=== PATIENT | male | born 1950 | race Caucasian/White ===

== ENCOUNTER 2019-09-08 20:22 | Inpatient (IN) | payer OTHER, MEDICARE, SELFPAY ==
[2019-09-08] VITALS (24 sets, daily range): BP systolic 121–174; BP diastolic 77–92; PULSE 87–100; RESP 13–27; TEMP 36.6; O2SAT 73–97; BMI 29.5
--- NOTE | 2019-09-08 20:25 | ED_ITS ---
Entered by Elisha Kunz, acting as scribe for Renata Sy HPI - Altered Mental Status General: Chief Complaint: Altered Mental Status Stated Complaint: ALTERED MENTAL STATUS Time Seen by Provider: 09/08/19 20:24 Source: patient Mode of arrival: ambulatory Limitations: no limitations History of Present Illness: HPI narrative: 69 yo m came to the er for altered mental status. Onset was a week ago. Ems states that he has been altered mental status for about a week. Pt had eye surgery on his rt eye today. 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, insulin dependent Glaucoma Hyperlipidemia Hypertension TIA (transient ischemic attack) Surgical History (Updated 09/09/19 @ 02:58 by Krysten Lopez MD) History of circumcision History of eye surgery Bilateral due to glaucoma Family History (Updated 09/09/19 @ 03:10 by Krysten Lopez MD) Denies family history of CAD (coronary artery disease) Social History (Updated 09/09/19 @ 03:11 by Krysten Lopez MD) Smoking and tobacco status: former smoker Alcohol intake: never Substance/Drug Use: never Household members: spouse and family Marital status: Physical Exam Const: COMMON NORMALS: no apparent distress, healthy appearing and well nourished EXAM LIMITATIONS: altered mental status and behavioral limitations (Patient talking bizarrely and not cooperative at all times.) GENERAL APPEARANCE: well kempt and well developed ORIENTATION/CONSCIOUSNESS: Yes awake, Yes oriented to person and Yes confused; not oriented to place and not oriented to time HENMT: COMMON NORMALS: normocephalic, head/scalp atraumatic, hearing grossly normal bilaterally, external ears normal, EAC's normal, external nose normal and moist oral mucous membranes HEAD & SCALP: normal to inspection, normocephalic and atraumatic FACE & SINUS: normal facial exam and face symmetric NOSE: external nose normal and nares normal EXTERNAL EAR: Yes external ears normal EXTERNAL AUDITORY CANAL: EAC's normal MOUTH: oral and palatal mucosa normal and tongue normal Eye: COMMON NORMALS: EOMs intact bilaterally GENERAL EYE: other (Right eye with severe macular purulent discharge from the orbit.) Neck/C-Spine: COMMON NORMALS: full ROM, no lymphadenopathy, supple, no meningeal signs and no JVD GENERAL: Yes normal visual inspection and Yes trachea midline CERVICAL SPINE: Yes cervical ROM normal Chest: COMMONS NORMALS: inspection of chest normal and palpation of chest normal Resp: COMMON NORMALS: normal respiratory effort, no retractions, no use of accessory muscles and clear to auscultation bilaterally EFFORT & INSPECTION: Yes able to speak in complete sentences AUSCULTATION: clear to auscultation bilaterally Cardio: COMMON NORMALS: no JVD, regular rate, regular rhythm, S1 normal heart sound, S2 normal heart sound, no gallops, no clicks, no murmurs and no rub JUGULAR VENOUS DISTENTION: no JVD RATE: regular rate RHYTHM: regular rhythm HEART SOUNDS: S1 normal and S2 normal GI: COMMON NORMALS: soft to palpation, non-tender, no hepatosplenomegaly and no masses INSPECTION: Yes normal to inspection PALPATION: Yes soft and Yes no hepatosplenomegaly : COMMON NORMALS: Yes no CVA tenderness BLADDER/KIDNEY EXAM: Yes no CVA tenderness Back/Pelvis: COMMON NORMALS: no CVA tenderness, thoracic and lumbar spine normal to inspection, no thoracic nor lumbar tenderness and thoraco-lumbar ROM normal Extremity: COMMON NORMALS: normal to inspection, full ROM, normal capillary refill, no joint enlargement, no clubbing, cyanosis or edema and no calf tenderness Neuro: COMMON NORMALS: CN's II-XII intact bilaterally, moves all extremities, no focal motor deficits and no sensory deficits noted SENSORIUM/ORIENTATION: Yes oriented to person, No oriented to place and No oriented to time MENINGEAL SIGNS: Yes no meningeal signs Psych: COMMON NORMALS: mental status grossly normal, thought process normal, cooperative, affect normal, speech normal and activity/motor behavior normal APPEARANCE: Yes well kempt SPEECH: Yes normal speech THOUGHT PROCESS: normal thought process Skin: COMMON NORMALS: no rashes or lesions noted, skin turgor normal, no jaundice, no petechiae and no mottling GENERAL SKIN EXAM: no rashes or lesions noted and turgor normal Course Vital Signs: Vital signs: Vital Signs Temperature 97.8 F 09/08/19 20:26 Pulse Rate 107 H 09/09/19 04:36 Respiratory Rate 14 09/09/19 04:36 Blood Pressure 180/98 09/09/19 04:36 Pulse Oximetry 93 09/09/19 02:03 MDM - Altered Mental Status MDM Narrative: Medical decision making narrative: The patient's altered mental status is improving but he still remains somewhat confused. He has positive troponins but they are decreasing and his EKGs do not show any sign of acute infarct. His head CT is normal. I do not see any evidence of meningitis. The case was reviewed at length with Drs. Goodman and Baldo, they will admit and consult respectively. Further care will be dictated by them on inpatient basis. The case was also reviewed with Dr. Bronson and he will see the patient in the hospital. Lab Data: Attestation: I reviewed the patient's lab results. Labs: Lab Results 09/08/19 09/08/19 09/08/19 Range/Units 20:30 20:44 20:53 WBC 11.4 H (4.0-10.0) 10^3/ uL RBC 4.31 (4.1-5.3) 10^6/u L Hgb 13.9 (11.7-16.6) g/dL Hct 41.0 L (42.0-52.0) % MCV 95.1 H (80-94) fL MCH 32.3 (28.0-34.0) pg MCHC 33.9 (30.0-36.0) g/dL RDW 12.3 (12.1-15.1) % Plt Count 250 (130-400) 10^3/c mm MPV 10.0 (7.4-10.4) fL Neut % (Auto) 88.7 % Lymph % (Auto) 6.1 % [place] % (Auto) 4.1 % Eos % (Auto) 0.0 % Baso % (Auto) 0.3 % Neut # (Auto) 10.1 H (1.8-7.7) 10^3/u L Lymph # (Auto) 0.7 L (0.8-4.8) 10^3/u L [place] # (Auto) 0.5 (0.2-0.9) 10^3/u L Eos # (Auto) 0.0 (0.0-0.8) 10^3/u L Baso # (Auto) 0.0 (0.0-0.1) 10^3/u L Nucleated RBC % (a uto) 0 % Nucleated RBCs # 0.0 /100WBC PT (10.5-13.3) SECO NDS INR (0.8-1.2) Specimen Type Arterial Sample Site Radial, right ABG pH 7.41 (7.35-7.45) ABG pCO2 35.7 (35-45) mmHg ABG pO2 70.0 L (80.0-100.0) mmH g ABG HCO3 22.6 (22-26) mmol/L ABG Base Excess -1.6 (-2.0-2.0) mmol/ L Hakan Test Pos Hematocrit 45.4 (42-52) % Fourdrinier Tender ID ellpe Sodium (136-145) mmol/L Potassium (3.5-5.1) mmol/L Chloride (98-107) mmol/L Carbon Dioxide (22-29) mmol/L Anion Gap (5-19) BUN (8-23) mg/dL Creatinine (0.7-1.2) mg/dL Glucose (65-115) mg/dL POC Glucose 229 (70-110) mg/dL Estimat Average Gl ucose Hemoglobin A1c (4.0-6.0) % Lactic Acid (0.5-2.2) mmol/L Lactic Acid (Sepsi s) (0.5-2.2) mmol/L Calcium (8.5-10.5) mg/dL Magnesium (1.7-2.3) mg/dL Total Bilirubin (0.15-1.2) mg/dL AST (0-40) U/L ALT (0-41) U/L Alkaline Phosphata se (40-130) IU/L Ammonia (16-60) umol/L Troponin I 6 Hour (0-15) ng/mL Troponin I Hi Sens Del (0-12) ng/L Troponin T Baselin e (0-15) ng/mL Troponin T 120 Min huslia (0-15) ng/mL Delta Troponin T (0-10) ABS# NT-Pro-B Natriuret Pep (0-125) pg/mL Total Protein (6.6-8.7) g/dL Albumin (3.5-5.2) g/dL Globulin (1.3-4.6) g/dL Triglycerides (0-150) mg/dL Cholesterol (0-200) mg/dL LDL Cholesterol, C alc (50-129) mg/dL HDL Cholesterol (60-100) mg/dL LDL/HDL Ratio (0.00-3.22) RATI O Cholesterol/HDL Ra og (1.0-5.00) mg/dL Urine Color (Yellow) Urine Appearance (CLEAR) Urine pH (5-7) Ur Specific Gravit y (1.005-1.030) Urine Protein (Negative) Urine Glucose (UA) (Normal) Urine Ketones (Negative) Urine Blood (Negative) Urine Nitrate (Negative) Urine Bilirubin (NEGATIVE) Urine Urobilinogen (Negative) mg/dL Ur Leukocyte Lashae ase (Negative) Urine RBC (0-2) /hpf Urine WBC (0-5) /hpf Ur Squamous Epith Cells (0-5) Urine Bacteria (NONE) Hyaline Casts Urine Opiates Scre en (Negative) ng/mL Ur Barbiturates Sc reen (Negative) ng/mL Ur Phencyclidine S crn (Negative) ng/mL Ur Amphetamines Sc reen (Negative) ng/mL U Benzodiazepines Scrn (Negative) ng/mL Urine Cocaine Scre en (Negative) ng/mL U Marijuana (THC) Screen (Negative) ng/mL Ethyl Alcohol (0-10) mg/dL Influenza Type A A g (Negative) POC Influenza B Ag (Negative) 09/08/19 09/08/19 09/08/19 Range/Units 20:53 20:53 20:53 WBC (4.0-10.0) 10^3/ uL RBC (4.1-5.3) 10^6/u L Hgb (11.7-16.6) g/dL Hct (42.0-52.0) % MCV (80-94) fL MCH (28.0-34.0) pg MCHC (30.0-36.0) g/dL RDW (12.1-15.1) % Plt Count (130-400) 10^3/c mm MPV (7.4-10.4) fL Neut % (Auto) % Lymph % (Auto) % [place] % (Auto) % Eos % (Auto) % Baso % (Auto) % Neut # (Auto) (1.8-7.7) 10^3/u L Lymph # (Auto) (0.8-4.8) 10^3/u L [place] # (Auto) (0.2-0.9) 10^3/u L Eos # (Auto) (0.0-0.8) 10^3/u L Baso # (Auto) (0.0-0.1) 10^3/u L Nucleated RBC % (a uto) % Nucleated RBCs # /100WBC PT 14.10 H (10.5-13.3) SECO NDS INR 1.06 (0.8-1.2) Specimen Type Sample Site ABG pH (7.35-7.45) ABG pCO2 (35-45) mmHg ABG pO2 (80.0-100.0) mmH g ABG HCO3 (22-26) mmol/L ABG Base Excess (-2.0-2.0) mmol/ L Hakan Test Hematocrit (42-52) % Fourdrinier Tender ID Sodium 134 L (136-145) mmol/L Potassium 4.3 (3.5-5.1) mmol/L Chloride 95 L (98-107) mmol/L Carbon Dioxide 23 (22-29) mmol/L Anion Gap 20.3 H (5-19) BUN 28 H (8-23) mg/dL Creatinine 1.2 (0.7-1.2) mg/dL Glucose 260 H (65-115) mg/dL POC Glucose (70-110) mg/dL Estimat Average Gl ucose Hemoglobin A1c (4.0-6.0) % Lactic Acid 2.2 (0.5-2.2) mmol/L Lactic Acid (Sepsi s) (0.5-2.2) mmol/L Calcium 9.6 (8.5-10.5) mg/dL Magnesium 2.1 (1.7-2.3) mg/dL Total Bilirubin 0.4 (0.15-1.2) mg/dL AST 28 (0-40) U/L ALT 28 (0-41) U/L Alkaline Phosphata se 97 (40-130) IU/L Ammonia (16-60) umol/L Troponin I 6 Hour (0-15) ng/mL Troponin I Hi Sens Del (0-12) ng/L Troponin T Baselin e (0-15) ng/mL Troponin T 120 Min huslia (0-15) ng/mL Delta Troponin T (0-10) ABS# NT-Pro-B Natriuret Pep (0-125) pg/mL Total Protein 8.2 (6.6-8.7) g/dL Albumin 4.5 (3.5-5.2) g/dL Globulin 3.7 (1.3-4.6) g/dL Triglycerides (0-150) mg/dL Cholesterol (0-200) mg/dL LDL Cholesterol, C alc (50-129) mg/dL HDL Cholesterol (60-100) mg/dL LDL/HDL Ratio (0.00-3.22) RATI O Cholesterol/HDL Ra og (1.0-5.00) mg/dL Urine Color (Yellow) Urine Appearance (CLEAR) Urine pH (5-7) Ur Specific Gravit y (1.005-1.030) Urine Protein (Negative) Urine Glucose (UA) (Normal) Urine Ketones (Negative) Urine Blood (Negative) Urine Nitrate (Negative) Urine Bilirubin (NEGATIVE) Urine Urobilinogen (Negative) mg/dL Ur Leukocyte Lashae ase (Negative) Urine RBC (0-2) /hpf Urine WBC (0-5) /hpf Ur Squamous Epith Cells (0-5) Urine Bacteria (NONE) Hyaline Casts Urine Opiates Scre en (Negative) ng/mL Ur Barbiturates Sc reen (Negative) ng/mL Ur Phencyclidine S crn (Negative) ng/mL Ur Amphetamines Sc reen (Negative) ng/mL U Benzodiazepines Scrn (Negative) ng/mL Urine Cocaine Scre en (Negative) ng/mL U Marijuana (THC) Screen (Negative) ng/mL Ethyl Alcohol < 10 (0-10) mg/dL Influenza Type A A g (Negative) POC Influenza B Ag (Negative) 09/08/19 09/08/19 09/08/19 Range/Units 20:53 20:53 21:40 WBC (4.0-10.0) 10^3/ uL RBC (4.1-5.3) 10^6/u L Hgb (11.7-16.6) g/dL Hct (42.0-52.0) % MCV (80-94) fL MCH (28.0-34.0) pg MCHC (30.0-36.0) g/dL RDW (12.1-15.1) % Plt Count (130-400) 10^3/c mm MPV (7.4-10.4) fL Neut % (Auto) % Lymph % (Auto) % [place] % (Auto) % Eos % (Auto) % Baso % (Auto) % Neut # (Auto) (1.8-7.7) 10^3/u L Lymph # (Auto) (0.8-4.8) 10^3/u L [place] # (Auto) (0.2-0.9) 10^3/u L Eos # (Auto) (0.0-0.8) 10^3/u L Baso # (Auto) (0.0-0.1) 10^3/u L Nucleated RBC % (a uto) % Nucleated RBCs # /100WBC PT (10.5-13.3) SECO NDS INR (0.8-1.2) Specimen Type Sample Site ABG pH (7.35-7.45) ABG pCO2 (35-45) mmHg ABG pO2 (80.0-100.0) mmH g ABG HCO3 (22-26) mmol/L ABG Base Excess (-2.0-2.0) mmol/ L Hakan Test Hematocrit (42-52) % Fourdrinier Tender ID Sodium (136-145) mmol/L Potassium (3.5-5.1) mmol/L Chloride (98-107) mmol/L Carbon Dioxide (22-29) mmol/L Anion Gap (5-19) BUN (8-23) mg/dL Creatinine (0.7-1.2) mg/dL Glucose (65-115) mg/dL POC Glucose (70-110) mg/dL Estimat Average Gl ucose Hemoglobin A1c (4.0-6.0) % Lactic Acid (0.5-2.2) mmol/L Lactic Acid (Sepsi s) (0.5-2.2) mmol/L Calcium (8.5-10.5) mg/dL Magnesium (1.7-2.3) mg/dL Total Bilirubin (0.15-1.2) mg/dL AST (0-40) U/L ALT (0-41) U/L Alkaline Phosphata se (40-130) IU/L Ammonia 14 L (16-60) umol/L Troponin I 6 Hour (0-15) ng/mL Troponin I Hi Sens Del (0-12) ng/L Troponin T Baselin e 169 H* (0-15) ng/mL Troponin T 120 Min huslia (0-15) ng/mL Delta Troponin T (0-10) ABS# NT-Pro-B Natriuret Pep (0-125) pg/mL Total Protein (6.6-8.7) g/dL Albumin (3.5-5.2) g/dL Globulin (1.3-4.6) g/dL Triglycerides (0-150) mg/dL Cholesterol (0-200) mg/dL LDL Cholesterol, C alc (50-129) mg/dL HDL Cholesterol (60-100) mg/dL LDL/HDL Ratio (0.00-3.22) RATI O Cholesterol/HDL Ra og (1.0-5.00) mg/dL Urine Color (Yellow) Urine Appearance (CLEAR) Urine pH (5-7) Ur Specific Gravit y (1.005-1.030) Urine Protein (Negative) Urine Glucose (UA) (Normal) Urine Ketones (Negative) Urine Blood (Negative) Urine Nitrate (Negative) Urine Bilirubin (NEGATIVE) Urine Urobilinogen (Negative) mg/dL Ur Leukocyte Lashae ase (Negative) Urine RBC (0-2) /hpf Urine WBC (0-5) /hpf Ur Squamous Epith Cells (0-5) Urine Bacteria (NONE) Hyaline Casts Urine Opiates Scre en (Negative) ng/mL Ur Barbiturates Sc reen (Negative) ng/mL Ur Phencyclidine S crn (Negative) ng/mL Ur Amphetamines Sc reen (Negative) ng/mL U Benzodiazepines Scrn (Negative) ng/mL Urine Cocaine Scre en (Negative) ng/mL U Marijuana (THC) Screen (Negative) ng/mL Ethyl Alcohol (0-10) mg/dL Influenza Type A A g Negative (Negative) POC Influenza B Ag Negative (Negative) 09/08/19 09/08/19 09/08/19 Range/Units 22:10 22:10 23:06 WBC (4.0-10.0) 10^3/ uL RBC (4.1-5.3) 10^6/u L Hgb (11.7-16.6) g/dL Hct (42.0-52.0) % MCV (80-94) fL MCH (28.0-34.0) pg MCHC (30.0-36.0) g/dL RDW (12.1-15.1) % Plt Count (130-400) 10^3/c mm MPV (7.4-10.4) fL Neut % (Auto) % Lymph % (Auto) % [place] % (Auto) % Eos % (Auto) % Baso % (Auto) % Neut # (Auto) (1.8-7.7) 10^3/u L Lymph # (Auto) (0.8-4.8) 10^3/u L [place] # (Auto) (0.2-0.9) 10^3/u L Eos # (Auto) (0.0-0.8) 10^3/u L Baso # (Auto) (0.0-0.1) 10^3/u L Nucleated RBC % (a uto) % Nucleated RBCs # /100WBC PT (10.5-13.3) SECO NDS INR (0.8-1.2) Specimen Type Sample Site ABG pH (7.35-7.45) ABG pCO2 (35-45) mmHg ABG pO2 (80.0-100.0) mmH g ABG HCO3 (22-26) mmol/L ABG Base Excess (-2.0-2.0) mmol/ L Hakan Test Hematocrit (42-52) % Fourdrinier Tender ID Sodium (136-145) mmol/L Potassium (3.5-5.1) mmol/L Chloride (98-107) mmol/L Carbon Dioxide (22-29) mmol/L Anion Gap (5-19) BUN (8-23) mg/dL Creatinine (0.7-1.2) mg/dL Glucose (65-115) mg/dL POC Glucose (70-110) mg/dL Estimat Average Gl ucose Hemoglobin A1c (4.0-6.0) % Lactic Acid (0.5-2.2) mmol/L Lactic Acid (Sepsi s) (0.5-2.2) mmol/L Calcium (8.5-10.5) mg/dL Magnesium (1.7-2.3) mg/dL Total Bilirubin (0.15-1.2) mg/dL AST (0-40) U/L ALT (0-41) U/L Alkaline Phosphata se (40-130) IU/L Ammonia (16-60) umol/L Troponin I 6 Hour (0-15) ng/mL Troponin I Hi Sens Del (0-12) ng/L Troponin T Baselin e (0-15) ng/mL Troponin T 120 Min huslia 145.2 H (0-15) ng/mL Delta Troponin T -23.8 L (0-10) ABS# NT-Pro-B Natriuret Pep (0-125) pg/mL Total Protein (6.6-8.7) g/dL Albumin (3.5-5.2) g/dL Globulin (1.3-4.6) g/dL Triglycerides (0-150) mg/dL Cholesterol (0-200) mg/dL LDL Cholesterol, C alc (50-129) mg/dL HDL Cholesterol (60-100) mg/dL LDL/HDL Ratio (0.00-3.22) RATI O Cholesterol/HDL Ra og (1.0-5.00) mg/dL Urine Color Yellow (Yellow) Urine Appearance Sl hazy (CLEAR) Urine pH 5 (5-7) Ur Specific Gravit y 1.015 (1.005-1.030) Urine Protein Trace (Negative) Urine Glucose (UA) 4+ H (Normal) Urine Ketones 1+ H (Negative) Urine Blood Neg (Negative) Urine Nitrate Negative (Negative) Urine Bilirubin Neg (NEGATIVE) Urine Urobilinogen Norm (Negative) mg/dL Ur Leukocyte Lashae ase Negative (Negative) Urine RBC None (0-2) /hpf Urine WBC None (0-5) /hpf Ur Squamous Epith Cells None (0-5) Urine Bacteria 3+ H (NONE) Hyaline Casts 5-10 H Urine Opiates Scre en Negative (Negative) ng/mL Ur Barbiturates Sc reen Negative (Negative) ng/mL Ur Phencyclidine S crn Negative (Negative) ng/mL Ur Amphetamines Sc reen Negative (Negative) ng/mL U Benzodiazepines Scrn Negative (Negative) ng/mL Urine Cocaine Scre en Negative (Negative) ng/mL U Marijuana (THC) Screen Negative (Negative) ng/mL Ethyl Alcohol (0-10) mg/dL Influenza Type A A g (Negative) POC Influenza B Ag (Negative) 09/08/19 09/09/19 09/09/19 Range/Units 23:06 02:16 04:05 WBC (4.0-10.0) 10^3/ uL RBC (4.1-5.3) 10^6/u L Hgb (11.7-16.6) g/dL Hct (42.0-52.0) % MCV (80-94) fL MCH (28.0-34.0) pg MCHC (30.0-36.0) g/dL RDW (12.1-15.1) % Plt Count (130-400) 10^3/c mm MPV (7.4-10.4) fL Neut % (Auto) % Lymph % (Auto) % [place] % (Auto) % Eos % (Auto) % Baso % (Auto) % Neut # (Auto) (1.8-7.7) 10^3/u L Lymph # (Auto) (0.8-4.8) 10^3/u L [place] # (Auto) (0.2-0.9) 10^3/u L Eos # (Auto) (0.0-0.8) 10^3/u L Baso # (Auto) (0.0-0.1) 10^3/u L Nucleated RBC % (a uto) % Nucleated RBCs # /100WBC PT (10.5-13.3) SECO NDS INR (0.8-1.2) Specimen Type Sample Site ABG pH (7.35-7.45) ABG pCO2 (35-45) mmHg ABG pO2 (80.0-100.0) mmH g ABG HCO3 (22-26) mmol/L ABG Base Excess (-2.0-2.0) mmol/ L Hakan Test Hematocrit (42-52) % Fourdrinier Tender ID Sodium (136-145) mmol/L Potassium (3.5-5.1) mmol/L Chloride (98-107) mmol/L Carbon Dioxide (22-29) mmol/L Anion Gap (5-19) BUN (8-23) mg/dL Creatinine (0.7-1.2) mg/dL Glucose (65-115) mg/dL POC Glucose (70-110) mg/dL Estimat Average Gl ucose Hemoglobin A1c (4.0-6.0) % Lactic Acid (0.5-2.2) mmol/L Lactic Acid (Sepsi s) 1.8 (0.5-2.2) mmol/L Calcium (8.5-10.5) mg/dL Magnesium (1.7-2.3) mg/dL Total Bilirubin (0.15-1.2) mg/dL AST (0-40) U/L ALT (0-41) U/L Alkaline Phosphata se (40-130) IU/L Ammonia (16-60) umol/L Troponin I 6 Hour 107.5 H (0-15) ng/mL Troponin I Hi Sens Del -61.5 L (0-12) ng/L Troponin T Baselin e (0-15) ng/mL Troponin T 120 Min huslia (0-15) ng/mL Delta Troponin T (0-10) ABS# NT-Pro-B Natriuret Pep 2928 H (0-125) pg/mL Total Protein (6.6-8.7) g/dL Albumin (3.5-5.2) g/dL Globulin (1.3-4.6) g/dL Triglycerides 70 (0-150) mg/dL Cholesterol 148 (0-200) mg/dL LDL Cholesterol, C alc 92 (50-129) mg/dL HDL Cholesterol 42 L (60-100) mg/dL LDL/HDL Ratio 2.19 (0.00-3.22) RATI O Cholesterol/HDL Ra og 3.52 (1.0-5.00) mg/dL Urine Color (Yellow) Urine Appearance (CLEAR) Urine pH (5-7) Ur Specific Gravit y (1.005-1.030) Urine Protein (Negative) Urine Glucose (UA) (Normal) Urine Ketones (Negative) Urine Blood (Negative) Urine Nitrate (Negative) Urine Bilirubin (NEGATIVE) Urine Urobilinogen (Negative) mg/dL Ur Leukocyte Lashae ase (Negative) Urine RBC (0-2) /hpf Urine WBC (0-5) /hpf Ur Squamous Epith Cells (0-5) Urine Bacteria (NONE) Hyaline Casts Urine Opiates Scre en (Negative) ng/mL Ur Barbiturates Sc reen (Negative) ng/mL Ur Phencyclidine S crn (Negative) ng/mL Ur Amphetamines Sc reen (Negative) ng/mL U Benzodiazepines Scrn (Negative) ng/mL Urine Cocaine Scre en (Negative) ng/mL U Marijuana (THC) Screen (Negative) ng/mL Ethyl Alcohol (0-10) mg/dL Influenza Type A A g (Negative) POC Influenza B Ag (Negative) 09/09/19 Range/Units 04:05 WBC (4.0-10.0) 10^3/ uL RBC (4.1-5.3) 10^6/u L Hgb (11.7-16.6) g/dL Hct (42.0-52.0) % MCV (80-94) fL MCH (28.0-34.0) pg MCHC (30.0-36.0) g/dL RDW (12.1-15.1) % Plt Count (130-400) 10^3/c mm MPV (7.4-10.4) fL Neut % (Auto) % Lymph % (Auto) % [place] % (Auto) % Eos % (Auto) % Baso % (Auto) % Neut # (Auto) (1.8-7.7) 10^3/u L Lymph # (Auto) (0.8-4.8) 10^3/u L [place] # (Auto) (0.2-0.9) 10^3/u L Eos # (Auto) (0.0-0.8) 10^3/u L Baso # (Auto) (0.0-0.1) 10^3/u L Nucleated RBC % (a uto) % Nucleated RBCs # /100WBC PT (10.5-13.3) SECO NDS INR (0.8-1.2) Specimen Type Sample Site ABG pH (7.35-7.45) ABG pCO2 (35-45) mmHg ABG pO2 (80.0-100.0) mmH g ABG HCO3 (22-26) mmol/L ABG Base Excess (-2.0-2.0) mmol/ L Hakan Test Hematocrit (42-52) % Fourdrinier Tender ID Sodium (136-145) mmol/L Potassium (3.5-5.1) mmol/L Chloride (98-107) mmol/L Carbon Dioxide (22-29) mmol/L Anion Gap (5-19) BUN (8-23) mg/dL Creatinine (0.7-1.2) mg/dL Glucose (65-115) mg/dL POC Glucose (70-110) mg/dL Estimat Average Gl ucose 209 Hemoglobin A1c 8.9 H (4.0-6.0) % Lactic Acid (0.5-2.2) mmol/L Lactic Acid (Sepsi s) (0.5-2.2) mmol/L Calcium (8.5-10.5) mg/dL Magnesium (1.7-2.3) mg/dL Total Bilirubin (0.15-1.2) mg/dL AST (0-40) U/L ALT (0-41) U/L Alkaline Phosphata se (40-130) IU/L Ammonia (16-60) umol/L Troponin I 6 Hour (0-15) ng/mL Troponin I Hi Sens Del (0-12) ng/L Troponin T Baselin e (0-15) ng/mL Troponin T 120 Min huslia (0-15) ng/mL Delta Troponin T (0-10) ABS# NT-Pro-B Natriuret Pep (0-125) pg/mL Total Protein (6.6-8.7) g/dL Albumin (3.5-5.2) g/dL Globulin (1.3-4.6) g/dL Triglycerides (0-150) mg/dL Cholesterol (0-200) mg/dL LDL Cholesterol, C alc (50-129) mg/dL HDL Cholesterol (60-100) mg/dL LDL/HDL Ratio (0.00-3.22) RATI O Cholesterol/HDL Ra og (1.0-5.00) mg/dL Urine Color (Yellow) Urine Appearance (CLEAR) Urine pH (5-7) Ur Specific Gravit y (1.005-1.030) Urine Protein (Negative) Urine Glucose (UA) (Normal) Urine Ketones (Negative) Urine Blood (Negative) Urine Nitrate (Negative) Urine Bilirubin (NEGATIVE) Urine Urobilinogen (Negative) mg/dL Ur Leukocyte Lashae ase (Negative) Urine RBC (0-2) /hpf Urine WBC (0-5) /hpf Ur Squamous Epith Cells (0-5) Urine Bacteria (NONE) Hyaline Casts Urine Opiates Scre en (Negative) ng/mL Ur Barbiturates Sc reen (Negative) ng/mL Ur Phencyclidine S crn (Negative) ng/mL Ur Amphetamines Sc reen (Negative) ng/mL U Benzodiazepines Scrn (Negative) ng/mL Urine Cocaine Scre en (Negative) ng/mL U Marijuana (THC) Screen (Negative) ng/mL Ethyl Alcohol (0-10) mg/dL Influenza Type A A g (Negative) POC Influenza B Ag (Negative) Imaging Data^: CT Head: Radiologist's impression: [place] [address] CT Scan Report Signed Patient: Adan Zamudio #: [id number] : 9Acc#:[id number] Age/Sex: 69 / MADM Date: 09/08/19 Loc: ERRoom/Bed: Attending Dr: Ordering Provider/Ordering MD: Renata Sy DO Date of Service: 09/08/19 Procedure(s): CT head wo con* [id number] Accession Number(s): [id number] Report Number: [id number] PROCEDURE INFORMATION: Exam: CT Head Without Contrast Exam date and time: 09/08/2019 8:46 PM Age: 69 years old Clinical indication: Altered mental status/memory loss; Confusion or disorientation; Additional info: Alfaro/ams TECHNIQUE: Imaging protocol: Computed tomography of the head without contrast. Total DLP: 1368.29 mGy-cm Radiation optimization: All CT scans at this facility use at least one of these dose optimization techniques: automated exposure control; mA and/or kV adjustment per patient size (includes targeted exams where dose is matched to clinical indication); or iterative reconstruction. COMPARISON: No relevant prior studies available. FINDINGS: Brain: Diffuse moderate cerebral age related volume loss. Moderate patchy low attenuation in the white matter compatible with moderate chronic small vessel ischemic disease. No midline shift, mass, fluid collection, or evidence of hemorrhage. Ventricles: Ventricular enlargement proportional to volume loss. Bones/joints: Unremarkable. No acute fracture. Sinuses: Visualized sinuses are unremarkable. No fluid levels. Mastoid air cells: Visualized mastoid air cells are well aerated. Soft tissues: Unremarkable. CT/CT head wo con* [id number] IMPRESSION: Moderate involutional changes, no acute intracranial abnormality. Radiation Dose CTDIVOL = (mGy): DLP = 1368.29 (mGy-cm) Dictated By:Alexander Enriquez MD Signed By:Alexander Enriquez MDSigned Date/Time:09/08/192140 DD/ 39 CT Chest: Radiologist's impression: [place] [address] CT Scan Report Signed Patient: Adan Zamudio #: [id number] : 9Acct#:[id number] Age/Sex: 69 / MADM Date: 09/08/19 Loc: ERRoom/Bed: Attending Dr: Ordering Provider/Ordering MD: Krysten Lopez MD Date of Service: 09/09/19 Procedure(s): CT chest wo con [id number] Accession Number(s): [id number] Report Number: [id number] PROCEDURE INFORMATION: Exam: CT Chest Without Contrast Exam date and time: 09/09/2019 12:47 AM Age: 69 years old Clinical indication: Chest pain; On breathing; Additional info: Pain, cpr today, rib fractures TECHNIQUE: Imaging protocol: Computed tomography of the chest without contrast. Total DLP: 1042.24 mGy-cm Radiation optimization: All CT scans at this facility use at least one of these dose optimization techniques: automated exposure control; mA and/or kV adjustment per patient size (includes targeted exams where dose is matched to clinical indication); or iterative reconstruction. COMPARISON: CR XR chest 1V portable [id number] 09/09/2019 12:20 AM FINDINGS: Lungs: There is a benign calcified granuloma in the right upper lobe. There is no consolidation. Pleural space: There is no pleural effusion or pneumothorax. Heart: There is no pericardial effusion. There is moderate coronary artery calcification. Mediastinum: Trace edema in the lower anterior mediastinum. No significant hematoma. There is a small sliding-type hiatal hernia. Aorta: There is moderate aortic atherosclerotic disease. Lymph nodes: There is no mediastinal or hilar lymphadenopathy. Kidneys and ureters: There is a simple cyst in the right kidney. Bones/joints: There are subtle acute nondisplaced fractures of the anterolateral right 4th, 5th, 6th and 7th ribs. There are multiple chronic left posterior rib fractures. There are acute nondisplaced fractures of the anterolateral left 4th, 5th, 6th, and probably 7th ribs. Soft tissues: The extrathoracic soft tissues are unremarkable. CT/CT chest wo con [id number] IMPRESSION: 1. Bilateral nondisplaced acute 4th through 7th rib fractures. 2. No pneumothorax. No sign of significant pulmonary contusion. Radiation Dose CTDIVOL = (mGy): DLP = 1042.24 (mGy-cm) Dictated By:Lazaro Levine MD Signed By:Lazaro Levineigned Date/Time:09/09/19215 DD/ 4 EKG Data^: EKG 1: Attestation: I personally reviewed and interpreted this EKG as follows: EKG interpretation date: 09/09/19 EKG interpretation time: 20:42 Interpretation: Normal sinus rhythm at 92 beats a minute, nonspecific ST and T wave changes. EKG 2: Attestation: I personally reviewed and interpreted this EKG as follows: EKG interpretation date: 09/09/19 EKG interpretation time: 22:19 Interpretation: Normal sinus rhythm at 92 beats a minute, nonspecific ST and T wave changes. Discharge Plan Discharge Patient Disposition: Admitted As Inpatient Clinical Impression: Non-ST elevation (NSTEMI) myocardial infarction Altered mental status Qualifiers: Altered mental status type: disorientation Qualified Code(s): R41.0 - Disorientation, unspecified Condition: Stable Referrals: Tomasz Eduardo [Primary Care Provider] - Coding Level of Care Code ED Lime Slaker for Chg Fwd Exam Comprehensive The documentation recorded by the Ze bryant Stephanie Lyn, accurately reflects the service I personally performed and the decisions made by Yossi graff Eli N Sep 08, 2019 20:22
--- NOTE | 2019-09-08 20:28 | XR_ITS ---
WS: [id number] Portable AP upright chest, 09/08/2019 Clinical Data: cough Comparison: Portable chest, 06/26/2018. Findings: No nodules, masses or effusions are seen. The pulmonary vascularity is not increased. No p neumonia or pneumothorax is seen. The patient has a poor inspiratory effort which accentuates the hea rt size. There are old left second and third rib fractures. XR/XR chest 1V portable [id number] Impression: History for acute cardiopulmonary disease.
--- NOTE | 2019-09-08 20:29 | ECG_ITS ---
Measurements Intervals [place] Rate: 92 P: 39 KS: 185 QRS: 16 QRSD: 97 T: -6 QT: 344 QTc: 427 SINUS RHYTHM NONSPECIFIC T-WAVE ABNORMALITY Compared to ECG 06/26/2018 12:28:24 T-wave abnormality now present Sinus bradycardia no longer present Prolonged QT interval no longer present Electronically Signed On 09-09-2019 19:35:30 FINANCIAL SERVICE REPRESENTATIVE by Geraldine Bronson M.D. [id number]
--- NOTE | 2019-09-08 20:29 | CTR_ITS ---
PROCEDURE INFORMATION: Exam: CT Head Without Contrast Exam date and time: 09/08/2019 8:46 PM Age: 69 years old Clinical indication: Altered mental status/memory loss; Confusion or disorientation; Additional info: Alfaro/ams TECHNIQUE: Imaging protocol: Computed tomography of the head without contrast. Total DLP: 1368.29 mGy-cm Radiation optimization: All CT scans at this facility use at least one of these dose optimization techniques: automated exposure control; mA and/or kV adjustment per patient size (includes targeted exams where dose is matched to clinical indication); or iterative reconstruction. COMPARISON: No relevant prior studies available. FINDINGS: Brain: Diffuse moderate cerebral age related volume loss. Moderate patchy low attenuation in the white matter compatible with moderate chronic small vessel ischemic disease. No midline shift, mass, fluid collection, or evidence of hemorrhage. Ventricles: Ventricular enlargement proportional to volume loss. Bones/joints: Unremarkable. No acute fracture. Sinuses: Visualized sinuses are unremarkable. No fluid levels. Mastoid air cells: Visualized mastoid air cells are well aerated. Soft tissues: Unremarkable. CT/CT head wo con* [id number] IMPRESSION: Moderate involutional changes, no acute intracranial abnormality. Radiation Dose CTDIVOL = (mGy): DLP = 1368.29 (mGy-cm)
[2019-09-08 20:39] LABS: ABG PCO2 35.7 mmHg (35-45); ABG PH Result 7.41 (7.35-7.45); Arterial Blood Gas Hematocrit 45.4 % (42-52); Base Excess ABG -1.6 mmol/L (-2.0-2.0); Blood Gas Allen Test Pos; Blood Gas Sample Site Radial, right; Blood Gas Sample Type Arterial; HCO3 ABG 22.6 mmol/L (22-26)
[2019-09-08 20:50] LABS: Glucose Point of Care 229 mg/dL (70-110)
[2019-09-08] MEDS: sodium chloride 0.9% 1,000 ML 100 ML IV (20:51)
[2019-09-08] MEDS: ondansetron 2 mg/ML SDV 2 mL 4 MG IVP (20:51)
[2019-09-08] MEDS: levofloxacin-dextrose 5 % 750 MG/150 ML PREMIX 150 MG IV (20:52)
[2019-09-08 21:02] LABS: Basophils % 0.3 %; Hemoglobin 13.9 g/dL (11.7-16.6); Lymphocytes # 0.7 10^3/uL (0.8-4.8); Lymphocytes % 6.1 %; Mean Corpuscular HGB Conc 33.9 g/dL (30.0-36.0); Mean Corpuscular Hemoglobin 32.3 pg (28.0-34.0); Mean Corpuscular Volume 95.1 fL (80-94); Monocytes # 0.5 10^3/uL (0.2-0.9); Monocytes % 4.1 %; Neutrophils # 10.1 10^3/uL (1.8-7.7); Neutrophils % 88.7 %; Nucleated Red Blood Cells % 0 %; Platelet Count 250 10^3/cmm (130-400); Red Blood Count 4.31 10^6/uL (4.1-5.3); Red Cell Distribution Width 12.3 % (12.1-15.1); White Blood Count 11.4 10^3/uL (4.0-10.0)
[2019-09-08 21:13] LABS: INR 1.06 (0.8-1.2)
[2019-09-08 21:20] LABS: Alanine Aminotransferase 28 U/L (0-41); Albumin Level 4.5 g/dL (3.5-5.2); Alkaline Phosphatase 97 IU/L (40-130); Anion Gap 20.3 (5-19); Aspartate Amino Transferase 28 U/L (0-40); Blood Urea Nitrogen 28 mg/dL (8-23); Calcium 9.6 mg/dL (8.5-10.5); Carbon Dioxide 23 mmol/L (22-29); Chloride 95 mmol/L (98-107); Globulin 3.7 g/dL (1.3-4.6); Glucose 260 mg/dL (65-115); Magnesium 2.1 mg/dL (1.7-2.3); Potassium 4.3 mmol/L (3.5-5.1); Sodium 134 mmol/L (136-145); Total Bilirubin 0.4 mg/dL (0.15-1.2); Total Protein 8.2 g/dL (6.6-8.7)
[2019-09-08 21:22] LABS: Lactic Sepsis W/Reflex 2.2 mmol/L (0.5-2.2)
[2019-09-08 21:39] LABS: Alcohol Level < 10 mg/dL (0-10)
[2019-09-08 21:40] LABS: Troponin(5th) Baseline 169 ng/mL (0-15)
[2019-09-08 22:25] LABS: Bilirubin Urine Neg (NEGATIVE); Blood Urine Neg (Negative); Glucose Urine UA 4+ (Normal); Ketones Urine 1+ (Negative); Leukocyte Esterase Urine Negative (Negative); Nitrate Urine Negative (Negative); Protein Urine Trace (Negative); Specific Gravity, Urine 1.015 (1.005-1.030); Urine Appearance SL Hazy (CLEAR); Urine Color Yellow (Yellow); Urobilinogen Urine Norm (Negative); pH Urine 5 (5-7)
[2019-09-08 22:27] LABS: Influenza A by IFA Negative (Negative); Influenza B by IFA Negative (Negative)
--- NOTE | 2019-09-08 22:29 | ECG_ITS ---
Measurements Intervals [place] Rate: 92 P: 56 NJ: 200 QRS: 43 QRSD: 102 T: 31 QT: 355 QTc: [address] DEPRESSION [0.05+ mV ST DEPRESSION] Compared to ECG 06/26/2018 12:28:24 ST (T wave) deviation now present Sinus bradycardia no longer present Prolonged QT interval no longer present Electronically Signed On 09-09-2019 19:47:56 INTERIOR DESIGN PROFESSOR by Geraldine Bronson M.D. [id number]
[2019-09-08 22:30] LABS: Amphetamines Screen Urine Negative (Negative); Barbiturates Screen Urine Negative (Negative); Benzodiazepines Screen Urine Negative (Negative); Cocaine Screen Urine Negative (Negative); Opiate Screen Urine Negative (Negative); PCP Screen Urine Negative (Negative); THC Screen Urine Negative (Negative)
[2019-09-08 22:31] LABS: Bacteria Urine 3+
[2019-09-08 22:41] LABS: Ammonia 14 umol/L (16-60)
[2019-09-08 22:59] LABS: Reflex Lactate Order REFLEX LACTIC ORDERD
[2019-09-08 23:23] LABS: Lactic Acid level (Lactate) 1.8 mmol/L (0.5-2.2)
[2019-09-08 23:38] LABS: Troponin 5 2HR 145.2 ng/mL (0-15); Troponin 5 2HR Delta -23.8 ABS# (0-10)
[2019-09-08] MEDS: aspirin 325 mg Tablet PO (23:45)
[2019-09-08] MEDS: nitroglycerin 1 gm/inch oint Pkt 1 INCH TOPICAL (23:46)
[2019-09-09] VITALS (38 sets, daily range): BP systolic 89–194; BP diastolic 48–115; PULSE 69–129; RESP 14–38; TEMP 37.7; O2SAT 93–98
--- NOTE | 2019-09-09 00:18 | XR_ITS ---
WS: [id number] Portable AP upright chest, 09/09/2019 Clinical Data: cough Comparison: Portable chest, 09/08/2019 Findings: No nodules, masses or effusions are seen. The heart is normal. The pulmonary vascularity is not increased. No pneumonia or pneumothorax is seen. There is minimal patchy atelectasis at the left costophrenic angle. The aortic arch is minimally tortuous. XR/XR chest 1V portable [id number] Impression: Atherosclerosis and left basilar atelectasis.
--- NOTE | 2019-09-09 00:42 | CTR_ITS ---
PROCEDURE INFORMATION: Exam: CT Chest Without Contrast Exam date and time: 09/09/2019 12:47 AM Age: 69 years old Clinical indication: Chest pain; On breathing; Additional info: Pain, cpr today, rib fractures TECHNIQUE: Imaging protocol: Computed tomography of the chest without contrast. Total DLP: 1042.24 mGy-cm Radiation optimization: All CT scans at this facility use at least one of these dose optimization techniques: automated exposure control; mA and/or kV adjustment per patient size (includes targeted exams where dose is matched to clinical indication); or iterative reconstruction. COMPARISON: CR XR chest 1V portable [id number] 09/09/2019 12:20 AM FINDINGS: Lungs: There is a benign calcified granuloma in the right upper lobe. There is no consolidation. Pleural space: There is no pleural effusion or pneumothorax. Heart: There is no pericardial effusion. There is moderate coronary artery calcification. Mediastinum: Trace edema in the lower anterior mediastinum. No significant hematoma. There is a small sliding-type hiatal hernia. Aorta: There is moderate aortic atherosclerotic disease. Lymph nodes: There is no mediastinal or hilar lymphadenopathy. Kidneys and ureters: There is a simple cyst in the right kidney. Bones/joints: There are subtle acute nondisplaced fractures of the anterolateral right 4th, 5th, 6th and 7th ribs. There are multiple chronic left posterior rib fractures. There are acute nondisplaced fractures of the anterolateral left 4th, 5th, 6th, and probably 7th ribs. Soft tissues: The extrathoracic soft tissues are unremarkable. CT/CT chest [facility] [id number] IMPRESSION: 1. Bilateral nondisplaced acute 4th through 7th rib fractures. 2. No pneumothorax. No sign of significant pulmonary contusion. Radiation Dose CTDIVOL = (mGy): DLP = 1042.24 (mGy-cm)
[2019-09-09] MEDS: morphine 4 mg/mL SDV 1 mL IVP ×3 (00:51→17:05)
--- NOTE | 2019-09-09 02:05 | USCV_ITS ---
Adan Zamudio Age: 69 Gender: M : 1950 Exam Date: 09/09/2019 07:18 Ordering Phys: Krysten Lopez MD Technologist: Ruddy Smart [place]am Location[place] [facility] [place] [facility] [place]ication: NSTEMI BP: 150 / 86 HR: 103 Rhythm: Sinus Technical Quality: Technically difficult study MEASUREMENTS (Male / Female) Normal Values 2D ECHO LV Diastolic Diameter PLAX 3.9 cm 4.2 - 5.9 / 3.9 - 5.3 cm LV Systolic Diameter PLAX 2.3 cm IVS Diastolic Thickness 1.2 cm 0.6 - 1.0 / 0.6 - 0.9 cm IVS Systolic Thickness 1.1 cm LVPW Diastolic Thickness 1.1 cm 0.6 - 1.0 / 0.6 - 0.9 cm LVPW Systolic Thickness 1.3 cm LVOT Diameter 2.1 cm LV Ejection Fraction 2D Teich 71.0 % LV Ejection Fraction MOD 2C 57.8 % LV Ejection Fraction 2C AL 57.4 % LA Diameter 4.3 cm LA Width 3.9 cm LA Height 5.3 cm RA Width 4.0 cm RA Height 5.8 cm M-MODE LV Diastolic Diameter MM 4.6 cm 4.2 - 5.9 / 3.9 - 5.3 cm LV Systolic Diameter MM 3.0 cm LV Ejection Fraction MM Teich 64.5 % IVS Diastolic Thickness MM 0.9 cm 0.6 - 1.0 / 0.6 - 0.9 cm IVS Systolic Thickness MM 1.6 cm LVPW Diastolic Thickness MM 1.1 cm 0.6 - 1.0 / 0.6 - 0.9 cm LVPW Systolic Thickness MM 1.5 cm RV Diastolic Diameter MM 1.2 cm Aortic Annulus Diameter 3.8 cm LA Ao Ratio MM 1.1 MV E Point Septal Separation 1.6 cm DOPPLER AV Peak Velocity 136.0 cm/s LVOT Peak Velocity 90.0 cm/s AV Area Cont Eq vti 2.4 cm squared AV Area Cont Eq pk 2.2 cm squared MV Area PHT 5.0 cm squared Mitral E to A Ratio 0.5 MV E' Velocity 5.0 cm/s Mitral E to MV E' Ratio 11.1 Mitral E to LV E' Lateral Ratio 12.0 Mitral E to LV E' Septal Ratio 10.3 TR Peak Velocity 471.0 cm/s TR Peak Gradient 88.8 mmHg TV Peak E Velocity 91.0 cm/s Right Atrial Pressure 3.0 mmHg Pulmonary Artery Systolic Pressu 91.7 mmHg PV Peak Velocity 144.0 cm/s FINDINGS Left Ventricle Normal LV size ejection fraction of 55%. No gross wall motion normalities. Study still suboptimal quality because of the poor ultrasonic window. Right Ventricle Possibly of normal size ejection fraction. Right Atrium Possibly of normal size Left Atrium Possibly of normal size Mitral Valve Thickened mitral valve. Aortic Valve Thickened aortic valve. Tricuspid Valve Could not be visualized well Pulmonic Valve Pulmonic valve not well visualized. Pericardium No pericardial effusion. Aorta Normal aortic annulus size. CONCLUSIONS Normal LV size ejection fraction of 55%. No gross wall motion normalities. Study is of suboptimal quality because of the poor ultrasonic window. Thickened mitral valve. Thickened aortic valve. There is no pericardial effusion. There are no intracardiac masses. Technically difficult study. Dr Geraldine Bronson MD FACC (Electronically Signed) Final Date: 09 September 2019 12:12 S
--- NOTE | 2019-09-09 02:19 | PM.HP ---
Providers/Chief Complaint Admitting Physician: Krysten Lopez MD Primary Care Provider: Tomasz Eduardo Chief Complaint: ALTERED MENTAL STATUS History of Present Illness Adan Zamudio is a 69 year old male who was brought to the emergency room by his family because of alteration in mental status. This evidently started today after patient got home from having surgery on his eye. 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 He was being somewhat combative towards his with whom he lives. From the bits of information I was able to obtain from patient's family, from him as well as from ER physician, it sounds like patient has a history of glaucoma. A week or so ago he had surgery on his right eye for the glaucoma. He is not able to see anything out of his left eye. On September 08 he again had surgery due to what appeared to be a developing infection in his right eye. Dr. Bland, who did the surgery, reported that he suspects that the Pseudomonas infection. Patient is a known diabetic. Patient did require general anesthesia for the surgery. It has been reported that during surgery patient had an acute cardiac event necessitating CPR for approximately 2 minutes. Patient evidently recovered and was discharged home. In addition to being confused this afternoon he has been complaining of back pain which is a new complaint for him. He is also been stating that it is difficult to breath because of the pain. No known fevers although patient is not the best of historians. EKG in the emergency room showed nonspecific changes. He did have an elevated troponin. He is being admitted for further evaluation and treatment. Mental status does appear to have improved while he has been in the emergency room. Blood pressures have been running in the 170s over 90s. Heart rate has been in the 90s. Review of Systems Const: Denies: fever Eyes: Reports: change in vision ENMT: Reports: throat pain; Denies: nasal congestion Card: Reports: chest pain; Denies: palpitations or edema Resp: Reports: shortness of breath; Denies: productive cough GI: Denies: abdominal pain, nausea, vomiting, difficulty swallowing, diarrhea, constipation or blood in stool : Denies: urinary frequency Musc: Denies: joint pain or joint swelling Skin/Breast: Denies: rash or sores Neuro: Denies: headache, numbness in extremities or weakness in extremities Cecil/Lymph: Denies: easy bruising or easy bleeding Medications/Allergies Home Medications Medication Instructions Recorded Confirmed Last Taken Type Darzolamide TID 09/08/19 Unknown History Novolog Flexpen U-100 Insulin 09/08/19 Unknown History aspirin 81 mg PO DAILY 09/08/19 09/08/19 Unknown History brimonidine 1 drp OPHTHALMIC (EYE) BID 09/08/19 09/08/19 Unknown History cetirizine 10 mg PO DAILY 09/08/19 09/08/19 Unknown History doxazosin 4 mg PO DAILY 09/08/19 09/08/19 Unknown History insulin glargine [Lantus U-100 45 unit SUBCUT DAILY 09/08/19 09/08/19 Unknown History Insulin] isosorbide mononitrate mg PO BID 09/08/19 Unknown History latanoprost 1 drp OPHTHALMIC (EYE) DAILY 09/08/19 09/08/19 Unknown History losartan 100 mg PO DAILY 09/08/19 09/08/19 Unknown History loteprednol etabonate [Lotemax] 09/08/19 Unknown History metoprolol tartrate 100 mg PO BID 09/08/19 09/08/19 Unknown History simvastatin 40 mg PO DAILY 09/08/19 09/08/19 Unknown History timolol maleate 1 drp OPHTHALMIC (EYE) BID 09/08/19 09/08/19 Unknown History Allergies Allergy/AdvReac Type Severity Reaction Status Date / Time amlodipine Allergy Unknown Verified 09/08/19 20:37 codeine Allergy Unknown Verified 09/08/19 20:37 hydrochlorothiazide Allergy Unknown Verified 09/08/19 20:37 lisinopril Allergy Unknown Verified 09/08/19 20:37 loratadine [From Claritin] Allergy Unknown Verified 09/08/19 20:37 tramadol [From Ultram] Allergy Unknown Verified 09/08/19 20:37 BESYLATE Allergy Unknown Uncoded 09/08/19 20:37 HIGH FRUCTOSE SYRUP Allergy Unknown Uncoded 09/08/19 20:37 PFSH Acute PFSH: Medical History (Updated 09/09/19 @ 03:00 by Krysten Lopez MD) 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, insulin dependent Glaucoma Hyperlipidemia Hypertension TIA (transient ischemic attack) Surgical History (Updated 09/09/19 @ 02:58 by Krysten Lopez MD) History of circumcision History of eye surgery Bilateral due to glaucoma Family History (Updated 09/09/19 @ 03:10 by Krysten Lopez MD) Denies family history of CAD (coronary artery disease) Social History (Updated 09/09/19 @ 03:11 by Krysten Lopez MD) Smoking and tobacco status: former smoker Alcohol intake: never Substance/Drug Use: never Household members: spouse and family Marital status: Vitals/I&O/Wt Last Vital Signs Temp 97.8 F 09/08/19 20:26 Pulse 100 09/09/19 02:03 Resp 15 09/09/19 02:03 BP 165/94 09/09/19 02:03 Pulse Ox 93 09/09/19 02:03 09/08/19 09/08/19 09/09/19 14:59 22:59 06:59 Intake Total 150 / 150 Balance 150 / 150 Weight last 48 hrs Weight 90.718 kg Physical Exam Const: COMMON NORMALS: alert ORIENTATION/CONSCIOUSNESS: Yes oriented to person and Yes oriented to time; not oriented to place HENMT: HEAD & SCALP: normocephalic and atraumatic MOUTH: oral and palatal mucosa abnormal erythematous (with some minor ecchymosis noted in right velecula and post OP) Eye: OTHER: Right periorbital area edematous with an erythematous eyelid. There is purulent material coming from the eye. The eye is also crusted together a little bit. I have not evaluated underneath the eyelid at this time. Left pupil is fixed and small. No response to light. Conjunctive on the left is normal. Neck/C-Spine: COMMON NORMALS: supple Chest: CHEST: No crepitus, Yes localized rib tenderness with anteroposterior compression (Bilateral) Location: 4th rib, 5th rib, 6th rib and 7th rib and No sternal flail Resp: EFFORT & INSPECTION: Yes symmetric chest movement, Yes decreased respiratory effort, Yes actively coughing weak and other (Limited due to pain) and Yes uses accessory muscles AUSCULTATION: diminished lung sounds bilateral in the lower lung munoz Cardio: COMMON NORMALS: no gallops, no murmurs and no rub RATE: tachycardic GI: COMMON NORMALS: normal to inspection, nondistended, normoactive bowel sounds, soft to palpation, non-tender and no masses Extremity: COMMON NORMALS: normal capillary refill, no clubbing, cyanosis or edema and no calf tenderness Neuro: COMMON NORMALS: oriented x3, moves all extremities and no sensory deficits noted SENSORIUM/ORIENTATION: Yes alert Psych: COMMON NORMALS: thought process normal and cooperative THOUGHT PROCESS: normal thought process Skin: COMMON NORMALS: skin turgor normal and no mottling GENERAL SKIN EXAM: other (scaly elbows) NAILS: dystrophic Data : 09/08/19 20:53 09/08/19 20:53 Other Labs: Liver Function 09/08/19 Range/Units 20:53 Total Bilirubin 0.4 (0.15-1.2) mg/dL AST 28 (0-40) U/L ALT 28 (0-41) U/L Alkaline Phosphatase 97 (40-130) IU/L Albumin 4.5 (3.5-5.2) g/dL Urine 09/08/19 Range/Units 22:10 Urine Color Yellow (Yellow) Urine Appearance Sl hazy (CLEAR) Urine pH 5 (5-7) Ur Specific [place] 1.015 (1.005-1.030) Urine Protein Trace (Negative) Urine Glucose (UA) 4+ H (Normal) Laboratory Tests 09/08/19 09/08/19 09/08/19 20:30 20:53 20:53 ABG pH 7.41 ABG pCO2 35.7 ABG pO2 70.0 L Lactic Acid 2.2 Lactic Acid (Sepsis) Magnesium 2.1 Ammonia Troponin I 6 Hour Troponin I Hi Sens Del Troponin T Baseline Troponin T 120 Minute Delta Troponin T 09/08/19 09/08/19 09/08/19 20:53 20:53 23:06 ABG pH ABG pCO2 ABG pO2 Lactic Acid Lactic Acid (Sepsis) Magnesium Ammonia 14 L Troponin I 6 Hour Troponin I Hi Sens Del Troponin T Baseline 169 H* Troponin T 120 Minute 145.2 H Delta Troponin T -23.8 L 09/08/19 09/09/19 23:06 02:16 ABG pH ABG pCO2 ABG pO2 Lactic Acid Lactic Acid (Sepsis) 1.8 Magnesium Ammonia Troponin I 6 Hour 107.5 H Troponin I Hi Sens Del -61.5 L Troponin T Baseline Troponin T 120 Minute Delta Troponin T Micro: Microbiology 09/08/19 20:54 Blood Culture - Preliminary Blood SPECIMEN COLLECTED 09/08/19 20:53 Blood Culture - Preliminary Blood SPECIMEN COLLECTED A&P Assessment and plan (1) Non-ST elevation (NSTEMI) myocardial infarction: Suspect reason for acute cardiac event today at surgery, though could also be secondary to the acute event. No prior history of known CAD. Status: Acute Code(s): I21.4 - Non-ST elevation (NSTEMI) myocardial infarction (2) History of successful cardiopulmonary resuscitation: Reportedly performed on 09/08/2019 perioperatively. Status: Acute Code(s): Z92.89 - Personal history of other medical treatment (3) Multiple rib fractures: Bilateral acute fractures ribs 4-7 anteriorly Status: Acute Qualifiers: Encounter type: initial encounter Fracture type: closed Laterality: bilateral Qualified Code(s): S22.43XA - Multiple fractures of ribs, bilateral, initial encounter for closed fracture Code(s): S22.49XA - Multiple fractures of ribs, unspecified side, initial encounter for closed fracture (4) Altered mental status: Occurring today. Could be from anesthesia, anoxic injury, pain or acute cardiac event. Appears to be improving. No other focal changes noted. Status: Acute Qualifiers: Altered mental status type: disorientation Qualified Code(s): R41.0 - Disorientation, unspecified Code(s): R41.82 - Altered mental status, unspecified (5) Infection of right eye: Pseudomonas suspected per Dr Bland. Has something in the eye for infection. Was surgically drained/evaluated 09/08/2019. 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, right eye (6) Diabetes mellitus type 2, insulin dependent: Currently with hyperglycemia, unknown usual control. Status: Acute Code(s): E11.9 - Type 2 diabetes mellitus without complications; Z79.4 - keno terminal operator (current) use of insulin (7) Hypertension: Usually on ARB and beta blockade Status: Acute Qualifiers: Hypertension type: essential hypertension Qualified Code(s): I10 - Essential (primary) hypertension Code(s): I10 - Essential (primary) hypertension (8) Hyperlipidemia: Usually on statin Status: Acute Qualifiers: Hyperlipidemia type: unspecified Qualified Code(s): E78.5 - Hyperlipidemia, unspecified Code(s): E78.5 - Hyperlipidemia, unspecified (9) Glaucoma: Follows with Dr Bland, has several eye drops and had recent surgeryr Status: Acute Qualifiers: Glaucoma type: unspecified Laterality: bilateral Qualified Code(s): H40.9 - Unspecified glaucoma Code(s): H40.9 - Unspecified glaucoma Additional A&P Information Inpatient admission ICU bed due to acute cardiac event reported and multiple rib fractures Serial cardiac enzymes threat monitoring analyst at bedside Consult to Cardiology. ED discussed with Dr Bronson. Echo in am Aspirin, statin, beta nany and nitroglycerin Treatment dose lovenox Keep NPO in case needs other cardiac evaluation Check a1c and lipid panel Serial neuro exams Pain control Incentive spirometer Low threshhold to repeat CXR given bilateral rib fractures Oxygen as needed Long and short acting insulin Verify and order eye drops Zosyn presently for presumptive pseudomonas infection in right eye Get records from and consider at least consultation with Dr Bland in the morning DVT prophylaxis with IPCs, on treatment dose lovenox Supportive care otherwise Full code Plans were discussed with patient as well as briefly with his family before they left. Attestations Medical Necessity Statement*: Anticipated stay greater than 2 midnights in a patient with issues as noted above. He requires close monitoring in the intensive care unit at least initially to ensure no recurrent arrhythmias necessitating acute intervention. He is being treated for non-ST elevation SC. He also has multiple bilateral rib fractures and is at high risk of developing respiratory compromise secondary to this, as well as being at risk for general rapid clinical decline under the circumstances of the preceding days events. Coding Level of Care Code Acute Polysomnography Technician for [facility] Fwd Exam Comprehensive Diagnoses Non-ST elevation (NSTEMI) myocardial infarction I21.4 History of successful cardiopulmonary resuscitation Z92.89 Multiple rib fractures S22.43XA Encounter type: initial encounter Fracture type: closed Laterality: bilateral Altered mental status R41.0 Altered mental status type: disorientation Infection of right eye H44.001 Diabetes mellitus type 2, insulin dependent E11.9; Z79.4 Hypertension I10 Hypertension type: essential hypertension Hyperlipidemia E78.5 Hyperlipidemia type: unspecified Glaucoma H40.9 Glaucoma type: unspecified Laterality: bilateral
--- NOTE | 2019-09-09 02:29 | ECG_ITS ---
Measurements Intervals [place] Rate: 98 P: 62 AL: 202 QRS: 58 QRSD: 101 T: 12 QT: 346 QTc: [address] DEPRESSION [0.025+ mV ST DEPRESSION] Compared to ECG 06/26/2018 12:28:24 ST (T wave) deviation now present Sinus bradycardia no longer present Prolonged QT interval no longer present Electronically Signed On 09-09-2019 19:52:01 IRONER HAND by Geraldine Bronson M.D. [id number]
[2019-09-09] MEDS: metoprolol tartrate 25 mg Tablet PO ×2 (02:36→14:13)
[2019-09-09] MEDS: piperacillin-tazobactam 3.375 GM in sodium chloride 0.9% (plus) 50 ML IV ×2 (02:37→13:03)
[2019-09-09] MEDS: enoxaparin 100 mg/mL Syringe 90 MG SUBCUT ×2 (02:37→13:06)
[2019-09-09 02:54] LABS: Troponin 5 6HR 107.5 ng/mL (0-15)
[2019-09-09] MEDS: bisacodyl 5 mg Tablet 10 MG PO (02:58)
[2019-09-09] MEDS: atorvastatin 40 mg Tablet PO ×2 (02:59→21:57)
[2019-09-09] MEDS: sodium chloride 0.45% 1,000 ML 75 ML IV ×2 (03:04→17:32)
[2019-09-09 04:36] LABS: Estmated Average Glucose 209; Hemoglobin A1C 8.9 % (4.0-6.0)
[2019-09-09 04:43] LABS: Chol HDL Ratio 3.52 mg/dL (1.0-5.00); Cholesterol 148 mg/dL (0-200); HDL Cholesterol 42 mg/dL (60-100); LDL Cholesterol Calculated 92 mg/dL (50-129); LDL HDL Ratio 2.19 RATIO (0.00-3.22); NT Pro B Type Natriuretic Pept 2928 pg/mL (0-125); Triglycerides 70 mg/dL (0-150)
[2019-09-09] MEDS: ondansetron 2 mg/ML SDV 2 mL 4 MG IVP ×2 (05:19→08:38)
--- NOTE | 2019-09-09 05:42 | PC.NURSE ---
pt nauseous and vomiting, which continues after PRN zofran IV. Dr Lopez notified no new orders at this time
[2019-09-09 05:57] LABS: Glucose Point of Care 306 mg/dL (70-110)
[2019-09-09 08:20] LABS: Glucose Point of Care 376 mg/dL (70-110)
[2019-09-09] MEDS: cefepime 2,000 MG in sodium chloride 0.9% (plus) 50 ML 100 MG IV ×2 (08:48→21:58)
--- NOTE | 2019-09-09 08:49 | P.CONIM_ITS ---
Providers/Reason For Consult Consulting Physican/Specialty*: NADIA Bronson MD/cardiology Reason for Consult*: Patient with history of cardiac arrest/asystole Primary Care Provider: Tomasz Eduardo History of Present Illness History of Present Illness Adan Zamudio is a 69 year old male, was brought to the emergency room by the family with complaints of altered mental status. This patient had a right eye surgery at the ambulatory clinic yesterday. It was done under general anesthesia. Apparently during the procedure, according to Dr. Bland, patient started dropping the blood pressure and became hypoxic. He also had asystole for 2 minutes or so. The ET tube was repositioned. He had CPR and epinephrine. He regained sinus rhythm. He was successfully extubated. He was alert and oriented at the time of his discharge from the clinic. Except for the chest wall pain from the CPR, patient was not having any specific symptoms at that time. He was brought to the emergency room because of the altered mental status/confusion. This patient apparently has no previous history for any coronary artery disease, myocardial infarction or congestive heart failure. No previous history for CVA. Initial troponin T was 169 with a repeat of 145. The delta was 23.8. The BNP was 2928 . Initial hemoglobin was 8.9. Glucose was 260. Patient had a surgery to the right eye a week ago. He was found to have infection in the eye and for which he underwent repeat surgery by Dr. Bland. He had a lot of pus collection in the socket which was reactivated. He was given topical antibiotics. He had a CT scan of the head in the emergency room. No evidence of any acute CVA. His chest CT and x-ray were unremarkable except for some fracture of the ribs. The EKG showed some diffuse nonspecific ST-T changes. Review of Systems Narrative: CONSTITUTIONAL: No fever or chills. EYES: Patient is known to have blindness in the left eye. Had surgery to the right eye a week ago and was found to be infected. He had extraction of all the vitreous humor which was found to be infected, purulent possibly with the Pseudomonas. The eye socket was filled with a 3 different kinds of antibiotic ENT: No hoarseness of voice, auditory disturbances or sore throat. CARDIOVASCULAR: As mentioned above. RESPIRATORY: No significant cough. GASTROINTESTINAL: No hematemesis or melena. GENITOURINARY: No dysuria or hematuria. INTEGUMENTARY: No skin rashes or history of skin cancer. NEURO: History of dementia? PSYCHIATRIC: No history of psychosis or major depression. HEMATOLOGIC: N history of anemia ENDOCRINE: Type 2 diabetes MUSCULOSKELETAL: No recent joint pain or swelling. ALLERGY/IMMUNOLOGY: As mentioned above. Meds/Allergies Home Medications and Allergies Home Medications Medication Instructions Recorded Confirmed Type Novolog Flexpen U-100 Insulin See Rx Instructions .ROUTE .COMPLEX 09/08/19 09/09/19 History aspirin 81 mg PO DAILY 09/08/19 09/08/19 History brimonidine 1 drp OPHTHALMIC (EYE) BID 09/08/19 09/08/19 History cetirizine 10 mg PO DAILY 09/08/19 09/08/19 History dorzolamide 1 drp OPHTHALMIC (EYE) TID 09/08/19 09/09/19 History doxazosin 4 mg PO DAILY 09/08/19 09/08/19 History insulin glargine [Lantus U-100 45 unit SUBCUT DAILY 09/08/19 09/09/19 History Insulin] isosorbide mononitrate 90 mg PO BID 09/08/19 09/09/19 History latanoprost 1 drp OPHTHALMIC (EYE) DAILY 09/08/19 09/08/19 History losartan 100 mg PO DAILY 09/08/19 09/08/19 History loteprednol etabonate [Lotemax] 1 drp OPHTHALMIC (EYE) TID 09/08/19 09/09/19 History metoprolol tartrate 100 mg PO BID 09/08/19 09/08/19 History simvastatin 20 mg PO DAILY 09/08/19 09/09/19 History timolol maleate 1 drp OPHTHALMIC (EYE) BID 09/08/19 09/08/19 History albuterol sulfate 2.5 mg INHALATION Q4H PRN 09/09/19 09/09/19 History cyclobenzaprine 10 mg PO TID PRN 09/09/19 09/09/19 History prednisolone acetate 1 drp OPHTHALMIC (EYE) BID 09/09/19 09/09/19 History Allergies Allergy/AdvReac Type Severity Reaction Status Date / Time amlodipine Allergy Unknown Verified 09/08/19 20:37 codeine Allergy Unknown Verified 09/08/19 20:37 hydrochlorothiazide Allergy Unknown Verified 09/08/19 20:37 lisinopril Allergy Unknown Verified 09/08/19 20:37 loratadine [From Claritin] Allergy Unknown Verified 09/08/19 20:37 tramadol [From Ultram] Allergy Unknown Verified 09/08/19 20:37 BESYLATE Allergy Unknown Uncoded 09/08/19 20:37 HIGH FRUCTOSE SYRUP Allergy Unknown Uncoded 09/08/19 20:37 Current Medications Current Medications Generic Name Dose Route Start Last Admin Trade Name Freq PRN Reason Stop Dose Admin Atorvastatin Calcium 40 mg 09/09/19 02:05 09/09/19 02:59 Lipitor PO 40 mg BEDTIME ESSENCE Administration Bisacodyl 10 mg 09/09/19 02:00 09/09/19 02:58 Dulcolax PO 10 mg DAILY PRN Administration CONSTIPATION Enoxaparin Sodium 90 mg 09/09/19 02:15 09/09/19 02:37 Lovenox 1 mg/kg (90 mg) 90 mg SUBCUT Administration Q12H ESSENCE Sodium Chloride 1,000 mls @ 75 mls/hr 09/09/19 02:00 09/09/19 03:04 Sodium Chloride 0.45% IV 75 mls/hr .[id number] ESSENCE Administration Piperacillin Sod/Tazobactam 50 mls @ 12.5 mls/hr 09/09/19 02:00 09/09/19 02:37 Sod 3.375 gm/ Sodium Chloride IV 12.5 mls/hr Q8H ESSENCE Administration Protocol Cefepime HCl 2,000 mg/ Sodium 50 mls @ 100 mls/hr 09/09/19 09:00 09/09/19 08:48 Chloride IV 100 mls/hr Q8H ESSENCE Administration Protocol PFSH Acute PFSH: Medical History 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, insulin dependent Glaucoma Hyperlipidemia Hypertension TIA (transient ischemic attack) Surgical History History of circumcision History of eye surgery Bilateral due to glaucoma Family History Denies family history of CAD (coronary artery disease) Social History Smoking and tobacco status: former smoker Alcohol intake: never Substance/Drug Use: never Household members: spouse and family Marital status: Vitals/I&O/Wt Last Vital Signs Temp 97.8 F 09/08/19 20:26 Pulse 105 H 09/09/19 07:41 Resp 16 09/09/19 07:41 BP 180/81 09/09/19 07:41 Pulse Ox 93 09/09/19 07:41 09/08/19 09/09/19 09/09/19 22:59 06:59 14:59 Intake Total 150 / 150 1250 / 1400 Output Total 300 / 300 Balance 150 / 150 950 / 1100 Weight last 48 hrs Weight 200 lb Physical Exam Narrative: EXAM NARRATIVE: GENERAL: The patient is very confused within incoherent speech . Not in any acute distress. HEENT: The right eyelid is edematous and has some purulent discharge from the conjunctiva. NECK: Trachea appears to be central. No masses noted. No JVD or thyromegaly appreciated. No carotid bruit. RESPIRATORY: Chest is symmetrical. No intercostals muscle retraction or any accessory muscle activation. Significant chest wall tenderness bilaterally . Breath sounds are heard bilaterally. No rales or rhonchi heard. No evidence of any consolidation. BREASTS: Deferred. HEART: The PMI could not be palpated. No palpable precordial events. S1 and S2 are normal. No S3 or S4 heard. No pericardial rub or any click heard. ABDOMEN: No vessel pulsations . Minimal gaseous distention of the abdomen. No tenderness. No organomegaly appreciated. No abdominal bruit. Bowel sounds are normally heard. : Deferred. RECTAL: Deferred. LYMPHATIC: No lymphadenopathy noted in the neck or groin. EXTREMITIES: No edema or cyanosis. No clubbing. Peripheral pulses are palpable and fairly good volume and amplitude. MUSCULOSKELETAL: No acute joint deformities or swelling. SKIN: There are no significant scars or skin rash noted. NEUROPSYCHIATRIC: Patient has no focal motor deficit. Data Micro: Micro: Microbiology 09/08/19 20:54 Blood Culture - Pr eliminary Blood SPECIMEN [facility] 09/08/19 20:53 Blood Culture - Pr eliminary Blood SPECIMEN [facility] Other Data: Other data: CT scan of the chest 1. Bilateral nondisplaced acute 4th through 7th rib fractures. 2. No pneumothorax. No sign of significant pulmonary contusion. Chest x-ray revealed Borderline cardiac silhouette with no lung infiltrate. Features of atherosclerosis of the aorta. Left basilar atelectasis. CT of the head revealed Moderate involutional changes, no acute intracranial abnormality. EKG revealed Normal sinus rhythm with a diffuse nonspecific ST-T changes. A&P Assessment and plan (1) Intraoperative cardiorespiratory arrest: The exact reasons are not known. Currently his respiratory status as well as hemodynamic status are stable. An acute coronary event causing this cannot be excluded. This may need to be further evaluated. Status: Acute (2) Elevated troponin: The CPR might have caused these troponin T elevation. An acute coronary event causing this cannot be excluded. He has some nonspecific EKG changes. He also has multiple risk factors for coronary artery disease. Status: Acute Code(s): R79.89 - Other specified abnormal findings of blood chemistry (3) Altered mental status: Exact reasons are not known. There is no evidence of any acute CVA. No evidence of intracranial bleed. Management as per the primary. Status: Acute Qualifiers: Altered mental status type: disorientation Qualified Code(s): R41.0 - Disorientation, unspecified Code(s): R41.82 - Altered mental status, unspecified (4) Abnormal EKG: She has diffuse nonspecific ST-T changes. We do not have a previous EKG for comparison. In view of his multiple risk factors for coronary disease, possibility of underlying coronary ischemia causing this cannot be excluded. Status: Acute Code(s): R94.31 - Abnormal electrocardiogram [ECG] [EKG] (5) Benign essential hypertension with target blood pressure below 140/90: His blood pressure is currently of stage II. Need to optimize the antihypertensive medications. Status: Acute Code(s): I10 - Essential (primary) hypertension (6) Diabetes mellitus type 2, insulin dependent: May continue on the aggressive management of diabetes. Status: Acute Code(s): E11.9 - Type 2 diabetes mellitus without complications; Z79.4 - terminal system operator (current) use of insulin Additional A&P Information For further evaluation of his cardiac status, an echocardiogram would be helpful. If there is no significant wall motion normalities by echocardiogram, we may consider doing a myocardial perfusion imaging, to further evaluate his coronary status and decide on further management. It might be appropriate to continue on the Lovenox for the time being. I discussed with Dr. Bland about starting him on antiplatelets/IV anticoagulant. As per Dr. Bland, there is no contraindication at this point. Addendum Echocardiogram was reviewed. The LV size and ejection fraction were within normal limits. No significant wall motion normalities. So it was decided to go ahead with a myocardial perfusion imaging tomorrow, to further evaluate the coronary status-if the mental status is acceptable Consult Attestations Medical Necessity Statement: Patient may require at least 2 midnight stay, for further evaluation and management of his condition Coding Level of Care Code Acute Plastic Tubing Insulation Supervisor for [facility] Fwd Diagnoses Intraoperative cardiorespiratory arrest Elevated troponin R79.89 Altered mental status R41.0 Altered mental status type: disorientation Abnormal EKG R94.31 Benign essential hypertension with target blood pressure below 140/90 I10 Diabetes mellitus type 2, insulin dependent E11.9; Z79.4
[2019-09-09] MEDS: pantoprazole 40 MG in sodium chloride 0.9% (plus) 100 ML 20 MG IV (10:35)
--- NOTE | 2019-09-09 13:00 | PC.NURSE ---
RECEIVED FROM ER WITH SITTER AT BEDSIDE D/T AMS. PURULENT DRAINAGE FROM RIGHT EYE, CRUSTED SHUT, SWAB OBTAINED FROM RIGHT EYE. PLEASANTLY CONFUSED, STATES THAT DR AGUILA DONE SURGERY & CAUSED AN INFECTION & HAD MY HEART STOP, MY RIBS ARE BROKEN. /FAMILY AT BEDSIDE UPSET ABOUT CARE RECEIVED FROM SURGERY CENTER/ER 09/08/19.
[2019-09-09] MEDS: nitroglycerin 1 gm/inch oint Pkt 1 INCH TOPICAL ×2 (13:05→17:10)
--- NOTE | 2019-09-09 16:07 | P.PN_ITS ---
Subjective Subjective: Interval history: History and physical reviewed in detail. Briefly discussed with copy technician. Patient seen earlier today and throughout the day. Medications: Reviewed: Yes Vitals/I&O/Wt Last Vital Signs Temp 100 F H 09/09/19 12:30 Pulse 113 H 09/09/19 15:02 Resp 18 09/09/19 15:02 BP 157/97 09/09/19 15:02 Pulse Ox 96 09/09/19 15:02 09/09/19 09/09/19 09/09/19 06:59 14:59 22:59 Intake Total 1300 / 1450 Output Total 300 / 300 Balance 1000 / 1150 Weight last 48 hrs Weight 90.718 kg Physical Exam Narrative: EXAM NARRATIVE: General exam is a white male, with some confusion, with drainage from the right Cardiovascular tachycardic, no murmur Lungs clear Abdomen is soft, positive bowel sounds, obese Extremities no cyanosis clubbing or edema Data : 09/08/19 20:53 09/08/19 20:53 Micro: Microbiology 09/08/19 20:54 Blood Culture - Preliminary Blood SPECIMEN COLLECTED 09/08/19 20:53 Blood Culture - Preliminary Blood SPECIMEN COLLECTED A&P Assessment and plan (1) Non-ST elevation (NSTEMI) myocardial infarction: Cardiology consult Continue statin, aspirin, beta-nany, treatment dose Lovenox, nitrate Echocardiogram demonstrates preserved EF Suspect he will need angiogram Status: Acute Code(s): I21.4 - Non-ST elevation (NSTEMI) myocardial infarction (2) History of successful cardiopulmonary resuscitation: Reportedly performed on 09/08/2019 perioperatively. Status: Acute Code(s): Z92.89 - Personal history of other medical treatment (3) Multiple rib fractures: Bilateral acute fractures ribs 4-7 anteriorly, presumably secondary to resuscitation Pain control Incentive spirometry Status: Acute Qualifiers: Encounter type: initial encounter Fracture type: closed Laterality: bilateral Qualified Code(s): S22.43XA - Multiple fractures of ribs, bilateral, initial encounter for closed fracture Code(s): S22.49XA - Multiple fractures of ribs, unspecified side, initial encounter for closed fracture (4) Altered mental status: Unknown etiology. May be secondary to anoxic brain injury, prolonged anesthetic effect, other medication. Will need to follow closely. Initial CT head negative. No focal abnormality to suggest CVA Status: Acute Qualifiers: Altered mental status type: disorientation Qualified Code(s): R41.0 - Disorientation, unspecified Code(s): R41.82 - Altered mental status, unspecified (5) Infection of right eye: Pseudomonas suspected per Dr Bland. Surgically drained September 08. From my understanding antibiotics have been put into the orbit. Vancomycin, cefepime at this point Await culture obtained by Dr. Bland. Will get another culture here. 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, right eye (6) Diabetes mellitus type 2, insulin dependent: Sliding scale insulin Status: Acute Code(s): E11.9 - Type 2 diabetes mellitus without complications; Z79.4 - long term care phlebotomist ( current) use of insulin (7) Hypertension: Usually on ARB and beta blockade Status: Acute Qualifiers: Hypertension type: essential hypertension Qualified Code(s): I10 - Essential (primary) hypertension Code(s): I10 - Essential (primary) hypertension (8) Hyperlipidemia: Continue statin Status: Acute Qualifiers: Hyperlipidemia type: unspecified Qualified Code(s): E78.5 - Hyperlipidemia, unspecified Code(s): E78.5 - Hyperlipidemia, unspecified (9) Glaucoma: Followed by ophthalmology Status: Acute Qualifiers: Glaucoma type: unspecified Laterality: bilateral Qualified Code(s): H40.9 - Unspecified glaucoma Code(s): H40.9 - Unspecified glaucoma Additional A&P Information Ophthalmology consultation DVT prophylaxis Lovenox Full code Attestations Medical Necessity Statement*: Needs continued hospitalization for IV antibio tics secondary to infection, evaluation of confusion Coding Level of Care Code Acute Instrument Technician for [facility] Fwd Diagnoses Non-ST elevation (NSTEMI) myocardial infarction I21.4 History of successful cardiopulmonary resuscitation Z92.89 Multiple rib fractures S22.43XA Encounter type: initial encounter Fracture type: closed Laterality: bilateral Altered mental status R41.0 Altered mental status type: disorientation Infection of right eye H44.001 Diabetes mellitus type 2, insulin dependent E11.9; Z79.4 Hypertension I10 Hypertension type: essential hypertension Hyperlipidemia E78.5 Hyperlipidemia type: unspecified Glaucoma H40.9 Glaucoma type: unspecified Laterality: bilateral
[2019-09-09] MEDS: metoprolol tartrate 50 mg Tablet 100 MG PO (17:10)
[2019-09-09] MEDS: sennosides-docusate Tablet 1 TAB PO ×2 (17:10→19:29)
[2019-09-09] MEDS: aspirin 325 mg Tablet PO (17:11)
[2019-09-09 17:13] LABS: Glucose Point of Care 449 mg/dL (70-110)
[2019-09-09 17:13] LABS: Glucose Point of Care 441 mg/dL (70-110)
[2019-09-09] MEDS: pantoprazole 40 mg SDV IVP (17:30)
[2019-09-09 17:43] LABS: Hematocrit 42.6 % (42.0-52.0); Hemoglobin 13.6 g/dL (11.7-16.6)
--- NOTE | 2019-09-09 20:37 | PC.NURSE ---
1900 bedside report rcvd at this time. pt noted to be st on cm 120s. pt responding to voice at this time. auditory hallucinations noted. pt reports pain in ribs/back/and eye. pt right eye noted to be swollen, red, crusty c purulent drainage warm moist compress applied for comfort. assessment per flowsheet. call light within reach. 1:1 sitter at bedside. pt denies needs. lita hector.
[2019-09-09] MEDS: HYDROcodone-acetaminophen 5-325 mg Tablet 1 TAB PO (21:56)
[2019-09-09] MEDS: losartan 50 mg Tablet PO (21:56)
[2019-09-09] MEDS: insulin glargine 100 units/1 mL 20 UNIT SUBCUT (21:57)
[2019-09-10] VITALS (26 sets, daily range): BP systolic 117–164; BP diastolic 74–106; PULSE 92–127; RESP 13–23; TEMP 37.7; O2SAT 76–99; BMI 26.9
[2019-09-10] MEDS: nitroglycerin 1 gm/inch oint Pkt 1 INCH TOPICAL ×4 (00:24→17:47)
[2019-09-10] MEDS: morphine 4 mg/mL SDV 1 mL IVP ×2 (00:56→08:02)
[2019-09-10] MEDS: enoxaparin 100 mg/mL Syringe 90 MG SUBCUT ×2 (02:54→13:42)
--- NOTE | 2019-09-10 03:15 | PC.NURSE ---
vo to discontinue 1:1 sitter. lita hector.
[2019-09-10 04:34] LABS: Basophils % 0.2 %; Hematocrit 37.2 % (42.0-52.0); Hemoglobin 11.9 g/dL (11.7-16.6); Lymphocytes # 1.1 10^3/uL (0.8-4.8); Lymphocytes % 9.3 %; Mean Corpuscular Hemoglobin 33.9 pg (28.0-34.0); Mean Platelet Volume 10.8 fL (7.4-10.4); Monocytes # 1.7 10^3/uL (0.2-0.9); Monocytes % 14.4 %; Neutrophils # 9.1 10^3/uL (1.8-7.7); Neutrophils % 75.4 %; Nucleated Red Blood Cells % 0 %; Platelet Count 300 10^3/cmm (130-400); Red Blood Count 3.51 10^6/uL (4.1-5.3); Red Cell Distribution Width 12.8 % (12.1-15.1); White Blood Count 12.1 10^3/uL (4.0-10.0)
[2019-09-10 04:54] LABS: Anion Gap 18.4 (5-19); Blood Urea Nitrogen 67 mg/dL (8-23); Calcium 8.2 mg/dL (8.5-10.5); Carbon Dioxide 18 mmol/L (22-29); Chloride 99 mmol/L (98-107); Osmolality Calculated 294 mOsm/kg (285-295); Potassium 5.4 mmol/L (3.5-5.1); Sodium 130 mmol/L (136-145)
[2019-09-10 04:57] LABS: Glucose 546 mg/dL (65-115)
[2019-09-10] MEDS: pantoprazole 40 mg SDV IVP ×2 (05:12→17:47)
[2019-09-10] MEDS: cefepime 2,000 MG in sodium chloride 0.9% (plus) 50 ML 100 MG IV ×3 (05:12→22:33)
--- NOTE | 2019-09-10 05:38 | PC.NURSE ---
discussed am labs c dr. ceballos. order rcvd for 10 units lantus now and give am sliding scale insulin at this time. lita hector.
[2019-09-10] MEDS: HYDROcodone-acetaminophen 5-325 mg Tablet 1 TAB PO ×2 (05:46→11:35)
[2019-09-10] MEDS: insulin glargine 100 units/1 mL 10 UNIT SUBCUT (05:46)
--- NOTE | 2019-09-10 06:05 | PC.NURSE ---
pt co need to void but unable x multiple attempts bladder scan shows [address] ceballos order to straight cath. 1500 cc uop Lyndsey RN to discuss with dr ceballos ok to leave cath at this time. 20 ga piv started to left forearm x 1 attempt lita hector.
[2019-09-10 07:38] LABS: Glucose Point of Care 391 mg/dL (70-110)
[2019-09-10] MEDS: sodium chloride 0.45% 1,000 ML 125 ML IV ×2 (07:59→17:47)
[2019-09-10] MEDS: doxazosin 4 mg Tablet PO (08:00)
[2019-09-10] MEDS: sennosides-docusate Tablet 1 TAB PO ×2 (08:00→17:47)
[2019-09-10] MEDS: metoprolol tartrate 50 mg Tablet 100 MG PO ×2 (08:00→17:47)
[2019-09-10] MEDS: aspirin 325 mg Tablet PO (08:00)
--- NOTE | 2019-09-10 08:00 | PM.PN ---
Subjective Subjective: Interval history: Patient reports he is in some discomfort this morning. He reports it is all over. Nurse reports he still has some confusion. Events of last night noted with urinary retention, for which a Yap catheter was placed. Over 1 L was in bladder. Medications: Reviewed: Yes Vitals/I&O/Wt Last Vital Signs Temp 100 F H 09/10/19 05:00 Pulse 109 H 09/10/19 05:00 Resp 20 H 09/10/19 05:00 BP 129/90 09/10/19 05:00 Pulse Ox 96 09/10/19 05:00 09/09/19 09/10/19 09/10/19 22:59 06:59 14:59 Intake Total 2000 / 2150 160 / 2310 Output Total 950 / 950 2000 / 2950 Balance 1050 / 1200 -1840 / -640 Weight last 48 hrs Weight 82.917 kg Weight 90.718 kg Physical Exam Narrative: EXAM NARRATIVE: General exam is a white male, awakens, but somewhat confused. Complains of pain. Cardiovascular tachycardic, no murmur Lungs clear Abdomen is soft, positive bowel sounds, obese Extremities no cyanosis clubbing or edema Urinary Catheter Management^: Yap: Cath Placed During This Visit: yes Urethral Indwelling: Yes Reason for Continuing Indwelling Catheter: Acute Urinary Retention or Obstruction Urinary Catheter Date of Insertion: 09/10/19 Urinary Catheter Time of Insertion: 05:55 Data : 09/10/19 04:00 09/10/19 04:00 Micro: Microbiology 09/08/19 20:54 Blood Culture - Preliminary Blood NEGATIVE TO DATE 09/08/19 20:53 Blood Culture - Preliminary Blood NEGATIVE TO DATE 09/09/19 12:15 Gram Stain - Final Other Source A&P Assessment and plan (1) Non-ST elevation (NSTEMI) myocardial infarction: Cardiology consult Continue statin, aspirin, beta-nany, treatment dose Lovenox, nitrate Echocardiogram demonstrates preserved EF Cardiology considering nuclear stress test at some point Status: Acute Code(s): I21.4 - Non-ST elevation (NSTEMI) myocardial infarction (2) History of successful cardiopulmonary resuscitation: Reportedly performed on 09/08/2019 perioperatively. Status: Acute Code(s): Z92.89 - Personal history of other medical treatment (3) Multiple rib fractures: Bilateral acute fractures ribs 4-7 anteriorly, presumably secondary to resuscitation Pain control Incentive spirometry Status: Acute Qualifiers: Encounter type: initial encounter Fracture type: closed Laterality: bilateral Qualified Code(s): S22.43XA - Multiple fractures of ribs, bilateral, initial encounter for closed fracture Code(s): S22.49XA - Multiple fractures of ribs, unspecified side, initial encounter for closed fracture (4) Altered mental status: Unknown etiology. May be secondary to anoxic brain injury, prolonged anesthetic effect, other medication. As of yet he is still has some confusion. Initial CT head negative. No focal abnormality to suggest CVA Status: Acute Qualifiers: Altered mental status type: disorientation Qualified Code(s): R41.0 - Disorientation, unspecified Code(s): R41.82 - Altered mental status, unspecified (5) Infection of right eye: Pseudomonas suspected per Dr Bland. Surgically drained September 08. From my understanding antibiotics have been put into the orbit. Vancomycin, cefepime at this point awaiting cultures. Temperature elevation noted last night of 100.0 ?F Await culture obtained by Dr. Bland. Will get another culture here. 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, right eye (6) Diabetes mellitus type 2, insulin dependent: Blood sugars have increased significantly. Lantus dose given. Aggressive sliding scale. Lantus ordered for tonight. Status: Acute Code(s): E11.9 - Type 2 diabetes mellitus without complications; Z79.4 - salvage determiner (current) use of insulin (7) Hypertension: Usually on ARB and beta blockade Discontinue ARB secondary to hyperkalemia Continue metoprolol Status: Acute Qualifiers: Hypertension type: essential hypertension Qualified Code(s): I10 - Essential (primary) hypertension Code(s): I10 - Essential (primary) hypertension (8) Hyperlipidemia: Continue statin Status: Acute Qualifiers: Hyperlipidemia type: unspecified Qualified Code(s): E78.5 - Hyperlipidemia, unspecified Code(s): E78.5 - Hyperlipidemia, unspecified (9) Glaucoma: Followed by ophthalmology They have been consulted for opinion Status: Acute Qualifiers: Glaucoma type: unspecified Laterality: bilateral Qualified Code(s): H40.9 - Unspecified glaucoma Code(s): H40.9 - Unspecified glaucoma (10) Acute kidney injury: May be postobstructive. Yap has been placed. Increase fluids currently, recheck BMP at 1400 Status: Acute Code(s): N17.9 - Acute kidney failure, unspecified (11) Hyperkalemia: Hold ARB. Recheck BMP at 1400 Status: Acute Code(s): E87.5 - Hyperkalemia Additional A&P Information Await ophthalmology consultation DVT prophylaxis Lovenox Full code Attestations Medical Necessity Statement*: Needs continued hospitalization in the ICU secondary to significant elevation in troponin, consistent with non-ST elevation myocardial infarction as well as possible systemic infection requiring IV antibiotics in this patient with confusion. Critical Care Time: 35 minutes spent in critical care time in this confused patient requiring IV antibiotics, with non-ST elevation myocardial infarction and renal failure, reviewing multiple laboratory and adjusting of medication for his multiorgan dysfunction. Coding Level of Care Code Acute Driver/Refuse Collector for [facility] Diagnoses Non-ST elevation (NSTEMI) myocardial infarction I21.4 History of successful cardiopulmonary resuscitation Z92.89 Multiple rib fractures S22.43XA Encounter type: initial encounter Fracture type: closed Laterality: bilateral Altered mental status R41.0 Altered mental status type: disorientation Infection of right eye H44.001 Diabetes mellitus type 2, insulin dependent E11.9; Z79.4 Hypertension I10 Hypertension type: essential hypertension Hyperlipidemia E78.5 Hyperlipidemia type: unspecified Glaucoma H40.9 Glaucoma type: unspecified Laterality: bilateral Acute kidney injury N17.9 Hyperkalemia E87.5
[2019-09-10 09:44] LABS: Thyroid Stimulating Hormone 0.84 uIU/mL (0.27-4.20); Vitamin B12 630 pg/mL (232-1245)
--- NOTE | 2019-09-10 10:20 | PC.CHAP ---
Pastoral Care Encounter/Spiritual Assessment Type of Contact [] Declined licensed master social worker visit [] Patient/Family/Request visit [] Outpatient visit [] Follow-up visit [] Physician referral [] Code/Alert [x] Routine visit [] Staff referral [] Actively dying [x] Patient sleeping [] Family support [] [] Out of room [] Palliative care [] [] Receiving care in room [] Pre-surgical visit [] Trauma [] Long length of stay [x] ICU visit [] Other: Relational/Emotional Strength [] Patient feels connected with others/family/visitors/staff [] Distress [] Loneliness/isolation [] Abandonment Spirituality of Patient [] Person of Mignon [] Attends Adventism of their Mignon [] Believes in Prayer [] Reads Bible or Hindu materials [] There are Spiritual issues to be addressed Nurse Practitioner Physician Assistant Interventions [] Prayer [] Active listening [] Non-anxious presence [] Spiritual/emotional support [] Crisis/trauma care [] Spiritual counseling [] Bereavement support [] Provided bereavement packet [] Provided Bible/devotional materials [] Provided toy/stuffed animal, coloring book to patient or family member [] Provided Communion [] Anointing/[place] [] Salvation [x] Completed spiritual assessment [] Other: Impact on Illness or Injury [] Angry [] Fearful [] Anxious [] Often cries [] Exhaustion [] Unable to work [] Unable to attend druze [] Unable to walk/stand [] Unable to read [] Unable to drive [] Unable to eat/drink [] Unable to sleep [] Unable to be with family [] Patient intubated [] Other: Summary Time spent with patient
[2019-09-10 10:22] LABS: Folate Level 12.1 ng/mL (4.5-32.2)
[2019-09-10 10:48] LABS: Vancomycin Trough 14.9 ug/mL (10-15)
[2019-09-10 11:18] LABS: Glucose Point of Care 366 mg/dL (70-110)
[2019-09-10 15:00] LABS: Anion Gap 13.1 (5-19); Blood Urea Nitrogen 74 mg/dL (8-23); Calcium 8.4 mg/dL (8.5-10.5); Carbon Dioxide 23 mmol/L (22-29); Chloride 103 mmol/L (98-107); Glucose 304 mg/dL (65-115); Osmolality Calculated 291 mOsm/kg (285-295); Potassium 4.1 mmol/L (3.5-5.1); Sodium 135 mmol/L (136-145)
[2019-09-10 20:58] LABS: Glucose Point of Care 301 mg/dL (70-110)
[2019-09-10] MEDS: insulin glargine 100 units/1 mL 30 UNIT SUBCUT (21:01)
[2019-09-10] MEDS: atorvastatin 40 mg Tablet PO (21:02)
--- NOTE | 2019-09-10 21:23 | P.PN_ITS ---
Subjective Subjective: Interval history: The patient is feeling better today. He seems to be little more alert and oriented. No fever or chills. The vital signs remained stable. No significant arrhythmias on the monitor. Occasional PVCs were noted. Medications: Reviewed: Yes Medication Review Details: Current Medications Acetaminophen (Tylenol) 650 mg PO Q6H PRN PRN Reason: Mild/Mod Pain Or Temp >/= 101 Hydrocodone Bitart/Acetaminophen ([place] 5-325 Mg) 1 tab PO Q4H PRN PRN Reason: MODERATE PAIN Last Admin: 09/10/19 11:35 Dose: 1 tab Documented by: Albuterol Sulfate (Albuterol) 2.5 mg INHALATION Q4H PRN PRN Reason: Shortness Of Breath Aspirin (Aspirin) 325 mg PO DAILY [facility] Last Admin: 09/10/19 08:00 Dose: 325 mg Documented by: Atorvastatin Calcium (Lipitor) 40 mg PO BEDTIME [facility] Last Admin: 09/10/19 21:02 Dose: 40 mg Documented by: Bisacodyl (Dulcolax) 10 mg PO DAILY PRN PRN Reason: CONSTIPATION Last Admin: 09/09/19 02:58 Dose: 10 mg Documented by: Dextrose (D50w) 25 ml IVP ONCE PRN; Protocol PRN Reason: hypoglycemia protocol Dextrose (D50w) 50 ml IVP PRN PRN; Protocol PRN Reason: hypoglycemia protocol Doxazosin Mesylate (Cardura) 4 mg PO DAILY [facility] Last Admin: 09/10/19 08:00 Dose: 4 mg Documented by: Enoxaparin Sodium (Lovenox) 90 mg 1 mg/kg (90 mg) SUBCUT Q12H [facility] Last Admin: 09/10/19 13:42 Dose: 90 mg Documented by: Glucagon (Glucagen) 1 mg IM ONCE PRN; Protocol PRN Reason: Adult Acute Hypoglycemia Prot. Hydralazine HCl (Apresoline) 10 mg IVP Q4H PRN PRN Reason: HYPERTENSION Sodium Chloride (Sodium Chloride 0.45%) 1,000 mls @ 125 mls/hr IV .Q8H [facility] Last Admin: 09/10/19 17:47 Dose: 125 mls/hr Documented by: Dextrose (D5w) 500 mls @ 100 mls/hr IV ONCE PRN; Protocol PRN Reason: Adult Acute Hypoglycemia Prot Cefepime HCl 2,000 mg/ Sodium (Chloride) 50 mls @ 100 mls/hr IV Q8H [facility]; Protocol Last Infusion: 09/10/19 14:13 Dose: Infused Documented by: Vancomycin HCl 1,500 mg/ (Sodium Chloride) 250 mls @ 166.667 mls/hr IV Q18H [facility]; Protocol Last Infusion: 09/10/19 12:45 Dose: Infused Documented by: Insulin Aspart (Novolog) 0 unit SUBCUT TIDWM [facility]; Protocol Last Admin: 09/10/19 17:30 Dose: Not Given Documented by: Insulin Aspart (Novolog) 0 unit SUBCUT BEDTIME [facility]; Protocol Last Admin: 09/10/19 21:02 Dose: 7 unit Documented by: Insulin Glargine (Lantus) 30 unit SUBCUT BEDTIME [facility] Last Admin: 09/10/19 21:01 Dose: 30 unit Documented by: Metoprolol Tartrate (Lopressor) 100 mg PO BID [facility] Last Admin: 09/10/19 17:47 Dose: 100 mg Documented by: Morphine Sulfate (Morphine) 4 mg IVP Q4H PRN PRN Reason: SEVERE PAIN Last Admin: 09/10/19 08:02 Dose: 4 mg Documented by: Nitroglycerin (Nitro-Bid) 1 inch TOPICAL Q6H [facility] Last Admin: 09/10/19 17:47 Dose: 1 inch Documented by: Ondansetron HCl (Zofran) 4 mg IVP Q6H PRN PRN Reason: vomiting, or N/V if npo Pantoprazole Sodium (Protonix) 40 mg IVP Q12H [facility] Last Admin: 09/10/19 17:47 Dose: 40 mg Documented by: Senna/Docusate Sodium (Senna-S) 1 tab PO BID [facility] Last Admin: 09/10/19 17:47 Dose: 1 tab Documented by: Vitals/I&O/Wt Last Vital Signs Temp 100 F H 09/10/19 05:00 Pulse 96 09/10/19 20:00 Resp 13 09/10/19 20:00 BP 155/91 09/10/19 20:00 Pulse Ox 95 09/10/19 20:00 09/10/19 09/10/19 09/10/19 06:59 14:59 22:59 Intake Total 1210 / 3610 1140 / 1140 1100 / 2240 Output Total 1999 / 2950 1000 / 1000 Balance -790 / 660 1140 / 1140 100 / 1240 Weight last 48 hrs Weight 182 lb 12.8 oz Physical Exam Narrative: EXAM NARRATIVE: GENERAL: The patient is alert and oriented times two. Not in any acute distress. HEENT: No significant pallor, icterus or lymphadenopathy.Oral cavity: There are no mucous membrane lesions. NECK: Trachea appears to be central. No masses noted. No JVD or thyromegaly appreciated. RESPIRATORY: Chest is symmetrical. No intercostals muscle retraction or any accessory muscle activation. The chest wall tenderness persists. Breath sounds are heard bilaterally. No rales or rhonchi heard. No evidence of any consolidation. BREASTS: Deferred. HEART: The heart sounds are normal. No S3 or S4. No significant murmurs. No pericardial rub ABDOMEN: Slightly distended with gas. No vessel pulsations. No tenderness. No organomegaly appreciated. Bowel sounds are normally heard. : Deferred. RECTAL: Deferred. LYMPHATIC: No lymphadenopathy noted in the neck or groin. EXTREMITIES: No edema or cyanosis. No clubbing. Peripheral pulses are palpated in fairly good volume and amplitude MUSCULOSKELETAL: No acute joint deformities or swelling SKIN: There are no significant scars or skin rash noted. NEUROPSYCHIATRIC: The patient is alert and oriented x2. Appears to be in a good mood. No tremors or rigidity noted. Urinary Catheter Management^: Yap: Cath Placed During This Visit: yes Urethral Indwelling: Yes Reason for Continuing Indwelling Catheter: Acute Urinary Retention or Obstruction Urinary Catheter Date of Insertion: 09/10/19 Urinary Catheter Time of Insertion: 05:55 Data : 09/11/19 06:55 09/11/19 06:55 Micro: Microbiology 09/09/19 12:15 Gram Stain - Final Other Source Body Fluid Culture - Preliminary 09/08/19 20:54 Blood Culture - Preliminary Blood NEGATIVE TO DATE 09/08/19 20:53 Blood Culture - Preliminary Blood NEGATIVE TO DATE Echo: My impression: Echocardiogram done on 09/09/2019 normal LV size ejection fraction of 55%. No gross wall motion normalities. Study is of suboptimal quality because of the poor ultrasonic window. Thickened mitral valve. Thickened aortic valve. There is no pericardial effusion. There are no intracardiac masses. Technically difficult study. CT Chest: Radiologist's impression: Chest CT done on 09/09/2019 1. Bilateral nondisplaced acute 4th through 7th rib fractures. 2. No pneumothorax. No sign of significant pulmonary contusion. A&P Assessment and plan (1) Elevated troponin: This could be a type II IL. Possibility of coronary ischemia/non-ST elevation myocardial infarction causing this also is a consideration. For further evaluation of the coronary status, a myocardial perfusion imaging would be appropriate. We may coordinate scheduling for this test tomorrow. I also may repeat the troponin T to see the trend. Status: Acute Code(s): R79.89 - Other specified abnormal findings of blood chemistry (2) Benign essential hypertension with target blood pressure below 140/90: Since the blood pressures remain in the normal range, may continue on the current medications. Status: Acute Code(s): I10 - Essential (primary) hypertension (3) Abnormal EKG: As above. Based on the results, further recommendations will be made. Patient had echocardiogram and the results are as noted above. Status: Acute Code(s): R94.31 - Abnormal electrocardiogram [ECG] [EKG] (4) Intraoperative cardiorespiratory arrest: Patient has no significant arrhythmias on the monitor. The vital signs are remaining stable. No evidence of any aspiration pneumonia or any acute lung pathology. Status: Acute Additional A&P Information After reviewing the above and also based on the patient clinical progress, further recommendations will be made. Attestations Medical Necessity Statement*: Patient requires continued hospital stay for close monitoring and further management Coding Level of Care Code Acute Project Inspector for [facility] Fwd Diagnoses Elevated troponin R79.89 Benign essential hypertension with target blood pressure below 140/90 I10 Abnormal EKG R94.31 Intraoperative cardiorespiratory arrest
--- NOTE | 2019-09-10 22:09 | PC.NURSE ---
dr heath to see pt at this time. assisted c asessment. lita hector.
[2019-09-11] VITALS (23 sets, daily range): BP systolic 92–162; BP diastolic 53–91; PULSE 73–96; RESP 4–26; TEMP 36.3–37.2; O2SAT 94–99; BMI 27.1
[2019-09-11] MEDS: nitroglycerin 1 gm/inch oint Pkt 1 INCH TOPICAL ×2 (00:21→05:43)
[2019-09-11] MEDS: sodium chloride 0.45% 1,000 ML 125 ML IV (02:27)
[2019-09-11] MEDS: enoxaparin 100 mg/mL Syringe 90 MG SUBCUT ×2 (02:27→13:54)
[2019-09-11] MEDS: pantoprazole 40 mg SDV IVP (05:24)
--- NOTE | 2019-09-11 06:30 | NMCV_ITS ---
NM ruby perf SPECT r/s* [id number] Adan Zamudio Age: 69 Gender: M : 1950 Exam Date: 09/11/2019 06:30 Ordering Phys: Geraldine Bronson MD ([email or web address]) Technologist: MARYANA Brown Exam Location: [facility] Indications: ALTERED MENTAL STATUS STRESS TEST Please [facility] IMAGE PROTOCOL Rest/Stress 1 Lexiscan Day Radiopharmaceutical Dose (mCi) Administration Site Administered by Rest: Tc-99m 10.9 IV MARYANA Trent Sestamibi Stress:Tc-99m 32.5 IV MARYANA Trent Sestamibi Rest: 11-Sep-2019 60 Discovery 630 Stress: 11-Sep-2019 30 Discovery 630 0.4mg Lexiscan. Supine position only as patient was unable to lay prone. SPECT RESULTS Technical Quality: Excellent Raw Data Analysis: Normal Image Corrections: No attenuation or motion correction applied Summed Stress Score: 13 Summed Rest Score: 9 Summed Difference Score: 6 PERFUSION FINDINGS Moderate area of severely decreased tracer uptake in the basal and mid inferior, inferolateral, apical lateral, apical anterior, septal and LV apex. Some reversibility was noted in the basal inferior, basal inferolateral, LV apex and apical anterior segments FUNCTIONAL RESULTS (calculated via Gated SPECT) Stress Image LV EF (%): 60 Stress EDV (mL):52 TID: 1.03 Stress ESV (mL):21 FUNCTIONAL FINDINGS: Segmental wall motion analysis revealing mild hypokinesia of the LV apex IMPRESSIONS 1. Myocardial perfusion imaging revealing areas of persistent decreased uptake in the inferior, inferolateral and apical segments with some reversibility in the basal and apical segments, suggestive of myocardial scarring with ischemia in the distribution of all the 3 coronary arteries. 2. Normal LV ejection fraction 60% 3. LV wall motion analysis revealing hypokinesia of the LV apex as mentioned above. 4. Normal LV volume. No similar previous studies are available for comparison Dr Geraldine Bronson MD FACC (Electronically Signed) Final Date: 11 September 2019 13:19 S
--- NOTE | 2019-09-11 06:47 | ECG_ITS ---
NAME OF STUDY: LEXISCAN SESTAMIBI STRESS TEST INDICATION: Chest Pain, PROCEDURE: At the baseline, the EKG revealed normal sinus rhythm with diffuse nonspecific ST-T changes. Poor R wave progression. The baseline blood pressure was 131/57 mm Hg with a heart rate of 86 beats/min. Lexiscan was infused over a period of 20 seconds. A total of 0.4 milligrams of Lexiscan was infused. The stress phase was continued for a total of 5 minutes. Heart rate at the end of the stress phase was 94 with a blood pressure 119/58. The EKG at the peak infusion revealed no significant changes. Sestamibi was injected 20 seconds after the Lexiscan infusion. Blood pressure at the end of the recovery phase was 124/58 with a heart rate of 92 per minute. CONCLUSION: 1. No significant EKG changes with the LexiScan infusion 2. No LexiScan induced chest pain or cardiac arrhythmia 3. Normal blood pressure and heart rate response 4. Sestamibi/sestamibi perfusion scan pending; see separate report. Electronically Signed On 09-11-2019 13:22:44 RESPIRATORY SUPPORT TECHNICIAN by Geraldine Bronson M.D. [email or web address]
[2019-09-11 07:10] LABS: Basophils % 0.1 %; Eosinophils % 0.1 %; Hematocrit 28.1 % (42.0-52.0); Hemoglobin 9.3 g/dL (11.7-16.6); Lymphocytes # 1.4 10^3/uL (0.8-4.8); Lymphocytes % 15.8 %; Mean Corpuscular HGB Conc 33.1 g/dL (30.0-36.0); Mean Corpuscular Hemoglobin 32.7 pg (28.0-34.0); Mean Corpuscular Volume 98.9 fL (80-94); Mean Platelet Volume 9.9 fL (7.4-10.4); Monocytes # 1.2 10^3/uL (0.2-0.9); Monocytes % 14.2 %; Neutrophils % 69.3 %; Nucleated Red Blood Cells % 0 %; Platelet Count 233 10^3/cmm (130-400); Red Blood Count 2.84 10^6/uL (4.1-5.3); Red Cell Distribution Width 12.2 % (12.1-15.1); White Blood Count 8.6 10^3/uL (4.0-10.0)
[2019-09-11 07:11] LABS: Glucose Point of Care 469 mg/dL (70-110)
[2019-09-11 07:11] LABS: Glucose Point of Care 516 mg/dL (70-110)
[2019-09-11 07:11] LABS: Glucose Point of Care 323 mg/dL (70-110)
[2019-09-11 07:11] LABS: Glucose Point of Care 423 mg/dL (70-110)
[2019-09-11 07:26] LABS: Anion Gap 13.5 (5-19); Blood Urea Nitrogen 63 mg/dL (8-23); Calcium 8.1 mg/dL (8.5-10.5); Carbon Dioxide 23 mmol/L (22-29); Chloride 100 mmol/L (98-107); Glucose 427 mg/dL (65-115); Osmolality Calculated 291 mOsm/kg (285-295); Potassium 4.5 mmol/L (3.5-5.1); Sodium 132 mmol/L (136-145)
[2019-09-11 07:27] LABS: Troponin T (5th) Once 87 ng/mL (0-15)
[2019-09-11] MEDS: morphine 4 mg/mL SDV 1 mL IVP (07:31)
--- NOTE | 2019-09-11 07:40 | PC.NURSE ---
TRANSPORTED TO [facility] FOR LEXISCAN; MEDICATED WITH MORPHINE D/T RIB FX. NURSE AT PT BEDSIDE
--- NOTE | 2019-09-11 08:02 | PM.PN ---
Subjective Subjective: Interval history: The patient is remaining afebrile. Still has intermittent confusion. Vital signs remained stable. He underwent a myocardial perfusion imaging today. Results are as follows. Medications: Reviewed: Yes Medication Review Details: Current Medications Acetaminophen (Tylenol) 650 mg PO Q6H PRN PRN Reason: Mild/Mod Pain Or Temp >/= 101 Hydrocodone Bitart/Acetaminophen ([place] 5-325 Mg) 1 tab PO Q4H PRN PRN Reason: MODERATE PAIN Last Admin: 09/10/19 11:35 Dose: 1 tab Documented by: Albuterol Sulfate (Albuterol) 2.5 mg INHALATION Q4H PRN PRN Reason: Shortness Of Breath Aminophylline (Aminophylline) 25 mg IVP Q2M PRN PRN Reason: see dose instructions Stop: 09/12/19 06:45 Aspirin (Aspirin) 325 mg PO DAILY [facility] Last Admin: 09/10/19 08:00 Dose: 325 mg Documented by: Atorvastatin Calcium (Lipitor) 40 mg PO BEDTIME [facility] Last Admin: 09/10/19 21:02 Dose: 40 mg Documented by: Bisacodyl (Dulcolax) 10 mg PO DAILY PRN PRN Reason: CONSTIPATION Last Admin: 09/09/19 02:58 Dose: 10 mg Documented by: Dextrose (D50w) 25 ml IVP ONCE PRN; Protocol PRN Reason: hypoglycemia protocol Dextrose (D50w) 50 ml IVP PRN PRN; Protocol PRN Reason: hypoglycemia protocol Doxazosin Mesylate (Cardura) 4 mg PO DAILY [facility] Last Admin: 09/10/19 08:00 Dose: 4 mg Documented by: Enoxaparin Sodium (Lovenox) 90 mg 1 mg/kg (90 mg) SUBCUT Q12H [facility] Last Admin: 09/11/19 02:27 Dose: 90 mg Documented by: Glucagon (Glucagen) 1 mg IM ONCE PRN; Protocol PRN Reason: Adult Acute Hypoglycemia Prot. Hydralazine HCl (Apresoline) 10 mg IVP Q4H PRN PRN Reason: HYPERTENSION Sodium Chloride (Sodium Chloride 0.45%) 1,000 mls @ 30 mls/hr IV .Q24H [facility] Last Admin: 09/11/19 02:27 Dose: 125 mls/hr Documented by: Dextrose (D5w) 500 mls @ 100 mls/hr IV ONCE PRN; Protocol PRN Reason: Adult Acute Hypoglycemia Prot Cefepime HCl 2,000 mg/ Sodium (Chloride) 50 mls @ 100 mls/hr IV Q8H [facility]; Protocol Last Infusion: 09/10/19 23:05 Dose: Infused Documented by: Vancomycin HCl 1,500 mg/ (Sodium Chloride) 250 mls @ 166.667 mls/hr IV Q18H [facility]; Protocol Last Infusion: 09/11/19 07:27 Dose: Infused Documented by: Insulin Aspart (Novolog) 0 unit SUBCUT TIDWM [facility]; Protocol Last Admin: 09/10/19 17:30 Dose: Not Given Documented by: Insulin Aspart (Novolog) 0 unit SUBCUT BEDTIME [facility]; Protocol Last Admin: 09/10/19 21:02 Dose: 7 unit Documented by: Insulin Glargine (Lantus) 45 unit SUBCUT BEDTIME [facility] Metoprolol Tartrate (Lopressor) 100 mg PO BID [facility] Last Admin: 09/10/19 17:47 Dose: 100 mg Documented by: Morphine Sulfate (Morphine) 2 mg IVP Q4H PRN PRN Reason: SEVERE PAIN Nitroglycerin (Nitro-Bid) 1 inch TOPICAL Q6H [facility] Last Admin: 09/11/19 05:43 Dose: 1 inch Documented by: Nitroglycerin (Nitrostat) 0.4 mg SUBLINGUAL Q5M PRN PRN Reason: CHEST PAIN Stop: 09/12/19 06:45 Ondansetron HCl (Zofran) 4 mg IVP Q6H PRN PRN Reason: vomiting, or N/V if npo Ondansetron HCl (Zofran) 4 mg IVP Q2M PRN PRN Reason: NAUSEA Pantoprazole Sodium (Protonix) 40 mg PO BID [facility] Senna/Docusate Sodium (Senna-S) 1 tab PO BID [facility] Last Admin: 09/10/19 17:47 Dose: 1 tab Documented by: Vitals/I&O/Wt Last Vital Signs Temp 98.9 F 09/11/19 05:00 Pulse 76 09/11/19 05:00 Resp 13 09/11/19 07:31 BP 129/71 09/11/19 05:00 Pulse Ox 97 09/11/19 07:31 09/10/19 09/11/19 09/11/19 22:59 06:59 14:59 Intake Total 1220 / 2360 1050 / 3410 250 / 250 Output Total 1000 / 1000 1100 / 2100 Balance 220 / 1360 -50 / 1310 250 / 250 Weight last 48 hrs Weight 183 lb 6.4 oz Weight 182 lb 12.8 oz Physical Exam Narrative: EXAM NARRATIVE: GENERAL: The patient is very sleepy. Not in any acute distress. HEENT: Patient keep his both eyes closed. Minimal discharge from the right conjunctiva. NECK: Trachea appears to be central. No masses noted. No JVD or thyromegaly appreciated. RESPIRATORY: Chest is symmetrical. No intercostals muscle retraction or any accessory muscle activation. The chest wall tenderness persists. Breath sounds are heard bilaterally. No rales or rhonchi heard. No evidence of any consolidation. BREASTS: Deferred. HEART: The heart sounds are normal. No S3 or S4. No significant no significant murmurs no pericardial rub ABDOMEN: Slightly distended with gas. No vessel pulsations. No tenderness. No organomegaly appreciated. Bowel sounds are normally heard. : Deferred. RECTAL: Deferred. LYMPHATIC: No lymphadenopathy noted in the neck or groin. EXTREMITIES: No edema or cyanosis. No clubbing. Peripheral pulses are palpated in fairly good volume and amplitude MUSCULOSKELETAL: No acute joint deformities or swelling SKIN: There are no significant scars or skin rash noted. NEUROPSYCHIATRIC: The patient is alert and oriented x2. Appears to be drowsy Urinary Catheter Management^: Yap: Cath Placed During This Visit: yes Urethral Indwelling: Yes Reason for Continuing Indwelling Catheter: Acute Urinary Retention or Obstruction Urinary Catheter Date of Insertion: 09/10/19 Urinary Catheter Time of Insertion: 05:55 Data : 09/11/19 06:55 09/11/19 06:55 Other Labs: Abnormal lab results 09/10/19 09/11/19 09/11/19 Range/Units 14:20 06:55 06:55 RBC 2.84 L (4.1-5.3) 10^6/uL Hgb 9.3 L (11.7-16.6) g/dL Hct 28.1 L (42.0-52.0) % MCV 98.9 H (80-94) fL Rice # (Auto) 1.2 H (0.2-0.9) 10^3/uL Sodium 135 L 132 L (136-145) mmol/L BUN 74 H 63 H (8-23) mg/dL Creatinine 1.3 H (0.7-1.2) mg/dL Glucose 304 H 427 H (65-115) mg/dL Calcium 8.4 L 8.1 L (8.5-10.5) mg/dL Troponin T Gen 5 ng/L (0-15) ng/mL 09/11/19 Range/Units 06:55 RBC (4.1-5.3) 10^6/uL Hgb (11.7-16.6) g/dL Hct (42.0-52.0) % MCV (80-94) fL [place] # (Auto) (0.2-0.9) 10^3/uL Sodium (136-145) mmol/L BUN (8-23) mg/dL Creatinine (0.7-1.2) mg/dL Glucose (65-115) mg/dL Calcium (8.5-10.5) mg/dL Troponin T Gen 5 ng/L 87 H (0-15) ng/mL Micro: Microbiology 09/09/19 12:15 Gram Stain - Final Other Source Body Fluid Culture - Preliminary Myocardial perfusion imaging: My impression: IMPRESSIONS 1. Myocardial perfusion imaging revealing areas of persistent decreased uptake in the inferior, inferolateral and apical segments with some reversibility in the basal and apical segments, suggestive of myocardial scarring with ischemia in the distribution of all the 3 coronary arteries. 2. Normal LV ejection fraction 60% 3. LV wall motion analysis revealing hypokinesia of the LV apex as mentioned above. 4. Normal LV volume. No similar previous studies are available for comparison A&P Assessment and plan (1) Elevated troponin: In view of the abnormal myocardial perfusion imaging, possibility of him having underlying coronary artery disease is very high. This needs to be further evaluated. But we may hold off on this till the mental status gets better and inpatient is appropriately treated. I may discontinue the aspirin and start him on Plavix 300 mg p.o. today followed by 75 mg daily The repeat troponin T shows a downward trending Status: Acute Code(s): R79.89 - Other specified abnormal findings of blood chemistry (2) Benign essential hypertension with target blood pressure below 140/90: Since the blood pressures remain in the normal range, may continue on the current medications. Status: Acute Code(s): I10 - Essential (primary) hypertension (3) Abnormal EKG: There are diffuse nonspecific ST-T changes, could be related to underlying coronary ischemia. This needs to be further evaluated Status: Acute Code(s): R94.31 - Abnormal electrocardiogram [ECG] [EKG] (4) Intraoperative cardiorespiratory arrest: Patient has no significant arrhythmias on the monitor. The vital signs are remaining stable. No evidence of any aspiration pneumonia or any acute lung pathology. Status: Acute Additional A&P Information Based on the clinical progress, further management decisions will be made. Attestations Medical Necessity Statement*: Patient requires continued hospital stay for close monitoring and further management Coding Level of Care Code Acute Commercial Loan Closer for [facility] Fwd Diagnoses Elevated troponin R79.89 Benign essential hypertension with target blood pressure below 140/90 I10 Abnormal EKG R94.31 Intraoperative cardiorespiratory arrest
[2019-09-11] MEDS: ondansetron 2 mg/ML SDV 2 mL 4 MG IVP (08:27)
[2019-09-11] MEDS: regadenoson 0.4 Mg/5 ml Syringe IVP (08:27)
[2019-09-11] MEDS: cefepime 2,000 MG in sodium chloride 0.9% (plus) 50 ML 100 MG IV ×3 (09:01→21:35)
--- NOTE | 2019-09-11 10:14 | PM.PN ---
Subjective Subjective: Interval history: Adan is able to answer questions today. He is not oriented to place but otherwise seems less confused than yesterday. He reports pain with movement. Vitals/I&O/Wt Last Vital Signs Temp 98.9 F 09/11/19 05:00 Pulse 93 09/11/19 09:06 Resp 13 09/11/19 07:31 BP 113/59 09/11/19 08:34 Pulse Ox 94 09/11/19 09:06 09/10/19 09/11/19 09/11/19 22:59 06:59 14:59 Intake Total 1220 / 2360 1050 / 3410 250 / 250 Output Total 1000 / 1000 1100 / 2100 Balance 220 / 1360 -50 / 1310 250 / 250 Weight last 48 hrs Weight 83.189 kg Weight 82.917 kg Physical Exam Narrative: EXAM NARRATIVE: General exam no distress unless moved Cardiovascular regular rate and rhythm without murmur Lungs clear Abdomen is soft, positive bowel sounds, obese Extremities no cyanosis clubbing or edema Urinary Catheter Management^: Yap: Cath Placed During This Visit: yes Urethral Indwelling: Yes Reason for Continuing Indwelling Catheter: Acute Urinary Retention or Obstruction Urinary Catheter Date of Insertion: 09/10/19 Urinary Catheter Time of Insertion: 05:55 Data : 09/11/19 06:55 09/11/19 06:55 Micro: Microbiology 09/09/19 12:15 Gram Stain - Final Other Source Body Fluid Culture - Preliminary A&P Assessment and plan (1) Non-ST elevation (NSTEMI) myocardial infarction: Appreciate cardiology consultation Continue statin, aspirin, beta-nany, treatment dose Lovenox, nitrate Echocardiogram demonstrates preserved EF Nuclear stress test is being attempted today Change nitroglycerin ointment to Imdur Status: Acute Code(s): I21.4 - Non-ST elevation (NSTEMI) myocardial infarction (2) History of successful cardiopulmonary resuscitation: Reportedly performed on 09/08/2019 perioperatively. Status: Acute Code(s): Z92.89 - Personal history of other medical treatment (3) Multiple rib fractures: Bilateral acute fractures ribs 4-7 anteriorly, presumably secondary to resuscitation Medicine for pain control. Incentive spirometry Start to mobilize with physical therapy. This will be ordered Status: Acute Qualifiers: Encounter type: initial encounter Fracture type: closed Laterality: bilateral Qualified Code(s): S22.43XA - Multiple fractures of ribs, bilateral, initial encounter for closed fracture Code(s): S22.49XA - Multiple fractures of ribs, unspecified side, initial encounter for closed fracture (4) Altered mental status: Unknown etiology. May be secondary to anoxic brain injury, prolonged anesthetic effect, other medication. Still some confusion but improving. Family does relate he has had some confusion even prior to the surgery. Status: Acute Qualifiers: Altered mental status type: disorientation Qualified Code(s): R41.0 - Disorientation, unspecified Code(s): R41.82 - Altered mental status, unspecified (5) Infection of right eye: Pseudomonas suspected per Dr Bland. Surgically drained September 08. From my understanding antibiotics have been put into the orbit. Vancomycin, cefepime at this point awaiting cultures. Culture here negative to date. 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 (7) Hypertension: Usually on ARB and beta blockade Discontinue ARB secondary to hyperkalemia Continue metoprolol Status: Acute Qualifiers: Hypertension type: essential hypertension Qualified Code(s): I10 - Essential (primary) hypertension Code(s): I10 - Essential (primary) hypertension (8) Hyperlipidemia: Continue statin Status: Acute Qualifiers: Hyperlipidemia type: unspecified Qualified Code(s): E78.5 - Hyperlipidemia, unspecified Code(s): E78.5 - Hyperlipidemia, unspecified (9) Glaucoma: Followed by ophthalmology They have been consulted for opinion Status: Acute Qualifiers: Glaucoma type: unspecified Laterality: bilateral Qualified Code(s): H40.9 - Unspecified glaucoma Code(s): H40.9 - Unspecified glaucoma (10) Acute kidney injury: May be postobstructive. Yap has been placed. Renal function markedly improved Reduce fluids Status: Acute Code(s): N17.9 - Acute kidney failure, unspecified (11) Hyperkalemia: Continue to hold ARB Overall resolved Status: Acute Code(s): E87.5 - Hyperkalemia Additional A&P Information Await ophthalmology consultation DVT prophylaxis Lovenox Full code Potential transfer out of the ICU later today Attestations Medical Necessity Statement*: Needs continued hospitalization for IV antibiotics secondary to right eye infection, investigation of elevated troponin Coding Level of Care Code Acute Inside Trucker for g Fwd Diagnoses Non-ST elevation (NSTEMI) myocardial infarction I21.4 History of successful cardiopulmonary resuscitation Z92.89 Multiple rib fractures S22.43XA Encounter type: initial encounter Fracture type: closed Laterality: bilateral Altered mental status R41.0 Altered mental status type: disorientation Infection of right eye H44.001 Diabetes mellitus type 2, insulin dependent E11.9; Z79.4 Hypertension I10 Hypertension type: essential hypertension Hyperlipidemia E78.5 Hyperlipidemia type: unspecified Glaucoma H40.9 Glaucoma type: unspecified Laterality: bilateral Acute kidney injury N17.9 Hyperkalemia E87.5
[2019-09-11 11:22] LABS: Glucose Point of Care 393 mg/dL (70-110)
[2019-09-11] MEDS: doxazosin 4 mg Tablet PO (11:43)
[2019-09-11] MEDS: aspirin 325 mg Tablet PO (11:43)
[2019-09-11] MEDS: pantoprazole DR 40 mg Tablet PO ×2 (11:44→19:32)
[2019-09-11] MEDS: metoprolol tartrate 50 mg Tablet 100 MG PO ×2 (11:44→19:33)
[2019-09-11] MEDS: isosorbide mononitrate ER 30 mg Tablet PO (11:44)
[2019-09-11] MEDS: sennosides-docusate Tablet 1 TAB PO ×2 (11:45→19:32)
[2019-09-11] MEDS: HYDROcodone-acetaminophen 5-325 mg Tablet 1 TAB PO (13:56)
[2019-09-11 17:19] LABS: Glucose Point of Care 337 mg/dL (70-110)
[2019-09-11] MEDS: clopidogrel 300 mg Tablet PO (19:32)
[2019-09-11] MEDS: insulin glargine 100 units/1 mL 45 UNIT SUBCUT (20:58)
[2019-09-11] MEDS: atorvastatin 40 mg Tablet PO (20:59)
[2019-09-12] VITALS (11 sets, daily range): BP systolic 96–130; BP diastolic 48–64; PULSE 77–94; RESP 12–24; TEMP 36.5–36.8; O2SAT 94–96
[2019-09-12] MEDS: enoxaparin 100 mg/mL Syringe 90 MG SUBCUT (02:21)
[2019-09-12 05:13] LABS: Basophils % 0.3 %; Eosinophils # 0.3 10^3/uL (0.0-0.8); Eosinophils % 3.3 %; Hematocrit 25.2 % (42.0-52.0); Hemoglobin 8.5 g/dL (11.7-16.6); Lymphocytes # 1.3 10^3/uL (0.8-4.8); Lymphocytes % 17.2 %; Mean Corpuscular HGB Conc 33.7 g/dL (30.0-36.0); Mean Corpuscular Hemoglobin 33.1 pg (28.0-34.0); Mean Corpuscular Volume 98.1 fL (80-94); Mean Platelet Volume 10.7 fL (7.4-10.4); Monocytes # 1.1 10^3/uL (0.2-0.9); Monocytes % 14.2 %; Neutrophils # 4.9 10^3/uL (1.8-7.7); Neutrophils % 64.6 %; Nucleated Red Blood Cells % 0.5 %; Platelet Count 233 10^3/cmm (130-400); Red Blood Count 2.57 10^6/uL (4.1-5.3); Red Cell Distribution Width 11.9 % (12.1-15.1); White Blood Count 7.6 10^3/uL (4.0-10.0)
[2019-09-12 05:33] LABS: Anion Gap 12.7 (5-19); Blood Urea Nitrogen 62 mg/dL (8-23); Calcium 8.2 mg/dL (8.5-10.5); Carbon Dioxide 21 mmol/L (22-29); Chloride 100 mmol/L (98-107); Glucose 273 mg/dL (65-115); Osmolality Calculated 279 mOsm/kg (285-295); Potassium 3.7 mmol/L (3.5-5.1); Sodium 130 mmol/L (136-145)
[2019-09-12] MEDS: cefepime 2,000 MG in sodium chloride 0.9% (plus) 50 ML 100 MG IV ×3 (06:14→21:37)
[2019-09-12] MEDS: HYDROcodone-acetaminophen 5-325 mg Tablet 1 TAB PO (06:18)
--- NOTE | 2019-09-12 06:22 | PC.NURSE ---
SHIFT SUMMARY PT HAS REMAINED CONFUSED OFF AND ON. PT HAS HAD ADEQUATE URINE OUTPUT. PT HAS NOT COMPLAINED OF ANY PAIN REALLY UNTIL THIS MORNING, WAS GIVEN PAIN PILL. PT HAS BEEN TURNED A FEW TIMES, PT REFUSED OTHER TIMES. NO BM ON THIS SHIFT SO FAR. PT BLOOD PRESSURE HAS REMAINED AROUND 120-140S SYSTOLIC. PT PO INTAKE HAS BEEN FAIRLY GOOD THROUGHOUT THE SHIFT.
[2019-09-12] MEDS: morphine 4 mg/mL SDV 1 mL 2 MG IVP ×3 (07:18→20:22)
[2019-09-12] MEDS: ondansetron 2 mg/ML SDV 2 mL 4 MG IVP ×2 (07:22→18:09)
--- NOTE | 2019-09-12 07:22 | PC.NURSE ---
c/o pain. iv ms also c/o nausea prior to m.s.
--- NOTE | 2019-09-12 08:37 | PC.OT ---
OT EVALUATION ORDERS RECEIVED. UNABLE TO PERFORM EVAL TODAY DUE TO + STRESS TEST AND ANGIOGRAM WITH POSSIBLE STENT PLACEMENT. HOLD TODAY
--- NOTE | 2019-09-12 09:15 | PC.SOCIAL ---
IMM Page 2 of IMM explained to and signed by patient's spouse at bedside. They verbalize understanding. Initialed, dated, and timed and placed in chart. Copy provided to patient.
[2019-09-12] MEDS: metoprolol tartrate 50 mg Tablet 100 MG PO ×2 (09:24→19:35)
[2019-09-12] MEDS: losartan 50 mg Tablet 25 MG PO (09:24)
[2019-09-12] MEDS: isosorbide mononitrate ER 30 mg Tablet PO (09:25)
[2019-09-12] MEDS: pantoprazole DR 40 mg Tablet PO ×2 (09:25→17:09)
[2019-09-12] MEDS: FUROsemide 10 mg/mL SDV 4mL 40 MG IVP (09:25)
[2019-09-12] MEDS: doxazosin 4 mg Tablet PO (09:25)
[2019-09-12] MEDS: sennosides-docusate Tablet 1 TAB PO ×2 (09:25→17:09)
--- NOTE | 2019-09-12 11:02 | PC.CHAP ---
Pastoral Care Encounter/Spiritual Assessment Type of Contact [] Declined clinical exercise physiologist visit [] Patient/Family/Request visit [] Outpatient visit [] Follow-up visit [] Physician referral [] Code/Alert [x] Routine visit [] Staff referral [] Actively dying [] Patient sleeping [x] Family support [] [] Out of room [] Palliative care [] [] Receiving care in room [] Pre-surgical visit [] Trauma [] Long length of stay [x] ICU visit [] Other: Relational/Emotional Strength [] Patient feels connected with others/family/visitors/staff [] Distress [] Loneliness/isolation [] Abandonment Spirituality of Patient [] Person of Mignon [] Attends Zoroastrianism of their Mignon [x] Believes in Prayer [] Reads Bible or Jew materials [] There are Spiritual issues to be addressed [employer] Interventions [x] Prayer [] Active listening [] Non-anxious presence [] Spiritual/emotional support [] Crisis/trauma care [] Spiritual counseling [] Bereavement support [] Provided bereavement packet [] Provided Bible/devotional materials [] Provided toy/stuffed animal, coloring book to patient or family member [] Provided Communion [] Anointing/Ava [] Salvation [x] Completed spiritual assessment [] Other: Impact on Illness or Injury [] Angry [] Fearful [] Anxious [] Often cries [] Exhaustion [] Unable to work [] Unable to attend jewish [] Unable to walk/stand [] Unable to read [] Unable to drive [] Unable to eat/drink [] Unable to sleep [] Unable to be with family [] Patient intubated [] Other: Summary Patient undergoing tests. present with daughter in law. Patient's daughter passed Sunday or Sunday of this week. Family needs prayer Time spent with patient 20min
--- NOTE | 2019-09-12 12:50 | PM.PN ---
Subjective Subjective: Interval history: Adan reports he is doing okay. I have visited with his family as well. He denies any chest discomfort. Medications: Reviewed: Yes Vitals/I&O/Wt Last Vital Signs Temp 97.9 F 09/12/19 10:49 Pulse 94 09/12/19 10:49 Resp 16 09/12/19 10:49 BP 119/64 09/12/19 10:49 Pulse Ox 96 09/12/19 10:49 09/11/19 09/12/19 09/12/19 22:59 06:59 14:59 Intake Total 2050 / 3320 120 / 120 Output Total 1100 / 1100 500 / 1600 Balance 950 / 2220 -500 / 1720 120 / 120 Weight last 48 hrs Weight 85.774 kg Weight 83.189 kg Physical Exam Narrative: EXAM NARRATIVE: General exam no distress, does not appear to be confused Cardiovascular regular rate and rhythm without murmur Lungs clear Abdomen is soft, positive bowel sounds, obese Extremities no cyanosis clubbing or edema Urinary Catheter Management^: Yap: Cath Placed During This Visit: yes Urethral Indwelling: Yes Reason for Continuing Indwelling Catheter: Accurate Measurement of Urinary Output in Critically Ill Patients Urinary Catheter Date of Insertion: 09/10/19 Urinary Catheter Time of Insertion: 05:55 Data : 09/12/19 04:45 09/12/19 04:45 Micro: Microbiology 09/09/19 12:15 Gram Stain - Final Other Source Body Fluid Culture - Final Methicillin Resis Staph Aureus A&P Assessment and plan (1) Non-ST elevation (NSTEMI) myocardial infarction: Appreciate cardiology consultation Continue statin, aspirin, beta-nany, nitrate Secondary to worsening hemoglobin, elevated BUN discontinue full dose Lovenox Echocardiogram demonstrates preserved EF Nuclear stress test demonstrates reversible ischemia. Consider angiogram in the future Status: Acute Code(s): I21.4 - Non-ST elevation (NSTEMI) myocardial infarction (2) History of successful cardiopulmonary resuscitation: Reportedly performed on 09/08/2019 perioperatively. Status: Acute Code(s): Z92.89 - Personal history of other medical treatment (3) Multiple rib fractures: Bilateral acute fractures ribs 4-7 anteriorly, presumably secondary to resuscitation Continue to try to achieve pain control Incentive spirometry Start to mobilize with physical therapy. This will be ordered Status: Acute Qualifiers: Encounter type: initial encounter Fracture type: closed Laterality: bilateral Qualified Code(s): S22.43XA - Multiple fractures of ribs, bilateral, initial encounter for closed fracture Code(s): S22.49XA - Multiple fractures of ribs, unspecified side, initial encounter for closed fracture (4) Altered mental status: Unknown etiology. May be secondary to anoxic brain injury, prolonged anesthetic effect, other medication. This is markedly improved Status: Acute Qualifiers: Altered mental status type: disorientation Qualified Code(s): R41.0 - Disorientation, unspecified Code(s): R41.82 - Altered mental status, unspecified (5) Infection of right eye: Pseudomonas suspected per Dr Bland. Surgically drained September 08. From my understanding antibiotics have been put into the orbit. Vancomycin, cefepime at this point awaiting cultures. 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 (7) Hypertension: Usually on ARB and beta blockade ARB discontinued secondary to hyperkalemia Continue metoprolol Status: Acute Qualifiers: Hypertension type: essential hypertension Qualified Code(s): I10 - Essential (primary) hypertension Code(s): I10 - Essential (primary) hypertension (8) Hyperlipidemia: Continue statin Status: Acute Qualifiers: Hyperlipidemia type: unspecified Qualified Code(s): E78.5 - Hyperlipidemia, unspecified Code(s): E78.5 - Hyperlipidemia, unspecified (9) Glaucoma: Followed by ophthalmology They have been consulted for opinion Status: Acute Qualifiers: Glaucoma type: unspecified Laterality: bilateral Qualified Code(s): H40.9 - Unspecified glaucoma Code(s): H40.9 - Unspecified glaucoma (10) Acute kidney injury: May be postobstructive. Yap has been placed. Renal function markedly improved Discontinue fluids Status: Acute Code(s): N17.9 - Acute kidney failure, unspecified (11) Hyperkalemia: Continue to hold ARB Overall resolved Status: Acute Code(s): E87.5 - Hyperkalemia Additional A&P Information Anemia. Discontinue full dose Lovenox. Await stool Hemoccult Hyponatremia, continue to monitor closely DVT prophylaxis Lovenox Full code Likely will need skilled care Attestations Medical Necessity Statement*: Needs continued hospitalization for IV antibiotics related to eye infection, close follow-up of non-ST elevation myocardial infarction with history of CPR Coding Level of Care Code Acute Shift Stacker for [facility] F[facility] Diagnoses Non-ST elevation (NSTEMI) myocardial infarction I21.4 History of successful cardiopulmonary resuscitation Z92.89 Multiple rib fractures S22.43XA Encounter type: initial encounter Fracture type: closed Laterality: bilateral Altered mental status R41.0 Altered mental status type: disorientation Infection of right eye H44.001 Diabetes mellitus type 2, insulin dependent E11.9; Z79.4 Hypertension I10 Hypertension type: essential hypertension Hyperlipidemia E78.5 Hyperlipidemia type: unspecified Glaucoma H40.9 Glaucoma type: unspecified Laterality: bilateral Acute kidney injury N17.9 Hyperkalemia E87.5
--- NOTE | 2019-09-12 15:46 | PC.NURSE ---
up to chair. was trying to get out of bed.
--- NOTE | 2019-09-12 17:03 | PM.PN ---
Subjective Subjective: Interval history: Patient still has episodes of confusion and disorientation. His hemoglobin is dropping. Source of bleeding is not known. Medications: Reviewed: Yes Medication Review Details: Current Medications Acetaminophen (Tylenol) 650 mg PO Q6H PRN PRN Reason: Mild/Mod Pain Or Temp >/= 101 Hydrocodone Bitart/Acetaminophen ([place] 5-325 Mg) 1 tab PO Q4H PRN PRN Reason: MODERATE PAIN Last Admin: 09/10/19 11:35 Dose: 1 tab Documented by: Albuterol Sulfate (Albuterol) 2.5 mg INHALATION Q4H PRN PRN Reason: Shortness Of Breath Aminophylline (Aminophylline) 25 mg IVP Q2M PRN PRN Reason: see dose instructions Stop: 09/12/19 06:45 Aspirin (Aspirin) 325 mg PO DAILY [facility] Last Admin: 09/10/19 08:00 Dose: 325 mg Documented by: Atorvastatin Calcium (Lipitor) 40 mg PO BEDTIME [facility] Last Admin: 09/10/19 21:02 Dose: 40 mg Documented by: Bisacodyl (Dulcolax) 10 mg PO DAILY PRN PRN Reason: CONSTIPATION Last Admin: 09/09/19 02:58 Dose: 10 mg Documented by: Dextrose (D50w) 25 ml IVP ONCE PRN; Protocol PRN Reason: hypoglycemia protocol Dextrose (D50w) 50 ml IVP PRN PRN; Protocol PRN Reason: hypoglycemia protocol Doxazosin Mesylate (Cardura) 4 mg PO DAILY [facility] Last Admin: 09/10/19 08:00 Dose: 4 mg Documented by: Enoxaparin Sodium (Lovenox) 90 mg 1 mg/kg (90 mg) SUBCUT Q12H [facility] Last Admin: 09/11/19 02:27 Dose: 90 mg Documented by: Glucagon (Glucagen) 1 mg IM ONCE PRN; Protocol PRN Reason: Adult Acute Hypoglycemia Prot. Hydralazine HCl (Apresoline) 10 mg IVP Q4H PRN PRN Reason: HYPERTENSION Sodium Chloride (Sodium Chloride 0.45%) 1,000 mls @ 30 mls/hr IV .Q24H [facility] Last Admin: 09/11/19 02:27 Dose: 125 mls/hr Documented by: Dextrose (D5w) 500 mls @ 100 mls/hr IV ONCE PRN; Protocol PRN Reason: Adult Acute Hypoglycemia Prot Cefepime HCl 2,000 mg/ Sodium (Chloride) 50 mls @ 100 mls/hr IV Q8H [facility]; Protocol Last Infusion: 09/10/19 23:05 Dose: Infused Documented by: Vancomycin HCl 1,500 mg/ (Sodium Chloride) 250 mls @ 166.667 mls/hr IV Q18H [facility]; Protocol Last Infusion: 09/11/19 07:27 Dose: Infused Documented by: Insulin Aspart (Novolog) 0 unit SUBCUT TIDWM [facility]; Protocol Last Admin: 09/10/19 17:30 Dose: Not Given Documented by: Insulin Aspart (Novolog) 0 unit SUBCUT BEDTIME [facility]; Protocol Last Admin: 09/10/19 21:02 Dose: 7 unit Documented by: Insulin Glargine (Lantus) 45 unit SUBCUT BEDTIME [facility] Metoprolol Tartrate (Lopressor) 100 mg PO BID [facility] Last Admin: 09/10/19 17:47 Dose: 100 mg Documented by: Morphine Sulfate (Morphine) 2 mg IVP Q4H PRN PRN Reason: SEVERE PAIN Nitroglycerin (Nitro-Bid) 1 inch TOPICAL Q6H [facility] Last Admin: 09/11/19 05:43 Dose: 1 inch Documented by: Nitroglycerin (Nitrostat) 0.4 mg SUBLINGUAL Q5M PRN PRN Reason: CHEST PAIN Stop: 09/12/19 06:45 Ondansetron HCl (Zofran) 4 mg IVP Q6H PRN PRN Reason: vomiting, or N/V if npo Ondansetron HCl (Zofran) 4 mg IVP Q2M PRN PRN Reason: NAUSEA Pantoprazole Sodium (Protonix) 40 mg PO BID [facility] Senna/Docusate Sodium (Senna-S) 1 tab PO BID [facility] Last Admin: 09/10/19 17:47 Dose: 1 tab Documented by: Vitals/I&O/Wt Last Vital Signs Temp 97.9 F 09/12/19 10:49 Pulse 77 09/12/19 15:02 Resp 14 09/12/19 15:02 BP 97/48 09/12/19 15:02 Pulse Ox 96 09/12/19 15:02 09/12/19 09/12/19 09/12/19 06:59 14:59 22:59 Intake Total 300 / 3620 300 / 300 Output Total 500 / 1600 Balance -2019 300 / 300 Weight last 48 hrs Weight 189 lb 1.6 oz Weight 183 lb 6.4 oz Physical Exam Narrative: EXAM NARRATIVE: GENERAL: The patient is very sleepy. Not in any acute distress. HEENT: Patient keep his both eyes closed. Minimal discharge from the right conjunctiva. NECK: Trachea appears to be central. No masses noted. No JVD or thyromegaly appreciated. RESPIRATORY: Chest is symmetrical. No intercostals muscle retraction or any accessory muscle activation. The chest wall tenderness persists. Breath sounds are heard bilaterally. No rales or rhonchi heard. No evidence of any consolidation. BREASTS: Deferred. HEART: The heart sounds are normal. No S3 or S4. No significant no significant murmurs no pericardial rub ABDOMEN: Slightly distended with gas. No vessel pulsations. No tenderness. No organomegaly appreciated. Bowel sounds are normally heard. : Deferred. RECTAL: Deferred. LYMPHATIC: No lymphadenopathy noted in the neck or groin. EXTREMITIES: No edema or cyanosis. No clubbing. Peripheral pulses are palpated in fairly good volume and amplitude MUSCULOSKELETAL: No acute joint deformities or swelling SKIN: There are no significant scars or skin rash noted. NEUROPSYCHIATRIC: The patient is alert and oriented x2. Appears to be drowsy Urinary Catheter Management^: Yap: Cath Placed During This Visit: yes Urethral Indwelling: Yes Reason for Continuing Indwelling Catheter: Accurate Measurement of Urinary Output in Critically Ill Patients Urinary Catheter Date of Insertion: 09/10/19 Urinary Catheter Time of Insertion: 05:55 Data : 09/13/19 03:46 09/13/19 03:46 Other Labs: Abnormal lab results 09/12/19 09/12/19 Range/Units 04:45 04:45 RBC 2.57 L (4.1-5.3) 10^6/uL Hgb 8.5 L (11.7-16.6) g/dL Hct 25.2 L (42.0-52.0) % MCV 98.1 H (80-94) fL RDW 11.9 L (12.1-15.1) % MPV 10.7 H (7.4-10.4) fL [place] # (Auto) 1.1 H (0.2-0.9) 10^3/uL Sodium 130 L (136-145) mmol/L Carbon Dioxide 21 L (22-29) mmol/L BUN 62 H (8-23) mg/dL Glucose 273 H (65-115) mg/dL Calculated Osmolality 279 L (285-295) mOsm/kg Calcium 8.2 L (8.5-10.5) mg/dL Micro: Microbiology 09/09/19 12:15 Gram Stain - Final Other Source Body Fluid Culture - Final Methicillin Resis Staph Aureus A&P Assessment and plan (1) Elevated troponin: In view of the abnormal myocardial perfusion imaging, possibility of him having underlying coronary artery disease is very high. This needs to be further evaluated. But we may hold off on this till the mental status gets better and inpatient is appropriately treated. Because of the drop in the hemoglobin, we may hold off on any further Plavix. He is Lovenox also is on hold. Status: Acute Code(s): R79.89 - Other specified abnormal findings of blood chemistry (2) Benign essential hypertension with target blood pressure below 140/90: Since the blood pressures remain in the normal range, may continue on the current medications. Status: Acute Code(s): I10 - Essential (primary) hypertension (3) Abnormal EKG: There are diffuse nonspecific ST-T changes, could be related to underlying coronary ischemia. This needs to be further evaluated Status: Acute Code(s): R94.31 - Abnormal electrocardiogram [ECG] [EKG] (4) Intraoperative cardiorespiratory arrest: Patient has no significant arrhythmias on the monitor. The vital signs are remaining stable. No evidence of any aspiration pneumonia or any acute lung pathology. Status: Acute Additional A&P Information Based on the clinical progress, further management decisions will be made. Attestations Medical Necessity Statement*: Patient requires continued hospital stay for close monitoring and further management Coding Level of Care Code Acute Rehabilitation Therapy Aide for [facility] Fwd Diagnoses Elevated troponin R79.89 Benign essential hypertension with target blood pressure below 140/90 I10 Abnormal EKG R94.31 Intraoperative cardiorespiratory arrest
[2019-09-12] MEDS: enoxaparin 40 mg/0.4 mL Syringe SUBCUT (17:09)
[2019-09-12] MEDS: bisacodyl 5 mg Tablet 10 MG PO (17:14)
[2019-09-12] MEDS: oxyCODONE 5 mg IR Tab/Cap 10 MG PO (17:16)
[2019-09-12 17:49] LABS: Vancomycin Trough 23.7 ug/mL (10-15)
--- NOTE | 2019-09-12 19:59 | CTR_ITS ---
PROCEDURE INFORMATION: Exam: CT Abdomen And Pelvis With Contrast Exam date and time: 09/12/2019 8:05 PM Age: 69 years old Clinical indication: Abdominal pain; Patient HX: Left flank hematoma; Additional info: Abdominal pain, large left flank hematoma TECHNIQUE: Imaging protocol: Computed tomography of the abdomen and pelvis with intravenous contrast. Total DLP: 1307.3 mGy-cm Radiation optimization: All CT scans at this facility use at least one of these dose optimization techniques: automated exposure control; mA and/or kV adjustment per patient size (includes targeted exams where dose is matched to clinical indication); or iterative reconstruction. Contrast material: OMNI 300; Contrast volume: 95 ml; Contrast route: IV; COMPARISON: No relevant prior studies available. FINDINGS: Pleural space: Small left and trace right pleural effusions. Dependent atelectasis. Two adjacent 5 mm nodules in the right middle lobe. Liver: Normal. No mass. Gallbladder and bile ducts: Normal. No calcified stones. No ductal dilation. Pancreas: Normal. No ductal dilation. Spleen: Calcified granuloma in the spleen. Adrenals: Normal. No mass. Kidneys and ureters: 3.5 cm right renal cyst. 1.4 cm left renal cyst. No renal calculus or hydronephrosis. Stomach and bowel: Moderate stool in the rectum and colon. Mild diverticulosis of the distal colon. No diverticulitis. Stomach is normal. There is fluid and gas distention of the mid and distal small bowel which tapers to a possible stricture in the distal ileum. The terminal ileum is decompressed. Appendix: The appendix is normal. Intraperitoneal space: Unremarkable. No free air. No significant fluid collection. Vasculature: Diffuse arterial calcifications. Mild stenosis at the origin of the celiac artery. Lymph nodes: Calcified right hilar lymph nodes. Bladder: Yap catheter within a decompressed urinary bladder. Reproductive: Unremarkable as visualized. Bones/joints: Degenerative lumbar spine. No compression fracture. Soft tissues: Fat containing bilateral inguinal hernias. CT/CT abdomen pelvis w con* [id number] IMPRESSION: 1. Partial versus complete distal small bowel obstruction. Possible stricture or adhesion which narrows the distal ileum in the right lower quadrant. 2. Moderate stool burden in the colon and rectum likely indicates constipation. 3. Small left and trace right pleural effusions. 4. 5 mm pulmonary nodules. For patients at low risk (minimal or absent history of smoking and of other known risk factors), no routine follow-up is indicated. For patients at high risk (history of smoking or of other known risk factors), consider optional CT at 12 months. (Jermaine et al., Fleischner Society, 2017). Radiation Dose CTDIVOL = (mGy): DLP = 1307.3 (mGy-cm)
--- NOTE | 2019-09-12 19:59 | PM.EVENT ---
Event Note Event Note: Called with patient having abdominal pain and a mottled appearance to his abdomen. He was also found to have a large left flank hematoma. Nursing staff who have seen him in the last day or so do not recall seeing this including when he had a bath yesterday. His hemoglobin has been dropping and his blood pressure is a bit lower this evening. He could have a hematoma from Lovenox injections but also have to be worried about retroperitoneal bleed. Creatinine is currently 1.0. He does have azotemia and has had that to some degree since he came in. Initial creatinine or at least the peak creatinine was 1.6 a couple of days ago. We will go on and order a CT of the abdomen with contrast tonight. We will give him a 250 cc bolus of normal saline prior to this. Lovenox was stopped earlier today. Discussed with nursing staff. I have held transfer to the floor until we can evaluate what is going on a bit further.
[2019-09-12] MEDS: iohexol 300 mg/mL 100 mL Btl IV (20:41)
[2019-09-12] MEDS: sodium chloride 0.9% 250 ML IV (21:12)
--- NOTE | 2019-09-12 21:16 | PC.NURSE ---
Dr. Lopez notified of patients abdomen being mottled and bruising on his left flank area. CT of abdomen ordered. Will continue to monitor.
[2019-09-12] MEDS: atorvastatin 40 mg Tablet PO (21:37)
[2019-09-12] MEDS: insulin glargine 100 units/1 mL 45 UNIT SUBCUT (21:53)
[2019-09-13] VITALS (28 sets, daily range): BP systolic 100–155; BP diastolic 47–91; PULSE 23–94; RESP 10–23; TEMP 36.5–37.3; O2SAT 93–99
--- NOTE | 2019-09-13 02:02 | PC.PHAR ---
Pharmacokinetic dosing service Date: Time: Patient: Lizz Arellano Floor: ICU-7 Weight: 85.774 Kilograms Vancomycin single level analysis: Current dose being given: 1500 mg Current dosing interval: 18 hrs Current infusion time (hrs): 1 Single level Trough Data: Trough level obtained: 23.7 mcg/ml Timing of trough - # of hrs before next dose: 1 Hrs Desired peak: 40 mcg/ml Desired trough: 15 mcg/ml Diagnosis: Relevant medical/social history: Cultures and sensitivities: Other labs: Estimated PK Parameters: New rate constant (matthew): 0.042 hr-1 Half-life: 16.50 Hours Vd from levels: 60.04 Liters (0.7 L/kg) CLvanco= 2.522 L/hr Estimated New Dose and Interval Recommended dose: 1572.3 mg Recommended interval: 24.4 Hrs Patient response: Patient is responding to treatment [yes/no] wbc decreasing, S/SX reduced [yes/no] Renal function is stable/unstable Recommendations: Give Vancomycin 1500 mg q 24 hrs. Infuse over 1.5 hrs Expected Cpeak: 38.1 mcg/mL Expected Ctrough: 14.8 mcg/mL AUC 0-24 /JANELLE Data: JANELLE 0.5 mcg/mL: AUC/JANELLE: 1189.5 JANELLE 1.0 mcg/mL: AUC/JANELLE: 594.8 Recommended labs and intervals: Measure Bun and Scr 3 times/week. Renal dosing of other antibiotics (review renal dosing of other medications and list guidelines here): Thank you for the consult, will continue to follow. Signature: Devika Gardiner [facility]
[2019-09-13 04:18] LABS: Basophils % 0.1 %; Eosinophils # 0.2 10^3/uL (0.0-0.8); Eosinophils % 2.2 %; Lymphocytes % 12.8 %; Mean Corpuscular HGB Conc 34.6 g/dL (30.0-36.0); Mean Corpuscular Hemoglobin 33.3 pg (28.0-34.0); Mean Corpuscular Volume 96.4 fL (80-94); Mean Platelet Volume 11.1 fL (7.4-10.4); Monocytes % 12.5 %; Neutrophils # 5.5 10^3/uL (1.8-7.7); Neutrophils % 70.5 %; Nucleated Red Blood Cells # 0.2 /100WBC; Nucleated Red Blood Cells % 2.2 %; Platelet Count 217 10^3/cmm (130-400); Red Blood Count 1.95 10^6/uL (4.1-5.3); Red Cell Distribution Width 12.1 % (12.1-15.1); White Blood Count 7.8 10^3/uL (4.0-10.0)
[2019-09-13 04:28] LABS: Hematocrit 18.8 % (42.0-52.0); Hemoglobin 6.5 g/dL (11.7-16.6)
--- NOTE | 2019-09-13 04:35 | PC.NURSE ---
Dr Lopez notified of patients hemoglobin of 6.5 and hematocrit of 18.8. 2 units of PRBC's ordered. Lab notified of type and screen needed.
[2019-09-13 04:38] LABS: Anion Gap 12.4 (5-19); Blood Urea Nitrogen 66 mg/dL (8-23); Calcium 8.1 mg/dL (8.5-10.5); Carbon Dioxide 21 mmol/L (22-29); Chloride 99 mmol/L (98-107); Glucose 214 mg/dL (65-115); Osmolality Calculated 274 mOsm/kg (285-295); Potassium 3.4 mmol/L (3.5-5.1); Sodium 129 mmol/L (136-145)
[2019-09-13] MEDS: cefepime 2,000 MG in sodium chloride 0.9% (plus) 50 ML 100 MG IV ×3 (05:53→22:26)
--- NOTE | 2019-09-13 08:30 | P.PN_ITS ---
Subjective Subjective: Interval history: Patient denies complaints but he had some acute fusion again this morning. Last night his hemoglobin decreased, left abdominal hematoma was noted, anticoagulants discontinued. Medications: Reviewed: Yes Vitals/I&O/Wt Last Vital Signs Temp 97.7 F 09/12/19 22:06 Pulse 87 09/13/19 06:02 Resp 17 09/13/19 06:02 BP 134/60 09/13/19 06:02 Pulse Ox 96 09/13/19 06:02 09/12/19 09/13/19 09/13/19 22:59 06:59 14:59 Intake Total 340 / 640 300 / 940 Output Total 1450 / 1450 500 / 1950 Balance -1110 / -810 -200 / -1010 Weight last 48 hrs Weight 84.822 kg Weight 85.774 kg Physical Exam Narrative: EXAM NARRATIVE: He has not had a bowel movement. General exam no distress, does not appear to be confused Cardiovascular regular rate and rhythm without murmur Lungs clear Abdomen is soft, a few bowel sounds are heard. He is somewhat distended. Left flank hematoma noted Extremities no cyanosis clubbing or edema Urinary Catheter Management^: Yap: Cath Placed During This Visit: yes Urethral Indwelling: Yes Reason for Continuing Indwelling Catheter: Accurate Measurement of Urinary Output in Critically Ill Patients Urinary Catheter Date of Insertion: 09/10/19 Urinary Catheter Time of Insertion: 05:55 Data : 09/13/19 03:46 09/13/19 03:46 Micro: Microbiology 09/09/19 12:15 Gram Stain - Final Other Source Body Fluid Culture - Final Methicillin Resis Staph Aureus A&P Assessment and plan (1) Non-ST elevation (NSTEMI) myocardial infarction: Appreciate cardiology consultation Continue statin, aspirin, beta-nany, nitrate With worsening anemia all anticoagulation discontinued. Aspirin discontinued. He is not a candidate for Plavix currently. Echocardiogram demonstrates preserved EF Nuclear stress test demonstrates reversible ischemia. Consider angiogram in the future Status: Acute Code(s): I21.4 - Non-ST elevation (NSTEMI) myocardial infarction (2) History of successful cardiopulmonary resuscitation: Reportedly performed on 09/08/2019 perioperatively. Status: Acute Code(s): Z92.89 - Personal history of other medical treatment (3) Multiple rib fractures: Bilateral acute fractures ribs 4-7 anteriorly, presumably secondary to resuscitation Continue to try to achieve pain control Incentive spirometry Start to mobilize with physical therapy. This will be ordered Status: Acute Qualifiers: Encounter type: initial encounter Fracture type: closed Laterality: bilateral Qualified Code(s): S22.43XA - Multiple fractures of ribs, bilateral, initial encounter for closed fracture Code(s): S22.49XA - Multiple fractures of ribs, unspecified side, initial encounter for closed fracture (4) Altered mental status: Unknown etiology. May be secondary to anoxic brain injury, prolonged anesthetic effect, other medication. This now seems to wax and wane. 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 (7) Hypertension: Continue metoprolol Can discontinue ARB as it appears he has return of some acute kidney injury with his anemia Status: Acute Qualifiers: Hypertension type: essential hypertension Qualified Code(s): I10 - Essential (primary) hypertension Code(s): I10 - Essential (primary) hypertension (8) Hyperlipidemia: Continue statin Status: Acute Qualifiers: Hyperlipidemia type: unspecified Qualified Code(s): E78.5 - Hyperlip idemia, unspecified Code(s): E78.5 - Hyperlipidemia, unspecified (9) Glaucoma: Followed by ophthalmology They have been consulted for opinion Status: Acute Qualifiers: Glaucoma type: unspecified Laterality: bilateral Qualified Code(s): H40.9 - Unspecified glaucoma Code(s): H40.9 - Unspecified glaucoma (10) Acute kidney injury: May be postobstructive. Yap has been placed. Renal function markedly improved Status: Acute Code(s): N17.9 - Acute kidney failure, unspecified (11) Hyperkalemia: Continue to hold ARB Overall resolved Status: Acute Code(s): E87.5 - Hyperkalemia Additional A&P Information Anemia. Associated with left flank hematoma. Transfusing 2 units of packed red blood cells. Holding all anticoagulants and antiplatelets. Evidence of partial small bowel obstruction on CT. Surgical consultation. N.p.o. Hyponatremia, slightly worse DVT prophylaxis SCDs Full code Likely will need skilled care Attestations Medical Necessity Statement*: Needs continued hospitalization secondary to severe anemia left flank hematoma partial small bowel obstruction non-ST elevation myocardial infarction status post code. Needs continued ICU care currently. Critical Care Time: 34 units spent in ICU care dealing with multiple organ systems, transfusion of blood, adjustment of medications and fluids. 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 [facility] Diagnoses Non-ST elevation (NSTEMI) myocardial infarction I21.4 History of successful cardiopulmonary resuscitation Z92.89 Multiple rib fractures S22.43XA Encounter type: initial encounter Fracture type: closed Laterality: bilateral Altered mental status R41.0 Altered mental status type: disorientation Infection of right eye H44.001 Diabetes mellitus type 2, insulin dependent E11.9; Z79.4 Hypertension I10 Hypertension type: essential hypertension Hyperlipidemia E78.5 Hyperlipidemia type: unspecified Glaucoma H40.9 Glaucoma type: unspecified Laterality: bilateral Acute kidney injury N17.9 Hyperkalemia E87.5
[2019-09-13] MEDS: sodium chloride 0.9% 1,000 ML 50 ML IV (08:50)
[2019-09-13] MEDS: isosorbide mononitrate ER 30 mg Tablet PO (08:51)
[2019-09-13] MEDS: pantoprazole DR 40 mg Tablet PO ×2 (08:51→17:07)
[2019-09-13] MEDS: doxazosin 4 mg Tablet PO (08:51)
[2019-09-13] MEDS: sennosides-docusate Tablet 1 TAB PO ×2 (08:51→17:08)
[2019-09-13] MEDS: metoprolol tartrate 50 mg Tablet 100 MG PO ×2 (08:51→17:08)
--- NOTE | 2019-09-13 09:20 | P.CONIM_ITS ---
Providers/Reason For Consult Consulting Physican/Specialty*: General Surgery Maxim Wong MD Reason for Consult*: Possible bowel obstruction by CT. Attending Physician: Shaquille Hansen MD Primary Care Provider: Tomasz Eduardo History of Present Illness History of Present Illness Adan Zamudio is a 69 year old male who was recently admitted after being brought to the emergency room by his family because of an alteration in mental status. He apparently had surgery on his right eye earlier this week and it sounds like there was some type of a cardiac event necessitating even compressions for short period of time. The patient stabilized and apparently insisted on going home afterwards. He was being somewhat combative towards his at home. This has happened in the past when his blood sugar would get too low. Upon evaluation in the emergency room he was found to have nonspecific EKG changes and old as well as new rib fractures. The patient was admitted to the ICU and was placed on DVT prophylaxis as well as Plavix. His hemoglobin has now dropped somewhat and so the DVT prophylaxis and Plavix have been discontinued. His abdomen has become more distended and a CAT scan done yesterday was read as suggestive of a distal small bowel obstruction. The patient has not had any vomiting, but remains n.p.o. Review of Systems Narrative: Unable to obtain with any accuracy due to the patient's decreased mental status. Meds/Allergies Home Medications and Allergies Home Medications Medication Instructions Recorded Confirmed Type Novolog Flexpen U-100 Insulin See Rx Instructions .ROUTE .COMPLEX 09/08/19 09/09/19 History aspirin 81 mg PO DAILY 09/08/19 09/08/19 History brimonidine 1 drp OPHTHALMIC (EYE) BID 09/08/19 09/08/19 History cetirizine 10 mg PO DAILY 09/08/19 09/08/19 History dorzolamide 1 drp OPHTHALMIC (EYE) TID 09/08/19 09/09/19 History doxazosin 4 mg PO DAILY 09/08/19 09/08/19 History insulin glargine [Lantus U-100 45 unit SUBCUT DAILY 09/08/19 09/09/19 History Insulin] isosorbide mononitrate 90 mg PO BID 09/08/19 09/09/19 History latanoprost 1 drp OPHTHALMIC (EYE) DAILY 09/08/19 09/08/19 History losartan 100 mg PO DAILY 09/08/19 09/08/19 History loteprednol etabonate [Lotemax] 1 drp OPHTHALMIC (EYE) TID 09/08/19 09/09/19 H istory metoprolol tartrate 100 mg PO BID 09/08/19 09/08/19 History simvastatin 20 mg PO DAILY 09/08/19 09/09/19 History timolol maleate 1 drp OPHTHALMIC (EYE) BID 09/08/19 09/08/19 History albuterol sulfate 2.5 mg INHALATION Q4H PRN 09/09/19 09/09/19 History cyclobenzaprine 10 mg PO TID PRN 09/09/19 09/09/19 History prednisolone acetate 1 drp OPHTHALMIC (EYE) BID 09/09/19 09/09/19 History Allergies Allergy/AdvReac Type Severity Reaction Status Date / Time amlodipine Allergy Unknown Verified 09/08/19 20:37 codeine Allergy Unknown Verified 09/08/19 20:37 hydrochlorothiazide Allergy Unknown Verified 09/08/19 20:37 lisinopril Allergy Unknown Verified 09/08/19 20:37 loratadine [From Claritin] Allergy Unknown Verified 09/08/19 20:37 tramadol [From Ultram] Allergy Unknown Verified 09/08/19 20:37 BESYLATE Allergy Unknown Uncoded 09/08/19 20:37 HIGH FRUCTOSE SYRUP Allergy Unknown Uncoded 09/08/19 20:37 Current Medications Current Medications Generic Name Dose Route Start Last Admin Trade Name Freq PRN Reason Stop Dose Admin Atorvastatin Calcium 40 mg 09/09/19 02:05 09/12/19 21:37 Lipitor PO 40 mg BEDTIME ESSENCE Administration Bisacodyl 10 mg 09/09/19 02:00 09/12/19 17:14 Dulcolax PO 10 mg DAILY PRN Administration CONSTIPATION Doxazosin Mesylate 4 mg 09/10/19 09:00 09/13/19 08:51 Cardura PO 4 mg DAILY ESSENCE Administration Cefepime HCl 2,000 mg/ Sodium 50 mls @ 100 mls/hr 09/09/19 09:00 09/13/19 06:23 Chloride IV Infused Q8H ESSENCE Infusion Protocol Vancomycin HCl 1,500 mg/ 250 mls @ 166.667 mls/hr 09/13/19 03:00 09/13/19 05:07 Sodium Chloride IV Infused Q24H ESSENCE Infusion Protocol Sodium Chloride 1,000 mls @ 50 mls/hr 09/13/19 08:30 09/13/19 08:50 Sodium Chloride 0.9% IV 50 mls/hr .Q20H ESSENCE Administration Insulin Aspart 0 unit 09/10/19 08:00 09/13/19 07:43 Novolog SUBCUT 10 unit TIDWM ESSENCE Administration Protocol Insulin Aspart 0 unit 09/09/19 21:00 09/12/19 21:53 Novolog SUBCUT 6 unit BEDTIME ESSENCE Administration Protocol Insulin Glargine 45 unit 09/11/19 21:00 09/12/19 21:53 Lantus SUBCUT 45 unit BEDTIME ESSENCE Administration Isosorbide Mononitrate 30 mg 09/11/19 10:20 09/13/19 08:51 Imdur PO 30 mg DAILY ESSENCE Administration Metoprolol Tartrate 100 mg 09/09/19 18:00 09/13/19 08:51 Lopressor PO 100 mg BID ESSENCE Administration Morphine Sulfate 2 mg 09/11/19 07:39 09/12/19 20:22 Morphine IVP 2 mg Q4H PRN Administration SEVERE PAIN Ondansetron HCl 4 mg 09/09/19 08:36 09/12/19 18:09 Zofran IVP 4 mg Q6H PRN Administration vomiting, or N/V if npo Oxycodone HCl 10 mg 09/12/19 12:52 09/12/19 17:16 Oxycodone Ir PO 10 mg Q4H PRN Administration SEVERE PAIN Pantoprazole Sodium 40 mg 09/11/19 09:00 09/13/19 08:51 Protonix PO 40 mg BID ESSENCE Administration Senna/Docusate Sodium 1 tab 09/09/19 09:00 09/13/19 08:51 Senna-S PO 1 tab BID ESSENCE Administration PFSH Acute PFSH: Medical History (Updated 09/13/19 @ 09:31 by Maxim Wong MD) 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, insulin dependent Glaucoma Hyperlipidemia Hypertension Lumbar disc disease TIA (transient ischemic attack) Surgical History History of circumcision History of eye surgery Bilateral due to glaucoma Family History Denies family history of CAD (coronary artery disease) Social History Smoking and tobacco status: former smoker Alcohol intake: never Substance/Drug Use: never Household members: spouse and family Marital status: Vitals/I&O/Wt Last Vital Signs Temp 97.7 F 09/12/19 22:06 Pulse 89 09/13/19 08:53 Resp 10 L 09/13/19 08:39 BP 125/58 09/13/19 08:39 Pulse Ox 94 09/13/19 08:53 09/12/19 09/13/19 09/13/19 22:59 06:59 14:59 Intake Total 340 / 640 300 / 940 Output Total 1450 / 1450 500 / 1950 Balance -1110 / -810 -200 / -1010 Weight last 48 hrs Weight 187 lb Weight 189 lb 1.6 oz Physical Exam Narrative: EXAM NARRATIVE: The patient was encountered in his ICU room. He keeps his eyes shut during the interview but will attempt to answer questions. His answers do not always seem quite appropriate, however. The pupils seem equal but there is some mild opacity to the right eye. Lungs are clear anteriorly. Heart seems regular. The abdomen is distended and has a mildly mottled appearance. He does have a developing area of ecchymosis along the left side of the abdomen. I cannot identify any obvious surgical scars. Bowel sounds are present but clearly hypoactive. The extremities reveal no edema. Urinary Catheter Management^: Yap: Cath Placed During This Visit: yes Urethral Indwelling: Yes Reason for Continuing Indwelling Catheter: Accurate Measurement of Urinary Output in Critically Ill Patients Urinary Catheter Date of Insertion: 09/10/19 Urinary Catheter Time of Insertion: 05:55 Data Micro: Micro: Microbiology 09/09/19 12:15 Gram Stain - Final Other Source Body Fluid Culture - Final Methicillin Res is Staph Aureus Imaging^: CT Abd/Pel: My impression: The patient clearly has dilated loops of small bowel all the way to the distal ileum. He has stool throughout his colon as well as some air. I suspect that this is probably more consistent with an ileus as opposed to a true obstructive process. Radiologist's impression: CT abdomen/pelvis 09/12/2019 iMPRESSION: 1. Partial versus complete distal small bowel obstruction. Possible stricture or adhesion which narrows the distal ileum in the right lower quadrant. 2. Moderate stool burden in the colon and rectum likely indicates constipation. A&P Assessment and plan (1) Ileus: I suspect this is more of an ileus as opposed to a true obstruction. The patient's constipation is certainly not helping, however. He does have some fluid filled loops of small bowel as well as some fluid building up in his gastric lumen. I do think he would benefit from an NG tube as well as an enema. Plan: NG tube to low intermittent suction. Milk and molasses enema. I will be happy to continue following the patient while he is hospitalized. Status: Acute Code(s): K56.7 - Ileus, unspecified (2) Anemia: Some of this could be explained by the ecchymosis developing the in the patient's abdominal wall, but the CAT scan yesterday does not reveal a significant amount of collected blood here. A transfusion has been ordered. Status: Acute Code(s): D64.9 - Anemia, unspecified Consult Attestations Medical Necessity Statement: See admitting service's notation. 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
--- NOTE | 2019-09-13 10:08 | PC.NURSE ---
NG placement unable to place NG, patient does not follow commands to tuck chin to chest, and swallow, continues to gag very hard making NG unable to pass down. Notified Dr. Wong, he states to wait for placement to see the results of the enema.
--- NOTE | 2019-09-13 11:10 | PC.NURSE ---
blood administration multiple attempts made to obtain consent to administer blood products to patient. unable to leave a message for and no return call. Patient unable to verbalize consent d/t confusion. Blood administered d/t medical necessity.
[2019-09-13] MEDS: sodium chloride 0.9% 100 ML ×2 (11:21→15:12)
--- NOTE | 2019-09-13 12:26 | PC.OT ---
Per nursing request, hold OT eval until AM as patient is very confused and is unable to follow directions at this time.
--- NOTE | 2019-09-13 14:53 | PM.PN ---
Subjective Subjective: Interval history: Patient denies any specific symptoms. He still seems to be confused and somewhat disoriented. The hemoglobin dropped to 6.5. Source of bleeding is not known. He has some ecchymosis and hematoma in the abdominal wall. No GI bleeding documented yet. He also may have some small bowel ileus. He is being evaluated by general surgery. No chest pain or any significant cardiac arrhythmias. Medications: Reviewed: Yes Medication Review Details: Current Medications Acetaminophen (Tylenol) 650 mg PO Q6H PRN PRN Reason: Mild/Mod Pain Or Temp >/= 101 Hydrocodone Bitart/Acetaminophen ([place] 5-325 Mg) 1 tab PO Q4H PRN PRN Reason: MODERATE PAIN Last Admin: 09/10/19 11:35 Dose: 1 tab Documented by: Albuterol Sulfate (Albuterol) 2.5 mg INHALATION Q4H PRN PRN Reason: Shortness Of Breath Aminophylline (Aminophylline) 25 mg IVP Q2M PRN PRN Reason: see dose instructions Stop: 09/12/19 06:45 Aspirin (Aspirin) 325 mg PO DAILY [facility] Last Admin: 09/10/19 08:00 Dose: 325 mg Documented by: Atorvastatin Calcium (Lipitor) 40 mg PO BEDTIME [facility] Last Admin: 09/10/19 21:02 Dose: 40 mg Documented by: Bisacodyl (Dulcolax) 10 mg PO DAILY PRN PRN Reason: CONSTIPATION Last Admin: 09/09/19 02:58 Dose: 10 mg Documented by: Dextrose (D50w) 25 ml IVP ONCE PRN; Protocol PRN Reason: hypoglycemia protocol Dextrose (D50w) 50 ml IVP PRN PRN; Protocol PRN Reason: hypoglycemia protocol Doxazosin Mesylate (Cardura) 4 mg PO DAILY [facility] Last Admin: 09/10/19 08:00 Dose: 4 mg Documented by: Enoxaparin Sodium (Lovenox) 90 mg 1 mg/kg (90 mg) SUBCUT Q12H [facility] Last Admin: 09/11/19 02:27 Dose: 90 mg Documented by: Glucagon (Glucagen) 1 mg IM ONCE PRN; Protocol PRN Reason: Adult Acute Hypoglycemia Prot. Hydralazine HCl (Apresoline) 10 mg IVP Q4H PRN PRN Reason: HYPERTENSION Sodium Chloride (Sodium Chloride 0.45%) 1,000 mls @ 30 mls/hr IV .Q24H [facility] Last Admin: 09/11/19 02:27 Dose: 125 mls/hr Documented by: Dextrose (D5w) 500 mls @ 100 mls/hr IV ONCE PRN; Protocol PRN Reason: Adult Acute Hypoglycemia Prot Cefepime HCl 2,000 mg/ Sodium (Chloride) 50 mls @ 100 mls/hr IV Q8H [facility]; Protocol Last Infusion: 09/10/19 23:05 Dose: Infused Documented by: Vancomycin HCl 1,500 mg/ (Sodium Chloride) 250 mls @ 166.667 mls/hr IV Q18H [facility]; Protocol Last Infusion: 09/11/19 07:27 Dose: Infused Documented by: Insulin Aspart (Novolog) 0 unit SUBCUT TIDWM [facility]; Protocol Last Admin: 09/10/19 17:30 Dose: Not Given Documented by: Insulin Aspart (Novolog) 0 unit SUBCUT BEDTIME [facility]; Protocol Last Admin: 09/10/19 21:02 Dose: 7 unit Documented by: Insulin Glargine (Lantus) 45 unit SUBCUT BEDTIME [facility] Metoprolol Tartrate (Lopressor) 100 mg PO BID [facility] Last Admin: 09/10/19 17:47 Dose: 100 mg Documented by: Morphine Sulfate (Morphine) 2 mg IVP Q4H PRN PRN Reason: SEVERE PAIN Nitroglycerin (Nitro-Bid) 1 inch TOPICAL Q6H [facility] Last Admin: 09/11/19 05:43 Dose: 1 inch Documented by: Nitroglycerin (Nitrostat) 0.4 mg SUBLINGUAL Q5M PRN PRN Reason: CHEST PAIN Stop: 09/12/19 06:45 Ondansetron HCl (Zofran) 4 mg IVP Q6H PRN PRN Reason: vomiting, or N/V if npo Ondansetron HCl (Zofran) 4 mg IVP Q2M PRN PRN Reason: NAUSEA Pantoprazole Sodium (Protonix) 40 mg PO BID [facility] Senna/Docusate Sodium (Senna-S) 1 tab PO BID [facility] Last Admin: 09/10/19 17:47 Dose: 1 tab Documented by: Vitals/I&O/Wt Last Vital Signs Temp 98.1 F 09/13/19 14:15 Pulse 83 09/13/19 14:15 Resp 18 09/13/19 14:15 BP 141/68 09/13/19 14:15 Pulse Ox 97 09/13/19 14:15 09/12/19 09/13/19 09/13/19 22:59 06:59 14:59 Intake Total 340 / 640 300 / 940 350 / 350 Output Total 1450 / 1450 500 / 1950 Balance -1110 / -810 -200 / -1010 350 / 350 Weight last 48 hrs Weight 187 lb Weight 189 lb 1.6 oz Physical Exam Narrative: EXAM NARRATIVE: GENERAL: The patient is very sleepy. Not in any acute distress. HEENT: Patient keep his both eyes closed. Moderate pallor. Minimal discharge from the right conjunctiva. NECK: Trachea appears to be central. No masses noted. No JVD or thyromegaly appreciated. RESPIRATORY: Chest is symmetrical. No intercostals muscle retraction or any accessory muscle activation. The chest wall tenderness persists. Breath sounds are heard bilaterally. No rales or rhonchi heard. No evidence of any consolidation. BREASTS: Deferred. HEART: The heart sounds are normal. No S3 or S4. No significant murmurs no pericardial rub ABDOMEN: Slightly distended with gas. No vessel pulsations. No tenderness. No organomegaly appreciated. Bowel sounds are normally heard. : Deferred. RECTAL: Deferred. LYMPHATIC: No lymphadenopathy noted in the neck or groin. EXTREMITIES: No edema or cyanosis. No clubbing. Peripheral pulses are palpated in fairly good volume and amplitude MUSCULOSKELETAL: No acute joint deformities or swelling SKIN: There are no significant scars or skin rash noted. NEUROPSYCHIATRIC: The patient is alert and oriented x2. Appears to be drowsy Urinary Catheter Management^: Yap: Cath Placed During This Visit: yes Urethral Indwelling: Yes Reason for Continuing Indwelling Catheter: Accurate Measurement of Urinary Output in Critically Ill Patients Urinary Catheter Date of Insertion: 09/10/19 Urinary Catheter Time of Insertion: 05:55 Data : 09/13/19 03:46 09/13/19 03:46 Other Labs: Abnormal lab results 09/12/19 09/13/19 09/13/19 Range/Units 15:59 03:46 03:46 RBC 1.95 L (4.1-5.3) 10^6/uL Hgb 6.5 L* (11.7-16.6) g/dL Hct 18.8 L* (42.0-52.0) % MCV 96.4 H (80-94) fL MPV 11.1 H (7.4-10.4) fL [place] # (Auto) 1.0 H (0.2-0.9) 10^3/uL Sodium 129 L (136-145) mmol/L Potassium 3.4 L (3.5-5.1) mmol/L Carbon Dioxide 21 L (22-29) mmol/L BUN 66 H (8-23) mg/dL Creatinine 1.3 H (0.7-1.2) mg/dL Glucose 214 H (65-115) mg/dL Calculated Osmolality 274 L (285-295) mOsm/kg Calcium 8.1 L (8.5-10.5) mg/dL Vancomycin Trough 23.7 H (10-15) ug/mL Crossmatch 09/13/19 Range/Units 08:48 RBC (4.1-5.3) 10^6/uL Hgb (11.7-16.6) g/dL Hct (42.0-52.0) % MCV (80-94) fL MPV (7.4-10.4) fL [place] # (Auto) (0.2-0.9) 10^3/uL Sodium (136-145) mmol/L Potassium (3.5-5.1) mmol/L Carbon Dioxide (22-29) mmol/L BUN (8-23) mg/dL Creatinine (0.7-1.2) mg/dL Glucose (65-115) mg/dL Calculated Osmolality (285-295) mOsm/kg Calcium (8.5-10.5) mg/dL Vancomycin Trough (10-15) ug/mL Crossmatch See Detail Micro: Microbiology 09/09/19 12:15 Gram Stain - Final Other Source Body Fluid Culture - Final Methicillin Resis Staph Aureus A&P Assessment and plan (1) Intraoperative cardiorespiratory arrest: Patient has no significant arrhythmias on the monitor. The vital signs are remaining stable. No evidence of any aspiration pneumonia or any acute lung pathology. Status: Acute (2) Abnormal myocardial perfusion study: Patient is clinically stable. He has no specific cardiac symptoms at this time. No arrhythmias on the monitor. May continue on the current medications. Consider cardiac authorization, once the clinical status is stable. Status: Acute Code(s): R94.39 - Abnormal result of other cardiovascular function study (3) Elevated troponin: In view of the abnormal myocardial perfusion imaging, possibility of him having underlying coronary artery disease is very high. This needs to be further evaluated. But we may hold off on this till the mental status gets better and the anemia and infection appropriately managed Because of the drop in the hemoglobin, we may hold off the Plavix. Status: Acute Code(s): R79.89 - Other specified abnormal findings of blood chemistry (4) Acute blood loss anemia: The source of bleeding is not clear at this time. Patient has some ecchymosis and hematoma in the abdominal wall. No documented GI bleeding so far. This is being investigated. Status: Acute Code(s): D62 - Acute posthemorrhagic anemia (5) Benign essential hypertension with target blood pressure below 140/90: Since the blood pressures remain in the normal range, may continue on the current medications. Status: Acute Code(s): I10 - Essential (primary) hypertension Additional A&P Information Based on the clinical progress, further management decisions will be made. Anemia/blood loss work-up as per the primary. 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
[2019-09-13] MEDS: acetaminophen 325 mg Tablet 650 MG PO (17:07)
[2019-09-13 19:18] LABS: Hematocrit 28.2 % (42.0-52.0); Hemoglobin 9.9 g/dL (11.7-16.6)
[2019-09-13 19:27] LABS: Alanine Aminotransferase 15 U/L (0-41); Alkaline Phosphatase 59 IU/L (40-130); Aspartate Amino Transferase 21 U/L (0-40); Globulin 2.3 g/dL (1.3-4.6); Total Bilirubin 0.4 mg/dL (0.15-1.2); Total Protein 5.3 g/dL (6.6-8.7)
--- NOTE | 2019-09-13 19:50 | PC.NURSE ---
1900 report rcvd at this time. pt resting eyes closed. no s/s of distress noted. vss per cm. ns infusing at50 cc/hr. pt alert to self only . 1:1 sitter at bedside. bed alarm in use. scds i place. iyer to csd with cloudy grupo urine. assessment per flowsheet. lita hector.
[2019-09-13 19:58] LABS: Lactate Dehydrogenase 289 U/L (135-225)
--- NOTE | 2019-09-13 20:38 | PC.NURSE ---
abd distended, large purple/black bruise noted to left flank area. lita hector.
--- NOTE | 2019-09-13 22:21 | PC.NURSE ---
pt turned and positioned to left side vss per cm. no change in abd distension or flank bruising noted. lita hector.
[2019-09-13] MEDS: insulin glargine 100 units/1 mL 45 UNIT SUBCUT (22:26)
[2019-09-14] VITALS (53 sets, daily range): BP systolic 97–166; BP diastolic 40–117; PULSE 70–112; RESP 7–36; TEMP 36.3–37.4; O2SAT 91–99; BMI 29.2
[2019-09-14] MEDS: sodium chloride 0.9% 1,000 ML 50 ML IV (03:11)
[2019-09-14 04:54] LABS: Basophils % 0.3 %; Eosinophils # 0.2 10^3/uL (0.0-0.8); Eosinophils % 2.3 %; Hemoglobin 9.4 g/dL (11.7-16.6); Lymphocytes # 1.3 10^3/uL (0.8-4.8); Lymphocytes % 14.6 %; Mean Corpuscular HGB Conc 33.6 g/dL (30.0-36.0); Mean Corpuscular Hemoglobin 32.8 pg (28.0-34.0); Mean Corpuscular Volume 97.6 fL (80-94); Monocytes # 1.2 10^3/uL (0.2-0.9); Monocytes % 13.8 %; Neutrophils # 5.3 10^3/uL (1.8-7.7); Neutrophils % 62.2 %; Nucleated Red Blood Cells # 0.4 /100WBC; Nucleated Red Blood Cells % 5.1 %; Platelet Count 197 10^3/cmm (130-400); Red Blood Count 2.87 10^6/uL (4.1-5.3); Red Cell Distribution Width 15.1 % (12.1-15.1); White Blood Count 8.6 10^3/uL (4.0-10.0)
[2019-09-14 05:11] LABS: Alanine Aminotransferase 17 U/L (0-41); Albumin Level 2.7 g/dL (3.5-5.2); Alkaline Phosphatase 65 IU/L (40-130); Anion Gap 12.2 (5-19); Aspartate Amino Transferase 22 U/L (0-40); Blood Urea Nitrogen 50 mg/dL (8-23); Calcium 8.1 mg/dL (8.5-10.5); Carbon Dioxide 19 mmol/L (22-29); Chloride 105 mmol/L (98-107); Globulin 2.8 g/dL (1.3-4.6); Glucose 291 mg/dL (65-115); Potassium 4.2 mmol/L (3.5-5.1); Sodium 132 mmol/L (136-145); Total Bilirubin 0.9 mg/dL (0.15-1.2); Total Protein 5.5 g/dL (6.6-8.7)
--- NOTE | 2019-09-14 05:32 | PC.NURSE ---
small solid flaky bm noted . bath care provided c linen change. lita hector.
[2019-09-14 05:33] LABS: Slide Review Slide Review Perform
[2019-09-14] MEDS: cefepime 2,000 MG in sodium chloride 0.9% (plus) 50 ML 100 MG IV ×3 (06:39→20:29)
[2019-09-14 07:31] LABS: Glucose Point of Care 341 mg/dL (70-110)
[2019-09-14 07:31] LABS: Glucose Point of Care 298 mg/dL (70-110)
[2019-09-14 07:31] LABS: Glucose Point of Care 407 mg/dL (70-110)
[2019-09-14] MEDS: metoprolol tartrate 50 mg Tablet 100 MG PO ×2 (08:14→17:02)
[2019-09-14] MEDS: doxazosin 4 mg Tablet PO (08:14)
[2019-09-14] MEDS: isosorbide mononitrate ER 30 mg Tablet PO (08:14)
[2019-09-14] MEDS: pantoprazole DR 40 mg Tablet PO ×2 (08:15→17:02)
[2019-09-14] MEDS: sennosides-docusate Tablet 1 TAB PO ×2 (08:15→17:02)
--- NOTE | 2019-09-14 08:37 | PM.PN ---
Subjective Subjective: Interval history: A nasogastric tube and enemas were ordered yesterday. The patient did not tolerate his attempted nasogastric tube placement so nursing hold off on any further attempts. They said he had small results as result of his enemas. The patient denies any pain this morning. He says he is terribly happy because I am going to have a poop. Vitals/I&O/Wt Last Vital Signs Temp 97.3 F L 09/14/19 06:01 Pulse 100 09/14/19 07:52 Resp 7 L 09/14/19 06:01 BP 145/59 09/14/19 06:01 Pulse Ox 98 09/14/19 07:52 09/13/19 09/14/19 09/14/19 22:59 06:59 14:59 Intake Total 500 / 1000 917.5 / 1917.5 Output Total 750 / 750 Balance -250 / 250 917.5 / 1167.5 Weight last 48 hrs Weight 197 lb 9.6 oz Weight 187 lb Physical Exam Narrative: EXAM NARRATIVE: The abdomen remains moderately distended but he does not appear to have any tenderness on exam. Urinary Catheter Management^: Yap: Cath Placed During This Visit: yes Urethral Indwelling: Yes Reason for Continuing Indwelling Catheter: Accurate Measurement of Urinary Output in Critically Ill Patients Urinary Catheter Date of Insertion: 09/10/19 Urinary Catheter Time of Insertion: 05:55 Data : 09/14/19 03:36 09/14/19 03:36 Micro: Microbiology 09/08/19 20:54 Blood Culture - Final Blood NO GROWTH AFTER 5 DAYS 09/08/19 20:53 Blood Culture - Final Blood NO GROWTH AFTER 5 DAYS A&P Assessment and plan (1) Ileus: The patient did not tolerate a nasogastric tube placement. While I think this would probably benefit him, he continues to not have any evidence of nausea or vomiting. I suppose we can continue to watch him for now without it. Status: Acute Code(s): K56.7 - Ileus, unspecified (2) Anemia: Hemoglobin improved following transfusion. 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
--- NOTE | 2019-09-14 10:12 | DCPLANNER ---
Pg 2 updated and attempted review with pt. It is questionable as to whether he understands. Will attempt to talk to him later or will talk to family. Copy provided.
[2019-09-14 11:19] LABS: Glucose Point of Care 266 mg/dL (70-110)
[2019-09-14 11:19] LABS: Glucose Point of Care 319 mg/dL (70-110)
[2019-09-14 11:19] LABS: Glucose Point of Care 396 mg/dL (70-110)
[2019-09-14 11:19] LABS: Glucose Point of Care 257 mg/dL (70-110)
[2019-09-14 11:19] LABS: Glucose Point of Care 317 mg/dL (70-110)
[2019-09-14 11:19] LABS: Glucose Point of Care 270 mg/dL (70-110)
[2019-09-14 11:19] LABS: Glucose Point of Care 364 mg/dL (70-110)
[2019-09-14] MEDS: oxyCODONE 5 mg IR Tab/Cap 10 MG PO ×2 (12:57→19:06)
--- NOTE | 2019-09-14 15:21 | PC.NURSE ---
transfer patient transferred to [facility] room 111-1 via wheelchair. Patient tolerated well. Report was called to OVIDIO Butt
[2019-09-14 16:06] LABS: Glucose Point of Care 242 mg/dL (70-110)
--- NOTE | 2019-09-14 16:30 | PM.PN ---
Subjective Subjective: Interval history: Adan reports he is feeling okay today. He was up ambulating. He reports he had a bowel movement. Medications: Reviewed: Yes Vitals/I&O/Wt Last Vital Signs Temp 99.0 F 09/14/19 15:44 Pulse 89 09/14/19 15:44 Resp 19 H 09/14/19 15:44 BP 152/75 09/14/19 15:44 Pulse Ox 97 09/14/19 15:44 09/14/19 09/14/19 09/14/19 06:59 14:59 22:59 Intake Total 1167.5 / 2167.5 334.167 / 334.167 Output Total 1300 / 1300 Balance 1167.5 / 1417.5 334.167 / 334.167 -1300 / -965.833 Weight last 48 hrs Weight 89.63 kg Weight 84.822 kg Physical Exam Narrative: EXAM NARRATIVE: General exam no distress, certainly more alert Cardiovascular regular rate and rhythm without murmur Lungs clear Abdomen is soft, a few bowel sounds are heard. He is somewhat distended. Left flank hematoma noted Extremities no cyanosis clubbing or edema Left flank hematoma unchanged Urinary Catheter Management^: Yap: Cath Placed During This Visit: yes Urethral Indwelling: Yes Reason for Continuing Indwelling Catheter: Accurate Measurement of Urinary Output in Critically Ill Patients Urinary Catheter Date of Insertion: 09/10/19 Urinary Catheter Time of Insertion: 05:55 Data : 09/14/19 03:36 09/14/19 03:36 Micro: Microbiology 09/08/19 20:54 Blood Culture - Final Blood NO GROWTH AFTER 5 DAYS 09/08/19 20:53 Blood Culture - Final Blood NO GROWTH AFTER 5 DAYS A&P Assessment and plan (1) Non-ST elevation (NSTEMI) myocardial infarction: Appreciate cardiology consultation Continue statin, aspirin, beta-nany, nitrate With worsening anemia all anticoagulation discontinued. Aspirin discontinued. He is not a candidate for Plavix currently. Echocardiogram demonstrates preserved EF Nuclear stress test demonstrates reversible ischemia. Consider angiogram in the future He denies any chest discomfort. Status: Acute Code(s): I21.4 - Non-ST elevation (NSTEMI) myocardial infarction (2) History of successful cardiopulmonary resuscitation: Reportedly performed on 09/08/2019 perioperatively. Status: Acute Code(s): Z92.89 - Personal history of other medical treatment (3) Multiple rib fractures: Bilateral acute fractures ribs 4-7 anteriorly, presumably secondary to resuscitation Pain is coming under control Incentive spirometry Start to mobilize with physical therapy. This will be ordered Status: Acute Qualifiers: Encounter type: initial encounter Fracture type: closed Laterality: bilateral Qualified Code(s): S22.43XA - Multiple fractures of ribs, bilateral, initial encounter for closed fracture Code(s): S22.49XA - Multiple fractures of ribs, unspecified side, initial encounter for closed fracture (4) Altered mental status: Unknown etiology. May be secondary to anoxic brain injury, prolonged anesthetic effect, other medication. This now seems to wax and wane. He will likely need care home facility placement. 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 Currently on cefepime and vancomycin Could consider discontinuation of cefepime. However, I was worried early on in his course regarding aspiration and now there was concern for small bowel obstruction. As these resolve, cefepime could be discontinued. 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 (7) Hypertension: Continue metoprolol Status: Acute Qualifiers: Hypertension type: essential hypertension Qualified Code(s): I10 - Essential (primary) hypertension Code(s): I10 - Essential (primary) hypertension (8) Hyperlipidemia: Continue statin Status: Acute Qualifiers: Hyperlipidemia type: unspecified Qualified Code(s): E78.5 - Hyperlipidemia, unspecified Code(s): E78.5 - Hyperlipidemia, unspecified (9) Glaucoma: Followed by ophthalmology Status: Acute Qualifiers: Glaucoma type: unspecified Laterality: bilateral Qualified Code(s): H40.9 - Unspecified glaucoma Code(s): H40.9 - Unspecified glaucoma (10) Acute kidney injury: May be postobstructive. Yap has been placed. Renal function markedly improved Status: Acute Code(s): N17.9 - Acute kidney failure, unspecified (11) Hyperkalemia: Continue to hold ARB Overall resolved Status: Acute Code(s): E87.5 - Hyperkalemia Additional A&P Information Anemia. Associated with left flank hematoma. Transfused 2 units of packed red blood cells August. Hemoglobin much improved. Holding all anticoagulants and antiplatelets. No evidence of hemolysis. Evidence of partial small bowel obstruction on CT. Surgical consultation appreciated. Start ice chips today. 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 [employer] Diagnoses Non-ST elevation (NSTEMI) myocardial infarction I21.4 History of successful cardiopulmonary resuscitation Z92.89 Multiple rib fractures S22.43XA Encounter type: initial encounter Fracture type: closed Laterality: bilateral Altered mental status R41.0 Altered mental status type: disorientation Infection of right eye H44.001 Diabetes mellitus type 2, insulin dependent E11.9; Z79.4 Hypertension I10 Hypertension type: essential hypertension Hyperlipidemia E78.5 Hyperlipidemia type: unspecified Glaucoma H40.9 Glaucoma type: unspecified Laterality: bilateral Acute kidney injury N17.9 Hyperkalemia E87.5
--- NOTE | 2019-09-14 17:47 | P.PN_ITS ---
Subjective Subjective: Interval history: Patient's hemoglobin has improved. Complaining of diffuse abdominal wall pain. No new symptoms. No shortness of breath. Medications: Reviewed: Yes Medication Review Details: Current Medications Acetaminophen (Tylenol) 650 mg PO Q6H PRN PRN Reason: Mild/Mod Pain Or Temp >/= 101 Last Admin: 09/13/19 17:07 Dose: 650 mg Documented by: Albuterol Sulfate (Albuterol) 2.5 mg INHALATION Q4H PRN PRN Reason: Shortness Of Breath Atorvastatin Calcium (Lipitor) 40 mg PO BEDTIME [facility] Last Admin: 09/13/19 20:42 Dose: Not Given Documented by: Bisacodyl (Dulcolax) 10 mg PO DAILY PRN PRN Reason: CONSTIPATION Last Admin: 09/12/19 17:14 Dose: 10 mg Documented by: Dextrose (D50w) 25 ml IVP ONCE PRN; Protocol PRN Reason: hypoglycemia protocol Dextrose (D50w) 50 ml IVP PRN PRN; Protocol PRN Reason: hypoglycemia protocol Doxazosin Mesylate (Cardura) 4 mg PO DAILY [facility] Last Admin: 09/14/19 08:14 Dose: 4 mg Documented by: Glucagon (Glucagen) 1 mg IM ONCE PRN; Protocol PRN Reason: Adult Acute Hypoglycemia Prot. Hydralazine HCl (Apresoline) 10 mg IVP Q4H PRN PRN Reason: HYPERTENSION Cefepime HCl 2,000 mg/ Sodium (Chloride) 50 mls @ 100 mls/hr IV Q8H [facility]; Protocol Last Admin: 09/14/19 13:00 Dose: 100 mls/hr Documented by: Vancomycin HCl 1,500 mg/ (Sodium Chloride) 250 mls @ 166.667 mls/hr IV Q24H [facility]; Protocol Last Infusion: 09/14/19 04:43 Dose: Infused Documented by: Dextrose (D5w) 500 mls @ 100 mls/hr IV ONCE PRN; Protocol PRN Reason: Adult Acute Hypoglycemia Prot Insulin Aspart (Novolog) 0 unit SUBCUT WM&BEDTIME [facility]; Protocol Last Admin: 09/14/19 17:03 Dose: 6 unit Documented by: Insulin Glargine (Lantus) 45 unit SUBCUT BEDTIME [facility] Last Admin: 09/13/19 22:26 Dose: 45 unit Documented by: Isosorbide Mononitrate (Imdur) 30 mg PO DAILY [facility] Last Admin: 09/14/19 08:14 Dose: 30 mg Documented by: Metoprolol Tartrate (Lopressor) 100 mg PO BID [facility] Last Admin: 09/14/19 17:02 Dose: 100 mg Documented by: Ondansetron HCl (Zofran) 4 mg IVP Q6H PRN PRN Reason: vomiting, or N/V if npo Last Admin: 09/12/19 18:09 Dose: 4 mg Documented by: Oxycodone HCl (Oxycodone Ir) 10 mg PO Q4H PRN PRN Reason: SEVERE PAIN Last Admin: 09/14/19 12:57 Dose: 10 mg Documented by: Pantoprazole Sodium (Protonix) 40 mg PO BID [facility] Last Admin: 09/14/19 17:02 Dose: 40 mg Documented by: Senna/Docusate Sodium (Senna-S) 1 tab PO BID [facility] Last Admin: 09/14/19 17:02 Dose: 1 tab Documented by: Vitals/I&O/Wt Last Vital Signs Temp 99.0 F 09/14/19 15:44 Pulse 89 09/14/19 15:44 Resp 19 H 09/14/19 15:44 BP 152/75 09/14/19 15:44 Pulse Ox 97 09/14/19 15:44 09/14/19 09/14/19 09/14/19 06:59 14:59 22:59 Intake Total 1167.5 / 2167.5 334.167 / 334.167 Output Total 1300 / 1300 Balance 1167.5 / 1417.5 334.167 / 334.167 -1300 / -965.833 Weight last 48 hrs Weight 197 lb 9.6 oz Weight 187 lb Physical Exam Narrative: EXAM NARRATIVE: GENERAL: The patient is very sleepy. Not in any acute distress. HEENT: Patient keep his both eyes closed. NECK: Trachea appears to be central. No masses noted. No JVD or thyromegaly appreciated. RESPIRATORY: Chest is symmetrical. No intercostals muscle retraction or any acc essory muscle activation. The chest wall tenderness persists. Breath sounds are heard bilaterally. No rales or rhonchi heard. No evidence of any consolidation. BREASTS: Deferred. HEART: The heart sounds are normal. No S3 or S4. No significant murmurs no pericardial rub ABDOMEN: Diffuse tenderness. Slightly distended .diffuse ecchymosis on the left side . : Deferred. RECTAL: Deferred. LYMPHATIC: No lymphadenopathy noted in the neck . EXTREMITIES: No edema or cyanosis. No clubbing. Peripheral pulses are palpated in fairly good volume and amplitude MUSCULOSKELETAL: No acute joint deformities or swelling SKIN: There are no significant scars or skin rash noted. NEUROPSYCHIATRIC: The patient is alert and oriented x2. Appears to be drowsy Urinary Catheter Management^: Yap: Cath Placed During This Visit: yes Urethral Indwelling: Yes Reason for Continuing Indwelling Catheter: Accurate Measurement of Urinary Output in Critically Ill Patients Urinary Catheter Date of Insertion: 09/10/19 Urinary Catheter Time of Insertion: 05:55 Data : 09/14/19 03:36 09/14/19 03:36 Micro: Microbiology 09/08/19 20:54 Blood Culture - Final Blood NO GROWTH AFTER 5 DAYS 09/08/19 20:53 Blood Culture - Final Blood NO GROWTH AFTER 5 DAYS A&P Assessment and plan (1) Intraoperative cardiorespiratory arrest: Patient has no significant arrhythmias on the monitor. The vital signs are remaining stable. No evidence of any aspiration pneumonia or any acute lung pathology. Status: Acute (2) Abnormal myocardial perfusion study: Patient is clinically stable. He has no specific cardiac symptoms at this time. No arrhythmias on the monitor. May continue on the current medications. Consider cardiac authorization, once the clinical status is stable. Status: Acute Code(s): R94.39 - Abnormal result of other cardiovascular function study (3) Elevated troponin: In view of the abnormal myocardial perfusion imaging, possibility of him having underlying coronary artery disease is very high. This needs to be further evaluated. Because of the significant drop in the hemoglobin, we may hold off on the oral anticoagulant Status: Acute Code(s): R79.89 - Other specified abnormal findings of blood chemistry (4) Acute blood loss anemia: The source of bleeding is not clear at this time. Patient has some ecchymosis and hematoma in the abdominal wall. No documented GI bleeding so far. Status: Acute Code(s): D62 - Acute posthemorrhagic anemia (5) Benign essential hypertension with target blood pressure below 140/90: Blood pressure is a stage II. For better control of the blood pressure, I may start him on hydralazine 25 mg p.o. 3 times daily. Other medications may be continued as it is Status: Acute Code(s): I10 - Essential (primary) hypertension Additional A&P Information Based on the clinical progress, further management decisions will be made. An emia/blood loss work-up as per the primary. 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
[2019-09-14 17:57] LABS: Glucose Point of Care 158 mg/dL (70-110)
[2019-09-14 17:57] LABS: Glucose Point of Care 226 mg/dL (70-110)
[2019-09-14 17:57] LABS: Glucose Point of Care 268 mg/dL (70-110)
[2019-09-14 17:57] LABS: Glucose Point of Care 258 mg/dL (70-110)
[2019-09-14 20:28] LABS: Glucose Point of Care 199 mg/dL (70-110)
[2019-09-14] MEDS: atorvastatin 40 mg Tablet PO (20:29)
[2019-09-14] MEDS: hyDRALAzine 25 mg Tablet PO (20:30)
[2019-09-14] MEDS: insulin glargine 100 units/1 mL 45 UNIT SUBCUT (20:36)
[2019-09-15] VITALS (7 sets, daily range): BP systolic 116–148; BP diastolic 57–76; PULSE 75–103; RESP 16–21; TEMP 36.4–36.7; O2SAT 95–99
[2019-09-15 02:30] LABS: Basophils % 0.4 %; Eosinophils # 0.2 10^3/uL (0.0-0.8); Eosinophils % 3.2 %; Hematocrit 27.7 % (42.0-52.0); Hemoglobin 9.2 g/dL (11.7-16.6); Lymphocytes # 1.2 10^3/uL (0.8-4.8); Lymphocytes % 15.8 %; Mean Corpuscular HGB Conc 33.2 g/dL (30.0-36.0); Mean Corpuscular Hemoglobin 31.5 pg (28.0-34.0); Mean Corpuscular Volume 94.9 fL (80-94); Mean Platelet Volume 10.8 fL (7.4-10.4); Monocytes % 13.3 %; Neutrophils # 4.4 10^3/uL (1.8-7.7); Neutrophils % 58.5 %; Nucleated Red Blood Cells # 0.4 /100WBC; Nucleated Red Blood Cells % 4.8 %; Platelet Count 238 10^3/cmm (130-400); Red Blood Count 2.92 10^6/uL (4.1-5.3); Red Cell Distribution Width 15.4 % (12.1-15.1); White Blood Count 7.5 10^3/uL (4.0-10.0)
[2019-09-15 02:57] LABS: Anion Gap 11.7 (5-19); Blood Urea Nitrogen 32 mg/dL (8-23); Calcium 8.3 mg/dL (8.5-10.5); Carbon Dioxide 20 mmol/L (22-29); Chloride 105 mmol/L (98-107); Glucose 160 mg/dL (65-115); Osmolality Calculated 277 mOsm/kg (285-295); Potassium 3.7 mmol/L (3.5-5.1); Sodium 133 mmol/L (136-145)
[2019-09-15 02:58] LABS: Vancomycin Trough 16.6 ug/mL (10-15)
[2019-09-15 03:11] LABS: Slide Review Slide Review Perform
[2019-09-15] MEDS: cefepime 2,000 MG in sodium chloride 0.9% (plus) 50 ML 100 MG IV ×3 (04:19→22:46)
[2019-09-15 06:18] LABS: Glucose Point of Care 145 mg/dL (70-110)
--- NOTE | 2019-09-15 07:15 | PM.PN ---
Subjective Subjective: Interval history: The patient is now out of the ICU and on first floor. He had a bowel movement yesterday. He still feels like he is a little bit more distended than usual. He is starting to get an appetite back. He continues to pass flatus. Vitals/I&O/Wt Last Vital Signs Temp 97.5 F L 09/15/19 03:00 Pulse 75 09/15/19 03:00 Resp 16 09/15/19 03:00 BP 126/57 09/15/19 03:00 Pulse Ox 99 09/15/19 03:00 09/14/19 09/15/19 09/15/19 22:59 06:59 14:59 Intake Total 50 / 434.167 Output Total 1300 / 1300 650 / 1950 Balance -1250 / -865.833 -650 / -1515.833 Weight last 48 hrs Weight 194 lb 3.2 oz Weight 197 lb 9.6 oz Physical Exam Narrative: EXAM NARRATIVE: The abdomen appears softly distended. He is nontender. Bowel sounds are present. Urinary Catheter Management^: Yap: Cath Placed During This Visit: yes Urethral Indwelling: Yes Reason for Continuing Indwelling Catheter: Acute Urinary Retention or Obstruction Urinary Catheter Date of Insertion: 09/10/19 Urinary Catheter Time of Insertion: 05:55 Data : 09/15/19 02:11 09/15/19 02:11 A&P Assessment and plan (1) Ileus: The patient's bowel function appears to have returned. Status: Acute Code(s): K56.7 - Ileus, unspecified (2) Anemia: Hemoglobin improved following transfusion. Status: Acute Code(s): D64.9 - Anemia, unspecified Attestations Medical Necessity Statement*: Per admitting service. Coding Level of Care Code Acute High Value Associate for [facility] Diagnoses Ileus K56.7 Anemia D64.9
--- NOTE | 2019-09-15 08:12 | PC.NURSE ---
DR. LAURENT ORDERED TO HOLD AM INSULIN FOR BLOOD SUGAR OF 145 SINCE HE QUALIFIES FOR 2 UNITS. PATIENT IS NPO WITH ICE CHIPS ONLY.
[2019-09-15] MEDS: hyDRALAzine 25 mg Tablet PO ×3 (08:14→17:16)
[2019-09-15] MEDS: pantoprazole DR 40 mg Tablet PO ×2 (08:14→17:16)
[2019-09-15] MEDS: metoprolol tartrate 50 mg Tablet 100 MG PO (08:14)
[2019-09-15] MEDS: isosorbide mononitrate ER 30 mg Tablet PO (08:15)
[2019-09-15] MEDS: doxazosin 4 mg Tablet PO (08:15)
[2019-09-15] MEDS: sennosides-docusate Tablet 1 TAB PO ×2 (08:15→17:16)
--- NOTE | 2019-09-15 09:55 | P.PN_ITS ---
Subjective Subjective: Interval history: no new complaints today. Continues to have abdominal distension, passing some flatus. Medications: Reviewed: Yes Medication Review Details: Current Medications Acetaminophen (Tylenol) 650 mg PO Q6H PRN PRN Reason: Mild/Mod Pain Or Temp >/= 101 Last Admin: 09/13/19 17:07 Dose: 650 mg Documented by: Albuterol Sulfate (Albuterol) 2.5 mg INHALATION Q4H PRN PRN Reason: Shortness Of Breath Atorvastatin Calcium (Lipitor) 40 mg PO BEDTIME [facility] Last Admin: 09/14/19 20:29 Dose: 40 mg Documented by: Bisacodyl (Dulcolax) 10 mg PO DAILY PRN PRN Reason: CONSTIPATION Last Admin: 09/12/19 17:14 Dose: 10 mg Documented by: Dextrose (D50w) 25 ml IVP ONCE PRN; Protocol PRN Reason: hypoglycemia protocol Dextrose (D50w) 50 ml IVP PRN PRN; Protocol PRN Reason: hypoglycemia protocol Doxazosin Mesylate (Cardura) 4 mg PO DAILY [facility] Last Admin: 09/15/19 08:15 Dose: 4 mg Documented by: Glucagon (Glucagen) 1 mg IM ONCE PRN; Protocol PRN Reason: Adult Acute Hypoglycemia Prot. Hydralazine HCl (Apresoline) 10 mg IVP Q4H PRN PRN Reason: HYPERTENSION Hydralazine HCl (Apresoline) 25 mg PO QID [facility] Last Admin: 09/15/19 17:16 Dose: 25 mg Documented by: Cefepime HCl 2,000 mg/ Sodium (Chloride) 50 mls @ 100 mls/hr IV Q8H [facility]; Protocol Last Admin: 09/15/19 13:03 Dose: 100 mls/hr Documented by: Vancomycin HCl 1,500 mg/ (Sodium Chloride) 250 mls @ 166.667 mls/hr IV Q24H [facility]; Protocol Last Admin: 09/15/19 02:38 Dose: 167 mls/hr Documented by: Dextrose (D5w) 500 mls @ 100 mls/hr IV ONCE PRN; Protocol PRN Reason: Adult Acute Hypoglycemia Prot Insulin Aspart (Novolog) 0 unit SUBCUT WM&BEDTIME [facility]; Protocol Last Admin: 09/15/19 17:15 Dose: Not Given Documented by: Insulin Glargine (Lantus) 45 unit SUBCUT BEDTIME [facility] Last Admin: 09/14/19 20:36 Dose: 45 unit Documented by: Isosorbide Mononitrate (Imdur) 30 mg PO DAILY [facility] Last Admin: 09/15/19 08:15 Dose: 30 mg Documented by: Metoprolol Tartrate (Lopressor) 100 mg PO Q12H [facility] Ondansetron HCl (Zofran) 4 mg IVP Q6H PRN PRN Reason: vomiting, or N/V if npo Last Admin: 09/12/19 18:09 Dose: 4 mg Documented by: Oxycodone HCl (Oxycodone Ir) 10 mg PO Q4H PRN PRN Reason: SEVERE PAIN Last Admin: 09/14/19 19:06 Dose: 10 mg Documented by: Pantoprazole Sodium (Protonix) 40 mg PO BID [facility] Last Admin: 09/15/19 17:16 Dose: 40 mg Documented by: Senna/Docusate Sodium (Senna-S) 1 tab PO BID [facility] Last Admin: 09/15/19 17:16 Dose: 1 tab Documented by: Vitals/I&O/Wt Last Vital Signs Temp 97.5 F L 09/15/19 03:00 Pulse 85 09/15/19 09:24 Resp 18 09/15/19 09:24 BP 134/64 09/15/19 07:00 Pulse Ox 96 09/15/19 09:24 09/14/19 09/15/19 09/15/19 22:59 06:59 14:59 Intake Total 50 / 434.167 Output Total 1300 / 1300 650 / 1950 Balance -1250 / -865.833 -650 / -1515.833 Weight last 48 hrs Weight 88.088 kg Weight 89.63 kg Physical Exam Narrative: EXAM NARRATIVE: GEN: Awake, alert and oriented, no acute distress CVS: S1S2 N RS: CTA B/L Abd: Soft, distended, bs+ Urinary Catheter Management^: Yap: Cath Placed During This Visit: yes Urethral Indwelling: Yes Reason for Continuing Indwelling Catheter: Acute Urinary Retention or Obs truction Urinary Catheter Date of Insertion: 09/10/19 Urinary Catheter Time of Insertion: 05:55 Data : 09/15/19 02:11 09/15/19 02:11 A&P Assessment and plan (1) Non-ST elevation (NSTEMI) myocardial infarction: Continue statin, beta-nany, nitrate With worsening anemia all anticoagulation discontinued. Aspirin discontinued. He is not a candidate for Plavix currently. Echocardiogram demonstrates preserved EF Nuclear stress test demonstrates reversible ischemia. Consider angiogram in the future He denies any chest discomfort. Status: Acute Code(s): I21.4 - Non-ST elevation (NSTEMI) myocardial infarction (2) History of successful cardiopulmonary resuscitation: Reportedly performed on 09/08/2019 perioperatively. Status: Acute Code(s): Z92.89 - Personal history of other medical treatment (3) Multiple rib fractures: Bilateral acute fractures ribs 4-7 anteriorly, presumably secondary to resuscitation Pain is coming under control Incentive spirometry Start to mobilize with physical therapy. This will be ordered Status: Acute Qualifiers: Encounter type: initial encounter Fracture type: closed Laterality: bilateral Qualified Code(s): S22.43XA - Multiple fractures of ribs, bilateral, initial encounter for closed fracture Code(s): S22.49XA - Multiple fractures of ribs, unspecified side, initial encounter for closed fracture (4) Altered mental status: Unknown etiology. May be secondary to anoxic brain injury, prolonged anesthetic effect, other medication. This now seems to wax and wane. He will likely need intermediate facility placement. 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, right eye (6) Diabetes mellitus type 2, insulin dependent: Glucose improved Continue sliding scale, Lantus Status: Acute Code(s): E11.9 - Type 2 diabetes mellitus without complications; Z79.4 - chemist intern (current) use of insulin (7) Hypertension: Continue metoprolol Status: Acute Qualifiers: Hypertension type: essential hypertension Qualified Code(s): I10 - Essential (primary) hypertension Code(s): I10 - Essential (primary) hypertension (8) Hyperlipidemia: Continue statin Status: Acute Qualifiers: Hyperlipidemia type: unspecified Qualified Code(s): E78.5 - Hyperlipidemia, unspecified Code(s): E78.5 - Hyperlipidemia, unspecified (9) Glaucoma: Followed by ophthalmology Status: Acute Qualifiers: Glaucoma type: unspecified Laterality: bilateral Qualified Code(s): H40.9 - Unspecified glaucoma Code(s): H40.9 - Unspecified glaucoma (10) Acute kidney injury: May be postobstructive. Yap has been placed. Renal function markedly improved Status: Acute Code(s): N17.9 - Acute kidney failure, unspecified (11) Hyperkalemia: Continue to hold ARB Overall resolved Status: Acute Code(s): E87.5 - Hyperkalemia Additional A&P Information Anemia. Associated with left flank hematoma. Transfused 2 units of packed red blood cells August. Hemoglobin much improved. Holding all anticoagulants and antiplatelets. No evidence of hemolysis. Evidence of partial small bowel obstruction on CT. Surgical consultation appreciated. currently tolerating ice chips. Abdomen continues to look distended, however denies any abdominal pain today Hyponatremia, improved DVT prophylaxis SCDs Full code Likely will need skilled care Attestations Medical Necessity Statement*: monitoring anemia, will need to slowly resume antiplatelet therapy, awaiting return of bowel function Coding Level of Care Code Acute Supervisor Frame Sample And Pattern for g Fwd Diagnoses Non-ST elevation (NSTEMI) myocardial infarction I21.4 History of successful cardiopulmonary resuscitation Z92.89 Multiple rib fractures S22.43XA Encounter type: initial encounter Fracture type: closed Laterality: bilateral Altered mental status R41.0 Altered mental status type: disorientation Infection of right eye H44.001 Diabetes mellitus type 2, insulin dependent E11.9; Z79.4 Hypertension I10 Hypertension type: essential hypertension Hyperlipidemia E78.5 Hyperlipidemia type: unspecified Glaucoma H40.9 Glaucoma type: unspecified Laterality: bilateral Acute kidney injury N17.9 Hyperkalemia E87.5
[2019-09-15 11:17] LABS: Glucose Point of Care 142 mg/dL (70-110)
[2019-09-15 17:03] LABS: Glucose Point of Care 163 mg/dL (70-110)
--- NOTE | 2019-09-15 18:00 | P.PN_ITS ---
Subjective Subjective: Interval history: Patient's hemoglobin has improved. Complaining of diffuse abdominal wall pain. No new symptoms. No shortness of breath. Medications: Reviewed: Yes Medication Review Details: Current Medications Acetaminophen (Tylenol) 650 mg PO Q6H PRN PRN Reason: Mild/Mod Pain Or Temp >/= 101 Last Admin: 09/13/19 17:07 Dose: 650 mg Documented by: Albuterol Sulfate (Albuterol) 2.5 mg INHALATION Q4H PRN PRN Reason: Shortness Of Breath Atorvastatin Calcium (Lipitor) 40 mg PO BEDTIME [facility] Last Admin: 09/14/19 20:29 Dose: 40 mg Documented by: Bisacodyl (Dulcolax) 10 mg PO DAILY PRN PRN Reason: CONSTIPATION Last Admin: 09/12/19 17:14 Dose: 10 mg Documented by: Dextrose (D50w) 25 ml IVP ONCE PRN; Protocol PRN Reason: hypoglycemia protocol Dextrose (D50w) 50 ml IVP PRN PRN; Protocol PRN Reason: hypoglycemia protocol Doxazosin Mesylate (Cardura) 4 mg PO DAILY [facility] Last Admin: 09/15/19 08:15 Dose: 4 mg Documented by: Glucagon (Glucagen) 1 mg IM ONCE PRN; Protocol PRN Reason: Adult Acute Hypoglycemia Prot. Hydralazine HCl (Apresoline) 10 mg IVP Q4H PRN PRN Reason: HYPERTENSION Hydralazine HCl (Apresoline) 25 mg PO QID [facility] Last Admin: 09/15/19 17:16 Dose: 25 mg Documented by: Cefepime HCl 2,000 mg/ Sodium (Chloride) 50 mls @ 100 mls/hr IV Q8H [facility]; Protocol Last Admin: 09/15/19 13:03 Dose: 100 mls/hr Documented by: Vancomycin HCl 1,500 mg/ (Sodium Chloride) 250 mls @ 166.667 mls/hr IV Q24H [facility]; Protocol Last Admin: 09/15/19 02:38 Dose: 167 mls/hr Documented by: Dextrose (D5w) 500 mls @ 100 mls/hr IV ONCE PRN; Protocol PRN Reason: Adult Acute Hypoglycemia Prot Insulin Aspart (Novolog) 0 unit SUBCUT WM&BEDTIME [facility]; Protocol Last Admin: 09/15/19 17:15 Dose: Not Given Documented by: Insulin Glargine (Lantus) 45 unit SUBCUT BEDTIME [facility] Last Admin: 09/14/19 20:36 Dose: 45 unit Documented by: Isosorbide Mononitrate (Imdur) 30 mg PO DAILY [facility] Last Admin: 09/15/19 08:15 Dose: 30 mg Documented by: Metoprolol Tartrate (Lopressor) 100 mg PO Q12H [facility] Ondansetron HCl (Zofran) 4 mg IVP Q6H PRN PRN Reason: vomiting, or N/V if npo Last Admin: 09/12/19 18:09 Dose: 4 mg Documented by: Oxycodone HCl (Oxycodone Ir) 10 mg PO Q4H PRN PRN Reason: SEVERE PAIN Last Admin: 09/14/19 19:06 Dose: 10 mg Documented by: Pantoprazole Sodium (Protonix) 40 mg PO BID [facility] Last Admin: 09/15/19 17:16 Dose: 40 mg Documented by: Senna/Docusate Sodium (Senna-S) 1 tab PO BID [facility] Last Admin: 09/15/19 17:16 Dose: 1 tab Documented by: Vitals/I&O/Wt Last Vital Signs Temp 97.6 F 09/15/19 15:00 Pulse 100 09/15/19 15:00 Resp 17 09/15/19 15:00 BP 129/68 09/15/19 15:00 Pulse Ox 95 09/15/19 15:00 09/15/19 09/15/19 09/15/19 06:59 14:59 22:59 Intake Total 50 / 484.167 100 / 100 Output Total 650 / 1950 Balance -600 / -1465.833 100 / 100 Weight last 48 hrs Weight 194 lb 3.2 oz Weight 197 lb 9.6 oz Physical Exam Narrative: EXAM NARRATIVE: GENERAL: The patient is very sleepy. Not in any acute distress. HEENT: Patient keep his both eyes closed. NECK: Trachea appears to be central. No masses noted. No JVD or thyromegaly appreciated. RESPIRATORY: Chest is symmetrical. No intercostals muscle retraction or any accessory muscle activation. The chest wall tenderness persists. Breath sounds are heard bilaterally. No rales or rhonchi heard. No evidence of any consolidation. BREASTS: Deferred. HEART: The heart sounds are normal. No S3 or S4. No significant murmurs no pericardial rub ABDOMEN: Diffuse tenderness. Slightly distended .diffuse ecchymosis on the left side . : Deferred. RECTAL: Deferred. LYMPHATIC: No lymphadenopathy noted in the neck . EXTREMITIES: No edema or cyanosis. No clubbing. Peripheral pulses are palpated in fairly good volume and amplitude MUSCULOSKELETAL: No acute joint deformities or swelling SKIN: There are no significant scars or skin rash noted. NEUROPSYCHIATRIC: The patient is drowsy but responds to questions appropriately. Urinary Catheter Management^: Yap: Cath Placed During This Visit: yes Urethral Indwelling: Yes Reason for Continuing Indwelling Catheter: Acute Urinary Retention or Obstruction Urinary Catheter Date of Insertion: 09/10/19 Urinary Catheter Time of Insertion: 05:55 Data : 09/15/19 02:11 09/15/19 02:11 A&P Assessment and plan (1) Intraoperative cardiorespiratory arrest: Patient has no significant arrhythmias on the monitor. No specific cardiac symptoms. He has the chest wall pain from the rib fracture. Status: Acute (2) Abnormal myocardial perfusion study: Patient is clinically stable. He has no specific cardiac symptoms at this time. No arrhythmias on the monitor. May continue on the current medications. Consider cardiac authorization, once the clinical status is stable. Status: Acute Code(s): R94.39 - Abnormal result of other cardiovascular function study (3) Elevated troponin: This could be partly related to the CPR .in view of the abnormal myocardial perfusion imaging, possibility of him having underlying coronary artery disease is very high. This needs to be further evaluated. Because of the significant drop in the hemoglobin, we may hold off on the oral anticoagulant Status: Acute Code(s): R79.89 - Other specified abnormal findings of blood chemistry (4) Acute blood loss anemia: Patient had 2 units of blood transfusion. The hemoglobin currently seems to be stable. Does not appear to have any active bleeding. Status: Acute Code(s): D62 - Acute posthemorrhagic anemia (5) Benign essential hypertension with target blood pressure below 140/90: The blood pressure seems to be getting under control. May continue on the current medications. Status: Acute Code(s): I10 - Essential (primary) hypertension (6) Infection of right eye: Seems to be responding to antibiotic. Management as per the primary 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, right eye Additional A&P Information Consider restarting the patient on aspirin. Will discuss with the family once again about further cardiac work-up. Attestations Medical Necessity Statement*: Disposition as per the primary Coding Level of Care Code Acute Power Transformer Repair Supervisor for [facility] Diagnoses Intraoperative cardiorespiratory arrest Abnormal myocardial perfusion study R94.39 Elevated troponin R79.89 Acute blood loss anemia D62 Benign essential hypertension with target blood pressure below 140/90 I10 Infection of right eye H44.001
[2019-09-15 20:18] LABS: Glucose Point of Care 149 mg/dL (70-110)
[2019-09-15 20:41] LABS: Glucose Point of Care 141 mg/dL (70-110)
--- NOTE | 2019-09-15 21:13 | PC.NURSE ---
SOME RIGHT FACIAL DROPPING NOTICED. PT HAD DELAYED SLURRED SPEECH. LEFT [employer]ER WERE STRONGER THAN THE RIGHT. WEAKNESS IN THE BLE WAS NOTICED. DR. WATERMAN REASSESSED THE PT AND WANTED TONIGHTS ORAL MEDS AND INSULIN HELD D/T NPO STATUS. ALSO WANTED AN ABG ORDERED. WILL CONTINUE TO MONITOR.
[2019-09-15 21:25] LABS: ABG PH Result 7.48 (7.35-7.45); Alveolar-Arterial Oxygen Gradi 37.1 mmHg (5-10); Arterial Blood Gas Hematocrit 30.2 % (42-52); Base Excess ABG -0.3 mmol/L (-2.0-2.0); Blood Gas Allen Test Pos; Blood Gas Sample Site Radial, right; Blood Gas Sample Type Arterial; Carboxyhemoglobin 1.2 %THgb (0.4-20.1); HCO3 ABG 22.8 mmol/L (22-26); HGB O2 Sat 94.8 % (95-100); Ionized Calcium Level - ABG 1.1 mmol/L (1.1-1.4); Methemoglobin 0.3 % (0.4-1.5); Oxygen Saturation ABG 96.2; PO2 ABG 70.3 mmHg (80.0-100.0); Potassium Level - ABG 3.5 mmol/L (3.5-5.0); Total Hemoglobin 9.9 g/dL (14-18)
--- NOTE | 2019-09-15 23:08 | PC.NURSE ---
PT PULLED OUT IV TO LEFT AC. CATHETER TIP WAS STILL INTACT. NEW IV TO RIGHT AC 20G X1 STICK. IV FLUSHED AND KATHRINE WELL. PT TOLERATED WELL.
[2019-09-16] VITALS (7 sets, daily range): BP systolic 121–145; BP diastolic 62–82; PULSE 88–117; RESP 14–21; TEMP 36.4–36.7; O2SAT 94–97; BMI 28.6
[2019-09-16 04:25] LABS: Basophils % 0.4 %; Eosinophils # 0.1 10^3/uL (0.0-0.8); Eosinophils % 1.9 %; Hematocrit 27.4 % (42.0-52.0); Hemoglobin 9.2 g/dL (11.7-16.6); Lymphocytes # 1.2 10^3/uL (0.8-4.8); Lymphocytes % 17.2 %; Mean Corpuscular HGB Conc 33.6 g/dL (30.0-36.0); Mean Corpuscular Hemoglobin 31.5 pg (28.0-34.0); Mean Corpuscular Volume 93.8 fL (80-94); Mean Platelet Volume 10.8 fL (7.4-10.4); Monocytes # 0.9 10^3/uL (0.2-0.9); Monocytes % 13.4 %; Neutrophils % 58.5 %; Nucleated Red Blood Cells # 0.2 /100WBC; Nucleated Red Blood Cells % 2.5 %; Platelet Count 271 10^3/cmm (130-400); Red Blood Count 2.92 10^6/uL (4.1-5.3); Red Cell Distribution Width 14.7 % (12.1-15.1); White Blood Count 6.9 10^3/uL (4.0-10.0)
[2019-09-16 04:37] LABS: Alanine Aminotransferase 18 U/L (0-41); Alkaline Phosphatase 75 IU/L (40-130); Anion Gap 16.6 (5-19); Aspartate Amino Transferase 21 U/L (0-40); Blood Urea Nitrogen 26 mg/dL (8-23); Calcium 8.3 mg/dL (8.5-10.5); Carbon Dioxide 21 mmol/L (22-29); Chloride 104 mmol/L (98-107); Globulin 2.6 g/dL (1.3-4.6); Glucose 153 mg/dL (65-115); Potassium 3.6 mmol/L (3.5-5.1); Sodium 138 mmol/L (136-145); Total Bilirubin 0.6 mg/dL (0.15-1.2); Total Protein 5.6 g/dL (6.6-8.7)
[2019-09-16 05:05] LABS: Slide Review Slide Review Perform
[2019-09-16] MEDS: cefepime 2,000 MG in sodium chloride 0.9% (plus) 50 ML 100 MG IV ×3 (06:03→21:37)
[2019-09-16 06:28] LABS: Glucose Point of Care 174 mg/dL (70-110)
--- NOTE | 2019-09-16 06:41 | PM.PN ---
Subjective Subjective: Interval history: The patient denies any abdominal pain today. He says he continues to pass flatus. He would like to try to drink some clear liquids. Vitals/I&O/Wt Last Vital Signs Temp 97.5 F L 09/16/19 03:00 Pulse 108 H 09/16/19 03:00 Resp 18 09/16/19 03:00 BP 139/69 09/16/19 03:00 Pulse Ox 94 09/16/19 03:00 09/15/19 09/15/19 09/16/19 14:59 22:59 06:59 Intake Total 150 / 150 240 / 390 340 / 730 Output Total 800 / 800 600 / 1400 Balance 150 / 150 -560 / -410 -260 / -670 Weight last 48 hrs Weight 192 lb 14.4 oz Weight 194 lb 3.2 oz Weight 194 lb 3.2 oz Physical Exam Narrative: EXAM NARRATIVE: The abdomen remains softly distended. Bowel sounds are present. He does not appear to have much in the way of tenderness. Urinary Catheter Management^: Yap: Cath Placed During This Visit: yes Urethral Indwelling: Yes Reason for Continuing Indwelling Catheter: Acute Urinary Retention or Obstruction Urinary Catheter Date of Insertion: 09/10/19 Urinary Catheter Time of Insertion: 05:55 Data : 09/16/19 03:10 09/16/19 03:10 A&P Assessment and plan (1) Ileus: Will start some clear liquids and see other patient does. Status: Acute Code(s): K56.7 - Ileus, unspecified (2) Anemia: Hemoglobin improved following transfusion. Status: Acute Code(s): D64.9 - Anemia, unspecified Attestations Medical Necessity Statement*: See admitting service's notation. Coding Level of Care Code Acute Network Control Operator for [facility] Diagnoses Ileus K56.7 Anemia D64.9
[2019-09-16] MEDS: pantoprazole DR 40 mg Tablet PO ×2 (08:09→17:28)
[2019-09-16] MEDS: doxazosin 4 mg Tablet PO (08:09)
[2019-09-16] MEDS: metoprolol tartrate 50 mg Tablet 100 MG PO ×2 (08:10→21:12)
[2019-09-16] MEDS: hyDRALAzine 25 mg Tablet PO ×4 (08:10→21:12)
[2019-09-16] MEDS: sennosides-docusate Tablet 1 TAB PO ×2 (08:10→17:28)
[2019-09-16] MEDS: isosorbide mononitrate ER 30 mg Tablet PO (08:10)
--- NOTE | 2019-09-16 09:29 | PC.SOCIAL ---
IMM Update Pg 2 of IMM given and explained to patient. Verbalized understanding.
--- NOTE | 2019-09-16 10:08 | PM.PN ---
Subjective Subjective: Interval history: Patient's hemoglobin is remaining stable. The abdominal wall pain is improving. The white cell count is within normal limits. Patient is remaining afebrile. Medications: Reviewed: Yes Medication Review Details: Current Medications Acetaminophen (Tylenol) 650 mg PO Q6H PRN PRN Reason: Mild/Mod Pain Or Temp >/= 101 Last Admin: 09/13/19 17:07 Dose: 650 mg Documented by: Albuterol Sulfate (Albuterol) 2.5 mg INHALATION Q4H PRN PRN Reason: Shortness Of Breath Atorvastatin Calcium (Lipitor) 40 mg PO BEDTIME [facility] Last Admin: 09/14/19 20:29 Dose: 40 mg Documented by: Bisacodyl (Dulcolax) 10 mg PO DAILY PRN PRN Reason: CONSTIPATION Last Admin: 09/12/19 17:14 Dose: 10 mg Documented by: Dextrose (D50w) 25 ml IVP ONCE PRN; Protocol PRN Reason: hypoglycemia protocol Dextrose (D50w) 50 ml IVP PRN PRN; Protocol PRN Reason: hypoglycemia protocol Doxazosin Mesylate (Cardura) 4 mg PO DAILY [facility] Last Admin: 09/15/19 08:15 Dose: 4 mg Documented by: Glucagon (Glucagen) 1 mg IM ONCE PRN; Protocol PRN Reason: Adult Acute Hypoglycemia Prot. Hydralazine HCl (Apresoline) 10 mg IVP Q4H PRN PRN Reason: HYPERTENSION Hydralazine HCl (Apresoline) 25 mg PO QID [facility] Last Admin: 09/15/19 17:16 Dose: 25 mg Documented by: Cefepime HCl 2,000 mg/ Sodium (Chloride) 50 mls @ 100 mls/hr IV Q8H [facility]; Protocol Last Admin: 09/15/19 13:03 Dose: 100 mls/hr Documented by: Vancomycin HCl 1,500 mg/ (Sodium Chloride) 250 mls @ 166.667 mls/hr IV Q24H [facility]; Protocol Last Admin: 09/15/19 02:38 Dose: 167 mls/hr Documented by: Dextrose (D5w) 500 mls @ 100 mls/hr IV ONCE PRN; Protocol PRN Reason: Adult Acute Hypoglycemia Prot Insulin Aspart (Novolog) 0 unit SUBCUT WM&BEDTIME [facility]; Protocol Last Admin: 09/15/19 17:15 Dose: Not Given Documented by: Insulin Glargine (Lantus) 45 unit SUBCUT BEDTIME [facility] Last Admin: 09/14/19 20:36 Dose: 45 unit Documented by: Isosorbide Mononitrate (Imdur) 30 mg PO DAILY [facility] Last Admin: 09/15/19 08:15 Dose: 30 mg Documented by: Metoprolol Tartrate (Lopressor) 100 mg PO Q12H [facility] Ondansetron HCl (Zofran) 4 mg IVP Q6H PRN PRN Reason: vomiting, or N/V if npo Last Admin: 09/12/19 18:09 Dose: 4 mg Documented by: Oxycodone HCl (Oxycodone Ir) 10 mg PO Q4H PRN PRN Reason: SEVERE PAIN Last Admin: 09/14/19 19:06 Dose: 10 mg Documented by: Pantoprazole Sodium (Protonix) 40 mg PO BID [facility] Last Admin: 09/15/19 17:16 Dose: 40 mg Documented by: Senna/Docusate Sodium (Senna-S) 1 tab PO BID [facility] Last Admin: 09/15/19 17:16 Dose: 1 tab Documented by: Vitals/I&O/Wt Last Vital Signs Temp 97.5 F L 09/16/19 03:00 Pulse 117 H 09/16/19 08:55 Resp 18 09/16/19 08:55 BP 145/82 09/16/19 07:00 Pulse Ox 94 09/16/19 08:55 09/15/19 09/16/19 09/16/19 22:59 06:59 14:59 Intake Total 240 / 390 340 / 730 Output Total 800 / 800 600 / 1400 Balance -560 / -410 -260 / -670 Weight last 48 hrs Weight 192 lb 14.4 oz Weight 194 lb 3.2 oz Weight 194 lb 3.2 oz Physical Exam Narrative: EXAM NARRATIVE: GENERAL: The patient is alert today. Not in any acute distress. HEENT: Patient keep his both eyes closed. NECK: Trachea appears to be central. No masses noted. No JVD or thyromegaly appreciated. RESPIRATORY: Chest is symmetrical. No intercostals muscle retraction or any accessory muscle activation. The chest wall tenderness persists. Breath sounds are heard bilaterally. No rales or rhonchi heard. No evidence of any consolidation. BREASTS: Deferred. HEART: The heart sounds are normal. No S3 or S4. No significant murmurs no pericardial rub ABDOMEN: Diffuse tenderness. Slightly distended .diffuse ecchymosis on the left side . : Deferred. RECTAL: Deferred. LYMPHATIC: No lymphadenopathy noted in the neck . EXTREMITIES: No edema or cyanosis. No clubbing. Peripheral pulses are palpated in fairly good volume and amplitude MUSCULOSKELETAL: No acute joint deformities or swelling SKIN: There are no significant scars or skin rash noted. NEUROPSYCHIATRIC: The patient is drowsy but responds to questions appropriately. Urinary Catheter Management^: Yap: Cath Placed During This Visit: yes Urethral Indwelling: Yes Reason for Continuing Indwelling Catheter: Acute Urinary Retention or Obstruction Urinary Catheter Date of Insertion: 09/10/19 Urinary Catheter Time of Insertion: 05:55 Data : 09/16/19 03:10 09/16/19 03:10 A&P Assessment and plan (1) Intraoperative cardiorespiratory arrest: Patient has no significant arrhythmias on the monitor. No specific cardiac symptoms. He has the chest wall pain from the rib fracture. Status: Acute (2) Abnormal myocardial perfusion study: Patient is clinically stable. He has no specific cardiac symptoms at this time. No arrhythmias on the monitor. May continue on the current medications. May start on Plavix tomorrow. If the hemoglobin remains stable after the Plavix, may consider cardiac catheterization after 2-3 weeks, provided there is no recurrence of chest pain prior to this Status: Acute Code(s): R94.39 - Abnormal result of other cardiovascular function study (3) Elevated troponin: This could be partly related to the CPR .in view of the abnormal myocardial perfusion imaging, possibility of him having underlying coronary artery disease is very high. Cardiac catheterization as an outpatient Status: Acute Code(s): R79.89 - Other specified abnormal findings of blood chemistry (4) Acute blood loss anemia: Patient had 2 units of blood transfusion. The hemoglobin currently seems to be stable. Does not appear to have any active bleeding. Status: Acute Code(s): D62 - Acute posthemorrhagic anemia (5) Benign essential hypertension with target blood pressure below 140/90: The blood pressure seems to be getting under control. May continue on the current medications. Status: Acute Code(s): I10 - Essential (primary) hypertension (6) Infection of right eye: Seems to be responding to antibiotic. 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
[2019-09-16] MEDS: acetaminophen 325 mg Tablet 650 MG PO (10:39)
[2019-09-16 11:27] LABS: Glucose Point of Care 178 mg/dL (70-110)
--- NOTE | 2019-09-16 13:20 | PM.EVENT ---
Event Note Event Note: Testing 123 for Mr. Davis pocket still in the hospital for reasons that I do not understand so I would walk out of the patient's room and stay here and dictate into it like this He saw TJ is not in the office of his been a show him his case because he got tired of carrying it around None
--- NOTE | 2019-09-16 14:06 | P.PN_ITS ---
Subjective Subjective: Interval history: Hb remains stable at 9.2. Denies any abdominal pain. Passing flatus and has small BM. Diet advanced to clear liquid. Patient had episode of confusion this morning per RN report which was transient. Medications: Reviewed: Yes Medication Review Details: Current Medications Acetaminophen (Tylenol) 650 mg PO Q6H PRN PRN Reason: Mild/Mod Pain Or Temp >/= 101 Last Admin: 09/13/19 17:07 Dose: 650 mg Documented by: Albuterol Sulfate (Albuterol) 2.5 mg INHALATION Q4H PRN PRN Reason: Shortness Of Breath Atorvastatin Calcium (Lipitor) 40 mg PO BEDTIME [facility] Last Admin: 09/14/19 20:29 Dose: 40 mg Documented by: Bisacodyl (Dulcolax) 10 mg PO DAILY PRN PRN Reason: CONSTIPATION Last Admin: 09/12/19 17:14 Dose: 10 mg Documented by: Dextrose (D50w) 25 ml IVP ONCE PRN; Protocol PRN Reason: hypoglycemia protocol Dextrose (D50w) 50 ml IVP PRN PRN; Protocol PRN Reason: hypoglycemia protocol Doxazosin Mesylate (Cardura) 4 mg PO DAILY [facility] Last Admin: 09/15/19 08:15 Dose: 4 mg Documented by: Glucagon (Glucagen) 1 mg IM ONCE PRN; Protocol PRN Reason: Adult Acute Hypoglycemia Prot. Hydralazine HCl (Apresoline) 10 mg IVP Q4H PRN PRN Reason: HYPERTENSION Hydralazine HCl (Apresoline) 25 mg PO QID [facility] Last Admin: 09/15/19 17:16 Dose: 25 mg Documented by: Cefepime HCl 2,000 mg/ Sodium (Chloride) 50 mls @ 100 mls/hr IV Q8H [facility]; Protocol Last Admin: 09/15/19 13:03 Dose: 100 mls/hr Documented by: Vancomycin HCl 1,500 mg/ (Sodium Chloride) 250 mls @ 166.667 mls/hr IV Q24H [facility]; Protocol Last Admin: 09/15/19 02:38 Dose: 167 mls/hr Documented by: Dextrose (D5w) 500 mls @ 100 mls/hr IV ONCE PRN; Protocol PRN Reason: Adult Acute Hypoglycemia Prot Insulin Aspart (Novolog) 0 unit SUBCUT WM&BEDTIME [facility]; Protocol Last Admin: 09/15/19 17:15 Dose: Not Given Documented by: Insulin Glargine (Lantus) 45 unit SUBCUT BEDTIME [facility] Last Admin: 09/14/19 20:36 Dose: 45 unit Documented by: Isosorbide Mononitrate (Imdur) 30 mg PO DAILY [facility] Last Admin: 09/15/19 08:15 Dose: 30 mg Documented by: Metoprolol Tartrate (Lopressor) 100 mg PO Q12H [facility] Ondansetron HCl (Zofran) 4 mg IVP Q6H PRN PRN Reason: vomiting, or N/V if npo Last Admin: 09/12/19 18:09 Dose: 4 mg Documented by: Oxycodone HCl (Oxycodone Ir) 10 mg PO Q4H PRN PRN Reason: SEVERE PAIN Last Admin: 09/14/19 19:06 Dose: 10 mg Documented by: Pantoprazole Sodium (Protonix) 40 mg PO BID [facility] Last Admin: 09/15/19 17:16 Dose: 40 mg Documented by: Senna/Docusate Sodium (Senna-S) 1 tab PO BID [facility] Last Admin: 09/15/19 17:16 Dose: 1 tab Documented by: Vitals/I&O/Wt Last Vital Signs Temp 97.5 F L 09/16/19 03:00 Pulse 88 09/16/19 11:00 Resp 15 09/16/19 11:00 BP 137/68 09/16/19 11:00 Pulse Ox 97 09/16/19 11:00 09/15/19 09/16/19 09/16/19 22:59 06:59 14:59 Intake Total 240 / 390 340 / 730 360 / 360 Output Total 800 / 800 600 / 1400 Balance -560 / -410 -260 / -670 360 / 360 Weight last 48 hrs Weight 87.498 kg Weight 88.088 kg Weight 88.088 kg Physical Exam Narrative: EXAM NARRATIVE: GEN: Awake, alert and oriented, no acute distress CVS: S1S2 N RS: CTA B/L Abd: Soft, nt/nd , bs+ PODIATRIST: no focal neuro deficits Urinary Catheter Management^: Yap: Cath Placed During This Visit: yes Urethral Indwelling: Yes Reason for Continuing Indwelling Catheter: Acute Urinary Retention or Obstruction Urinary Catheter Date of Insertion: 09/10/19 Urinary Catheter Time of Insertion: 05:55 Data : 09/16/19 03:10 09/16/19 03:10 A&P Assessment and plan (1) Non-ST elevation (NSTEMI) myocardial infarction: Continue statin, beta-nany, nitrate ASA was discontinued upon admission in view of anemia and hematoma,however being resumed today. With initiation of ASA, will monitor HB closely over the next 48 hrs and then decide regarding further steps Echocardiogram demonstrates preserved EF Nuclear stress test demonstrates reversible ischemia. Consider angiogram in the future dependent on how patient does with the ASA. He denies any chest discomfort at this present time. Status: Acute Code(s): I21.4 - Non-ST elevation (NSTEMI) myocardial infarction (2) History of successful cardiopulmonary resuscitation: Reportedly performed on 09/08/2019 perioperatively. Status: Acute Code(s): Z92.89 - Personal history of other medical treatment (3) Multiple rib fractures: Bilateral acute fractures ribs 4-7 anteriorly, presumably secondary to resuscitation Pain is coming under control Incentive spirometry Start to mobilize with physical therapy. Working with PT Status: Acute Qualifiers: Encounter type: initial encounter Fracture type: closed Laterality: bilateral Qualified Code(s): S22.43XA - Multiple fractures of ribs, bilateral, initial encounter for closed fracture Code(s): S22.49XA - Multiple fractures of ribs, unspecified side, initial encounter for closed fracture (4) Altered mental status: Unknown etiology. May be secondary to anoxic brain injury, prolonged anesthetic effect, other medication. This now seems to wax and wane. will repeat CT head today as noted to be more confused this morning per RN report He will likely need usp facility placement. 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, right eye (6) Diabetes mellitus type 2, insulin dependent: Glucose improved Continue sliding scale, Lantus Status: Acute Code(s): E11.9 - Type 2 diabetes mellitus without complications; Z79.4 - roasterman (current) use of insulin (7) Hypertension: Continue metoprolol Status: Acute Qualifiers: Hypertension type: essential hypertension Qualified Code(s): I10 - Ess ential (primary) hypertension Code(s): I10 - Essential (primary) hypertension (8) Hyperlipidemia: Continue statin Status: Acute Qualifiers: Hyperlipidemia type: unspecified Qualified Code(s): E78.5 - Hyperlipidemia, unspecified Code(s): E78.5 - Hyperlipidemia, unspecified (9) Glaucoma: Followed by ophthalmology Status: Acute Qualifiers: Glaucoma type: unspecified Laterality: bilateral Qualified Code(s): H40.9 - Unspecified glaucoma Code(s): H40.9 - Unspecified glaucoma (10) Acute kidney injury: May be postobstructive. Yap has been placed. Renal function markedly improved Status: Acute Code(s): N17.9 - Acute kidney failure, unspecified (11) Hyperkalemia: Continue to hold ARB Overall resolved Status: Acute Code(s): E87.5 - Hyperkalemia Additional A&P Information 69M admtted since 09/08 after presenteing to ER with new onset confusion, with h/o having undergone eye surgery for endophthalmitis c/b intraoperative cardiac arrest requiring CPR. Hospital course c/b elevated troponins, abnormal stress test, left flank hematoma, anemia secondary to blood loss leading to stopping a/c and antiplatelets, required blood transfusion, partial distal SBO vs ileus. Restart aspirin today and monitor Hb closely Anemia. Associated with left flank hematoma. Transfused 2 units of packed red blood cells August. Hemoglobin much improved. Holding all anticoagulants and antiplatelets. No evidence of hemolysis. Evidence of partial small bowel obstruction on CT. Surgical consultation appreciated. Diet advanced to clears. Abdomen continues to look distended, however denies any abdominal pain today mental status continues to wax and wane. Per Rn report, appears more confused compared to yesterday, will rpt CT head Hyponatremia, improved DVT prophylaxis SCDs Full code Dispo: Discharge to SNF Attestations Medical Necessity Statement*: restarting antiplatelets, needs close monitoring oh HB given recent events, may need angiogram given abnormal stress test Coding Level of Care Code Acute Digital Media Strategist for [facility] Diagnoses Non-ST elevation (NSTEMI) myocardial infarction I21.4 History of successful cardiopulmonary resuscitation Z92.89 Multiple rib fractures S22.43XA Encounter type: initial encounter Fracture type: closed Laterality: bilateral Altered mental status R41.0 Altered mental status type: disorientation Infection of right eye H44.001 Diabetes mellitus type 2, insulin dependent E11.9; Z79.4 Hypertension I10 Hypertension type: essential hypertension Hyperlipidemia E78.5 Hyperlipidemia type: unspecified Glaucoma H40.9 Glaucoma type: unspecified Laterality: bilateral Acute kidney injury N17.9 Hyperkalemia E87.5
[2019-09-16 16:15] LABS: Glucose Point of Care 190 mg/dL (70-110)
--- NOTE | 2019-09-16 16:54 | CTR_ITS ---
PROCEDURE INFORMATION: Exam: CT Head Without Contrast Exam date and time: 09/16/2019 5:38 PM Age: 69 years old Clinical indication: Altered mental status/memory loss; Confusion or disorientation; Additional info: New confusion TECHNIQUE: Imaging protocol: Computed tomography of the head without contrast. Total DLP: 935.31 mGy-cm Radiation optimization: All CT scans at this facility use at least one of these dose optimization techniques: automated exposure control; mA and/or kV adjustment per patient size (includes targeted exams where dose is matched to clinical indication); or iterative reconstruction. COMPARISON: CT head wo con* [id number] 09/08/2019 9:30 PM FINDINGS: Brain: There is cortical atrophy not significantly changed compared with 09/08/2019. Low-density changes in the white matter regions are compatible with nonspecific chronic ischemic change. There is no intracranial mass, hemorrhage, or edema. Midline shift: There is no shift of midline structures. Ventricles: Normal. No ventriculomegaly. Bones/joints: Unremarkable. No acute fracture. Sinuses: Visualized sinuses are unremarkable. No fluid levels. Mastoid air cells: Visualized mastoid air cells are well aerated. Soft tissues: Unremarkable. Other findings: Findings are not changed from 09/08/2019. CT/CT head wo con* [id number] IMPRESSION: Atrophy and chronic ischemic changes. No acute intracranial finding. Radiation Dose CTDIVOL = (mGy): DLP = 935.31 (mGy-cm)
--- NOTE | 2019-09-16 16:57 | PC.NURSE ---
PATIENT NOTED TO HAVE EPISODE OF CONFUSION. NURSE ENTERED ROOM AND PATIENT WAS UP OUT OF BED, HE HAD RIPPED HIS IV OUT, HE HAD TAKEN ALL OF HIS WRISTBANDS OFF AND HE WAS STARTING TO TAKE OFF HIS TELEMETRY LEADS. PATIENT STATED THAT HE WAS TAKING ALL OF THE WIRES OFF TO GO HOME. PATIENT ALSO STATED HE WAS GOING TO TAKE OFF HIS WIRES SO HE COULD GO TO BED. NURSE REORIENTED PATIENT TO PLACE. A NEURO CHECK WAS PERFORMED AND PATIENT KNEW WHO HE WAS, [place]Y HE [place] [facility] [place] PATIENT REDIRECTED EASILY AND FOLLOWED ALL COMMANDS. VITAL SIGNS NOTED TO BE STABLE. AFTER PATIENT WAS REORIENTED AND SETTLED BACK INTO BED, THE PATIENT STATED HE HAD THE URGE TO HAVE A BOWEL MOVEMENT. PATIENT WAS ASSISTED TO [facility] [place] WHERE HE HAD A MEDIUM FORMED BM. PATIENT ASSISTED BACK TO BED AND BED ALARM SET. DR. LAURENT NOTIFIED OF THIS INCIDENCE.
[2019-09-16] MEDS: aspirin 81 mg EC Tablet PO (17:28)
--- NOTE | 2019-09-16 20:11 | PC.NURSE ---
Patient has pulled IV out with catheter intact. All leads have been pulled off. Patient has also pulled off stat lock from iyer catheter. Dr. Newberry notified. Awaiting answer. Will monitor.
--- NOTE | 2019-09-16 20:30 | PC.NURSE ---
Order received for sitter from Dr. Newberry. vacuum metalizing supervisor notified. Will monitor.
[2019-09-16] MEDS: atorvastatin 40 mg Tablet PO (21:12)
[2019-09-16 21:13] LABS: Glucose Point of Care 158 mg/dL (70-110)
[2019-09-16] MEDS: insulin glargine 100 units/1 mL 45 UNIT SUBCUT (21:13)
--- NOTE | 2019-09-16 22:00 | PC.NURSE ---
PIID restarted with 22 gauge angio cath in left hand after 3 attempts. Explained to patient to please attempt to keep IV in. Patient confused. States, I need to give this naila that's behind me his stuff back.... This nurse explained to patient that the gentleman he's referring to was discharged home and that he had all of his stuff. Yeah I know he went home but I have all this stuff attached to me for him. Took medications without difficulty. Sitter at bedside. Will monitor.
--- NOTE | 2019-09-16 23:49 | PC.NURSE ---
See paper documentation. Sitter at bedside.
[2019-09-17] VITALS (22 sets, daily range): BP systolic 119–153; BP diastolic 56–84; PULSE 9–114; RESP 13–24; TEMP 36.4–36.8; O2SAT 90–98
--- NOTE | 2019-09-17 00:59 | PC.NURSE ---
Sitter at bedside. Please see paper documentation.
--- NOTE | 2019-09-17 01:20 | PC.NURSE ---
Sitter at bedside. Please see paper note
--- NOTE | 2019-09-17 02:57 | PC.NURSE ---
Sitter at bedside. See documentation.
--- NOTE | 2019-09-17 03:31 | PC.NURSE ---
See paper chart. Sitter continues to be at bedside.
--- NOTE | 2019-09-17 04:04 | PC.NURSE ---
Sitter continues at bedside. Please see paper chart.
[2019-09-17] MEDS: cefepime 2,000 MG in sodium chloride 0.9% (plus) 50 ML 100 MG IV ×2 (05:26→13:24)
--- NOTE | 2019-09-17 05:50 | PC.NURSE ---
Sitter at bedside. Please see paper chart.
[2019-09-17 06:21] LABS: Glucose Point of Care 86 mg/dL (70-110)
--- NOTE | 2019-09-17 06:29 | PC.NURSE ---
Sitter at bedside visiting with patient. See paper chart
--- NOTE | 2019-09-17 07:41 | ECG_ITS ---
Measurements Intervals [place] Rate: 83 P: 46 WA: 158 QRS: 26 QRSD: 110 T: 120 QT: 394 QTc: [address] DEVIATION AND MODERATE T-WAVE ABNORMALITY, CONSIDER ANTERIOR ISCHEMIA [-0.1+ mV T WAVE IN V3/V4] INTERPRETATION BASED ON A DEFAULT AGE OF 40 YEARS Compared to ECG 09/09/2019 02:23:02 T-wave abnormality now present Possible ischemia now present ST (T wave) deviation no longer present Electronically Signed On 09-17-2019 11:37:18 PHOTOGRAPHY PROFESSOR by Tomas Lemons M.D. [email or web address]
--- NOTE | 2019-09-17 07:48 | PM.PN ---
Subjective Subjective: Interval history: The patient seems more alert to me this morning, although nursing reports that he got quite confused last night. He talks to me with his eyes open this morning for the first time (he usually keeps his eyes shut when we are talking in the mornings). He denies any abdominal pain. He had a very large bowel movement. He says he still would like to stick with a liquid diet for now because it is easier for me to get down. Vitals/I&O/Wt Last Vital Signs Temp 98.0 F 09/17/19 07:37 Pulse 80 09/17/19 07:37 Resp 21 H 09/17/19 07:37 BP 153/70 09/17/19 07:37 Pulse Ox 90 09/17/19 07:37 09/16/19 09/17/19 09/17/19 22:59 06:59 14:59 Intake Total 220 / 580 250 / 830 Output Total 900 / 900 Balance 220 / 580 -650 / -70 Weight last 48 hrs Weight 195 lb 3.2 oz Weight 192 lb 14.4 oz Weight 194 lb 3.2 oz Physical Exam Narrative: EXAM NARRATIVE: The abdomen remained softly distended and nontender. Urinary Catheter Management^: Yap: Cath Placed During This Visit: yes Urethral Indwelling: Yes Reason for Continuing Indwelling Catheter: Acute Urinary Retention or Obstruction Urinary Catheter Date of Insertion: 09/10/19 Urinary Catheter Time of Insertion: 05:55 Data : 09/16/19 03:10 09/16/19 03:10 A&P Assessment and plan (1) Ileus: The patient's bowel function appears to have returned. He still would like to stick with a liquid diet for now. Status: Acute Code(s): K56.7 - Ileus, unspecified (2) Anemia: Hemoglobin improved following transfusion. Status: Acute Code(s): D64.9 - Anemia, unspecified Attestations Medical Necessity Statement*: See admitting service's notation. Coding Level of Care Code Acute Vascular Surgery Physician for [facility] Diagnoses Ileus K56.7 Anemia D64.9
[2019-09-17 08:35] LABS: Basophils % 0.3 %; Eosinophils # 0.1 10^3/uL (0.0-0.8); Eosinophils % 1.6 %; Hematocrit 28.1 % (42.0-52.0); Hemoglobin 9.3 g/dL (11.7-16.6); Lymphocytes # 0.8 10^3/uL (0.8-4.8); Lymphocytes % 12.8 %; Mean Corpuscular HGB Conc 33.1 g/dL (30.0-36.0); Mean Corpuscular Hemoglobin 31.3 pg (28.0-34.0); Mean Corpuscular Volume 94.6 fL (80-94); Mean Platelet Volume 10.2 fL (7.4-10.4); Monocytes # 0.8 10^3/uL (0.2-0.9); Monocytes % 11.9 %; Neutrophils # 4.4 10^3/uL (1.8-7.7); Neutrophils % 69.6 %; Nucleated Red Blood Cells # 0.1 /100WBC; Nucleated Red Blood Cells % 0.9 %; Platelet Count 293 10^3/cmm (130-400); Red Blood Count 2.97 10^6/uL (4.1-5.3); Red Cell Distribution Width 14.6 % (12.1-15.1); White Blood Count 6.3 10^3/uL (4.0-10.0)
[2019-09-17 08:54] LABS: Alanine Aminotransferase 17 U/L (0-41); Albumin Level 2.9 g/dL (3.5-5.2); Alkaline Phosphatase 74 IU/L (40-130); Anion Gap 13.9 (5-19); Aspartate Amino Transferase 22 U/L (0-40); Blood Urea Nitrogen 13 mg/dL (8-23); Calcium 8.2 mg/dL (8.5-10.5); Carbon Dioxide 24 mmol/L (22-29); Chloride 102 mmol/L (98-107); Globulin 2.8 g/dL (1.3-4.6); Glucose 106 mg/dL (65-115); Potassium 3.9 mmol/L (3.5-5.1); Sodium 136 mmol/L (136-145); Total Bilirubin 0.7 mg/dL (0.15-1.2); Total Protein 5.7 g/dL (6.6-8.7)
[2019-09-17 08:56] LABS: Troponin T (5th) Once 70 ng/mL (0-15)
[2019-09-17] MEDS: metoprolol tartrate 50 mg Tablet 100 MG PO ×2 (09:32→21:25)
[2019-09-17] MEDS: hyDRALAzine 25 mg Tablet PO ×3 (09:32→21:25)
[2019-09-17] MEDS: pantoprazole DR 40 mg Tablet PO (09:32)
[2019-09-17] MEDS: sennosides-docusate Tablet 1 TAB PO (09:32)
[2019-09-17] MEDS: isosorbide mononitrate ER 30 mg Tablet PO (09:32)
[2019-09-17] MEDS: aspirin 81 mg EC Tablet PO (09:32)
[2019-09-17] MEDS: doxazosin 4 mg Tablet PO (09:32)
[2019-09-17 11:41] LABS: Glucose Point of Care 96 mg/dL (70-110)
--- NOTE | 2019-09-17 13:12 | PC.NURSE ---
Patient continues to have one on one sitter with q 15 min documentation see paper chart for details.
--- NOTE | 2019-09-17 13:22 | PM.PN ---
Subjective Subjective: Interval history: Patient's hemoglobin is remaining stable. The abdominal wall pain is improving. The white cell count is within normal limits. Patient is remaining afebrile. He was found to have some new EKG changes on monitor. A 12-lead EKG was done which revealed a some ST depression and T inversions in the anterolateral leads. Patient is still having some chest wall pain but is not able to give me much details. He was found to be very confused this morning. He had a CT of the head yesterday and it was found to be unremarkable. Medications: Reviewed: Yes Medication Review Details: Current Medications Acetaminophen (Tylenol) 650 mg PO Q6H PRN PRN Reason: Mild/Mod Pain Or Temp >/= 101 Last Admin: 09/16/19 10:39 Dose: 650 mg Documented by: Albuterol Sulfate (Albuterol) 2.5 mg INHALATION Q4H PRN PRN Reason: Shortness Of Breath Aspirin (Aspirin Ec) 81 mg PO DAILY [facility] Last Admin: 09/17/19 09:32 Dose: 81 mg Documented by: Atorvastatin Calcium (Lipitor) 40 mg PO BEDTIME [facility] Last Admin: 09/16/19 21:12 Dose: 40 mg Documented by: Bisacodyl (Dulcolax) 10 mg PO DAILY PRN PRN Reason: CONSTIPATION Last Admin: 09/12/19 17:14 Dose: 10 mg Documented by: Dextrose (D50w) 25 ml IVP ONCE PRN; Protocol PRN Reason: hypoglycemia protocol Dextrose (D50w) 50 ml IVP PRN PRN; Protocol PRN Reason: hypoglycemia protocol Diphenhydramine HCl (Benadryl) 50 mg PO ONCE ONE Stop: 09/17/19 15:31 Doxazosin Mesylate (Cardura) 4 mg PO DAILY [facility] Last Admin: 09/17/19 09:32 Dose: 4 mg Documented by: Glucagon (Glucagen) 1 mg IM ONCE PRN; Protocol PRN Reason: Adult Acute Hypoglycemia Prot. Hydralazine HCl (Apresoline) 10 mg IVP Q4H PRN PRN Reason: HYPERTENSION Hydralazine HCl (Apresoline) 25 mg PO QID [facility] Last Admin: 09/17/19 09:32 Dose: 25 mg Documented by: Cefepime HCl 2,000 mg/ Sodium (Chloride) 50 mls @ 100 mls/hr IV Q8H [facility]; Protocol Last Admin: 09/17/19 05:26 Dose: 100 mls/hr Documented by: Vancomycin HCl 1,500 mg/ (Sodium Chloride) 250 mls @ 166.667 mls/hr IV Q24H [facility]; Protocol Last Infusion: 09/17/19 04:15 Dose: Infused Documented by: Dextrose (D5w) 500 mls @ 100 mls/hr IV ONCE PRN; Protocol PRN Reason: Adult Acute Hypoglycemia Prot Sodium Chloride (Sodium Chloride 0.9%) 1,000 mls @ 50 mls/hr IV .Q20H ONE Stop: 09/18/19 11:29 Insulin Aspart (Novolog) 0 unit SUBCUT WM&BEDTIME [facility]; Protocol Last Admin: 09/17/19 11:35 Dose: Not Given Documented by: Insulin Glargine (Lantus) 45 unit SUBCUT BEDTIME [facility] Last Admin: 09/16/19 21:13 Dose: 45 unit Documented by: Isosorbide Mononitrate (Imdur) 30 mg PO DAILY [facility] Last Admin: 09/17/19 09:32 Dose: 30 mg Documented by: Metoprolol Tartrate (Lopressor) 100 mg PO Q12H [facility] Last Admin: 09/17/19 09:32 Dose: 100 mg Documented by: Ondansetron HCl (Zofran) 4 mg IVP Q6H PRN PRN Reason: vomiting, or N/V if npo Last Admin: 09/12/19 18:09 Dose: 4 mg Documented by: Oxycodone HCl (Oxycodone Ir) 10 mg PO Q4H PRN PRN Reason: SEVERE PAIN Last Admin: 09/14/19 19:06 Dose: 10 mg Documented by: Pantoprazole Sodium (Protonix) 40 mg PO BID [facility] Last Admin: 09/17/19 09:32 Dose: 40 mg Documented by: Senna/Docusate Sodium (Senna-S) 1 tab PO BID [facility] Last Admin: 09/17/19 09:32 Dose: 1 tab Documented by: Vitals/I&O/Wt Last Vital Signs Temp 97.6 F 09/17/19 12:25 Pulse 87 09/17/19 12:25 Resp 15 09/17/19 12:25 BP 135/70 09/17/19 12:25 Pulse Ox 95 09/17/19 12:25 09/16/19 09/17/19 09/17/19 22:59 06:59 14:59 Intake Total 220 / 580 250 / 830 120 / 120 Output Total 900 / 900 Balance 220 / 580 -650 / -70 120 / 120 Weight last 48 hrs Weight 195 lb 3.2 oz Weight 192 lb 14.4 oz Weight 194 lb 3.2 oz Physical Exam Narrative: EXAM NARRATIVE: GENERAL: The patient is alert today. Not in any acute distress. Confused HEENT: Patient keep his both eyes closed. NECK: Trachea appears to be central. No masses noted. No JVD or thyromegaly appreciated. RESPIRATORY: Chest is symmetrical. No intercostals muscle retraction or any accessory muscle activation. The chest wall tenderness persists. Breath sounds are heard bilaterally. No rales or rhonchi heard. No evidence of any consolidation. BREASTS: Deferred. HEART: The heart sounds are normal. No S3 or S4. No significant murmurs no pericardial rub ABDOMEN: Diffuse tenderness. Slightly distended .diffuse ecchymosis on the left side . : Deferred. RECTAL: Deferred. LYMPHATIC: No lymphadenopathy noted in the neck . EXTREMITIES: No edema or cyanosis. No clubbing. Peripheral pulses are palpated in fairly good volume and amplitude MUSCULOSKELETAL: No acute joint deformities or swelling SKIN: There are no significant scars or skin rash noted. NEUROPSYCHIATRIC: The patient is drowsy but responds to questions appropriately. Urinary Catheter Management^: Yap: Cath Placed During This Visit: yes Urethral Indwelling: Yes Reason for Continuing Indwelling Catheter: Acute Urinary Retention or Obstruction Urinary Catheter Date of Insertion: 09/10/19 Urinary Catheter Time of Insertion: 05:55 Data : 09/17/19 08:27 09/17/19 08:27 EKG 2: My Interpretation: Sinus rhythm with a poor R wave progression. ST depression and T depressions in the anterolateral leads. Some nonspecific ST-T changes in the other leads. A&P Assessment and plan (1) Elevated troponin: This could be partly related to the CPR .in view of the abnormal myocardial perfusion imaging, possibility of him having underlying coronary artery disease is very high. Patient continues to have persistent elevation of the troponin T. Even though the trend is coming down, in view of the abnormal EKG and the myocardial perfusion imaging, in order to further evaluate his coronary status, he may require an early cardiac catheterization. Because of his episodes of confusion, he may not be able to give any detailed history. I discussed this with the patient's the . She understood this and is wanting to go ahead with a cardiac cauterization. I also discussed with his sister, who also makes decisions for him. Status: Acute Code(s): R79.89 - Other specified abnormal findings of blood chemistry (2) Intraoperative cardiorespiratory arrest: Patient has no significant arrhythmias on the monitor. No specific cardiac symptoms. He has the chest wall pain from the rib fracture. Continue on the current measures. Status: Acute (3) Abnormal myocardial perfusion study: Patient is clinically stable. He has no specific cardiac symptoms at this time. No arrhythmias on the monitor. May continue on the current medications. May start on Plavix tomorrow. The CBC was repeated. He was hemoglobin is stable. In view of the new EKGs, we may go ahead and do the angiogram as early as possible. Status: Acute Code(s): R94.39 - Abnormal result of other cardiovascular function study (4) Acute blood loss anemia: Patient had 2 units of blood transfusion. The hemoglobin currently seems to be stable. Does not appear to have any active bleeding. Hemoglobin is stable and seems slowly trending up Status: Acute Code(s): D62 - Acute posthemorrhagic anemia (5) Benign essential hypertension with target blood pressure below 140/90: The blood pressure seems to be getting under control. May continue on the current medications. Status: Acute Code(s): I10 - Essential (primary) hypertension (6) Infection of right eye: Seems to be responding to antibiotic. Management as per the primary. 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 Based on the results of the cardiac authorization, further recommendations will be made. The risk of bleeding, hematoma, vascular injury, myocardial infarction, CVA, renal failure and other concomitant complications were explained in detail. The increased risk of bleeding was specifically discussed. The family understood this well and consented to proceed. Attestations Medical Necessity Statement*: Patient requires continued hospital stay for close monitoring and further management Coding Level of Care Code Acute Employment Case Manager for g Fwd Diagnoses Elevated troponin R79.89 Intraoperative cardiorespiratory arrest Abnormal myocardial perfusion study R94.39 Acute blood loss anemia D62 Benign essential hypertension with target blood pressure below 140/90 I10 Infection of right eye H44.001 Time Spent (min) 45
--- NOTE | 2019-09-17 14:47 | P.PN_ITS ---
Subjective Subjective: Interval history: Hemoglobin remained stable at 9.3. No complaints of chest pain. Overnight was noted to be more confused and pulling out his IV lines. Was placed on one-to-one 1 sitter because of the confusion. CT head repeated yesterday without any acute intracranial abnormalities. This morning noted to have some acute ST-T changes on his EKG because of patient decision was made to proceed with cardiac cath this afternoon at 4:30 PM. Medications: Reviewed: Yes Medication Review Details: Current Medications Acetaminophen (Tylenol) 650 mg PO Q6H PRN PRN Reason: Mild/Mod Pain Or Temp >/= 101 Last Admin: 09/16/19 10:39 Dose: 650 mg Documented by: Albuterol Sulfate (Albuterol) 2.5 mg INHALATION Q4H PRN PRN Reason: Shortness Of Breath Aspirin (Aspirin Ec) 81 mg PO DAILY [facility] Last Admin: 09/17/19 09:32 Dose: 81 mg Documented by: Atorvastatin Calcium (Lipitor) 40 mg PO BEDTIME [facility] Last Admin: 09/16/19 21:12 Dose: 40 mg Documented by: Bisacodyl (Dulcolax) 10 mg PO DAILY PRN PRN Reason: CONSTIPATION Last Admin: 09/12/19 17:14 Dose: 10 mg Documented by: Dextrose (D50w) 25 ml IVP ONCE PRN; Protocol PRN Reason: hypoglycemia protocol Dextrose (D50w) 50 ml IVP PRN PRN; Protocol PRN Reason: hypoglycemia protocol Diphenhydramine HCl (Benadryl) 50 mg PO ONCE ONE Stop: 09/17/19 15:31 Doxazosin Mesylate (Cardura) 4 mg PO DAILY [facility] Last Admin: 09/17/19 09:32 Dose: 4 mg Documented by: Glucagon (Glucagen) 1 mg IM ONCE PRN; Protocol PRN Reason: Adult Acute Hypoglycemia Prot. Hydralazine HCl (Apresoline) 10 mg IVP Q4H PRN PRN Reason: HYPERTENSION Hydralazine HCl (Apresoline) 25 mg PO QID [facility] Last Admin: 09/17/19 09:32 Dose: 25 mg Documented by: Cefepime HCl 2,000 mg/ Sodium (Chloride) 50 mls @ 100 mls/hr IV Q8H [facility]; Protocol Last Admin: 09/17/19 05:26 Dose: 100 mls/hr Documented by: Vancomycin HCl 1,500 mg/ (Sodium Chloride) 250 mls @ 166.667 mls/hr IV Q24H [facility]; Protocol Last Infusion: 09/17/19 04:15 Dose: Infused Documented by: Dextrose (D5w) 500 mls @ 100 mls/hr IV ONCE PRN; Protocol PRN Reason: Adult Acute Hypoglycemia Prot Sodium Chloride (Sodium Chloride 0.9%) 1,000 mls @ 50 mls/hr IV .Q20H ONE Stop: 09/18/19 11:29 Insulin Aspart (Novolog) 0 unit SUBCUT WM&BEDTIME [facility]; Protocol Last Admin: 09/17/19 11:35 Dose: Not Given Documented by: Insulin Glargine (Lantus) 45 unit SUBCUT BEDTIME [facility] Last Admin: 09/16/19 21:13 Dose: 45 unit Documented by: Isosorbide Mononitrate (Imdur) 30 mg PO DAILY [facility] Last Admin: 09/17/19 09:32 Dose: 30 mg Documented by: Metoprolol Tartrate (Lopressor) 100 mg PO Q12H [facility] Last Admin: 09/17/19 09:32 Dose: 100 mg Documented by: Ondansetron HCl (Zofran) 4 mg IVP Q6H PRN PRN Reason: vomiting, or N/V if npo Last Admin: 09/12/19 18:09 Dose: 4 mg Documented by: Oxycodone HCl (Oxycodone Ir) 10 mg PO Q4H PRN PRN Reason: SEVERE PAIN Last Admin: 09/14/19 19:06 Dose: 10 mg Documented by: Pantoprazole Sodium (Protonix) 40 mg PO BID [facility] Last Admin: 09/17/19 09:32 Dose: 40 mg Documented by: Senna/Docusate Sodium (Senna-S) 1 tab PO BID [facility] Last Admin: 09/17/19 09:32 Dose: 1 tab Documented by: Vitals/I&O/Wt Last Vital Signs Temp 97.6 F 09/17/19 12:25 Pulse 87 09/17/19 12:25 Resp 15 09/17/19 12:25 BP 135/70 09/17/19 12:25 Pulse Ox 95 09/17/19 12:25 09/16/19 09/17/19 09/17/19 22:59 06:59 14:59 Intake Total 220 / 580 300 / 880 120 / 120 Output Total 900 / 900 550 / 550 Balance 220 / 580 -600 / -20 -430 / -430 Weight last 48 hrs Weight 88.541 kg Weight 87.498 kg Weight 88.088 kg Physical Exam Narrative: EXAM NARRATIVE: GEN: Awake, alert and oriented, no acute distress, admitted confusion noted to be ongoing since admission. CVS: S1S2 N RS: CTA B/L Abd: Soft, nt/nd , bs+ COMPREHENSIVE ADVISOR: No focal motor or motor deficits however does have intermittent confusion Urinary Catheter Management^: Yap: Cath Placed During This Visit: yes Urethral Indwelling: Yes Reason for Continuing Indwelling Catheter: Chronic Indwelling Urinary Catheter on Admission Urinary Catheter Date of Insertion: 09/10/19 Urinary Catheter Time of Insertion: 05:55 Data : 09/17/19 08:27 09/17/19 08:27 A&P Assessment and plan (1) Non-ST elevation (NSTEMI) myocardial infarction: Continue statin, beta-nany, nitrate ASA resumed yesterday. Echocardiogram demonstrates preserved EF Nuclear stress test demonstrates reversible ischemia. He denies any chest discomfort at this present time. This morning noted to have new ST-T changes on a telemetry, because of which decision was made after talking to the family to proceed with a coronary angiogram this afternoon. Status: Acute Code(s): I21.4 - Non-ST elevation (NSTEMI) myocardial infarction (2) History of successful cardiopulmonary resuscitation: Reportedly performed on 09/08/2019 perioperatively. Status: Acute Code(s): Z92.89 - Personal history of other medical treatment (3) Multiple rib fractures: Bilateral acute fractures ribs 4-7 anteriorly, presumably secondary to resuscitation Pain is coming under control Incentive spirometry Working with PT Status: Acute Qualifiers: Encounter type: initial encounter Fracture type: closed Laterality: bilateral Qualified Code(s): S22.43XA - Multiple fractures of ribs, bilateral, initial encounter for closed fracture Code(s): S22.49XA - Multiple fractures of ribs, unspecified side, initial encounter for closed fracture (4) Altered mental status: Unknown etiology. May be secondary to anoxic brain injury, prolonged anesthetic effect, other medication. This now seems to wax and wane. Repeat CT head is negative. Placed on 1 is to 1 sitter which will be continued after the angiogram to prevent patient from pulling at his iv lines and sheath. He will likely need long-term facility placement. 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, right eye (6) Diabetes mellitus type 2, insulin dependent: Glucose improved Continue sliding scale, Lantus Status: Acute Code(s): E11.9 - Type 2 diabetes mellitus without complications; Z79.4 - tank terminal gauger (current) use of insulin (7) Hypertension: Continue metoprolol Status: Acute Qualifiers: Hypertension type: essential hypertension Qualified Code(s): I10 - Essential (primary) hypertension Code(s): I10 - Essential (primary) hypertension (8) Hyperlipidemia: Continue statin Status: Acute Qualifiers: Hyperlipidemia type: unspecified Qualified Code(s): E78.5 - Hyperlipidemia, unspecified Code(s): E78.5 - Hyperlipidemia, unspecified (9) Glaucoma: Followed by ophthalmology Status: Acute Qualifiers: Glaucoma type: unspecified Laterality: bilateral Qualified Code(s): H40.9 - Unspecified glaucoma Code(s): H40.9 - Unspecified glaucoma (10) Acute kidney injury: May be postobstructive. Yap has been placed. Renal function markedly improved Status: Acute Code(s): N17.9 - Acute kidney failure, unspecified (11) Hyperkalemia: Continue to hold ARB Overall resolved Status: Acute Code(s): E87.5 - Hyperkalemia (12) Acute blood loss anemia: Status: Acute Code(s): D62 - Acute posthemorrhagic anemia (13) Ileus: Status: Acute Code(s): K56.7 - Ileus, unspecified (14) Hematoma of left flank: Status: Acute Code(s): S30.1XXA - Contusion of abdominal wall, initial encounter Additional A&P Information 69M admtted since 09/08 after presenteing to ER with new onset confusion, with h/o having undergone eye surgery for endophthalmitis c/b intraoperative cardiac arrest requiring CPR. Hospital course c/b elevated troponins, abnormal stress test, left flank hematoma, anemia secondary to blood loss leading to stopping a/c and antiplatelets, required blood transfusion, partial distal SBO vs ileus. Now with new ST-T changes on telemetry, for angiogram this afternoon Restarted aspirin, hb currently stable Anemia. Associated with left flank hematoma. Transfused 2 units of packed red blood cells August. Hemoglobin much improved. Hematoma stable, evolving overlying color changes in skin. Evidence of partial small bowel obstruction on CT. Surgical consultation appreciated. Diet advanced to clears. Abdomen continues to look distended, however denies any abdominal pain today mental status continues to wax and wane. Per Rn report, appears more confused compared to yesterday, will rpt CT head Hyponatremia, improved DVT prophylaxis SCDs Full code Dispo: Discharge to SNF when ready Attestations Medical Necessity Statement*: for angiogram today given new EKG changes Coding Level of Care Code Acute Subassembly Supervisor for g Fwd Diagnoses Non-ST elevation (NSTEMI) myocardial infarction I21.4 History of successful cardiopulmonary resuscitation Z92.89 Multiple rib fractures S22.43XA Encounter type: initial encounter Fracture type: closed Laterality: bilateral Altered mental status R41.0 Altered mental status type: disorientation Infection of right eye H44.001 Diabetes mellitus type 2, insulin dependent E11.9; Z79.4 Hypertension I10 Hypertension type: essential hypertension Hyperlipidemia E78.5 Hyperlipidemia type: unspecified Glaucoma H40.9 Glaucoma type: unspecified Laterality: bilateral Acute kidney injury N17.9 Hyperkalemia E87.5 Acute blood loss anemia D62 Ileus K56.7 Hematoma of left flank S30.1XXA
[2019-09-17] MEDS: sodium chloride 0.9% 1,000 ML 50 ML IV (16:17)
[2019-09-17] MEDS: diphenhydrAMINE 50 mg Capsule PO (16:17)
--- NOTE | 2019-09-17 16:30 | XACV_ITS ---
Exam Room: [facility] Ht: 175 cm Wt: 88 kg BSA: 2.10 m2 Gender: Male : 1950 Any Known Allergies: Other Exam Priority: Routine Procedure(s): Procedure Description: Diagnostic procedure Procedure Description: Left ventriculography Procedure Description: Coronary Angiography Diagnostic Cath Status: Elective Diagnostic Findings Coronary angiography shows right dominance. The left main is a medium caliber vessel which appears to have minimal ostial narrowing of around 20%. No significant stenotic lesions were noted. Minimal intimal irregularities are noted in the distal artery as well. The left hand descending artery is a medium caliber vessel which appears to taper off to his LV apex. The proximal and the mid LAD was found to have mild to moderate diffuse disease. No significant stenotic lesions were seen. The ostium of the relatively small caliber second, third and fourth septal field identification specialist were found to have high-grade stenosis. The first diagonal artery also was found to have around 80% lesion at the proximal bifurcation, involving the ostia of the bifurcation branches. No other significant stenotic lesions were noted. The is left circumflex artery was found to have moderate, 50 to 60% diffuse narrowing in the proximal segment. The first obtuse marginal artery also was found to have around 40 to 50% diffuse narrowing proximally. No other significant stenotic lesions were noted. The AV groove branch was found to be a small caliber vessel with mild diffuse disease. The right coronary artery is a medium caliber dominant vessel which was found to be totally occluded after the sinus sarah branch. Bridging collaterals are noted to the mid RCA . The PDA and the PLV branches are found to have collateral circulation from the left coronary system. The PDA and the PLV branches were found to have mild diffuse disease. No significant stenotic lesions were noted. PCI Status: Elective Conclusions LV gram was performed the GARCIA projection. There was mild hypokinesia of the basal inferior wall segment. No significant mitral valve prolapse or mitral regurgitation. He has a diffuse chest wall pain from the rib fracture. Today he was found to have new EKG changes in the anterolateral leads. In view of his abnormal myocardial perfusion imaging, recent cardiac arrest, new EKG changes, in order to further evaluate his coronary status, a cardiac catheterization was recommended. Patient underwent left heart catheterization with left and right coronary angiogram and LV angiogram. The findings are as follows. 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 Mild to moderate diffuse disease in the other vessels. Some high-grade lesions in the small vessels of the diagonals and septal perforators. Normal LV ejection fraction 55%. Mild hypokinesia of the basal inferior wall segment. LVEDP of 24 mmHg. Recommendations Continue current medical management and risk factor modification. Diagnostic RX Recommendation: medical therapy and/or counseling LV EDP: 24 mmHg Ejection Fraction: 55.0 % Left Ventriculography Findings: LV gram was performed the GARCIA projection. There was mild hypokinesia of the basal inferior wall segment. No significant mitral valve prolapse or mitral regurgitation. Pressures Phase:Rest AO : 151 mmHg / 66 mmHg ( 96 mmHg ) @ 11:27:00 AM 147 mmHg / 66 mmHg ( 101 mmHg ) @ 11:27:00 AM LV : 133 mmHg / -14 mmHg / @ 11:26:00 AM 146 mmHg / 0 mmHg / @ 11:26:00 AM 148 mmHg / 0 mmHg / @ 11:27:00 AM 148 mmHg / 0 mmHg / @ 11:27:00 AM Valves Phase:DefaultPhase AV : 6.0 mmHg @ 5:33:08 PM AV Mean Gradient: 16.0 mmHg @ 5:33:08 PM Clinical Evaluation EBL: 5mL-10mL Procedural Details Procedure Consent Obtained. Pre-Procedure Time Out. Identified patient by full name and date of as verbalized by the patient/guarantor. Does the consent match the physician's order: Yes. Accurate & Complete Informed Consent: Yes. Inpatient/Outpatient History & Physical on Chart: Yes. If H&P is completed, is and addenduem needed: No; If yes, is the addendum complete: N/A. Visualize and Verify Site with Patient/Guarantor: N/A. Relevant Radiology Images available: Yes. Pre-op teaching completed and patient verbalized understanding. The risks, benefits, and alternatives of sedation and/or procedure were discussed by physician. The patient agrees to continue. Procedure started. Correct patient, site and procedure confirmed by cath team. Current diagnosis: Chest Pain. PERRLA. Strong, equal hand information systems security developer bilaterally. Lungs clear x 5 lobes. IV Site on Arrival: 20 gauge in the left hand. IV Fluids: 0.9% NaCl at KVO. 0 mL infused prior to optical laboratory mechanic. Pre Procedural Pulses: bilateral dorsalis pedis was 2+. Pre Procedural Pulses: bilateral posterior tibial was 2+. Pre Procedural Pulses: bilateral radial was 2+. Oxygen started at 2liters/min via nasal canula. bilateral groins was prepped with chloroprep then draped in the usual sterile fashion. right radial was prepped with chloroprep then draped in the usual sterile fashion. Physician notified. Baseline sample Acquired. HR: 79 BPM. Equipment: 6F - Radial. Cardiac Cath Pack. ACIST Manifold Kit Model BT 2000. Heparinized Saline (2 units/mL), 1000 mL bag. Physician arrived. [facility] Clinical Fraility Score: 4: Vulnerable. Heel Lift Gouger Indications: Resuscitated Cardaic Arrest. Chest Pain Symptom Assessment: Atypical Angina. Cardiovascular Instability: No. Physician scrubbed in. Immediate Pre-Procedure Time Out. Correct Patient: Yes; Correct Procedure: Yes; Correct Site: Yes; Correct Patient Position: Yes; Correct Supplies: Yes; Dried Flammable Prep: Yes; Blood Products Available: No;. Lidocaine 1% infiltrated to the right radial. Arterial access obtained. A 5 lithuanian Wu catheter in over wire. Catheter out. A 5 lithuanian TIG catheter in over wire. Multiple views taken of left coronary artery. Catheter out. A 5 lithuanian JR4 catheter in over wire. Multiple views taken of right coronary artery. Catheter out. A 5 lithuanian Angled Pig catheter in over wire. LV gram performed in GARCIA @ 10 mL/second for a total of 30 mL. EDP Sample taken: LV 133/-15,10; HR: 85 BPM; SpO2: 99%. EDP Sample taken: LV 146/-1,24; HR: 85 BPM; SpO2: 99%. EDP Sample taken: LV 148/-1,23; HR: 86 BPM; SpO2: 99%. Pullback taken: LV 148/0,24; AO 151/66(96); Mean: 16mmHg, Peak to Peak: 6mmHg, SEP: 8sec/min; HR: 86 BPM; SpO2: 98%. Catheter out. TR band placed. Hemostasis obtained. A TR Band was successful obtaining hemostatsis at the Right Radial artery insertion site. Medication's Wasted: Lidocaine 1% = 18 mL. Medication's Wasted: Nitro = 49.8 mg. Medication's Wasted: Heparin = 1000 units. Total IV fluids: 75 mL. Contrast type used: Omnipaque 300 mgI/mL, 500 mL bottle. Post-op diagnosis: CAD. Complications: None. Estimated blood loss: 5mL-10mL. Procedure completed. Vital chart was stopped. Patient transferred by bed to 1st floor. Site: Right Radial artery Sheath Size: 6 Fr Hemostasis Method: TR Band Hemostasis Success: Successful Procedure Medications Start: 4:57 PM Stop: 4:57 PM Medication: Versed Amount: 1 mg Route: I.V. Start: 4:57 PM Stop: 4:57 PM Medication: Fentanyl Amount: 25 mcg Route: I.V. Start: 5:03 PM Stop: 5:03 PM Medication: Verapamil Amount: 5 mg Route: I.A. Start: 5:08 PM Stop: 5:08 PM Medication: Heparin Amount: 5000 units Route: I.V. Start: 5:18 PM Stop: 5:18 PM Medication: Versed Amount: 1 mg Route: I.V. Start: 5:27 PM Stop: 5:27 PM Medication: Fentanyl Amount: 50 mcg Route: I.V. I, the attending physician, have reviewed and verified all procedure medications. Yes, all medications given per verbal order History/Risk Factors Hypertension: Yes Dyslipidemia: Yes Diabetic Therapy: Oral Peripheral Arterial Disease (PAD): No Myocardial Infarction (NE): No Obesity: No Renal Disease: No Tobacco Use: Former Prior Interventions PCI: No CABG: No Valve Surgery: No Report Signatures Finalized by:Dr Geraldine Bronson MD [facility] on 09/17/2019 6:05:57 PM
--- NOTE | 2019-09-17 19:59 | PC.NURSE ---
Lying supine in bed with sitter at bedside. Denies complaints at this time. TR band in place to right wrist. Pulse intact with no hematoma or bleeding noted at present. Will monitor.
--- NOTE | 2019-09-17 20:09 | PC.NURSE ---
Sitter at bedside. Patient unable to follow commands to do heel-lucero and finger to nose. Denies complaints at this time. Will monitor.
--- NOTE | 2019-09-17 20:45 | PC.NURSE ---
Dr. Bland here to see patient. Patient oriented to name and place only at this time. Denies pain. Talking about WWI and WWII. Conversation jumping back and forth. Will monitor.
[2019-09-17 21:08] LABS: Glucose Point of Care 93 mg/dL (70-110)
[2019-09-17] MEDS: temazepam 15 mg Capsule PO (21:25)
[2019-09-17] MEDS: atorvastatin 40 mg Tablet PO (21:25)
[2019-09-17] MEDS: insulin glargine 100 units/1 mL 45 UNIT SUBCUT (21:29)
--- NOTE | 2019-09-17 22:40 | PC.NURSE ---
TR band removed without difficulty. No hematoma or bleeding noted. Pressure bandage applied. Tolerated well. Will monitor. Sitter at bedside.
[2019-09-18] VITALS (14 sets, daily range): BP systolic 110–149; BP diastolic 57–75; PULSE 70–95; RESP 12–18; TEMP 36.5–36.6; O2SAT 93–100
[2019-09-18] MEDS: cefepime 2,000 MG in sodium chloride 0.9% (plus) 50 ML 100 MG IV ×4 (01:10→21:53)
[2019-09-18 06:24] LABS: Glucose Point of Care 70 mg/dL (70-110)
--- NOTE | 2019-09-18 06:27 | PC.NURSE ---
Accu check 70mg/dl. [place] juice given. Patient awake and talking. Will monitor.
--- NOTE | 2019-09-18 08:43 | PM.PN ---
Subjective Subjective: Interval history: Patient is status post cardiac catheterization today where he was found to have total occlusion of the right coronary artery and a high-grade lesion in the first diagonal branch. There was mild to moderate diffuse disease in other vessels. It was decided to treat him medically. Aspirin has been switched to Plavix. Will monitor hemoglobin closely with this change. He has had bowel movements and is able to move to the bedside commode. He does not have any abdominal pain at this time. Appetite is improving. Diet advanced to soft today. Hemoglobin is stable Medications: Reviewed: Yes Medication Review Details: Current Medications Acetaminophen (Tylenol) 650 mg PO Q6H PRN PRN Reason: Mild/Mod Pain Or Temp >/= 101 Last Admin: 09/16/19 10:39 Dose: 650 mg Documented by: Albuterol Sulfate (Albuterol) 2.5 mg INHALATION Q4H PRN PRN Reason: Shortness Of Breath Aspirin (Aspirin Ec) 81 mg PO DAILY [facility] Last Admin: 09/17/19 09:32 Dose: 81 mg Documented by: Atorvastatin Calcium (Lipitor) 40 mg PO BEDTIME [facility] Last Admin: 09/16/19 21:12 Dose: 40 mg Documented by: Bisacodyl (Dulcolax) 10 mg PO DAILY PRN PRN Reason: CONSTIPATION Last Admin: 09/12/19 17:14 Dose: 10 mg Documented by: Dextrose (D50w) 25 ml IVP ONCE PRN; Protocol PRN Reason: hypoglycemia protocol Dextrose (D50w) 50 ml IVP PRN PRN; Protocol PRN Reason: hypoglycemia protocol Diphenhydramine HCl (Benadryl) 50 mg PO ONCE ONE Stop: 09/17/19 15:31 Doxazosin Mesylate (Cardura) 4 mg PO DAILY [facility] Last Admin: 09/17/19 09:32 Dose: 4 mg Documented by: Glucagon (Glucagen) 1 mg IM ONCE PRN; Protocol PRN Reason: Adult Acute Hypoglycemia Prot. Hydralazine HCl (Apresoline) 10 mg IVP Q4H PRN PRN Reason: HYPERTENSION Hydralazine HCl (Apresoline) 25 mg PO QID [facility] Last Admin: 09/17/19 09:32 Dose: 25 mg Documented by: Cefepime HCl 2,000 mg/ Sodium (Chloride) 50 mls @ 100 mls/hr IV Q8H [facility]; Protocol Last Admin: 09/17/19 05:26 Dose: 100 mls/hr Documented by: Vancomycin HCl 1,500 mg/ (Sodium Chloride) 250 mls @ 166.667 mls/hr IV Q24H [facility]; Protocol Last Infusion: 09/17/19 04:15 Dose: Infused Documented by: Dextrose (D5w) 500 mls @ 100 mls/hr IV ONCE PRN; Protocol PRN Reason: Adult Acute Hypoglycemia Prot Sodium Chloride (Sodium Chloride 0.9%) 1,000 mls @ 50 mls/hr IV .Q20H ONE Stop: 09/18/19 11:29 Insulin Aspart (Novolog) 0 unit SUBCUT WM&BEDTIME [facility]; Protocol Last Admin: 09/17/19 11:35 Dose: Not Given Documented by: Insulin Glargine (Lantus) 45 unit SUBCUT BEDTIME [facility] Last Admin: 09/16/19 21:13 Dose: 45 unit Documented by: Isosorbide Mononitrate (Imdur) 30 mg PO DAILY [facility] Last Admin: 09/17/19 09:32 Dose: 30 mg Documented by: Metoprolol Tartrate (Lopressor) 100 mg PO Q12H [facility] Last Admin: 09/17/19 09:32 Dose: 100 mg Documented by: Ondansetron HCl (Zofran) 4 mg IVP Q6H PRN PRN Reason: vomiting, or N/V if npo Last Admin: 09/12/19 18:09 Dose: 4 mg Documented by: Oxycodone HCl (Oxycodone Ir) 10 mg PO Q4H PRN PRN Reason: SEVERE PAIN Last Admin: 09/14/19 19:06 Dose: 10 mg Documented by: Pantoprazole Sodium (Protonix) 40 mg PO BID [facility] Last Admin: 09/17/19 09:32 Dose: 40 mg Documented by: Senna/Docusate Sodium (Senna-S) 1 tab PO BID [facility] Last Admin: 09/17/19 09:32 Dose: 1 tab Documented by: Vitals/I&O/Wt Last Vital Signs Temp 97.7 F 09/18/19 07:41 Pulse 70 09/18/19 07:41 Resp 17 09/18/19 07:41 BP 125/71 09/18/19 07:41 Pulse Ox 99 09/18/19 07:41 09/17/19 09/18/19 09/18/19 22:59 06:59 14:59 Intake Total 120 / 290 300 / 590 Output Total 1000 / 1550 Balance 120 / -260 -700 / -960 Weight last 48 hrs Weight 85.094 kg Weight 88.541 kg Physical Exam Narrative: EXAM NARRATIVE: GEN: Awake, alert and oriented, no acute distress, admitted confusion noted to be ongoing since admission. CVS: S1S2 N RS: CTA B/L Abd: Soft, nt/nd , bs+ GARNISHER: No focal motor or motor deficits however does have intermittent confusion Urinary Catheter Management^: Yap: Cath Placed During This Visit: yes Urethral Indwelling: Yes Reason for Continuing Indwelling Catheter: Other Urinary Catheter Date of Insertion: 09/10/19 Urinary Catheter Time of Insertion: 05:55 Data : 09/18/19 10:50 09/18/19 10:50 A&P Assessment and plan (1) Non-ST elevation (NSTEMI) myocardial infarction: Continue statin, beta-nany, nitrate started on plavix 75mg today Echocardiogram demonstrates preserved EF Nuclear stress test demonstrates reversible ischemia. s/p coronary angiogram with findings as noted above in subjective yesetrday, on medical management. Status: Acute Code(s): I21.4 - Non-ST elevation (NSTEMI) myocardial infarction (2) History of successful cardiopulmonary resuscitation: Reportedly performed on 09/08/2019 perioperatively. Status: Acute Code(s): Z92.89 - Personal history of other medical treatment (3) Multiple rib fractures: Bilateral acute fractures ribs 4-7 anteriorly, presumably secondary to resuscitation Pain is coming under control Incentive spirometry Working with PT Status: Acute Qualifiers: Encounter type: initial encounter Fracture type: closed Laterality: bilateral Qualified Code(s): S22.43XA - Multiple fractures of ribs, bilateral, initial encounter for closed fracture Code(s): S22.49XA - Multiple fractures of ribs, unspecified side, initial encounter for closed fracture (4) Altered mental status: Unknown etiology. May be secondary to anoxic brain injury, prolonged anesthetic effect, other medication. This now seems to wax and wane. Repeat CT head is negative. 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 Currently on cefepime and vancomycin, will discuss with Dr. 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5 - Hyperlipidemia, unspecified (9) Glaucoma: Followed by ophthalmology Status: Acute Qualifiers: Glaucoma type: unspecified Laterality: bilateral Qualified Code(s): H40.9 - Unspecified glaucoma Code(s): H40.9 - Unspecified glaucoma (10) Acute kidney injury: May be postobstructive. Yap has been placed. Renal function markedly improved Status: Acute Code(s): N17.9 - Acute kidney failure, unspecified (11) Hyperkalemia: Continue to hold ARB Overall resolved Status: Acute Code(s): E87.5 - Hyperkalemia (12) Acute blood loss anemia: Status: Acute Code(s): D62 - Acute posthemorrhagic anemia (13) Ileus: Status: Resolved Code(s): K56.7 - Ileus, unspecified (14) Hematoma of left flank: Status: Acute Code(s): S30.1XXA - Contusion of abdominal wall, initial encounter Additional A&P Information 69M admtted since 09/08 after presenteing to ER with new onset confusion, with h/o having undergone eye surgery for endophthalmitis c/b intraoperative cardiac arrest requiring CPR. Hospital course c/b elevated troponins, abnormal stress test, left flank hematoma, anemia secondary to blood loss leading to stopping a/c and antiplatelets, required blood transfusion, partial distal SBO vs ileus. Now with new ST-T changes on telemetry, for angiogram this afternoon Restarted plavix, hb currently stable Anemia. Associated with left flank hematoma. Transfused 2 units of packed red blood cells August. Hemoglobin much improved. Hematoma stable, evolving overlying color changes in skin. Evidence of partial small bowel obstruction on CT. Surgical consultation appreciated. Diet advanced to clears. Abdomen continues to look distended, however denies any abdominal pain today mental status continues to wax and wane. Per Rn report, appears more confused compared to yesterday, will rpt CT head Hyponatremia, improved Ileus, resolving, diet advanced to GI soft today DVT prophylaxis SCDs Full code Dispo: Discharge to SNF when ready, awaiting prior auth Attestations Medical Necessity Statement*: complicated hospital course as above, most recently s/p angiogram, on medical management, close Hb monitoring after starting antiplatelets Coding Level of Care Code Acute Client Renewal Specialist for [facility] Diagnoses Non-ST elevation (NSTEMI) myocardial infarction I21.4 History of successful cardiopulmonary resuscitation Z92.89 Multiple rib fractures S22.43XA Encounter type: initial encounter Fracture type: closed Laterality: bilateral Altered mental status R41.0 Altered mental status type: disorientation Infection of right eye H44.001 Diabetes mellitus type 2, insulin dependent E11.9; Z79.4 Hypertension I10 Hypertension type: essential hypertension Hyperlipidemia E78.5 Hyperlipidemia type: unspecified Glaucoma H40.9 Glaucoma type: unspecified Laterality: bilateral Acute kidney injury N17.9 Hyperkalemia E87.5 Acute blood loss anemia D62 Ileus K56.7 Hematoma of left flank S30.1XXA
--- NOTE | 2019-09-18 10:08 | PC.SOCIAL ---
IMM Updated Updated pt on Pg 2 IMM & provided pt a copy. No questions voiced. Signed, dated, & timed original in chart.
[2019-09-18] MEDS: hyDRALAzine 25 mg Tablet PO ×4 (10:39→21:52)
[2019-09-18] MEDS: sennosides-docusate Tablet 1 TAB PO ×2 (10:40→18:42)
[2019-09-18] MEDS: clopidogrel 75 mg Tablet PO (10:40)
[2019-09-18] MEDS: doxazosin 4 mg Tablet PO (10:40)
[2019-09-18] MEDS: pantoprazole DR 40 mg Tablet PO ×2 (10:40→18:42)
[2019-09-18] MEDS: metoprolol tartrate 50 mg Tablet 100 MG PO ×2 (10:40→21:52)
[2019-09-18] MEDS: isosorbide mononitrate ER 30 mg Tablet PO (10:40)
[2019-09-18 10:59] LABS: Basophils % 0.3 %; Eosinophils # 0.1 10^3/uL (0.0-0.8); Eosinophils % 1.5 %; Hematocrit 30.3 % (42.0-52.0); Hemoglobin 9.6 g/dL (11.7-16.6); Lymphocytes # 0.9 10^3/uL (0.8-4.8); Lymphocytes % 14.4 %; Mean Corpuscular HGB Conc 31.7 g/dL (30.0-36.0); Mean Corpuscular Hemoglobin 31.5 pg (28.0-34.0); Mean Corpuscular Volume 99.3 fL (80-94); Mean Platelet Volume 10.3 fL (7.4-10.4); Monocytes # 0.7 10^3/uL (0.2-0.9); Monocytes % 10.8 %; Neutrophils # 4.6 10^3/uL (1.8-7.7); Neutrophils % 70.8 %; Nucleated Red Blood Cells % 0.3 %; Platelet Count 304 10^3/cmm (130-400); Red Blood Count 3.05 10^6/uL (4.1-5.3); Red Cell Distribution Width 14.6 % (12.1-15.1); White Blood Count 6.5 10^3/uL (4.0-10.0)
[2019-09-18 11:30] LABS: Alanine Aminotransferase 18 U/L (0-41); Albumin Level 2.8 g/dL (3.5-5.2); Alkaline Phosphatase 87 IU/L (40-130); Anion Gap 14.4 (5-19); Blood Urea Nitrogen 13 mg/dL (8-23); Calcium 8.2 mg/dL (8.5-10.5); Carbon Dioxide 23 mmol/L (22-29); Chloride 100 mmol/L (98-107); Glucose 118 mg/dL (65-115); Potassium 3.4 mmol/L (3.5-5.1); Sodium 134 mmol/L (136-145); Total Bilirubin 0.6 mg/dL (0.15-1.2); Total Protein 5.8 g/dL (6.6-8.7)
[2019-09-18 11:31] LABS: Aspartate Amino Transferase 24 U/L (0-40)
[2019-09-18 11:37] LABS: Glucose Point of Care 129 mg/dL (70-110)
--- NOTE | 2019-09-18 12:01 | PC.CHAP ---
Pastoral Care Encounter/Spiritual Assessment Type of Contact [] Declined creative services intern visit [] Patient/Family/Request visit [] Outpatient visit [] Follow-up visit [] Physician referral [] Code/Alert [x] Routine visit [] Staff referral [] Actively dying [] Patient sleeping [] Family support [] [] Out of room [] Palliative care [] [] Receiving care in room [] Pre-surgical visit [] Trauma [] Long length of stay [] ICU visit [] Other: Relational/Emotional Strength [] Patient feels connected with others/family/visitors/staff [] Distress [] Loneliness/isolation [] Abandonment Spirituality of Patient [] Person of Mignon [] Attends Latter Day of their Mignon [] Believes in Prayer [] Reads Bible or Mandaeism materials [] There are Spiritual issues to be addressed 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 Interventions [x] Prayer [x] Active listening [x] Non-anxious presence [] Spiritual/emotional support [] Crisis/trauma care [x] Spiritual counseling [] Bereavement support [] Provided bereavement packet [] Provided Bible/devotional materials [] Provided toy/stuffed animal, coloring book to patient or family member [] Provided Communion [] Anointing/[place] [] Salvation [] Completed spiritual assessment [] Other: Impact on Illness or Injury [] Angry [] Fearful [] Anxious [] Often cries [] Exhaustion [] Unable to work [] Unable to attend temple [] Unable to walk/stand [] Unable to read [] Unable to drive [] Unable to eat/drink [] Unable to sleep [] Unable to be with family [] Patient intubated [x] Other: n/a Summary Time spent with patient 3 minutes
--- NOTE | 2019-09-18 14:15 | PM.PN ---
Subjective Subjective: Interval history: Patient had the cardiac catheterization yesterday. 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 He had a high-grade lesion in the first diagonal branch. Mild to moderate diffuse disease in the other vessels. Based on the angiogram findings, it was decided to treat him medically. Medications: Reviewed: Yes Medication Review Details: Current Medications Acetaminophen (Tylenol) 650 mg PO Q6H PRN PRN Reason: Mild/Mod Pain Or Temp >/= 101 Last Admin: 09/16/19 10:39 Dose: 650 mg Documented by: Albuterol Sulfate (Albuterol) 2.5 mg INHALATION Q4H PRN PRN Reason: Shortness Of Breath Aspirin (Aspirin Ec) 81 mg PO DAILY [facility] Last Admin: 09/17/19 09:32 Dose: 81 mg Documented by: Atorvastatin Calcium (Lipitor) 40 mg PO BEDTIME [facility] Last Admin: 09/16/19 21:12 Dose: 40 mg Documented by: Bisacodyl (Dulcolax) 10 mg PO DAILY PRN PRN Reason: CONSTIPATION Last Admin: 09/12/19 17:14 Dose: 10 mg Documented by: Dextrose (D50w) 25 ml IVP ONCE PRN; Protocol PRN Reason: hypoglycemia protocol Dextrose (D50w) 50 ml IVP PRN PRN; Protocol PRN Reason: hypoglycemia protocol Diphenhydramine HCl (Benadryl) 50 mg PO ONCE ONE Stop: 09/17/19 15:31 Doxazosin Mesylate (Cardura) 4 mg PO DAILY [facility] Last Admin: 09/17/19 09:32 Dose: 4 mg Documented by: Glucagon (Glucagen) 1 mg IM ONCE PRN; Protocol PRN Reason: Adult Acute Hypoglycemia Prot. Hydralazine HCl (Apresoline) 10 mg IVP Q4H PRN PRN Reason: HYPERTENSION Hydralazine HCl (Apresoline) 25 mg PO QID [facility] Last Admin: 09/17/19 09:32 Dose: 25 mg Documented by: Cefepime HCl 2,000 mg/ Sodium (Chloride) 50 mls @ 100 mls/hr IV Q8H [facility]; Protocol Last Admin: 09/17/19 05:26 Dose: 100 mls/hr Documented by: Vancomycin HCl 1,500 mg/ (Sodium Chloride) 250 mls @ 166.667 mls/hr IV Q24H [facility]; Protocol Last Infusion: 09/17/19 04:15 Dose: Infused Documented by: Dextrose (D5w) 500 mls @ 100 mls/hr IV ONCE PRN; Protocol PRN Reason: Adult Acute Hypoglycemia Prot Sodium Chloride (Sodium Chloride 0.9%) 1,000 mls @ 50 mls/hr IV .Q20H ONE Stop: 09/18/19 11:29 Insulin Aspart (Novolog) 0 unit SUBCUT WM&BEDTIME [facility]; Protocol Last Admin: 09/17/19 11:35 Dose: Not Given Documented by: Insulin Glargine (Lantus) 45 unit SUBCUT BEDTIME [facility] Last Admin: 09/16/19 21:13 Dose: 45 unit Documented by: Isosorbide Mononitrate (Imdur) 30 mg PO DAILY [facility] Last Admin: 09/17/19 09:32 Dose: 30 mg Documented by: Metoprolol Tartrate (Lopressor) 100 mg PO Q12H [facility] Last Admin: 09/17/19 09:32 Dose: 100 mg Documented by: Ondansetron HCl (Zofran) 4 mg IVP Q6H PRN PRN Reason: vomiting, or N/V if npo Last Admin: 09/12/19 18:09 Dose: 4 mg Documented by: Oxycodone HCl (Oxycodone Ir) 10 mg PO Q4H PRN PRN Reason: SEVERE PAIN Last Admin: 09/14/19 19:06 Dose: 10 mg Documented by: Pantoprazole Sodium (Protonix) 40 mg PO BID [facility] Last Admin: 09/17/19 09:32 Dose: 40 mg Documented by: Senna/Docusate Sodium (Senna-S) 1 tab PO BID [facility] Last Admin: 09/17/19 09:32 Dose: 1 tab Documented by: Vitals/I&O/Wt Last Vital Signs Temp 97.9 F 09/18/19 12:00 Pulse 74 09/18/19 12:00 Resp 15 09/18/19 12:00 BP 112/57 09/18/19 12:00 Pulse Ox 93 09/18/19 11:25 09/17/19 09/18/19 09/18/19 22:59 06:59 14:59 Intake Total 120 / 290 300 / 590 410 / 410 Output Total 1000 / 1550 Balance 120 / -260 -700 / -960 410 / 410 Weight last 48 hrs Weight 187 lb 9.6 oz Weight 195 lb 3.2 oz Physical Exam Narrative: EXAM NARRATIVE: GENERAL: The patient is alert today. Not in any acute distress. Confused HEENT: Patient keep his both eyes closed. NECK: Trachea appears to be central. No masses noted. No JVD or thyromegaly appreciated. RESPIRATORY: Chest is symmetrical. No intercostals muscle retraction or any accessory muscle activation. The chest wall tenderness persists. Breath sounds are heard bilaterally. No rales or rhonchi heard. No evidence of any consolidation. BREASTS: Deferred. HEART: The heart sounds are normal. No S3 or S4. No significant murmurs no pericardial rub ABDOMEN: Diffuse tenderness. Slightly distended .diffuse ecchymosis on the left side . : Deferred. RECTAL: Deferred. LYMPHATIC: No lymphadenopathy noted in the neck . EXTREMITIES: No edema or cyanosis. No clubbing. Peripheral pulses are palpated in fairly good volume and amplitude. No hematoma or bleeding of the arterial puncture site MUSCULOSKELETAL: No acute joint deformities or swelling SKIN: There are no significant scars or skin rash noted. NEUROPSYCHIATRIC: The patient is drowsy but responds to questions appropriately. Urinary Catheter Management^: Yap: Cath Placed During This Visit: yes Urethral Indwelling: Yes Reason for Continuing Indwelling Catheter: Other Urinary Catheter Date of Insertion: 09/10/19 Urinary Catheter Time of Insertion: 05:55 Data : 09/19/19 09:33 09/19/19 09:33 A&P Assessment and plan (1) Elevated troponin: Possible related to non-ST elevation myocardial infarction. Angiogram findings as mentioned above. Patient is going to be started on Plavix 75 mg p.o. daily. I may discontinue the aspirin because of the anemia. Status: Acute Code(s): R79.89 - Other specified abnormal findings of blood chemistry (2) Intraoperative cardiorespiratory arrest: Patient has no significant arrhythmias on the monitor. No specific cardiac symptoms. He has the chest wall pain from the rib fracture. Continue on the current measures. Status: Acute (3) Acute blood loss anemia: The hemoglobin continues to improve. Latest hemoglobin is 9.3. Status: Acute Code(s): D62 - Acute posthemorrhagic anemia (4) Benign essential hypertension with target blood pressure below 140/90: The blood pressure seems to be getting under control. May continue on the current medications. Status: Acute Code(s): I10 - Essential (primary) hypertension (5) Infection of right eye: Seems to be responding to antibiotic. Management as per the primary. 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 If the patient continues to improve, may be discharged home from a cardiac standpoint. Continue on the Plavix. We will discontinue the aspirin. Please make an appointment to be seen by the nurse practitioner at [facility] in 1 week. I may see him in the office in 1 month. 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
--- NOTE | 2019-09-18 14:23 | PM.PN ---
Subjective Subjective: Interval history: The patient denies any abdominal pain. He says his appetite is improving. Vitals/I&O/Wt Last Vital Signs Temp 97.9 F 09/18/19 12:00 Pulse 74 09/18/19 12:00 Resp 15 09/18/19 12:00 BP 112/57 09/18/19 12:00 Pulse Ox 93 09/18/19 11:25 09/17/19 09/18/19 09/18/19 22:59 06:59 14:59 Intake Total 120 / 290 300 / 590 410 / 410 Output Total 1000 / 1550 Balance 120 / -260 -700 / -960 410 / 410 Weight last 48 hrs Weight 187 lb 9.6 oz Weight 195 lb 3.2 oz Physical Exam Narrative: EXAM NARRATIVE: Bowel sounds are present. The abdomen is nontender. Urinary Catheter Management^: Yap: Cath Placed During This Visit: yes Urethral Indwelling: Yes Reason for Continuing Indwelling Catheter: Other Urinary Catheter Date of Insertion: 09/10/19 Urinary Catheter Time of Insertion: 05:55 Data : 09/18/19 10:50 09/18/19 10:50 A&P Assessment and plan (1) Ileus: Resolved. I am advancing the patient to a soft diet. Status: Resolved Code(s): K56.7 - Ileus, unspecified (2) Anemia: Hemoglobin improved following transfusion. Status: Acute Code(s): D64.9 - Anemia, unspecified Attestations Medical Necessity Statement*: See admitting service's notation. 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
[2019-09-18 17:18] LABS: Glucose Point of Care 168 mg/dL (70-110)
[2019-09-18] MEDS: insulin glargine 100 units/1 mL 45 UNIT SUBCUT (21:52)
[2019-09-18] MEDS: atorvastatin 40 mg Tablet PO (21:52)
[2019-09-18 21:53] LABS: Glucose Point of Care 231 mg/dL (70-110)
[2019-09-19] VITALS (12 sets, daily range): BP systolic 97–137; BP diastolic 51–65; PULSE 71–88; RESP 13–22; TEMP 36.3–37.4; O2SAT 95–99
[2019-09-19 06:33] LABS: Glucose Point of Care 152 mg/dL (70-110)
[2019-09-19] MEDS: cefepime 2,000 MG in sodium chloride 0.9% (plus) 50 ML 100 MG IV (07:21)
[2019-09-19] MEDS: pantoprazole DR 40 mg Tablet PO ×2 (09:26→18:19)
[2019-09-19] MEDS: metoprolol tartrate 50 mg Tablet 100 MG PO (09:26)
[2019-09-19] MEDS: oxyCODONE 5 mg IR Tab/Cap 10 MG PO ×2 (09:26→19:26)
[2019-09-19] MEDS: doxazosin 4 mg Tablet PO (09:26)
[2019-09-19] MEDS: clopidogrel 75 mg Tablet PO (09:26)
[2019-09-19] MEDS: hyDRALAzine 25 mg Tablet PO ×2 (09:27→13:21)
[2019-09-19] MEDS: sennosides-docusate Tablet 1 TAB PO ×2 (09:27→18:18)
[2019-09-19] MEDS: isosorbide mononitrate ER 30 mg Tablet PO (09:28)
[2019-09-19 09:49] LABS: Basophils % 0.2 %; Eosinophils # 0.1 10^3/uL (0.0-0.8); Eosinophils % 1.5 %; Hematocrit 29.7 % (42.0-52.0); Hemoglobin 10.3 g/dL (11.7-16.6); Lymphocytes # 0.8 10^3/uL (0.8-4.8); Lymphocytes % 13.3 %; Mean Corpuscular HGB Conc 34.7 g/dL (30.0-36.0); Mean Corpuscular Hemoglobin 32.9 pg (28.0-34.0); Mean Corpuscular Volume 94.9 fL (80-94); Mean Platelet Volume 9.7 fL (7.4-10.4); Monocytes # 0.6 10^3/uL (0.2-0.9); Monocytes % 9.5 %; Neutrophils # 4.5 10^3/uL (1.8-7.7); Neutrophils % 74.2 %; Nucleated Red Blood Cells % 0 %; Platelet Count 209 10^3/cmm (130-400); Red Blood Count 3.13 10^6/uL (4.1-5.3); Red Cell Distribution Width 14.3 % (12.1-15.1)
[2019-09-19 10:12] LABS: Albumin Level 2.6 g/dL (3.5-5.2); Alkaline Phosphatase 88 IU/L (40-130); Anion Gap 13.3 (5-19); Blood Urea Nitrogen 11 mg/dL (8-23); Calcium 7.9 mg/dL (8.5-10.5); Carbon Dioxide 23 mmol/L (22-29); Chloride 100 mmol/L (98-107); Globulin 2.9 g/dL (1.3-4.6); Glucose 157 mg/dL (65-115); Potassium 3.3 mmol/L (3.5-5.1); Sodium 133 mmol/L (136-145); Total Bilirubin 0.6 mg/dL (0.15-1.2); Total Protein 5.5 g/dL (6.6-8.7)
[2019-09-19 10:13] LABS: Alanine Aminotransferase 16 U/L (0-41); Aspartate Amino Transferase 24 U/L (0-40)
[2019-09-19 11:35] LABS: Glucose Point of Care 181 mg/dL (70-110)
--- NOTE | 2019-09-19 12:10 | P.PN_ITS ---
Subjective Subjective: Interval history: Patient continues to remain stable. Has not had any chest pain. No arrhythmias on the monitor. Vital signs remained stable. No new symptoms. Medications: Reviewed: Yes Medication Review Details: Current Medications Acetaminophen (Tylenol) 650 mg PO Q6H PRN PRN Reason: Mild/Mod Pain Or Temp >/= 101 Last Admin: 09/16/19 10:39 Dose: 650 mg Documented by: Albuterol Sulfate (Albuterol) 2.5 mg INHALATION Q4H PRN PRN Reason: Shortness Of Breath Aspirin (Aspirin Ec) 81 mg PO DAILY [facility] Last Admin: 09/17/19 09:32 Dose: 81 mg Documented by: Atorvastatin Calcium (Lipitor) 40 mg PO BEDTIME [facility] Last Admin: 09/16/19 21:12 Dose: 40 mg Documented by: Bisacodyl (Dulcolax) 10 mg PO DAILY PRN PRN Reason: CONSTIPATION Last Admin: 09/12/19 17:14 Dose: 10 mg Documented by: Dextrose (D50w) 25 ml IVP ONCE PRN; Protocol PRN Reason: hypoglycemia protocol Dextrose (D50w) 50 ml IVP PRN PRN; Protocol PRN Reason: hypoglycemia protocol Diphenhydramine HCl (Benadryl) 50 mg PO ONCE ONE Stop: 09/17/19 15:31 Doxazosin Mesylate (Cardura) 4 mg PO DAILY [facility] Last Admin: 09/17/19 09:32 Dose: 4 mg Documented by: Glucagon (Glucagen) 1 mg IM ONCE PRN; Protocol PRN Reason: Adult Acute Hypoglycemia Prot. Hydralazine HCl (Apresoline) 10 mg IVP Q4H PRN PRN Reason: HYPERTENSION Hydralazine HCl (Apresoline) 25 mg PO QID [facility] Last Admin: 09/17/19 09:32 Dose: 25 mg Documented by: Cefepime HCl 2,000 mg/ Sodium (Chloride) 50 mls @ 100 mls/hr IV Q8H [facility]; Protocol Last Admin: 09/17/19 05:26 Dose: 100 mls/hr Documented by: Vancomycin HCl 1,500 mg/ (Sodium Chloride) 250 mls @ 166.667 mls/hr IV Q24H [facility]; Protocol Last Infusion: 09/17/19 04:15 Dose: Infused Documented by: Dextrose (D5w) 500 mls @ 100 mls/hr IV ONCE PRN; Protocol PRN Reason: Adult Acute Hypoglycemia Prot Sodium Chloride (Sodium Chloride 0.9%) 1,000 mls @ 50 mls/hr IV .Q20H ONE Stop: 09/18/19 11:29 Insulin Aspart (Novolog) 0 unit SUBCUT WM&BEDTIME [facility]; Protocol Last Admin: 09/17/19 11:35 Dose: Not Given Documented by: Insulin Glargine (Lantus) 45 unit SUBCUT BEDTIME [facility] Last Admin: 09/16/19 21:13 Dose: 45 unit Documented by: Isosorbide Mononitrate (Imdur) 30 mg PO DAILY [facility] Last Admin: 09/17/19 09:32 Dose: 30 mg Documented by: Metoprolol Tartrate (Lopressor) 100 mg PO Q12H [facility] Last Admin: 09/17/19 09:32 Dose: 100 mg Documented by: Ondansetron HCl (Zofran) 4 mg IVP Q6H PRN PRN Reason: vomiting, or N/V if npo Last Admin: 09/12/19 18:09 Dose: 4 mg Documented by: Oxycodone HCl (Oxycodone Ir) 10 mg PO Q4H PRN PRN Reason: SEVERE PAIN Last Admin: 09/14/19 19:06 Dose: 10 mg Documented by: Pantoprazole Sodium (Protonix) 40 mg PO BID [facility] Last Admin: 09/17/19 09:32 Dose: 40 mg Documented by: Senna/Docusate Sodium (Senna-S) 1 tab PO BID [facility] Last Admin: 09/17/19 09:32 Dose: 1 tab Documented by: Vitals/I&O/Wt Last Vital Signs Temp 99.3 F 09/19/19 07:33 Pulse 80 09/19/19 11:17 Resp 14 09/19/19 11:17 BP 130/57 09/19/19 11:17 Pulse Ox 96 09/19/19 11:17 09/18/19 09/19/19 09/19/19 22:59 06:59 14:59 Intake Total 220 / 630 360 / 360 Output Total 550 / 550 950 / 1500 Balance -330 / 80 -950 / -870 360 / 360 Weight last 48 hrs Weight 196 lb 4.8 oz Weight 187 lb 9.6 oz Physical Exam Narrative: EXAM NARRATIVE: GENERAL: The patient is alert today. Not in any acute distress. Confused HEENT: Patient keep his both eyes closed. NECK: Trachea appears to be central. No masses noted. No JVD or thyromegaly appreciated. RESPIRATORY: Chest is symmetrical. No intercostals muscle retraction or any accessory muscle activation. The chest wall tenderness persists. Breath sounds are heard bilaterally. No rales or rhonchi heard. No evidence of any consolidation. BREASTS: Deferred. HEART: The heart sounds are normal. No S3 or S4. No significant murmurs no pericardial rub ABDOMEN: Diffuse tenderness. Slightly distended .diffuse ecchymosis on the left side . : Deferred. RECTAL: Deferred. LYMPHATIC: No lymphadenopathy noted in the neck . EXTREMITIES: No edema or cyanosis. No clubbing. Peripheral pulses are palpated in fairly good volume and amplitude. No hematoma or bleeding of the arterial puncture site MUSCULOSKELETAL: No acute joint deformities or swelling SKIN: There are no significant scars or skin rash noted. NEUROPSYCHIATRIC: The patient is drowsy but responds to questions appropriately. Urinary Catheter Management^: Yap: Cath Placed During This Visit: yes Urethral Indwelling: Yes Reason for Continuing Indwelling Catheter: Other Urinary Catheter Date of Insertion: 09/10/19 Urinary Catheter Time of Insertion: 05:55 Data : 09/19/19 09:33 09/19/19 09:33 A&P Assessment and plan (1) Elevated troponin: Possible related to non-ST elevation myocardial infarction. Angiogram findings as mentioned above. Patient is going to be started on Plavix 75 mg p.o. daily. I may discontinue the aspirin because of the anemia. Continue on the current medications. Status: Acute Code(s): R79.89 - Other specified abnormal findings of blood chemistry (2) Intraoperative cardiorespiratory arrest: Patient has no significant arrhythmias on the monitor. No specific cardiac symptoms. He has the chest wall pain from the rib fracture. Continue on the current measures. Status: Acute (3) Acute blood loss anemia: The latest hemoglobin is 10.3 Abnormal lab results 09/19/19 09/19/19 Range/Units 09:33 09:33 RBC 3.13 L (4.1-5.3) 10^6/uL Hgb 10.3 L (11.7-16.6) g/dL Hct 29.7 L (42.0-52.0) % MCV 94.9 H (80-94) fL Sodium 133 L (136-145) mmol/L Potassium 3.3 L (3.5-5.1) mmol/L Glucose 157 H (65-115) mg/dL Calcium 7.9 L (8.5-10.5) mg/dL Total Protein 5.5 L (6.6-8.7) g/dL Albumin 2.6 L (3.5-5.2) g/dL Status: Acute Code(s): D62 - Acute posthemorrhagic anemia (4) Benign essential hypertension with target blood pressure below 140/90: The blood pressure seems to be getting under control. May continue on the current medications. Status: Acute Code(s): I10 - Essential (primary) hypertension (5) Infection of right eye: Seems to be responding to antibiotic. Management as per the primary. 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 Since the patient's overall cardiovascular status seems to be stable, I may sign off at this point. Patient is currently waiting for fdc placement. I may see him in the office in 1 month. 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
--- NOTE | 2019-09-19 15:47 | PM.PN ---
Subjective Subjective: Interval history: Hb stable, no new complaints, no abdominal pain. Diet advanced. Medications: Reviewed: Yes Medication Review Details: Current Medications Acetaminophen (Tylenol) 650 mg PO Q6H PRN PRN Reason: Mild/Mod Pain Or Temp >/= 101 Last Admin: 09/16/19 10:39 Dose: 650 mg Documented by: Albuterol Sulfate (Albuterol) 2.5 mg INHALATION Q4H PRN PRN Reason: Shortness Of Breath Aspirin (Aspirin Ec) 81 mg PO DAILY [facility] Last Admin: 09/17/19 09:32 Dose: 81 mg Documented by: Atorvastatin Calcium (Lipitor) 40 mg PO BEDTIME [facility] Last Admin: 09/16/19 21:12 Dose: 40 mg Documented by: Bisacodyl (Dulcolax) 10 mg PO DAILY PRN PRN Reason: CONSTIPATION Last Admin: 09/12/19 17:14 Dose: 10 mg Documented by: Dextrose (D50w) 25 ml IVP ONCE PRN; Protocol PRN Reason: hypoglycemia protocol Dextrose (D50w) 50 ml IVP PRN PRN; Protocol PRN Reason: hypoglycemia protocol Diphenhydramine HCl (Benadryl) 50 mg PO ONCE ONE Stop: 09/17/19 15:31 Doxazosin Mesylate (Cardura) 4 mg PO DAILY [facility] Last Admin: 09/17/19 09:32 Dose: 4 mg Documented by: Glucagon (Glucagen) 1 mg IM ONCE PRN; Protocol PRN Reason: Adult Acute Hypoglycemia Prot. Hydralazine HCl (Apresoline) 10 mg IVP Q4H PRN PRN Reason: HYPERTENSION Hydralazine HCl (Apresoline) 25 mg PO QID [facility] Last Admin: 09/17/19 09:32 Dose: 25 mg Documented by: Cefepime HCl 2,000 mg/ Sodium (Chloride) 50 mls @ 100 mls/hr IV Q8H [facility]; Protocol Last Admin: 09/17/19 05:26 Dose: 100 mls/hr Documented by: Vancomycin HCl 1,500 mg/ (Sodium Chloride) 250 mls @ 166.667 mls/hr IV Q24H [facility]; Protocol Last Infusion: 09/17/19 04:15 Dose: Infused Documented by: Dextrose (D5w) 500 mls @ 100 mls/hr IV ONCE PRN; Protocol PRN Reason: Adult Acute Hypoglycemia Prot Sodium Chloride (Sodium Chloride 0.9%) 1,000 mls @ 50 mls/hr IV .Q20H ONE Stop: 09/18/19 11:29 Insulin Aspart (Novolog) 0 unit SUBCUT WM&BEDTIME [facility]; Protocol Last Admin: 09/17/19 11:35 Dose: Not Given Documented by: Insulin Glargine (Lantus) 45 unit SUBCUT BEDTIME [facility] Last Admin: 09/16/19 21:13 Dose: 45 unit Documented by: Isosorbide Mononitrate (Imdur) 30 mg PO DAILY [facility] Last Admin: 09/17/19 09:32 Dose: 30 mg Documented by: Metoprolol Tartrate (Lopressor) 100 mg PO Q12H [facility] Last Admin: 09/17/19 09:32 Dose: 100 mg Documented by: Ondansetron HCl (Zofran) 4 mg IVP Q6H PRN PRN Reason: vomiting, or N/V if npo Last Admin: 09/12/19 18:09 Dose: 4 mg Documented by: Oxycodone HCl (Oxycodone Ir) 10 mg PO Q4H PRN PRN Reason: SEVERE PAIN Last Admin: 09/14/19 19:06 Dose: 10 mg Documented by: Pantoprazole Sodium (Protonix) 40 mg PO BID [facility] Last Admin: 09/17/19 09:32 Dose: 40 mg Documented by: Senna/Docusate Sodium (Senna-S) 1 tab PO BID [facility] Last Admin: 09/17/19 09:32 Dose: 1 tab Documented by: Vitals/I&O/Wt Last Vital Signs Temp 99.3 F 09/19/19 07:33 Pulse 88 09/19/19 15:00 Resp 19 H 09/19/19 15:00 BP 97/52 09/19/19 15:00 Pulse Ox 96 09/19/19 15:00 09/19/19 09/19/19 09/19/19 06:59 14:59 22:59 Intake Total 600 / 600 Output Total 950 / 1500 Balance -950 / -870 600 / 600 Weight last 48 hrs Weight 89.04 kg Weight 85.094 kg Physical Exam Narrative: EXAM NARRATIVE: GEN: Awake, alert and oriented, no acute distress CVS: S1S2 N RS: CTA B/L Abd: Soft, nt/nd , bs+ PIZZA HUT ASSISTANT: No focal motor or motor deficits Urinary Catheter Management^: Yap: Cath Placed During This Visit: yes Urethral Indwelling: Yes Reason for Continuing Indwelling Catheter: Other Urinary Catheter Date of Insertion: 09/10/19 Urinary Catheter Time of Insertion: 05:55 Data : 09/19/19 09:33 09/19/19 09:33 A&P Assessment and plan (1) Non-ST elevation (NSTEMI) myocardial infarction: Continue statin, beta-nany, nitrate started on plavix 75mg today Echocardiogram demonstrates preserved EF Nuclear stress test demonstrates reversible ischemia. s/p coronary angiogram , on medical management. Status: Acute Code(s): I21.4 - Non-ST elevation (NSTEMI) myocardial infarction (2) History of successful cardiopulmonary resuscitation: Reportedly performed on 09/08/2019 perioperatively. Status: Acute Code(s): Z92.89 - Personal history of other medical treatment (3) Multiple rib fractures: Bilateral acute fractures ribs 4-7 anteriorly, presumably secondary to resuscitation Pain is coming under control Incentive spirometry Working with PT Status: Acute Qualifiers: Encounter type: initial encounter Fracture type: closed Laterality: bilateral Qualified Code(s): S22.43XA - Multiple fractures of ribs, bilateral, initial encounter for closed fracture Code(s): S22.49XA - Multiple fractures of ribs, unspecified side, initial encounter for closed fracture (4) Altered mental status: Unknown etiology. May be secondary to anoxic brain injury, prolonged anesthetic effect, other medication. This now seems to wax and wane. Repeat CT head is negative. 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 Currently on cefepime and vancomycin Discussed with Dr. Bland that patient will need follow up early next week and likely need intravitreal abx. Can stop iv antibiotics if no signs of systemic infection. 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 (7) Hypertension: Continue metoprolol Status: Acute Qualifiers: Hypertension type: essential hypertension Qualified Code(s): I10 - Essential (primary) hypertension Code(s): I10 - Essential (primary) hypertension (8) Hyperlipidemia: Continue statin Status: Acute Qualifiers: Hyperlipidemia type: unspecified Qualified Code(s): E78.5 - Hyperlipidemia, unspecified Code(s): E78.5 - Hyperlipidemia, unspecified (9) Glaucoma: Followed by ophthalmology Status: Acute Qualifiers: Glaucoma type: unspecified Laterality: bilateral Qualified Code(s): H40.9 - Unspecified glaucoma Code(s): H40.9 - Unspecified glaucoma (10) Acute kidney injury: May be postobstructive. Yap has been placed. Renal function markedly improved Status: Acute Code(s): N17.9 - Acute kidney failure, unspecified (11) Hyperkalemia: Continue to hold ARB Overall resolved Status: Acute Code(s): E87.5 - Hyperkalemia (12) Acute blood loss anemia: Status: Acute Code(s): D62 - Acute posthemorrhagic anemia (13) Ileus: Status: Resolved Code(s): K56.7 - Ileus, unspecified (14) Hematoma of left flank: Status: Acute Code(s): S30.1XXA - Contusion of abdominal wall, initial encounter Additional A&P Information 69M admtted since 09/08 after presenteing to ER with new onset confusion, with h/o having undergone eye surgery for endophthalmitis c/b intraoperative cardiac arrest requiring CPR. Hospital course c/b elevated troponins, abnormal stress test, left flank hematoma, anemia secondary to blood loss leading to stopping a/c and antiplatelets, required blood transfusion, partial distal SBO vs ileus. Now with new ST-T changes on telemetry, for angiogram this afternoon Restarted plavix, hb currently stable Anemia. Associated with left flank hematoma. Transfused 2 units of packed red blood cells August. Hemoglobin much improved. Hematoma stable, evolving overlying color changes in skin. Evidence of partial small bowel obstruction on CT. Surgical consultation appreciated. Diet advanced to clears. Abdomen continues to look distended, however denies any abdominal pain today mental status continues to wax and wane. Hyponatremia, improved Ileus, resolving, diet advanced DVT prophylaxis SCDs Full code Dispo: Discharge to SNF, awaiting prior auth Attestations Medical Necessity Statement*: improving anemia, improving bowel function, awaiting prior auth Coding Level of Care Code Acute Metal Roaster for Chg Fwd Diagnoses Non-ST elevation (NSTEMI) myocardial infarction I21.4 History of successful cardiopulmonary resuscitation Z92.89 Multiple rib fractures S22.43XA Encounter type: initial encounter Fracture type: closed Laterality: bilateral Altered mental status R41.0 Altered mental status type: disorientation Infection of right eye H44.001 Diabetes mellitus type 2, insulin dependent E11.9; Z79.4 Hypertension I10 Hypertension type: essential hypertension Hyperlipidemia E78.5 Hyperlipidemia type: unspecified Glaucoma H40.9 Glaucoma type: unspecified Laterality: bilateral Acute kidney injury N17.9 Hyperkalemia E87.5 Acute blood loss anemia D62 Ileus K56.7 Hematoma of left flank S30.1XXA
[2019-09-19 16:20] LABS: Glucose Point of Care 316 mg/dL (70-110)
[2019-09-19] MEDS: lidocaine 1% INJ 20 mL 5 ML IV (17:16)
[2019-09-19] MEDS: potassium chloride premix 40 MEQ/100 ML PREMIX 25 MEQ IV (17:16)
[2019-09-19 20:55] LABS: Glucose Point of Care 206 mg/dL (70-110)
[2019-09-19] MEDS: atorvastatin 40 mg Tablet PO (21:46)
[2019-09-19] MEDS: insulin glargine 100 units/1 mL 45 UNIT SUBCUT (21:47)
--- NOTE | 2019-09-19 22:00 | PC.NURSE ---
Held patients 100mg of metoprolol and 25mg of Hydralizine per Dr. Newberry orders for patients blood pressure being 91/51 and 101/53. Will continue to monitor.
[2019-09-20] VITALS (10 sets, daily range): BP systolic 99–148; BP diastolic 57–70; PULSE 78–96; RESP 14–25; TEMP 36.6–36.7; O2SAT 95–100
[2019-09-20 05:48] LABS: Basophils % 0.3 %; Eosinophils # 0.1 10^3/uL (0.0-0.8); Eosinophils % 2.3 %; Hematocrit 27.4 % (42.0-52.0); Hemoglobin 9.3 g/dL (11.7-16.6); Lymphocytes % 17.2 %; Mean Corpuscular HGB Conc 33.9 g/dL (30.0-36.0); Mean Corpuscular Hemoglobin 32.7 pg (28.0-34.0); Mean Corpuscular Volume 96.5 fL (80-94); Mean Platelet Volume 9.9 fL (7.4-10.4); Monocytes # 0.5 10^3/uL (0.2-0.9); Monocytes % 8.7 %; Neutrophils # 4.3 10^3/uL (1.8-7.7); Neutrophils % 70.3 %; Nucleated Red Blood Cells % 0 %; Platelet Count 334 10^3/cmm (130-400); Red Blood Count 2.84 10^6/uL (4.1-5.3); White Blood Count 6.1 10^3/uL (4.0-10.0)
[2019-09-20 06:00] LABS: Alanine Aminotransferase 14 U/L (0-41); Albumin Level 2.5 g/dL (3.5-5.2); Alkaline Phosphatase 86 IU/L (40-130); Anion Gap 12.7 (5-19); Aspartate Amino Transferase 15 U/L (0-40); Blood Urea Nitrogen 10 mg/dL (8-23); Calcium 7.8 mg/dL (8.5-10.5); Carbon Dioxide 25 mmol/L (22-29); Chloride 101 mmol/L (98-107); Globulin 3.2 g/dL (1.3-4.6); Glucose 78 mg/dL (65-115); Sodium 136 mmol/L (136-145); Total Bilirubin 0.5 mg/dL (0.15-1.2); Total Protein 5.7 g/dL (6.6-8.7)
[2019-09-20 06:16] LABS: Potassium 2.7 mmol/L (3.5-5.1)
[2019-09-20 06:27] LABS: Glucose Point of Care 92 mg/dL (70-110)
[2019-09-20] MEDS: lidocaine 1% INJ 20 mL 5 ML IV (08:52)
[2019-09-20] MEDS: potassium chloride premix 40 MEQ/100 ML PREMIX 25 MEQ IV ×2 (08:52→13:27)
--- NOTE | 2019-09-20 09:28 | PC.SOCIAL ---
IMM Update Pg 2 of IMM given and explained to patient. Copy left with patient and copy in chart updated.
[2019-09-20] MEDS: metoprolol tartrate 50 mg Tablet 100 MG PO (10:26)
[2019-09-20] MEDS: clopidogrel 75 mg Tablet PO (10:27)
[2019-09-20] MEDS: sennosides-docusate Tablet 1 TAB PO ×2 (10:27→17:15)
[2019-09-20] MEDS: pantoprazole DR 40 mg Tablet PO ×2 (10:27→17:15)
[2019-09-20] MEDS: doxazosin 4 mg Tablet PO (10:27)
[2019-09-20] MEDS: isosorbide mononitrate ER 30 mg Tablet PO (10:28)
[2019-09-20] MEDS: hyDRALAzine 25 mg Tablet PO ×3 (10:28→17:15)
[2019-09-20 11:54] LABS: Glucose Point of Care 105 mg/dL (70-110)
--- NOTE | 2019-09-20 12:02 | PM.PN ---
Subjective Subjective: Interval history: Hb stable, feels well this morning. No BM today, passing flatus since yesetrday. Hematoma stable. Medications: Reviewed: Yes Medication Review Details: Current Medications Acetaminophen (Tylenol) 650 mg PO Q6H PRN PRN Reason: Mild/Mod Pain Or Temp >/= 101 Last Admin: 09/16/19 10:39 Dose: 650 mg Documented by: Albuterol Sulfate (Albuterol) 2.5 mg INHALATION Q4H PRN PRN Reason: Shortness Of Breath Aspirin (Aspirin Ec) 81 mg PO DAILY [facility] Last Admin: 09/17/19 09:32 Dose: 81 mg Documented by: Atorvastatin Calcium (Lipitor) 40 mg PO BEDTIME [facility] Last Admin: 09/16/19 21:12 Dose: 40 mg Documented by: Bisacodyl (Dulcolax) 10 mg PO DAILY PRN PRN Reason: CONSTIPATION Last Admin: 09/12/19 17:14 Dose: 10 mg Documented by: Dextrose (D50w) 25 ml IVP ONCE PRN; Protocol PRN Reason: hypoglycemia protocol Dextrose (D50w) 50 ml IVP PRN PRN; Protocol PRN Reason: hypoglycemia protocol Diphenhydramine HCl (Benadryl) 50 mg PO ONCE ONE Stop: 09/17/19 15:31 Doxazosin Mesylate (Cardura) 4 mg PO DAILY [facility] Last Admin: 09/17/19 09:32 Dose: 4 mg Documented by: Glucagon (Glucagen) 1 mg IM ONCE PRN; Protocol PRN Reason: Adult Acute Hypoglycemia Prot. Hydralazine HCl (Apresoline) 10 mg IVP Q4H PRN PRN Reason: HYPERTENSION Hydralazine HCl (Apresoline) 25 mg PO QID [facility] Last Admin: 09/17/19 09:32 Dose: 25 mg Documented by: Cefepime HCl 2,000 mg/ Sodium (Chloride) 50 mls @ 100 mls/hr IV Q8H [facility]; Protocol Last Admin: 09/17/19 05:26 Dose: 100 mls/hr Documented by: Vancomycin HCl 1,500 mg/ (Sodium Chloride) 250 mls @ 166.667 mls/hr IV Q24H [facility]; Protocol Last Infusion: 09/17/19 04:15 Dose: Infused Documented by: Dextrose (D5w) 500 mls @ 100 mls/hr IV ONCE PRN; Protocol PRN Reason: Adult Acute Hypoglycemia Prot Sodium Chloride (Sodium Chloride 0.9%) 1,000 mls @ 50 mls/hr IV .Q20H ONE Stop: 09/18/19 11:29 Insulin Aspart (Novolog) 0 unit SUBCUT WM&BEDTIME [facility]; Protocol Last Admin: 09/17/19 11:35 Dose: Not Given Documented by: Insulin Glargine (Lantus) 45 unit SUBCUT BEDTIME [facility] Last Admin: 09/16/19 21:13 Dose: 45 unit Documented by: Isosorbide Mononitrate (Imdur) 30 mg PO DAILY [facility] Last Admin: 09/17/19 09:32 Dose: 30 mg Documented by: Metoprolol Tartrate (Lopressor) 100 mg PO Q12H [facility] Last Admin: 09/17/19 09:32 Dose: 100 mg Documented by: Ondansetron HCl (Zofran) 4 mg IVP Q6H PRN PRN Reason: vomiting, or N/V if npo Last Admin: 09/12/19 18:09 Dose: 4 mg Documented by: Oxycodone HCl (Oxycodone Ir) 10 mg PO Q4H PRN PRN Reason: SEVERE PAIN Last Admin: 09/14/19 19:06 Dose: 10 mg Documented by: Pantoprazole Sodium (Protonix) 40 mg PO BID [facility] Last Admin: 09/17/19 09:32 Dose: 40 mg Documented by: Senna/Docusate Sodium (Senna-S) 1 tab PO BID [facility] Last Admin: 09/17/19 09:32 Dose: 1 tab Documented by: Vitals/I&O/Wt Last Vital Signs Temp 97.9 F 09/20/19 11:35 Pulse 96 09/20/19 11:35 Resp 14 09/20/19 11:35 BP 132/68 09/20/19 11:35 Pulse Ox 96 09/20/19 11:35 09/19/19 09/20/19 09/20/19 22:59 06:59 14:59 Intake Total 300 / 900 100 / 1000 240 / 240 Output Total 800 / 800 650 / 1450 1600 / 1600 Balance -500 / 100 -550 / -450 -1360 / -1360 Weight last 48 hrs Weight 89.176 kg Weight 89.04 kg Physical Exam Narrative: EXAM NARRATIVE: GEN: Awake, alert and oriented, no acute distress CVS: S1S2 N RS: CTA B/L Abd: Soft, nt/nd , bs+ RESOURCE DEVELOPMENT MANAGER: No focal motor or motor deficits Urinary Catheter Management^: Yap: Cath Placed During This Visit: yes Urethral Indwelling: Yes Reason for Continuing Indwelling Catheter: Accurate Measurement of Urinary Output in Critically Ill Patients Urinary Catheter Date of Insertion: 09/10/19 Urinary Catheter Time of Insertion: 05:55 Data : 09/20/19 05:00 09/20/19 05:00 A&P Assessment and plan (1) Non-ST elevation (NSTEMI) myocardial infarction: Continue statin, beta-nany, nitrate started on plavix 75mg today Echocardiogram demonstrates preserved EF Nuclear stress test demonstrates reversible ischemia. s/p coronary angiogram , on medical management. Status: Acute Code(s): I21.4 - Non-ST elevation (NSTEMI) myocardial infarction (2) History of successful cardiopulmonary resuscitation: Reportedly performed on 09/08/2019 perioperatively. Status: Acute Code(s): Z92.89 - Personal history of other medical treatment (3) Multiple rib fractures: Bilateral acute fractures ribs 4-7 anteriorly, presumably secondary to resuscitation Pain is under control Incentive spirometry Working with PT Status: Acute Qualifiers: Encounter type: initial encounter Fracture type: closed Laterality: bilateral Qualified Code(s): S22.43XA - Multiple fractures of ribs, bilateral, initial encounter for closed fracture Code(s): S22.49XA - Multiple fractures of ribs, unspecified side, initial encounter for closed fracture (4) Altered mental status: Unknown etiology. May be secondary to anoxic brain injury, prolonged anesthetic effect, other medication. This now seems to wax and wane. Repeat CT head is negative. 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 Currently on cefepime and vancomycin Discussed with Dr. Bland that patient will need follow up early next week and likely need intravitreal abx. Can stop iv antibiotics if no signs of systemic infection. 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, right eye (6) Diabetes mellitus type 2, insulin dependent: Glucose improved Continue sliding scale, Lantus Status: Acute Code(s): E11.9 - Type 2 diabetes mellitus without complications; Z79.4 - senior living (current) use of insulin (7) Hypertension: Continue metoprolol Status: Acute Qualifiers: Hypertension type: essential hypertension Qualified Code(s): I10 - Essential (primary) hypertension Code(s): I10 - Essential (primary) hypertension (8) Hyperlipidemia: Continue statin Status: Acute Qualifiers: Hyperlipidemia type: unspecified Qualified Code(s): E78.5 - Hyperlipidemia, unspecified Code(s): E78.5 - Hyperlipidemia, unspecified (9) Glaucoma: Followed by ophthalmology Status: Acute Qualifiers: Glaucoma type: unspecified Laterality: bilateral Qualified Code(s): H40.9 - Unspecified glaucoma Code(s): H40.9 - Unspecified glaucoma (10) Acute kidney injury: May be postobstructive. Renal function markedly improved attempt voiding trial Status: Acute Code(s): N17.9 - Acute kidney failure, unspecified (11) Hyperkalemia: Continue to hold ARB Overall resolved Status: Acute Code(s): E87.5 - Hyperkalemia (12) Acute blood loss anemia: Status: Acute Code(s): D62 - Acute posthemorrhagic anemia (13) Ileus: Status: Resolved Code(s): K56.7 - Ileus, unspecified (14) Hematoma of left flank: Status: Acute Code(s): S30.1XXA - Contusion of abdominal wall, initial encounter (15) Hypokalemia: Status: Acute Code(s): E87.6 - Hypokalemia Additional A&P Information 69M admtted since 09/08 after presenteing to ER with new onset confusion, with h/o having undergone eye surgery for endophthalmitis c/b intraoperative cardiac arrest requiring CPR. Hospital course c/b elevated troponins, abnormal stress test, left flank hematoma, anemia secondary to blood loss leading to stopping a/c and antiplatelets, required blood transfusion, partial distal SBO vs ileus. Now with new ST-T changes on telemetry, for angiogram this afternoon Restarted plavix, hb currently stable Anemia. Associated with left flank hematoma. Transfused 2 units of packed red blood cells August. Hemoglobin much improved. Hematoma stable, evolving overlying color changes in skin. Evidence of partial small bowel obstruction on CT. Surgical consultation appreciated. Diet advanced to clears. Abdomen continues to look distended, however denies any abdominal pain today mental status continues to wax and wane. Hyponatremia, improved Ileus, resolving, diet advanced DVT prophylaxis SCDs Full code Dispo: Discharge to SNF, awaiting prior auth Attestations Medical Necessity Statement*: awaiting SNF placement Coding Level of Care Code Acute Trainmaster for g Fwd Diagnoses Non-ST elevation (NSTEMI) myocardial infarction I21.4 History of successful cardiopulmonary resuscitation Z92.89 Multiple rib fractures S22.43XA Encounter type: initial encounter Fracture type: closed Laterality: bilateral Altered mental status R41.0 Altered mental status type: disorientation Infection of right eye H44.001 Diabetes mellitus type 2, insulin dependent E11.9; Z79.4 Hypertension I10 Hypertension type: essential hypertension Hyperlipidemia E78.5 Hyperlipidemia type: unspecified Glaucoma H40.9 Glaucoma type: unspecified Laterality: bilateral Acute kidney injury N17.9 Hyperkalemia E87.5 Acute blood loss anemia D62 Ileus K56.7 Hematoma of left flank S30.1XXA Hypokalemia E87.6
[2019-09-20] MEDS: lidocaine 1% INJ 20 mL 5 ML INJECTION (13:26)
[2019-09-20 17:14] LABS: Glucose Point of Care 283 mg/dL (70-110)
[2019-09-20] MEDS: bisacodyl 5 mg Tablet 10 MG PO (18:16)
[2019-09-20 18:29] LABS: Oxygen Device RA
--- NOTE | 2019-09-20 20:40 | PC.NURSE ---
Dr. Newberry notified of patient's BP and the fact that patient is due to receive Hydralazine 25mg and Metoprolol 100mg at this time. Order received to hold medications and monitor for now.
[2019-09-20 20:56] LABS: Glucose Point of Care 140 mg/dL (70-110)
[2019-09-20] MEDS: oxyCODONE 5 mg IR Tab/Cap 10 MG PO (21:00)
[2019-09-20] MEDS: atorvastatin 40 mg Tablet PO (21:00)
[2019-09-20] MEDS: insulin glargine 100 units/1 mL 45 UNIT SUBCUT (21:01)
[2019-09-21] VITALS (10 sets, daily range): BP systolic 100–141; BP diastolic 44–67; PULSE 74–100; RESP 15–24; TEMP 36.6–36.9; O2SAT 93–96
--- NOTE | 2019-09-21 06:37 | PC.NURSE ---
Accu check 64 this am. Patient awake and drank a cup of orange juice. Denies complaints. Respirations even and unlabored. Sking w/d. Will monitor.
[2019-09-21 06:38] LABS: Glucose Point of Care 64 mg/dL (70-110)
[2019-09-21 08:10] LABS: Anion Gap 12.9 (5-19); Blood Urea Nitrogen 10 mg/dL (8-23); Calcium 8.2 mg/dL (8.5-10.5); Carbon Dioxide 26 mmol/L (22-29); Chloride 100 mmol/L (98-107); Glucose 61 mg/dL (65-115); Osmolality Calculated 276 mOsm/kg (285-295); Sodium 136 mmol/L (136-145)
[2019-09-21] MEDS: clopidogrel 75 mg Tablet PO (08:51)
[2019-09-21] MEDS: isosorbide mononitrate ER 30 mg Tablet PO (08:51)
[2019-09-21] MEDS: sennosides-docusate Tablet 1 TAB PO ×2 (08:51→17:49)
[2019-09-21] MEDS: hyDRALAzine 25 mg Tablet PO ×3 (08:51→17:49)
[2019-09-21] MEDS: pantoprazole DR 40 mg Tablet PO ×2 (08:51→17:49)
[2019-09-21] MEDS: doxazosin 4 mg Tablet PO (08:52)
[2019-09-21] MEDS: polyethylene glycol 3350 Pkt 17 gm PO (08:53)
[2019-09-21 08:54] LABS: Potassium 2.9 mmol/L (3.5-5.1)
[2019-09-21] MEDS: metoprolol tartrate 50 mg Tablet 100 MG PO ×2 (09:03→22:23)
[2019-09-21] MEDS: lidocaine 1% INJ 20 mL 5 ML IV (09:32)
[2019-09-21] MEDS: potassium chloride oral liq 20 mEq/15 mL UDC 40 MEQ PO (09:33)
[2019-09-21] MEDS: potassium chloride premix 40 MEQ/100 ML PREMIX 25 MEQ IV (09:34)
[2019-09-21 10:27] LABS: Hematocrit 27.6 % (42.0-52.0); Hemoglobin 8.9 g/dL (11.7-16.6)
--- NOTE | 2019-09-21 11:30 | P.PN_ITS ---
Subjective Subjective: Interval history: Hb stable, no new complaints. Last bowel movement was yesterday. Continues to pass flatus. Tolerating a regular diet. This morning on a.m. labs he was noted to be hypoglycemic with blood sugar of 61. Patient was asymptomatic during this time. Blood sugar is now improved after drinking juice and having breakfast. Patient is sitting up in a chair by bedside today with no acute complaints. Medications: Reviewed: Yes Medication Review Details: Current Medications Acetaminophen (Tylenol) 650 mg PO Q6H PRN PRN Reason: Mild/Mod Pain Or Temp >/= 101 Last Admin: 09/16/19 10:39 Dose: 650 mg Documented by: Albuterol Sulfate (Albuterol) 2.5 mg INHALATION Q4H PRN PRN Reason: Shortness Of Breath Aspirin (Aspirin Ec) 81 mg PO DAILY [facility] Last Admin: 09/17/19 09:32 Dose: 81 mg Documented by: Atorvastatin Calcium (Lipitor) 40 mg PO BEDTIME [facility] Last Admin: 09/16/19 21:12 Dose: 40 mg Documented by: Bisacodyl (Dulcolax) 10 mg PO DAILY PRN PRN Reason: CONSTIPATION Last Admin: 09/12/19 17:14 Dose: 10 mg Documented by: Dextrose (D50w) 25 ml IVP ONCE PRN; Protocol PRN Reason: hypoglycemia protocol Dextrose (D50w) 50 ml IVP PRN PRN; Protocol PRN Reason: hypoglycemia protocol Diphenhydramine HCl (Benadryl) 50 mg PO ONCE ONE Stop: 09/17/19 15:31 Doxazosin Mesylate (Cardura) 4 mg PO DAILY [facility] Last Admin: 09/17/19 09:32 Dose: 4 mg Documented by: Glucagon (Glucagen) 1 mg IM ONCE PRN; Protocol PRN Reason: Adult Acute Hypoglycemia Prot. Hydralazine HCl (Apresoline) 10 mg IVP Q4H PRN PRN Reason: HYPERTENSION Hydralazine HCl (Apresoline) 25 mg PO QID [facility] Last Admin: 09/17/19 09:32 Dose: 25 mg Documented by: Cefepime HCl 2,000 mg/ Sodium (Chloride) 50 mls @ 100 mls/hr IV Q8H [facility]; Protocol Last Admin: 09/17/19 05:26 Dose: 100 mls/hr Documented by: Vancomycin HCl 1,500 mg/ (Sodium Chloride) 250 mls @ 166.667 mls/hr IV Q24H [facility]; Protocol Last Infusion: 09/17/19 04:15 Dose: Infused Documented by: Dextrose (D5w) 500 mls @ 100 mls/hr IV ONCE PRN; Protocol PRN Reason: Adult Acute Hypoglycemia Prot Sodium Chloride (Sodium Chloride 0.9%) 1,000 mls @ 50 mls/hr IV .Q20H ONE Stop: 09/18/19 11:29 Insulin Aspart (Novolog) 0 unit SUBCUT WM&BEDTIME [facility]; Protocol Last Admin: 09/17/19 11:35 Dose: Not Given Documented by: Insulin Glargine (Lantus) 45 unit SUBCUT BEDTIME [facility] Last Admin: 09/16/19 21:13 Dose: 45 unit Documented by: Isosorbide Mononitrate (Imdur) 30 mg PO DAILY [facility] Last Admin: 09/17/19 09:32 Dose: 30 mg Documented by: Metoprolol Tartrate (Lopressor) 100 mg PO Q12H [facility] Last Admin: 09/17/19 09:32 Dose: 100 mg Documented by: Ondansetron HCl (Zofran) 4 mg IVP Q6H PRN PRN Reason: vomiting, or N/V if npo Last Admin: 09/12/19 18:09 Dose: 4 mg Documented by: Oxycodone HCl (Oxycodone Ir) 10 mg PO Q4H PRN PRN Reason: SEVERE PAIN Last Admin: 09/14/19 19:06 Dose: 10 mg Documented by: Pantoprazole Sodium (Protonix) 40 mg PO BID [facility] Last Admin: 09/17/19 09:32 Dose: 40 mg Documented by: Senna/Docusate Sodium (Senna-S) 1 tab PO BID [facility] Last Admin: 09/17/19 09:32 Dose: 1 tab Documented by: Vitals/I&O/Wt Last Vital Signs Temp 97.9 F 09/21/19 07:32 Pulse 100 09/21/19 09:13 Resp 16 09/21/19 09:13 BP 141/65 09/21/19 07:32 Pulse Ox 94 09/21/19 09:13 09/20/19 09/21/19 09/21/19 21:59 06:59 14:59 Intake Total 480 / 480 Output Total Balance 480 / 480 Weight last 48 hrs Weight 88.859 kg Weight 89.176 kg Physical Exam Narrative: EXAM NARRATIVE: GEN: Awake, alert and oriented, no acute distress CVS: S1S2 N RS: CTA B/L Abd: Soft, nt/nd , bs+ DIRECTOR ENVIRONMENTAL: No focal motor or motor deficits Urinary Catheter Management^: Yap: Cath Placed During This Visit: yes, but has since been removed by the nurse Urethral Indwelling: Yes Reason for Continuing Indwelling Catheter: Decision to DC Catheter Urinary Catheter Date of Insertion: 09/10/19 Urinary Catheter Time of Insertion: 05:55 Date Urinary Catheter Removed: 09/20/19 Time Urinary Catheter Discontinued: 16:00 Data : 09/21/19 07:10 09/21/19 07:10 A&P Assessment and plan (1) Non-ST elevation (NSTEMI) myocardial infarction: Continue statin, beta-nany, nitrate started on plavix 75mg today Echocardiogram demonstrates preserved EF Nuclear stress test demonstrates reversible ischemia. s/p coronary angiogram , on medical management. Status: Acute Code(s): I21.4 - Non-ST elevation (NSTEMI) myocardial infarction (2) History of successful cardiopulmonary resuscitation: Reportedly performed on 09/08/2019 perioperatively. Status: Acute Code(s): Z92.89 - Personal history of other medical treatment (3) Multiple rib fractures: Bilateral acute fractures ribs 4-7 anteriorly, presumably secondary to resuscitation Pain is under control Incentive spirometry Working with PT Status: Acute Qualifiers: Encounter type: initial encounter Fracture type: closed Laterality: bilateral Qualified Code(s): S22.43XA - Multiple fractures of ribs, bilateral, initial encounter for closed fracture Code(s): S22.49XA - Multiple fractures of ribs, unspecified side, initial encounter for closed fracture (4) Altered mental status: Unknown etiology. May be secondary to anoxic brain injury, prolonged anesthetic effect, other medication. This now seems to wax and wane, however grossly is much improved. Repeat CT head is negative. 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 Patient was previously on cefepime and vancomycin during this admission. Discussed with Dr. Bland that patient will need follow up early next week and likely need intravitreal abx. Can stop iv antibiotics if no signs of systemic infection. These have subsequently been discontinued and patient is to follow- up early next week with Dr. Bland. 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 We will reduce Lantus from 45 units to 40 units today. Additionally we will change his mild sliding scale to 3 times daily instead of 3 times daily and at bedtime. Status: Acute Code(s): E11.9 - Type 2 diabetes mellitus without complications; Z79.4 - senior care (current) use of insulin (7) Hypertension: Continue metoprolol Status: Acute Qualifiers: Hypertension type: essential hypertension Qualified Code(s): I10 - Essential (primary) hypertension Code(s): I10 - Essential (primary) hypertension (8) Hyperlipidemia: Continue statin Status: Acute Qualifiers: Hyperlipidemia type: unspecified Qualified Code(s): E78.5 - Hyperlipidemia, unspecified Code(s): E78.5 - Hyperlipidemia, unspecified (9) Glaucoma: Followed by ophthalmology Status: Acute Qualifiers: Glaucoma type: unspecified Laterality: bilateral Qualified Code(s): H40.9 - Unspecified glaucoma Code(s): H40.9 - Unspecified glaucoma (10) Acute kidney injury: May be postobstructive. Renal function markedly improved attempt voiding trial Status: Acute Code(s): N17.9 - Acute kidney failure, unspecified (11) Hyperkalemia: Continue to hold ARB Overall resolved Status: Acute Code(s): E87.5 - Hyperkalemia (12) Acute blood loss anemia: Status: Acute Code(s): D62 - Acute posthemorrhagic anemia (13) Ileus: Status: Resolved Code(s): K56.7 - Ileus, unspecified (14) Hematoma of left flank: Status: Acute Code(s): S30.1XXA - Contusion of abdominal wall, initial encounter (15) Hypokalemia: Replete 80 mEq potassium overall via IV and p.o. routes Status: Acute Code(s): E87.6 - Hypokalemia Additional A&P Information 69M admtted since 09/08 after presenteing to ER with new onset confusion, with h/o having undergone eye surgery for endophthalmitis c/b intraoperative cardiac arrest requiring CPR. Hospital course c/b elevated troponins, abnormal stress test, left flank hematoma, anemia secondary to blood loss leading to stopping a/c and antiplatelets, required blood transfusion, partial distal SBO vs ileus. s/p angiogram, no stents, on medicaal management Restarted plavix, hb currently stable Anemia. Associated with left flank hematoma. Transfused 2 units of packed red blood cells August. Hemoglobin much improved. Hematoma stable, evolving overlying color changes in skin. Evidence of partial small bowel obstruction on CT. Surgical consultation appreciated. Diet now advanced to regular. Tolerating well. Last BM yeseterday. mental status continues to wax and wane, however grossly improved . Hyponatremia, improved DVT prophylaxis SCDs Full code Dispo: Discharge to SNF, awaiting prior auth Attestations Medical Necessity Statement*: Awaiting prior authorization, stable for disch arge medically Coding Level of Care Code Acute Software Sales Consultant for [facility] Fwd Diagnoses Non-ST elevation (NSTEMI) myocardial infarction I21.4 History of successful cardiopulmonary resuscitation Z92.89 Multiple rib fractures S22.43XA Encounter type: initial encounter Fracture type: closed Laterality: bilateral Altered mental status R41.0 Altered mental status type: disorientation Infection of right eye H44.001 Diabetes mellitus type 2, insulin dependent E11.9; Z79.4 Hypertension I10 Hypertension type: essential hypertension Hyperlipidemia E78.5 Hyperlipidemia type: unspecified Glaucoma H40.9 Glaucoma type: unspecified Laterality: bilateral Acute kidney injury N17.9 Hyperkalemia E87.5 Acute blood loss anemia D62 Ileus K56.7 Hematoma of left flank S30.1XXA Hypokalemia E87.6
[2019-09-21 11:59] LABS: Glucose Point of Care 308 mg/dL (70-110)
[2019-09-21] MEDS: oxyCODONE 5 mg IR Tab/Cap 10 MG PO (14:30)
[2019-09-21 16:28] LABS: Glucose Point of Care 156 mg/dL (70-110)
[2019-09-21 20:37] LABS: Glucose Point of Care 150 mg/dL (70-110)
[2019-09-21] MEDS: insulin glargine 100 units/1 mL 40 UNIT SUBCUT (22:22)
[2019-09-21] MEDS: atorvastatin 40 mg Tablet PO (22:23)
[2019-09-22] VITALS (11 sets, daily range): BP systolic 120–142; BP diastolic 60–71; PULSE 71–93; RESP 16–24; TEMP 36.6–37.1; O2SAT 94–96
[2019-09-22 06:22] LABS: Glucose Point of Care 69 mg/dL (70-110)
--- NOTE | 2019-09-22 06:25 | PC.NURSE ---
Patient was given 120 ml of orange juice with one packet of sugar mixed for hypoglycemic episode.
[2019-09-22] MEDS: metoprolol tartrate 50 mg Tablet 100 MG PO ×2 (09:30→22:04)
[2019-09-22] MEDS: isosorbide mononitrate ER 30 mg Tablet PO (09:30)
[2019-09-22] MEDS: pantoprazole DR 40 mg Tablet PO ×2 (09:30→18:33)
[2019-09-22] MEDS: clopidogrel 75 mg Tablet PO (09:30)
[2019-09-22] MEDS: doxazosin 4 mg Tablet PO (09:30)
[2019-09-22] MEDS: hyDRALAzine 25 mg Tablet PO ×3 (09:30→22:05)
[2019-09-22] MEDS: polyethylene glycol 3350 Pkt 17 gm PO (09:31)
[2019-09-22] MEDS: sennosides-docusate Tablet 1 TAB PO ×2 (09:31→18:33)
[2019-09-22] MEDS: acetaminophen 325 mg Tablet 650 MG PO ×3 (09:35→20:20)
--- NOTE | 2019-09-22 10:11 | PC.SOCIAL ---
IMM Update Pg 2 of IMM given and explained to patient who verbalized understanding. Signed, dated, and timed, and placed in chart. Copy provided to patient.
[2019-09-22] MEDS: oxyCODONE 5 mg IR Tab/Cap 10 MG PO ×2 (10:51→22:04)
[2019-09-22 11:55] LABS: Glucose Point of Care 260 mg/dL (70-110)
--- NOTE | 2019-09-22 14:34 | PC.NURSE ---
Notified Dr galvan of patients low blood pressure ok to hold this dose of hydralazine
[2019-09-22 17:28] LABS: Glucose Point of Care 171 mg/dL (70-110)
--- NOTE | 2019-09-22 17:31 | P.PN_ITS ---
Subjective Subjective: Interval history: Patient is alert and oriented this morning. He denies shortness of breath or chest pain. Reports some back pain whenever he moves but not severe. He lost his left eye vision approximately 2 years ago after cataract surgery in [place]. 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 He is accepted to alf facility but cannot go today because of late hour. Medications: Reviewed: Yes Medication Review Details: Current Medications Acetaminophen (Tylenol) 650 mg PO Q6H PRN PRN Reason: Mild/Mod Pain Or Temp >/= 101 Last Admin: 09/16/19 10:39 Dose: 650 mg Documented by: Albuterol Sulfate (Albuterol) 2.5 mg INHALATION Q4H PRN PRN Reason: Shortness Of Breath Aspirin (Aspirin Ec) 81 mg PO DAILY [facility] Last Admin: 09/17/19 09:32 Dose: 81 mg Documented by: Atorvastatin Calcium (Lipitor) 40 mg PO BEDTIME [facility] Last Admin: 09/16/19 21:12 Dose: 40 mg Documented by: Bisacodyl (Dulcolax) 10 mg PO DAILY PRN PRN Reason: CONSTIPATION Last Admin: 09/12/19 17:14 Dose: 10 mg Documented by: Dextrose (D50w) 25 ml IVP ONCE PRN; Protocol PRN Reason: hypoglycemia protocol Dextrose (D50w) 50 ml IVP PRN PRN; Protocol PRN Reason: hypoglycemia protocol Diphenhydramine HCl (Benadryl) 50 mg PO ONCE ONE Stop: 09/17/19 15:31 Doxazosin Mesylate (Cardura) 4 mg PO DAILY [facility] Last Admin: 09/17/19 09:32 Dose: 4 mg Documented by: Glucagon (Glucagen) 1 mg IM ONCE PRN; Protocol PRN Reason: Adult Acute Hypoglycemia Prot. Hydralazine HCl (Apresoline) 10 mg IVP Q4H PRN PRN Reason: HYPERTENSION Hydralazine HCl (Apresoline) 25 mg PO QID [facility] Last Admin: 09/17/19 09:32 Dose: 25 mg Documented by: Cefepime HCl 2,000 mg/ Sodium (Chloride) 50 mls @ 100 mls/hr IV Q8H [facility]; Protocol Last Admin: 09/17/19 05:26 Dose: 100 mls/hr Documented by: Vancomycin HCl 1,500 mg/ (Sodium Chloride) 250 mls @ 166.667 mls/hr IV Q24H [facility]; Protocol Last Infusion: 09/17/19 04:15 Dose: Infused Documented by: Dextrose (D5w) 500 mls @ 100 mls/hr IV ONCE PRN; Protocol PRN Reason: Adult Acute Hypoglycemia Prot Sodium Chloride (Sodium Chloride 0.9%) 1,000 mls @ 50 mls/hr IV .Q20H ONE Stop: 09/18/19 11:29 Insulin Aspart (Novolog) 0 unit SUBCUT WM&BEDTIME [facility]; Protocol Last Admin: 09/17/19 11:35 Dose: Not Given Documented by: Insulin Glargine (Lantus) 45 unit SUBCUT BEDTIME [facility] Last Admin: 09/16/19 21:13 Dose: 45 unit Documented by: Isosorbide Mononitrate (Imdur) 30 mg PO DAILY [facility] Last Admin: 09/17/19 09:32 Dose: 30 mg Documented by: Metoprolol Tartrate (Lopressor) 100 mg PO Q12H [facility] Last Admin: 09/17/19 09:32 Dose: 100 mg Documented by: Ondansetron HCl (Zofran) 4 mg IVP Q6H PRN PRN Reason: vomiting, or N/V if npo Last Admin: 09/12/19 18:09 Dose: 4 mg Documented by: Oxycodone HCl (Oxycodone Ir) 10 mg PO Q4H PRN PRN Reason: SEVERE PAIN Last Admin: 09/14/19 19:06 Dose: 10 mg Documented by: Pantoprazole Sodium (Protonix) 40 mg PO BID [facility] Last Admin: 09/17/19 09:32 Dose: 40 mg Documented by: Senna/Docusate Sodium (Senna-S) 1 tab PO BID [facility] Last Admin: 09/17/19 09:32 Dose: 1 tab Documented by: Vitals/I&O/Wt Last Vital Signs Temp 98.7 F 09/22/19 15:28 Pulse 75 09/22/19 15:28 Resp 18 09/22/19 15:28 BP 121/62 09/22/19 15:28 Pulse Ox 96 09/22/19 15:28 09/22/19 09/22/19 09/22/19 06:59 14:59 22:59 Intake Total 400 / 2720 600 / 600 Output Total 400 / 400 Balance / 2019 600 / 600 -400 / 200 Weight last 48 hrs Weight 89.539 kg Weight 88.859 kg Physical Exam Const: COMMON NORMALS: no apparent distress and oriented x3 Resp: COMMON NORMALS: normal respiratory effort and clear to auscultation bilaterally AUSCULTATION: clear to auscultation bilaterally Cardio: COMMON NORMALS: regular rate, regular rhythm and S2 normal heart sound RATE: regular rate RHYTHM: regular rhythm HEART SOUNDS: S2 normal OTHER: No lower extremity edema GI: COMMON NORMALS: normal to inspection, nondistended, normoactive bowel sounds, soft to palpation and non-tender PALPATION: Yes soft Neuro: COMMON NORMALS: oriented x3 and no focal motor deficits Urinary Catheter Management^: Yap: Cath Placed During This Visit: yes, but has since been removed by the nurse Urethral Indwelling: Yes Reason for Continuing Indwelling Catheter: Decision to DC Catheter Urinary Catheter Date of Insertion: 09/10/19 Urinary Catheter Time of Insertion: 05:55 Date Urinary Catheter Removed: 09/20/19 Time Urinary Catheter Discontinued: 16:00 Data : 09/21/19 07:10 09/21/19 07:10 A&P Assessment and plan (1) Non-ST elevation (NSTEMI) myocardial infarction: Continue statin, beta-nany, nitrate started on plavix 75mg today Echocardiogram demonstrates preserved EF Nuclear stress test demonstrates reversible ischemia. s/p coronary angiogram , on medical management. Status: Acute Code(s): I21.4 - Non-ST elevation (NSTEMI) myocardial infarction (2) History of successful cardiopulmonary resuscitation: Reportedly performed on 09/08/2019 perioperatively. Status: Acute Code(s): Z92.89 - Personal history of other medical treatment (3) Multiple rib fractures: Bilateral acute fractures ribs 4-7 anteriorly, presumably secondary to resuscitation Pain is under control Incentive spirometry Working with PT Status: Acute Qualifiers: Encounter type: initial encounter Fracture type: closed Laterality: bilateral Qualified Code(s): S22.43XA - Multiple fractures of ribs, bilateral, initial encounter for closed fracture Code(s): S22.49XA - Multiple fractures of ribs, unspecified side, initial encounter for closed fracture (4) Altered mental status: Unknown etiology. May be secondary to anoxic brain injury, prolonged anesthetic effect, other medication. This now seems to wax and wane, however grossly is much improved. Repeat CT head is negative. 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 Patient was previously on cefepime and vancomycin during this admission. Discussed with Dr. Bland that patient will need follow up early next week and likely need intravitreal abx. Can stop iv antibiotics if no signs of systemic infection. These have subsequently been discontinued and patient is to follow- up early next week with Dr. Bland. 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 We will reduce Lantus from 45 units to 40 units today. Additionally we will change his mild sliding scale to 3 times daily instead of 3 times daily and at bedtime. Status: Acute Code(s): E11.9 - Type 2 diabetes mellitus without complications; Z79.4 - [facility] (current) use of insulin (7) Hypertension: Continue metoprolol Status: Acute Qualifiers: Hypertension type: essential hypertension Qualified Code(s): I10 - Essential (primary) hypertension Code(s): I10 - Essential (primary) hypertension (8) Hyperlipidemia: Continue statin Status: Acute Qualifiers: Hyperlipidemia type: unspecified Qualified Code(s): E78.5 - Hyperlipidemia, unspecified Code(s): E78.5 - Hyperlipidemia, unspecified (9) Glaucoma: Followed by ophthalmology Status: Acute Qualifiers: Glaucoma type: unspecified Laterality: bilateral Qualified Code(s): H40.9 - Unspecified glaucoma Code(s): H40.9 - Unspecified glaucoma (10) Acute kidney injury: May be postobstructive. Renal function markedly improved attempt voiding trial Status: Acute Code(s): N17.9 - Acute kidney failure, unspecified (11) Hyperkalemia: Continue to hold ARB Overall resolved Status: Acute Code(s): E87.5 - Hyperkalemia (12) Acute blood loss anemia: Status: Acute Code(s): D62 - Acute posthemorrhagic anemia (13) Ileus: Status: Resolved Code(s): K56.7 - Ileus, unspecified (14) Hematoma of left flank: Status: Acute Code(s): S30.1XXA - Contusion of abdominal wall, initial encounter (15) Hypokalemia: Replete 80 mEq potassium overall via IV and p.o. routes Status: Acute Code(s): E87.6 - Hypokalemia Additional A&P Information 69M admtted since 09/08 after presenteing to ER with new onset confusion, with h/o having undergone eye surgery for endophthalmitis c/b intraoperative cardiac arrest requiring CPR. Hospital course c/b elevated troponins, abnormal stress test, left flank hematoma, anemia secondary to blood loss leading to stopping a/c and antiplatelets, required blood transfusion, partial distal SBO vs ileus. s/p angiogram, no stents, on medicaal management Restarted plavix, hb currently stable Anemia. Associated with left flank hematoma. Transfused 2 units of packed red blood cells August. Hemoglobin much improved. Hematoma stable, evolving overlying color changes in skin. Evidence of partial small bowel obstruction on CT. Surgical consultation appreciated. Diet now advanced to regular. Tolerating well. Last BM yeseterday. mental status continues to wax and wane, however grossly improved . Hyponatremia, improved DVT prophylaxis SCDs Full code Dispo: Discharge to SNF, awaiting prior auth Attestations Medical Necessity Statement*: Patient requires further hospitalization until tomorrow to be dismissed to nursing facility. Coding Level of Care Code Acute Associate Director Regulatory Affairs for [facility] Diagnoses Non-ST elevation (NSTEMI) myocardial infarction I21.4 History of successful cardiopulmonary resuscitation Z92.89 Multiple rib fractures S22.43XA Encounter type: initial encounter Fracture type: closed Laterality: bilateral Altered mental status R41.0 Altered mental status type: disorientation Infection of right eye H44.001 Diabetes mellitus type 2, insulin dependent E11.9; Z79.4 Hypertension I10 Hypertension type: essential hypertension Hyperlipidemia E78.5 Hyperlipidemia type: unspecified Glaucoma H40.9 Glaucoma type: unspecified Laterality: bilateral Acute kidney injury N17.9 Hyperkalemia E87.5 Acute blood loss anemia D62 Ileus K56.7 Hematoma of left flank S30.1XXA Hypokalemia E87.6
[2019-09-22 21:35] LABS: Glucose Point of Care 216 mg/dL (70-110)
[2019-09-22] MEDS: temazepam 15 mg Capsule PO (22:04)
[2019-09-22] MEDS: atorvastatin 40 mg Tablet PO (22:04)
[2019-09-22] MEDS: insulin glargine 100 units/1 mL 40 UNIT SUBCUT (22:05)
[2019-09-23] VITALS: RESP 16
[2019-09-23 03:29] VITALS: BP 127/65; PULSE 72; RESP 18; TEMP 36.9; O2SAT 97
[2019-09-23 04:00] VITALS: BP 127/65; PULSE 72; RESP 18; TEMP 36.9
[2019-09-23 06:21] LABS: Glucose Point of Care 86 mg/dL (70-110)
[2019-09-23 07:35] VITALS: BP 131/77; PULSE 76; RESP 18; TEMP 36.7; O2SAT 96
[2019-09-23] MEDS: hyDRALAzine 25 mg Tablet PO ×2 (08:49→12:15)
[2019-09-23] MEDS: metoprolol tartrate 50 mg Tablet 100 MG PO (08:49)
[2019-09-23] MEDS: sennosides-docusate Tablet 1 TAB PO (08:49)
[2019-09-23] MEDS: doxazosin 4 mg Tablet PO (08:50)
[2019-09-23] MEDS: isosorbide mononitrate ER 30 mg Tablet PO (08:50)
[2019-09-23] MEDS: clopidogrel 75 mg Tablet PO (08:50)
[2019-09-23] MEDS: pantoprazole DR 40 mg Tablet PO (08:50)
[2019-09-23] MEDS: acetaminophen 325 mg Tablet 650 MG PO (08:52)
[2019-09-23] MEDS: polyethylene glycol 3350 Pkt 17 gm PO (08:53)
[2019-09-23 10:02] LABS: Basophils # 0.1 10^3/uL (0.0-0.1); Eosinophils # 0.1 10^3/uL (0.0-0.8); Eosinophils % 1.7 %; Hemoglobin 9.4 g/dL (11.7-16.6); Lymphocytes # 1.1 10^3/uL (0.8-4.8); Lymphocytes % 19.4 %; Mean Corpuscular HGB Conc 31.3 g/dL (30.0-36.0); Mean Corpuscular Hemoglobin 30.9 pg (28.0-34.0); Mean Corpuscular Volume 98.7 fL (80-94); Mean Platelet Volume 9.4 fL (7.4-10.4); Monocytes # 0.6 10^3/uL (0.2-0.9); Monocytes % 9.6 %; Neutrophils # 3.9 10^3/uL (1.8-7.7); Nucleated Red Blood Cells % 0 %; Platelet Count 369 10^3/cmm (130-400); Red Blood Count 3.04 10^6/uL (4.1-5.3); White Blood Count 5.7 10^3/uL (4.0-10.0)
[2019-09-23 11:30] VITALS: RESP 24
[2019-09-23] MEDS: oxyCODONE 5 mg IR Tab/Cap 10 MG PO (11:30)
[2019-09-23 11:31] LABS: Glucose Point of Care 213 mg/dL (70-110)
[2019-09-23 12:02] LABS: Alanine Aminotransferase 15 U/L (0-41); Alkaline Phosphatase 108 IU/L (40-130); Anion Gap 12.9 (5-19); Aspartate Amino Transferase 18 U/L (0-40); Blood Urea Nitrogen 11 mg/dL (8-23); Calcium 8.4 mg/dL (8.5-10.5); Carbon Dioxide 27 mmol/L (22-29); Chloride 99 mmol/L (98-107); Globulin 3.2 g/dL (1.3-4.6); Glucose 242 mg/dL (65-115); Magnesium 1.9 mg/dL (1.7-2.3); Osmolality Calculated 284 mOsm/kg (285-295); Potassium 3.9 mmol/L (3.5-5.1); Sodium 135 mmol/L (136-145); Total Bilirubin 0.5 mg/dL (0.15-1.2); Total Protein 6.2 g/dL (6.6-8.7)
--- NOTE | 2019-09-23 13:14 | PM.DCS ---
Discharge Providers Date of Admission: 09/09/19 02:17 Date of Discharge: September 23, 2019 Attending Provider at Admission: Krysten Lopez MD Attending Provider at Discharge: Daniel Berg MD Primary Care Provider: Tomasz Eduardo Diagnoses at Discharge Discharge Diagnosis (1) Non-ST elevation (NSTEMI) myocardial infarction: Status: Acute (2) History of successful cardiopulmonary resuscitation: Status: Acute (3) Multiple rib fractures: Status: Acute Qualifiers: Encounter type: initial encounter Fracture type: closed Laterality: bilateral Qualified Code(s): S22.43XA - Multiple fractures of ribs, bilateral, initial encounter for closed fracture (4) Altered mental status: Status: Acute Qualifiers: Altered mental status type: disorientation Qualified Code(s): R41.0 - Disorientation, unspecified (5) Infection of right eye: Status: Acute Problem details: Cultures growing MRSA. (6) Diabetes mellitus type 2, insulin dependent: Status: Acute (7) Hypertension: Status: Acute Qualifiers: Hypertension type: essential hypertension Qualified Code(s): I10 - Essential (primary) hypertension (8) Hyperlipidemia: Status: Acute Qualifiers: Hyperlipidemia type: unspecified Qualified Code(s): E78.5 - Hyperlipidemia, unspecified (9) Glaucoma: Status: Acute Qualifiers: Glaucoma type: unspecified Laterality: bilateral Qualified Code(s): H40.9 - Unspecified glaucoma (10) Acute kidney injury: Status: Acute (11) Hyperkalemia: Status: Acute (12) Acute blood loss anemia: Status: Acute (13) Ileus: Status: Resolved (14) Hematoma of left flank: Status: Acute (15) Hypokalemia: Status: Acute Reason for Visit Reason for Visit: Reason For Visit: ALTERED MENTAL STATUS Hospital Course Hospital Course: Patient had prolonged and complex hospitalization course. He had recent outpatient eye surgery during which he coded and then recovered. He presented with altered mental status and found to have endophthalmitis with vitreous fluid growing MRSA. He received prolonged course of antibiotics and Dr. Bland requested patient to be dismissed without systemic antibiotic and to have outpatient follow-up for intraocular antibiotic treatment. He had episodes of soft tissue bleeding post initiation of anticoagulation for non-ST elevation CT. This gradually improved and patient's hemoglobin currently appears stable. Patient will need to have repeat hemoglobin to make sure it continues gradual recovery otherwise he will require further outpatient evaluation with EGD and colonoscopy and this was discussed with patient. 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 He had a high-grade lesion in the first diagonal branch. Mild to moderate diffuse disease in the other vessels. Based on the angiogram findings, it was decided to treat him medically. This morning patient denies any significant complaints including shortness of breath. He continues to have right lower rib cage area reproducible tenderness which overall gradually improving. This felt to be related to earlier resuscitation/chest compressions. 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 Physical Exam Const: COMMON NORMALS: no apparent distress and oriented x3 Resp: COMMON NORMALS: normal respiratory effort and clear to auscultation bilaterally AUSCULTATION: clear to auscultation bilaterally Cardio: COMMON NORMALS: regular rate, regular rhythm and S2 normal heart sound RATE: regular rate RHYTHM: regular rhythm HEART SOUNDS: S2 normal OTHER: No lower extremity edema GI: COMMON NORMALS: normal to inspection, nondistended, normoactive bowel sounds, soft to palpation and non-tender PALPATION: Yes soft Neuro: COMMON NORMALS: oriented x3 and no focal motor deficits Urinary Catheter Management^: Yap: Cath Placed During This Visit: yes, but has since been removed by the nurse Urethral Indwelling: Yes Reason for Continuing Indwelling Catheter: Decision to DC Catheter Urinary Catheter Date of Insertion: 09/10/19 Urinary Catheter Time of Insertion: 05:55 Date Urinary Catheter Removed: 09/20/19 Time Urinary Catheter Discontinued: 16:00 Discharge Data Data Completed and Pending: Completed Studies During Hospitalization Category Date Time Status CT abdomen pelvis w con* [id number] Urge nt Cat Scan 09/12/19 19:[address] chest wo con 7 1250 Urgent Cat Scan 09/09/19 00:[address] head wo con* 7 0450 Routine Cat Scan 09/16/19 16:[address] head wo con* 7 0450 Urgent Cat Scan 09/08/19 20:29 Completed LAST PULLER request for service Routin e Exams 09/17/19 16:[address] MIBI [Sestamibi Stress Test Reque st Exams 09/11/19 06:47 Completed ] Routine XR chest 1V kole ble [id number] Stat Exams 09/08/19 20:28 Completed XR chest 1V kole ble [id number] Stat Exams 09/09/19 00:18 Completed NM ruby perf SPECT r/s* [id number] Routin e Nuc Med 09/11/19 06:30 Completed CV echo complete* [id number] Routine Ultrasound 09/09/19 02:05 Completed Pending at discharge Category Date Time Status Complete Blood Co unt w/Auto AM LABS Lab 09/24/19 04:00 Ordered Comprehensive Met abolic Panel AM LA BS Lab 09/24/19 04:00 Ordered Magnesium AM LABS Lab 09/24/19 04:00 Ordered Labs from last 24 hours 09/23/19 09/23/19 09/23/19 11:35 11:26 09:47 WBC 5.7 RBC 3.04 L Hgb 9.4 L Hct 30.0 L MCV 98.7 H MCH 30.9 MCHC 31.3 RDW 14.0 Plt Count 369 MPV 9.4 Neut % (Auto) 68.0 Lymph % (Auto) 19.4 Forest % (Auto) 9.6 Eos % (Auto) 1.7 Baso % (Auto) 1.0 Neut # (Auto) 3.9 Lymph # (Auto) 1.1 Forest # (Auto) 0.6 Eos # (Auto) 0.1 Baso # (Auto) 0.1 Nucleated RBC % (a uto) 0 Nucleated RBCs # 0.0 Sodium 135 L Potassium 3.9 Chloride 99 Carbon Dioxide 27 Anion Gap 12.9 BUN 11 Creatinine 1.2 Glucose 242 H POC Glucose 213 Calculated Osmolal ity 284 L Calcium 8.4 L Magnesium 1.9 Total Bilirubin 0.5 AST 18 ALT 15 Alkaline Phosphata se 108 Total Protein 6.2 L Albumin 3.0 L Globulin 3.2 09/23/19 09/22/19 09/22/19 06:07 21:17 16:55 WBC RBC Hgb Hct MCV MCH MCHC RDW Plt Count MPV Neut % (Auto) Lymph % (Auto) Forest % (Auto) Eos % (Auto) Baso % (Auto) Neut # (Auto) Lymph # (Auto) Forest # (Auto) Eos # (Auto) Baso # (Auto) Nucleated RBC % (a uto) Nucleated RBCs # Sodium Potassium Chloride Carbon Dioxide Anion Gap BUN Creatinine Glucose POC Glucose 86 216 171 Calculated Osmolal ity Calcium Magnesium Total Bilirubin AST ALT Alkaline Phosphata se Total Protein Albumin Globulin Vitals: Last Vital Signs Temp 98.0 F 09/23/19 07:35 Pulse 76 09/23/19 07:35 Resp 24 H 09/23/19 11:30 BP 131/77 09/23/19 07:35 Pulse Ox 96 09/23/19 07:35 Discharge Plan Discharge Patient Disposition: Xfer [facility] Condition: Stable Prescriptions: New oxycodone 5 mg Tablet 10 mg PO Q12H PRN (Reason: Severe Pain) Qty: 10 RF: 0 atorvastatin 40 mg Tablet 40 mg PO BEDTIME Qty: 30 RF: 0 isosorbide mononitrate 30 mg Tablet Extended Release 24 Hr 30 mg PO DAILY Qty: 30 RF: 0 hydralazine 25 mg Tablet 25 mg PO QID PRN (Reason: BP>160/100) Qty: 30 RF: 0 clopidogrel 75 mg Tablet 75 mg PO DAILY Qty: 30 RF: 0 sennosides-docusate sodium 8.6-50 mg Tablet 1 tab PO BID Qty: 30 RF: 0 pantoprazole 40 mg Tablet,Delayed Release (Dr/Ec) 40 mg PO DAILY Qty: 30 RF: 0 nitroglycerin [Nitrostat] 0.4 mg Tablet, Sublingual 0.4 mg sublingual Q5M PRN (Reason: Chest Pain) Qty: 25 RF: 0 Continued loteprednol etabonate [Lotemax] 0.5 % drops,suspension 1 drp ophthalmic (eye) TID RF: 0 latanoprost 0.005 % Drops 1 drp OPHTHALMIC (EYE) DAILY RF: 0 metoprolol tartrate 100 mg Tablet 100 mg PO BID RF: 0 brimonidine 0.2 % Drops 1 drp OPHTHALMIC (EYE) BID RF: 0 timolol maleate 0.5 % Drops 1 drp OPHTHALMIC (EYE) BID RF: 0 losartan 100 mg Tablet 100 mg PO DAILY RF: 0 dorzolamide 2 % Drops 1 drp OPHTHALMIC (EYE) TID RF: 0 Lantus U-100 Insulin 100 unit/mL Solution 45 unit SUBCUT DAILY RF: 0 cetirizine 10 mg Tablet 10 mg PO DAILY RF: 0 doxazosin 8 mg Tablet 4 mg PO DAILY RF: 0 Novolog Flexpen U-100 Insulin See Rx Instructions .ROUTE .COMPLEX RF: 0 cyclobenzaprine 10 mg Tablet 10 mg PO TID PRN (Reason: Muscle Pain) RF: 0 albuterol sulfate 2.5 mg /3 mL (0.083 %) Solution For Nebulization 2.5 mg INHALATION Q4H PRN (Reason: Shortness Of Breath) RF: 0 prednisolone acetate 1 % Drops,Suspension 1 drp OPHTHALMIC (EYE) BID RF: 0 Discontinued isosorbide mononitrate 60 mg Tablet Extended Release 24 Hr 90 mg PO BID RF: 0 aspirin 81 mg Tablet,Delayed Release (Dr/Ec) 81 mg PO DAILY RF: 0 simvastatin 40 mg Tablet 20 mg PO DAILY RF: 0 Discharge Orders: Discharge Order (Routine); Ordered 09/23/19 Ordered By: Daniel Berg Referrals: [facility] [Outside] Tomasz Eduardo [Primary Care Provider] - 1-3 days Geraldine Bronson MD [Physician] - 7-10 days Baudilio Bland MD [Physician] - 1-3 days (Patient will need to have outpatient follow-up as soon as possible for intraocular antibiotic treatment. Cultures grew MRSA) Discharge Diet: Diabetic Discharge Activity: Increase activity as tolerated Patient Instructions: Left Heart Catheterization (DC) Activity Restrictions/Additional Instructions: Please note that patient cannot see and will require help from caregiver for below mentioned recommendations. Please call your doctor or present to emergency department if your condition worsens or you develop diarrhea, lightheadedness, fatigue, shortness of breath or see blood in your stool or black stool. Please discuss with your doctor to have repeat blood work to evaluate anemia and if hemoglobin is not improving you will need to have further evaluation including EGD and colonoscopy. Please follow-up with Dr. Bland early as possible for intraocular antibiotic treatment. Discharge Attestations Time Spent in Discharge Care*: greater than 30 min Quality Metrics Clinical Quality Measures During this hospital stay, did patient experience: AMI Clinical Trial Participant: No Contraindication to aspirin (AMI): Medical contraindication Contraindication to statin: Statin prescribed Contraindication to PCI: Procedure not indicated Contraindication to Fibrinolytics: Drug treatment not indicated Coding Level of Care Code Acute Air Transportation Provider for [facility] Fwd Diagnoses Non-ST elevation (NSTEMI) myocardial infarction I21.4 History of successful cardiopulmonary resuscitation Z92.89 Multiple rib fractures S22.43XA Encounter type: initial encounter Fracture type: closed Laterality: bilateral Altered mental status R41.0 Altered mental status type: disorientation Infection of right eye H44.001 Diabetes mellitus type 2, insulin dependent E11.9; Z79.4 Hypertension I10 Hypertension type: essential hypertension Hyperlipidemia E78.5 Hyperlipidemia type: unspecified Glaucoma H40.9 Glaucoma type: unspecified Laterality: bilateral Acute kidney injury N17.9 Hyperkalemia E87.5 Acute blood loss anemia D62 Ileus K56.7 Hematoma of left flank S30.1XXA Hypokalemia E87.6
[2019-09-23 15:45] VITALS: BP 131/77; PULSE 76; RESP 24; TEMP 36.7; O2SAT 96
== END 2019-09-23 15:45 | disposition skilled nursing facility (03) | DRG 281 ==
LOC: ER 09-09 01:01 → ICU 09-09 11:12 → CSU 09-14 14:52
PROVIDERS: Internal Medicine; Internal Medicine Cardiovascular Disease; Student in an Organized Health Care Education/Training Program; Admitting Provider Hospitalist; Emergency Provider Emergency Medicine; Family Provider Internal Medicine; PCP Internal Medicine; Visit Provider Internal Medicine
PROC: B2101ZZ Fluoroscopy of Single Coronary Artery using Low Osmolar Contrast (ICD-10-PCS; principal; 2019-09-17 16:30)
DX: I21.4 Non-ST elevation (NSTEMI) myocardial infarction (principal); S22.43XA Multiple fractures of ribs, bilateral, initial encounter for closed fracture; H44.001 Unspecified purulent endophthalmitis, right eye; N17.9 Acute kidney failure, unspecified; D62 Acute posthemorrhagic anemia; K56.7 Ileus, unspecified; E87.1 Hypo-osmolality and hyponatremia; I97.711 Intraoperative cardiac arrest during other surgery; I10 Essential (primary) hypertension; E78.5 Hyperlipidemia, unspecified; H40.9 Unspecified glaucoma; E87.5 Hyperkalemia; S30.1XXA Contusion of abdominal wall, initial encounter; E87.6 Hypokalemia; I34.0 Nonrheumatic mitral (valve) insufficiency; I25.10 Atherosclerotic heart disease of native coronary artery without angina pectoris; R94.31 Abnormal electrocardiogram [ECG] [EKG]; B95.62 Methicillin resistant Staphylococcus aureus infection as the cause of diseases classified elsewhere; E11.649 Type 2 diabetes mellitus with hypoglycemia without coma; E11.39 Type 2 diabetes mellitus with other diabetic ophthalmic complication; Z79.4 Long term (current) use of insulin; Z87.891 Personal history of nicotine dependence; Z79.82 Long term (current) use of aspirin; Z79.811 Long term (current) use of aromatase inhibitors; X58.XXXA Exposure to other specified factors, initial encounter
CPT/HCPCS: 12345; 36415; 36416; 36430; 36600; 51702; 51798; 70450; 71045; 71250; 74177; 78452; 80048; 80051; 80053; 80061; 80076; 80202; 80307; 81001; 82140; 82607; 82746; 82803; 82810; 82962; 83010; 83036; 83605; 83615; 83735; 83880; 83986; 84443; 84484; 85014; 85018; 85025; 85610; 86850; 86900; 86920; 87040; 87070; 87075; 87077; 87186; 87205; 87804; 93005; 93017; 93306; 93452; 96372; 96375; 97110; 97116; 97163; 97167; 97530; 97535; 99284; A9500; C1769; C1887; C1894; C9113; J0692; J1644; J1650; J1815; J1940; J1956; J2001; J2250; J2270; J2405; J2543; J2785; J3010; J3370; J3480; J3490; J7030; J7050; P9016; Q0163; Q9967

== ENCOUNTER → 2019-10-02 10:06 | Outpatient (BNVA) | payer OTHER, MEDICARE, SELFPAY | PROVIDERS: Family Provider Internal Medicine; PCP Internal Medicine; Visit Provider Nurse Practitioner Family | DX: I25.10 Atherosclerotic heart disease of native coronary artery without angina pectoris (principal) | CPT/HCPCS: 80048 ==

== ENCOUNTER 2019-10-09 00:25 | Emergency (ER) | payer OTHER, MEDICARE, SELFPAY ==
[2019-10-09 00:26] VITALS: BMI 27.2
--- NOTE | 2019-10-09 00:26 | ED_ITS ---
Entered by Elisha Kunz, acting as scribe for HPI - Eye Problem General: Chief complaint: Eye Problems Stated complaint: EYE PAIN Time Seen by Provider: 10/09/19 00:26 Source: EMS Mode of arrival: EMS ([facility] ) Limitations: no limitations History of Present Illness: HPI Narrative: 69 yo m came to the er From [facility] [place] by [facility]. Ems was told that they coded pt several weeks ago, at the same time he had an eye infection, tonight pt is having sharp stabbing pain in both of his eyes. Patient states pain is much worse in his right eye. He states he is blind in the right eye over the last month. Denies any worsening or improving factors. States his pain is an 8 out of 10. chief complaint: eye pain Onset (ago): day(s) Onset description: gradual Duration: constant Location: both eyes Eye Symptoms: burning, redness and pain Place: other ([facility] [place]) Mechanism: none Severity: mild If Pain, Quality: sharp Associated symptoms: Reports no associated symptoms; Denies fever(s), headache(s), nausea, neck pain or vomiting Treatments Prior to Arrival: none Review of Systems General: Reports: other (negative unless marked) Const: Denies: fever, chills, body aches or change in appetite Eyes: Reports: eye discomfort, eye discharge and eye redness ENMT: Denies: throat pain or dental pain Card: Denies: chest pain Resp: Denies: shortness of breath GI: Denies: abdominal pain, nausea, vomiting or diarrhea : Denies: painful urination Musc: Denies: neck pain or back pain Skin/Breast: Denies: rash Neuro: Denies: headache Psych: Denies: depression Cecil/Lymph: Denies: easy bruising All/Imm: Denies: hives PFSH ED PFSH: Medical History Abnormal myocardial perfusion study 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, insulin dependent Glaucoma Hyperlipidemia Hypertension Lumbar disc disease TIA (transient ischemic attack) Surgical History History of circumcision History of eye surgery Bilateral due to glaucoma Family History Denies family history of CAD (coronary artery disease) Social History Smoking and tobacco status: former smoker Alcohol intake: never Household members: spouse and family Marital status: Physical Exam Const: COMMON NORMALS: no apparent distress, oriented x3 and healthy appearing HENMT: COMMON NORMALS: normocephalic and head/scalp atraumatic HEAD & SCALP: normocephalic and atraumatic Eye: COMMON NORMALS: EOMs intact bilaterally OTHER: Slight erythema to right eye. No abrasions or ulcers noted under fluoroscopy seen. Intraocular pressure is 25. Neck/C-Spine: COMMON NORMALS: full ROM and supple Chest: COMMONS NORMALS: inspection of chest normal and palpation of chest normal Resp: COMMON NORMALS: normal respiratory effort, no retractions, no use of accessory muscles and clear to auscultation bilaterally AUSCULTATION: clear to auscultation bilaterally Cardio: COMMON NORMALS: regular rate, regular rhythm and no murmurs RATE: regular rate RHYTHM: regular rhythm GI: COMMON NORMALS: normal to inspection, nondistended, normoactive bowel sounds, soft to palpation, non-tender and no masses PALPATION: Yes soft Extremity: COMMON NORMALS: normal to inspection and full ROM Neuro: COMMON NORMALS: oriented x3, moves all extremities and no focal motor deficits Psych: COMMON NORMALS: mental status grossly normal, thought process normal and cooperative THOUGHT PROCESS: normal thought process Skin: COMMON NORMALS: no rashes or lesions noted and no wounds GENERAL SKIN EXAM: no rashes or lesions noted Course Vital Signs: Vital signs: Vital Signs Pulse Rate 65 10/09/19 01:50 Respiratory Rate 18 10/09/19 01:50 Blood Pressure 149/85 10/09/19 01:50 Pulse Oximetry 98 10/09/19 01:50 MDM - Eye Problem MDM Narrative: Medical decision making narrative: Patient presents here with eye pain that is chronic in nature. I spoke to Dr. Bland patient has a history of acute angle glaucoma and has lost vision in his right eye for roughly a month due to this. He recommended placing him on steroid eyedrops and have him follow-up in 1 to 2 weeks. Patient is stable for discharge at this time. Imaging Data^: ct orbit: Attestation: I personally reviewed and interpreted this imaging study as follows: Radiologist's impression: [address] [place] [address] CT Scan Report Signed Patient: Adan Zamudio Unit #: [id number] : 1950 Age/Sex: 69 / M ADM Date: 10/09/19 Loc: ER Room/Bed: Attending Dr: Ordering Provider/Ordering MD: Franko Vega MD Date of Service: 10/09/19 Procedure(s): CT orbit BI wo con* [id number] Accession Number(s): [id number] Report Number: [id number] PROCEDURE INFORMATION: Exam: CT Orbits Without Contrast Exam date and time: 10/09/2019 2:20 AM Age: 69 years old Clinical indication: Right; Patient HX: RT eye pain TECHNIQUE: Imaging protocol: Computed tomography images of the orbits without contrast. Total DLP: 545.47 mGy-cm Radiation optimization: All CT scans at this facility use at least one of these dose optimization techniques: automated exposure control; mA and/or kV adjustment per patient size (includes targeted exams where dose is matched to clinical indication); or iterative reconstruction. COMPARISON: CT head wo con* [id number] 09/16/2019 6:22 PM FINDINGS: Orbits: Globes are intact. Orbital contents are normal. Sinuses: The paranasal sinuses are clear. Bones/joints: There is no acute fracture. Mastoid air cells: The mastoid air cells are clear. Soft tissues: No significant facial soft tissue swelling. Brain: No acute findings in the visible portion of the brain. CT/CT orbit BI wo con* [id number] IMPRESSION: No acute findings. Discharge Plan Discharge Patient Disposition: Home, Self-Care Clinical Impression: Acute pain in right eye Condition: Stable Prescriptions: New prednisolone acetate 1 % drops,suspension 1 drop ophthalmic (eye) TID 14 Days Qty: 15 RF: 0 Morris 5-325 mg tablet 1 tab PO Q6H PRN (Reason: pain) Qty: 14 RF: 0 No Action loteprednol etabonate [Lotemax] 0.5 % drops,suspension 1 drp ophthalmic (eye) TID RF: 0 latanoprost 0.005 % Drops 1 drp OPHTHALMIC (EYE) DAILY RF: 0 metoprolol tartrate 100 mg Tablet 100 mg PO BID RF: 0 brimonidine 0.2 % Drops 1 drp OPHTHALMIC (EYE) BID RF: 0 timolol maleate 0.5 % Drops 1 drp OPHTHALMIC (EYE) BID RF: 0 losartan 100 mg Tablet 100 mg PO DAILY RF: 0 dorzolamide 2 % Drops 1 drp OPHTHALMIC (EYE) TID RF: 0 Lantus U-100 Insulin 100 unit/mL Solution 45 unit SUBCUT DAILY RF: 0 cetirizine 10 mg Tablet 10 mg PO DAILY RF: 0 doxazosin 8 mg Tablet 4 mg PO DAILY RF: 0 Novolog Flexpen U-100 Insulin See Rx Instructions .ROUTE .COMPLEX RF: 0 cyclobenzaprine 10 mg Tablet 10 mg PO TID PRN (Reason: Muscle Pain) RF: 0 albuterol sulfate 2.5 mg /3 mL (0.083 %) Solution For Nebulization 2.5 mg INHALATION Q4H PRN (Reason: Shortness Of Breath) RF: 0 prednisolone acetate 1 % Drops,Suspension 1 drp OPHTHALMIC (EYE) BID RF: 0 atorvastatin 40 mg Tablet 40 mg PO BEDTIME Qty: 30 RF: 0 sennosides-docusate sodium 8.6-50 mg Tablet 1 tab PO BID Qty: 30 RF: 0 clopidogrel 75 mg Tablet 75 mg PO DAILY Qty: 30 RF: 0 pantoprazole 40 mg Tablet,Delayed Release (Dr/Ec) 40 mg PO DAILY Qty: 30 RF: 0 Nitrostat 0.4 mg Tablet, Sublingual 0.4 mg sublingual Q5M PRN (Reason: Chest Pain) Qty: 25 RF: 0 oxycodone 5 mg Tablet 10 mg PO Q12H PRN (Reason: Severe Pain) Qty: 10 RF: 0 isosorbide mononitrate 30 mg Tablet Extended Release 24 Hr 30 mg PO DAILY Qty: 30 RF: 0 hydralazine 25 mg Tablet 25 mg PO QID PRN (Reason: BP>160/100) Qty: 30 RF: 0 Discharge Orders: Discharge Order (Routine); Ordered 10/09/19 Ordered By: Franko Vega Referrals: Tomasz Eduardo [Primary Care Provider] - Baudilio Bland MD [Physician] - 4-7 days Discharge Diet: Advance as tolerated Discharge Activity: Resume usual activity Coding Level of Care Code ED Electric Scoop Operator for Chg Fwd Exam Comprehensive The documentation recorded by the Ze bryant Stephanie Lyn, accurately reflects the service I personally performed and the decisions made by me, Franko Vega MD Oct 09, 2019 00:25
[2019-10-09] MEDS: fluorescein 1 mg Strip EYE-RIGHT (00:44)
[2019-10-09] MEDS: tetracaine 0.5% Op Soln 4 mL Btl 1 DROP EYE-RIGHT (00:47)
[2019-10-09] MEDS: LORazepam 1 mg Tablet 0.5 MG PO (01:46)
[2019-10-09] MEDS: HYDROcodone-acetaminophen 7.5-325 mg Tablet 1 TAB PO (01:46)
[2019-10-09 01:50] VITALS: BP 149/85; PULSE 65; RESP 18; O2SAT 98
--- NOTE | 2019-10-09 01:56 | PC.NURSE ---
Upon discharge, patient had no complaints of pain and was asleep. Once verbalizing discharge instructions with patient, he seemed upset and asked why we was not getting the infection out of the back of his eye. I reminded him that he is to follow up with Dr. Bland incident response specialist. When I returned to the nurses station, patient screamed as loudly as possible. I returned to patients room to ask him what was wrong and asked if he could not yell as we had other sick patients in ED. Patient the put up with middle finger and said, FUCK YOU, I HURT! I left the room and had my charge nurse take over care for patient.
--- NOTE | 2019-10-09 02:05 | PC.NURSE ---
Attempted to call patients 's friend with number he provided to have his pick patient up from ED to take back to [facility]. Someone answered the phone then hung up immediately. When I called report to [facility], nurse had stated she attempted to get ahold of several times without success.
--- NOTE | 2019-10-09 02:19 | CTR_ITS ---
PROCEDURE INFORMATION: Exam: CT Orbits Without Contrast Exam date and time: 10/09/2019 2:20 AM Age: 69 years old Clinical indication: Right; Patient HX: RT eye pain TECHNIQUE: Imaging protocol: Computed tomography images of the orbits without contrast. Total DLP: 545.47 mGy-cm Radiation optimization: All CT scans at this facility use at least one of these dose optimization techniques: automated exposure control; mA and/or kV adjustment per patient size (includes targeted exams where dose is matched to clinical indication); or iterative reconstruction. COMPARISON: CT head wo con* [id number] 09/16/2019 6:22 PM FINDINGS: Orbits: Globes are intact. Orbital contents are normal. Sinuses: The paranasal sinuses are clear. Bones/joints: There is no acute fracture. Mastoid air cells: The mastoid air cells are clear. Soft tissues: No significant facial soft tissue swelling. Brain: No acute findings in the visible portion of the brain. CT/CT orbit BI wo con* [id number] IMPRESSION: No acute findings. Radiation Dose CTDIVOL = (mGy): DLP = 545.47 (mGy-cm)
== END 2019-10-09 07:22 | disposition home or self-care (01) ==
PROVIDERS: Emergency Provider Emergency Medicine; Family Provider Internal Medicine; PCP Internal Medicine
DX: H57.11 Ocular pain, right eye (principal); H54.40 Blindness, one eye, unspecified eye; E11.9 Type 2 diabetes mellitus without complications; I10 Essential (primary) hypertension; E78.5 Hyperlipidemia, unspecified; Z79.4 Long term (current) use of insulin; Z87.891 Personal history of nicotine dependence; Z86.73 Personal history of transient ischemic attack (TIA), and cerebral infarction without residual deficits
CPT/HCPCS: 12345; 70480; 99281; 99283

== ENCOUNTER 2021-01-11 13:24 | Outpatient (CLI) | payer OTHER, SELFPAY ==
--- NOTE | 2021-01-11 13:31 | US_ITS ---
WS: [id number] ULTRASOUND RENAL TECHNIQUE: Ultrasound examination of both kidneys. CLINICAL INFORMATION: STAGE 3 CHRONIC KIDNEY DZ COMPARISON: CT September 12, 2019 FINDINGS: RIGHT: Simple appearing mid right kidney cyst 3.2 x 2.9 x 2.8 cm Right kidney is normal in size and appearance. Echogenicity: Normal. Cortical thickness: 2.3 cm; Normal. Hydronephrosis: None. Perinephric fluid: None. Right kidney measures: 11.5 cm x 5.8 cm x 5.8 cm. LEFT: Small renal cyst seen on the prior CT along the medial surface upper pole left kidney measuring 1.3 cm not seen today. This is likely due to small size. Left kidney is normal in size and appearance. Echogenicity: Normal. Cortical thickness: 1.5 cm; Normal. Hydronephrosis: None. Perinephric fluid: None. Left kidney measures: 12.9 cm x 5.3 cm x 5.1 cm. Normal visualized aorta. Normal bladder. US/US renal BI* [id number] IMPRESSION: 1. No hydronephrosis in either kidney. 2. Simple appearing inferior pole right kidney cyst measuring 3.2 x 2.9 x 2.8 cm. 3. Small left cyst seen on the prior CT is not seen today likely due to small size. 4. Normal bladder.
== END 2021-01-11 13:25 | disposition home or self-care (01) ==
LOC: RAD 13:25
PROVIDERS: PCP Internal Medicine; Visit Provider Internal Medicine Nephrology
DX: N18.32 Chronic kidney disease, stage 3b (principal); Q61.01 Congenital single renal cyst
CPT/HCPCS: 76770

== ENCOUNTER 2021-05-12 11:44 | Emergency (ER) | payer OTHER, MEDICARE, SELFPAY ==
--- NOTE | 2021-05-12 11:47 | XR_ITS ---
WS: [id number] Exam: XR chest 1V portable [id number] Date/Time of Exam: 05/12/2021 11:52 AM Reason For Exam: dyspnea Comparison 09/09/2019. The lungs are clear and fully expanded. Normal cardiomediastinal structures. No pleural effusions. Se veral old left rib fractures. XR/XR chest 1V portable [id number] IMPRESSION: 1. No acute cardiopulmonary finding.
--- NOTE | 2021-05-12 11:48 | ECG_ITS ---
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 Measurements Intervals [place] Rate: 62 P: 41 OH: 201 QRS: 29 QRSD: 96 T: 36 QT: 410 QTc: 419 Interpretive Statements SINUS RHYTHM WITH SINUS ARRHYTHMIA LOW QRS VOLTAGE IN EXTREMITY LEADS [QRS DEFLECTION < 0.5 mV IN LIMB LEADS] Compared to ECG 09/17/2019 07:34:06 Low QRS voltage now present T-wave abnormality no longer present Possible ischemia no longer present Electronically Signed On 05-12-2021 23:56:10 CDT by Geraldine Bronson M.D. [id number]
[2021-05-12 11:49] VITALS: BP 188/71; PULSE 65; RESP 18; TEMP 36.6; O2SAT 94; BMI 28.7
--- NOTE | 2021-05-12 12:03 | ED_ITS ---
HPI - General Adult General: Chief complaint: General Medical Stated complaint: COUGH, SOB Time Seen by Provider: 05/12/21 11:46 History of Present Illness: HPI narrative: Patient is a 70-year-old male with a history of HLD, diabetes, TIA, left eye blindness, CAD who presents emergency room with cough an, sore throat and dyspnea since Sunday after he had his hearing test done at an outpatient clinic. Since then, patient has symptoms has progressively gotten worse. Patient also reports generalized fatigue malaise. Denies any fever chills, abdominal complaints complaints at this time. Patient has no associated chest pain Onset: 2 days ago Duration:2 days Location:home Severity:moderate Review of Systems Narrative: Constitutional: No fever, no chills. HEENT: No vision changes, +sore throat CV: No chest pain, no palpitations PULM: +cough, +dyspnea. GI: No abdominal pain, no N/V/D. : No dysuria MSKEL: No muscle pain SKIN: No new rashes, no lesions. NEURO: No headache, no focal weakness. 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, insulin dependent Glaucoma Hyperlipidemia Hypertension Lumbar disc disease TIA (transient ischemic attack) Surgical History History of circumcision History of eye surgery Bilateral due to glaucoma Family History Brother Chronic kidney disease (CKD) Diabetes Sister Chronic kidney disease (CKD) Diabetes Family/Other Lung disease Denies family history of CAD (coronary artery disease) Clotting disorder Dementia Suicide Anesthesia complication Bleeding disorder Cancer Stroke Social History Smoking and tobacco status: former smoker Alcohol intake: never Household members: spouse and family Marital status: Physical Exam Narrative: EXAM NARRATIVE: Head: Atraumatic Eyes: PERRL, conjunctiva without injection ENT: Mucous membrane moist NECK: Supple, ROM intact LUNGS: LCTAB, no crackles/rhonchi CV: RRR ABDOMEN: Soft, nontender in all quadrants EXTREMITY: Normal ROM SKIN: No rash or erythema NEURO: Awake and alert, no focal motor deficits PSYCH: Normal mood and affect Course Vital Signs: Vital signs: Vital Signs Temperature 97.9 F 05/12/21 11:49 Pulse Rate 66 05/12/21 17:35 Respiratory Rate 16 05/12/21 17:35 Blood Pressure 170/74 05/12/21 17:35 Pulse Oximetry 96 05/12/21 17:35 MDM - General Adult MDM Narrative: Medical decision making narrative: 70-year-old male w/ CAD, presenting to the emergency room with cough and shortness of breath which started after getting his hearing test on Sunday. On exam, patient is HDS, without any focal findings on lung exam. EKG is nonischemic today. Troponin x2 is similar with a delta of 1. At the present time, patient is not complaining any chest pain. Patient is Covid and SARS antigen are negative. Patient's proBNP is noted to be 1800 down from 7000. Chest x-ray did not show any signs of pulmonary infiltrates to suggest CHF exacerbation at this time. I suspect that patient symptoms are viral in nature. Doubt ACS/PE or other emergent causes of chest pain. No suspicion for aortic dissection given no widened mediastinum, 2+ upper extremity pulses, or tearing pain. No suspicion for PE given no pleuritic chest pain, recent immobilization or surgery hemoptysis, or other VTE risk factors. EKG is non-ischemic. XR normal. EKG showing regular sinus rhythm at HT of 62. Normal axis. No ST elevations/depressions to suggest coronary occlusion. DE prolongation normal QRS/QT intervals, occasional PVCs I have instructed patient to follow-up closely with a primary care provider. Patient is aware that he has a pending Covid PCR tomorrow. Should his PCR be positive, I have informed patient to come back to the emergency room for monoclonal antibody. She is given strict return precaution for any signs of worsening shortness of breath, dyspnea, fever/chills, or any new concerning complaints. Patient agrees with plan at this time today. Case was also discussed with [facility] and patient is aware of his appointment at 3pm tomorrow for reassessment. Disposition: Discharge. Patient counseled regarding diagnostic impression, treatment plan. Patient given ED strict return precautions to return for continuation, worsening, or development of new symptoms. Instructed to f/u w/ PCP regarding symptoms today. Patient verbalized understanding. Lab Data: Labs: Lab Results 05/12/21 05/12/21 05/12/21 13:00 13:00 13:00 WBC 7.6 10^3/uL 10^3/ uL (4.0-10.0) RBC 4.40 10^6/uL 10^6 /uL (4.1-5.3) Hgb 14.1 g/dL g/dL (11.7-16.6) Hct 39.8 % L % (42.0-52.0) MCV 90.5 fl fl (80-94) MCH 32.0 pg pg (28.0-34.0) MCHC 35.4 g/dL g/dL (30.0-36.0) RDW 12.2 % % (12.1-15.1) Plt Count 179 10^3/cmm 10^3 /cmm (130-400) MPV 10.0 fL fL (7.4-10.4) Neut % (Auto) 68.3 % % Lymph % (Auto) 17.3 % % [place] % (Auto) 10.2 % % Eos % (Auto) 3.3 % % Baso % (Auto) 0.5 % % Neut # (Auto) 5.18 10^3/uL 10^3 /uL (1.8-7.7) Lymph # (Auto) 1.3 10^3/uL 10^3/ uL (0.8-4.8) [place] # (Auto) 0.8 10^3/uL 10^3/ uL (0.2-0.9) Eos # (Auto) 0.3 10^3/uL 10^3/ uL (0.0-0.8) Baso # (Auto) 0.0 10^3/uL 10^3/ uL (0.0-0.1) Nucleated RBC % (a uto) 0 % % Nucleated RBCs # 0.0 /100WBC /100W BC Sodium 132 mmol/L L mmol /L (136-145) Potassium 4.4 mmol/L mmol/L (3.5-5.1) Chloride 99 mmol/L mmol/L (98-107) Carbon Dioxide 26 mmol/L mmol/L (22-29) Anion Gap 11.4 (5-19) BUN 18 mg/dL mg/dL (8-23) Creatinine 1.1 mg/dL mg/dL (0.7-1.2) GFR Calculation Not Reportable Glucose 237 mg/dL H mg/dL (65-115) Calculated Osmolal ity 284 mOsm/kg L mOs m/kg (285-295) Calcium 8.3 mg/dL L mg/dL (8.5-10.5) Troponin T Baselin e 21 ng/L H ng/L (0-15) Troponin T 120 Min [place] Delta Troponin T NT-Pro-B Natriuret Pep 1264 pg/mL H pg/m L (0-125) Influenza Type A A g Influenza Type B A g SARS-CoV-2 Ag (Rap id) 05/12/21 05/12/21 05/12/21 13:05 13:05 15:18 WBC RBC Hgb Hct MCV MCH MCHC RDW Plt Count MPV Neut % (Auto) Lymph % (Auto) [place] % (Auto) Eos % (Auto) Baso % (Auto) Neut # (Auto) Lymph # (Auto) [place] # (Auto) Eos # (Auto) Baso # (Auto) Nucleated RBC % (a uto) Nucleated RBCs # Sodium Potassium Chloride Carbon Dioxide Anion Gap BUN Creatinine GFR Calculation Glucose Calculated Osmolal ity Calcium Troponin T Baselin e Troponin T 120 Min [place] 18.86 ng/L H ng/L (0-15) Delta Troponin T -2.14 ABS# L ABS# (0-10) NT-Pro-B Natriuret Pep Influenza Type A A g Negative (Negative) Influenza Type B A g Negative (Negative) SARS-CoV-2 Ag (Rap id) Negative (Negative) Imaging Data^: Other Imaging: Radiologist's impression: [address] [id number] ReportSigned Patient: Adan Zamudio #: [id number]: 9Acct#:[id number]/Sex: 70 / MADM Date: 05/12/21Loc: ERRoom/Bed:Attending Dr: Ordering Provider/Ordering MD: Bernard Yung MD Date of Service: 05/12/21 Procedure(s): XR chest 1V portable [id number] Accession Number(s): [id number] Report Number: [id number] WS: [id number] Exam: XR chest 1V portable [id number] Date/Time of Exam: 05/12/2021 11:52 AM Reason For Exam: dyspnea Comparison 09/09/2019. The lungs are clear and fully expanded. Normal cardiomediastinal structures. No pleural effusions. Several old left rib fractures. XR/XR chest 1V portable [id number] IMPRESSION: 1. No acute cardiopulmonary finding. Dictated By:Audie Wolf, SOHAILigned By:Garciaigned Date/Time:05/12/21 1159DD/ 1158 Discharge Plan Discharge Patient Disposition: Home Clinical Impression: Cough, Dyspnea Condition: Stable Prescriptions: No Action pantoprazole 40 mg tablet,delayed release (DR/EC) 40 mg PO DAILY Qty: 90 RF: 3 loteprednol etabonate [Lotemax] 0.5 % drops,suspension 1 drp ophthalmic (eye) TID RF: 0 latanoprost 0.005 % Drops 1 drp OPHTHALMIC (EYE) DAILY RF: 0 metoprolol tartrate 100 mg Tablet 100 mg PO BID RF: 0 brimonidine 0.2 % Drops 1 drp OPHTHALMIC (EYE) BID RF: 0 timolol maleate 0.5 % Drops 1 drp OPHTHALMIC (EYE) BID RF: 0 losartan 100 mg Tablet 100 mg PO DAILY RF: 0 dorzolamide 2 % Drops 1 drp OPHTHALMIC (EYE) TID RF: 0 cetirizine 10 mg Tablet 10 mg PO DAILY RF: 0 doxazosin 8 mg Tablet 4 mg PO DAILY RF: 0 Novolog Flexpen U-100 Insulin See Rx Instructions .ROUTE .COMPLEX RF: 0 cyclobenzaprine 10 mg Tablet 10 mg PO TID PRN (Reason: Muscle Pain) RF: 0 albuterol sulfate 2.5 mg /3 mL (0.083 %) Solution For Nebulization 2.5 mg INHALATION Q4H PRN (Reason: Shortness Of Breath) RF: 0 prednisolone acetate 1 % Drops,Suspension 1 drp OPHTHALMIC (EYE) BID RF: 0 atorvastatin 40 mg Tablet 40 mg PO BEDTIME Qty: 30 RF: 0 sennosides-docusate sodium 8.6-50 mg Tablet 1 tab PO BID Qty: 30 RF: 0 clopidogrel 75 mg Tablet 75 mg PO DAILY Qty: 30 RF: 0 Nitrostat 0.4 mg Tablet, Sublingual 0.4 mg sublingual Q5M PRN (Reason: Chest Pain) Qty: 25 RF: 0 isosorbide mononitrate 30 mg Tablet Extended Release 24 Hr 30 mg PO DAILY Qty: 30 RF: 0 hydralazine 25 mg Tablet 25 mg PO QID PRN (Reason: BP>160/100) Qty: 30 RF: 0 Lantus U-100 Insulin 100 unit/mL solution 53 unit SUBCUT DAILY RF: 0 [place] 5-325 mg tablet 1 tab PO Q6H PRN (Reason: pain) Qty: 14 RF: 0 Discharge Orders: Discharge ED (Routine); Ordered 05/12/21 Ordered By: Bernard Yung Referrals: Tomasz Eduardo [Primary Care Provider] - Discharge Diet: Advance as tolerated Discharge Activity: Resume usual activity Patient Instructions: Acute Cough (ED) Activity Restrictions/Additional Instructions: Please come back to the emergency room if your cough worsens, if any fever or chills, if you have any difficulty breathing, if you have any new or concerning complaints. Please follow-up with your primary care provider next 24 to 48 hours to reassess your cough symptoms. Please follow-up with your Covid PCR test will come back tomorrow. Coding Level of Care Code ED Power Supply Engineer for Carla Louis
[2021-05-12 13:19] LABS: Basophils % 0.5 %; Eosinophils # 0.3 10^3/uL (0.0-0.8); Eosinophils % 3.3 %; Hematocrit 39.8 % (42.0-52.0); Hemoglobin 14.1 g/dL (11.7-16.6); Lymphocytes # 1.3 10^3/uL (0.8-4.8); Lymphocytes % 17.3 %; Mean Corpuscular HGB Conc 35.4 g/dL (30.0-36.0); Mean Corpuscular Volume 90.5 fl (80-94); Monocytes # 0.8 10^3/uL (0.2-0.9); Monocytes % 10.2 %; Neutrophils # 5.18 10^3/uL (1.8-7.7); Neutrophils % 68.3 %; Nucleated Red Blood Cells % 0 %; Platelet Count 179 10^3/cmm (130-400); Red Cell Distribution Width 12.2 % (12.1-15.1); White Blood Count 7.6 10^3/uL (4.0-10.0)
[2021-05-12 13:37] LABS: Troponin(5th) Baseline 21 ng/L (0-15)
[2021-05-12 13:46] LABS: Anion Gap 11.4 (5-19); Blood Urea Nitrogen 18 mg/dL (8-23); Calcium 8.3 mg/dL (8.5-10.5); Carbon Dioxide 26 mmol/L (22-29); Chloride 99 mmol/L (98-107); Glucose 237 mg/dL (65-115); NT Pro B Type Natriuretic Pept 1264 pg/mL (0-125); Osmolality Calculated 284 mOsm/kg (285-295); Potassium 4.4 mmol/L (3.5-5.1); Sodium 132 mmol/L (136-145)
--- NOTE | 2021-05-12 13:48 | ECG_ITS ---
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 Measurements Intervals [place] Rate: 62 P: 52 MO: 182 QRS: 33 QRSD: 104 T: 18 QT: 433 QTc: 442 Interpretive Statements SINUS RHYTHM WITH SINUS ARRHYTHMIA LOW QRS VOLTAGE IN EXTREMITY LEADS [QRS DEFLECTION < 0.5 mV IN LIMB LEADS] Compared to ECG 05/12/2021 13:02:03 No significant changes Electronically Signed On 05-13-2021 0:00:44 CDT by Geraldine Bronson M.D. [email or web address] [email or web address]/store/[id number]
[2021-05-12 14:02] LABS: Influenza A by IFA Negative (Negative)
[2021-05-12 14:03] LABS: Influenza B by IFA Negative (Negative); SARS Covid-2 Antigen Negative (Negative)
[2021-05-12 15:45] LABS: Troponin 5 2HR 18.86 ng/L (0-15)
[2021-05-12 15:50] LABS: Troponin 5 2HR Delta -2.14 ABS# (0-10)
[2021-05-12 17:35] VITALS: BP 170/74; PULSE 66; RESP 16; O2SAT 96
[2021-05-13 15:08] LABS: Coronavirus Test Green County Not Detected
--- NOTE | 2021-05-13 16:25 | PC.NURSE ---
Left Voice mail to return call to ER for further information.
== END 2021-05-12 17:02 | disposition home or self-care (01) ==
PROVIDERS: Emergency Provider Emergency Medicine; PCP Internal Medicine
DX: R05.9 Cough, unspecified (principal); R06.00 Dyspnea, unspecified; I25.10 Atherosclerotic heart disease of native coronary artery without angina pectoris; I10 Essential (primary) hypertension; Z87.891 Personal history of nicotine dependence; E11.9 Type 2 diabetes mellitus without complications; E78.5 Hyperlipidemia, unspecified; Z79.4 Long term (current) use of insulin
CPT/HCPCS: 71045; 80048; 83880; 84484; 85025; 87426; 87635; 87804; 93005; 99283

== ENCOUNTER 2021-05-21 17:17 | Observation (INO) | payer OTHER, MEDICARE, SELFPAY ==
[2021-05-21] VITALS (13 sets, daily range): BP systolic 122–174; BP diastolic 61–86; PULSE 43–55; RESP 12–23; TEMP 36.4; O2SAT 97–99; BMI 30.4
--- NOTE | 2021-05-21 17:24 | ECG_ITS ---
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 Measurements Intervals [place] Rate: 55 P: 15 VA: 155 QRS: 12 QRSD: 104 T: 36 QT: 447 QTc: 430 Interpretive Statements SINUS BRADYCARDIA Compared to ECG 05/12/2021 16:05:18 Sinus rhythm no longer present Sinus arrhythmia no longer present Electronically Signed On 05-22-2021 21:55:59 SCRAP SAWYER by Abraham Marie M.D. [email or web address] Shoppingmetrohealth parma medical centerCerelink/store/[id number]
--- NOTE | 2021-05-21 17:33 | CTR_ITS ---
PROCEDURE INFORMATION: Exam: CT Head Without Contrast Exam date and time: 05/21/2021 5:33 PM Age: 70 years old Clinical indication: Coma or unconsciousness; Patient HX: PT was found unresponsive TECHNIQUE: Imaging protocol: Computed tomography of the head without contrast. Sagittal and coronal reformatted images were created and reviewed. Radiation optimization: All CT scans at this facility use at least one of these dose optimization techniques: automated exposure control; mA and/or kV adjustment per patient size (includes targeted exams where dose is matched to clinical indication); or iterative reconstruction. COMPARISON: 1. CT head wo con* [id number] 09/16/2019 6:[address] orbit BI wo con* [id number] 10/09/2019 2:44:44 AM RADIATION DOSE METRICS: Total DLP (mGy-cm): 978.08 FINDINGS: Limitations: Motion artifact on multiple images that can limit evaluation. Brain: No acute intracranial hemorrhage. No acute infarct. No intra-axial or extra-axial masses. Abernathy-white matter differentiation is preserved. No cerebral edema. No extra-axial fluid collections. No midline shift. No evidence for Chiari 1 malformation. Stable mild atrophy of the brain parenchyma. Stable mildly decreased attenuation in the deep white matter, consistent with mild chronic microangiopathic change. Cerebral ventricles: No hydrocephalus. Paranasal sinuses: Partially visualized small mucous retention cyst in the right maxillary sinus. Other visualized paranasal sinuses are clear. Mastoid air cells: Visualized mastoid air cells are clear. Orbital cavity: No acute intraorbital abnormality. There is a deformity of the right globe with a flattened appearance of the right globe. This is new compared with the prior CT scan of the orbits dated 10/09/2019. The chronicity of this finding is uncertain. The left globe and bilateral muscles, and optic nerves are intact. Vasculature: Atherosclerotic changes in the visualized arteries. Bones/joints: No acute fracture. Soft tissues: The extracranial soft tissues are unremarkable. CT/CT head wo con* [id number] IMPRESSION: 1. There is a deformity of the right globe with a flattened appearance of the right globe. This is new compared with the prior CT scan of the orbits dated 10/09/2019. The chronicity of this finding is uncertain. Recommend clinical correlation to rule out possibility of acute orbital trauma. 2. No acute abnormality of the brain. 3. Stable mild atrophy of the brain parenchyma. 4. Stable mild chronic white matter microangiopathic change. 5. Incidental/nonacute findings are listed in the report. Radiation Dose CTDIVOL = (mGy): DLP = 978.08 (mGy-cm)
--- NOTE | 2021-05-21 17:34 | W.ED.GENADLT ---
Documented by User: ADALBERTO Blanca 05/21/21 19:59 HPI - General Adult General: Chief complaint: General Medical Stated complaint: HYPOGLYCEMIA Time Seen by Provider: 05/21/21 17:27 Source: patient and EMS Mode of arrival: EMS Limitations: no limitations History of Present Illness: HPI narrative: Patient is a 70-year-old male who presents to ED today via EMS for complaints of unresponsiveness. EMS states they responded and found patient down. POC glucose was in the 40s. Patient is a known diabetic. Patient was given D10 in route and is alert and oriented upon arrival to the ED. EMS state patient was also bradycardic so atropine was given. Patient tells me he lives at home with his and another family member. He remembers laying down and going to sleep but does not remember anything following this. Patient tells me arrival to the ED he feels normal . Repeat POC glucose in the 120s. Patient denies recent illness. He denies any recent changes to his diabetic medications. He reports no physical symptoms at this time. Onset (ago): hour(s) Associated symptoms: Deny chest pain, dyspnea, headache(s), malaise, nausea, rash, palpitations, syncope or vomiting Treatments prior to arrival: other (glucose, atropine ) Review of Systems Const: Denies: fever(s), chills, body aches, fatigue or malaise Eyes: Reports: other (chronic blindness) Card: Denies: chest pain, palpitations, syncope or pre-syncope Resp: Denies: dyspnea GI: Denies: abdominal pain, nausea, vomiting or diarrhea Musc: Denies: neck pain, back pain, extremity pain or joint pain Skin/Breast: Denies: rash Neuro: Denies: headache(s), numbness in extremities, weakness in extremities, sensory changes or dizziness PFS ED PFSH: Medical History Abnormal myocardial perfusion study 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, insulin dependent Glaucoma Hyperlipidemia Hypertension Lumbar disc disease TIA (transient ischemic attack) Surgical History History of circumcision History of eye surgery Bilateral due to glaucoma Family History Brother Chronic kidney disease (CKD) Diabetes Sister Chronic kidney disease (CKD) Diabetes Family/Other Lung disease Denies family history of CAD (coronary artery disease) Clotting disorder Dementia Suicide Anesthesia complication Bleeding disorder Cancer Stroke Social History Smoking and tobacco status: former smoker Alcohol intake: never Household members: spouse and family Marital status: Physical Exam Const: COMMON NORMALS: no acute distress, patient oriented x3, no limitations and alert GENERAL APPEARANCE: cooperative NUTRITIONAL APPEARANCE: overweight ORIENTATION/CONSCIOUSNESS: Yes awake, Yes oriented to person, Yes oriented to place and Yes oriented to time HENMT: COMMON NORMALS: normocephalic and atraumatic HEAD & SCALP: normocephalic and atraumatic Resp: COMMON NORMALS: normal respiratory effort and clear to auscultation bilaterally AUSCULTATION: clear to auscultation bilaterally Cardio: COMMON NORMALS: regular rhythm RATE: bradycardic (mild-50s) RHYTHM: regular rhythm GI: COMMON NORMALS: Soft to palpation INSPECTION: Yes abdominal distension AUSCULTATION: Yes normoactive bowel sounds PALPATION: Yes Soft to palpation and Yes Other GI palpation findings present (no tenderness but states with palpation that he needs to use restroom) Extremity: COMMON NORMALS: normal to inspection and full ROM GENERAL: Yes normal exam except as noted Neuro: ALICE COMA SCALE: document [facility] findings [place] coma scale eye opening: Spontaneous [place] coma scale verbal response: Orientated [place] coma scale motor response: Obey commands [place] coma scale total score: 15 COMMON NORMALS: patient oriented x3, moves all extremities, no focal motor deficits and no sensory deficits noted SENSORIUM/ORIENTATION: Yes alert, Yes oriented to person, Yes oriented to place and Yes oriented to time Skin: COMMON NORMALS: no rashes or lesions noted GENERAL SKIN EXAM: no rashes or lesions noted TRAUMA: no lacerations or abrasions Course Vital Signs: Vital signs: Vital Signs Temperature 97.5 F L 05/21/21 17:26 Pulse Rate 47 L 05/21/21 21:30 Respiratory Rate 18 05/21/21 21:30 Blood Pressure 162/72 05/21/21 21:30 Pulse Oximetry 98 05/21/21 21:30 MDM - General Adult MDM Narrative: Medical decision making narrative: Care transferred to Dr. Monk. Lab Data: Labs: Lab Results 05/21/21 05/21/21 05/21/21 17:23 17:56 17:56 WBC Cancelled Corrected WBC Cancelled RBC Cancelled Hgb Cancelled Hct Cancelled MCV Cancelled MCH Cancelled MCHC Cancelled RDW Cancelled Plt Count Cancelled MPV Cancelled Gran % Cancelled Neut % (Auto) Cancelled Lymph % (Auto) Cancelled [place] % (Auto) Cancelled Eos % (Auto) Cancelled Baso % (Auto) Cancelled Neut # (Auto) Cancelled Lymph # (Auto) Cancelled [place] # (Auto) Cancelled Eos # (Auto) Cancelled Baso # (Auto) Cancelled Absolute Gran (aut o) Cancelled Nucleated RBC % (a uto) Cancelled Nucleated RBCs # Cancelled Sodium 132 mmol/L L mmol /L (136-145) Potassium 3.9 mmol/L mmol/L (3.5-5.1) Chloride 98 mmol/L mmol/L (98-107) Carbon Dioxide 25 mmol/L mmol/L (22-29) Anion Gap 12.9 (5-19) BUN 17 mg/dL mg/dL (8-23) Creatinine 1.0 mg/dL mg/dL (0.7-1.2) GFR Calculation Not Reportable Glucose 73 mg/dL mg/dL (65-115) POC Glucose 107 mg/dL mg/dL (70-110) Calculated Osmolal ity 274 mOsm/kg L mOs m/kg (285-295) Lactic Acid Calcium 8.2 mg/dL L mg/dL (8.5-10.5) Total Bilirubin 0.5 mg/dL mg/dL (0.15-1.2) AST 27 U/L U/L (0-40) ALT 25 U/L U/L (0-41) Alkaline Phosphata se 71 IU/L IU/L (40-130) Creatine Kinase 149 U/L U/L (39-308) Troponin T Baselin e Troponin T 120 Min [place] Troponin T Total Protein 7.1 g/dL g/dL (6.6-8.7) Albumin 3.6 g/dL g/dL (3.5-5.2) Globulin 3.5 g/dL g/dL (1.3-4.6) Urine Color Urine Appearance Urine pH Ur Specific Gravit y Urine Protein Urine Glucose (UA) Urine Ketones Urine Blood Urine Nitrate Urine Bilirubin Urine Urobilinogen Ur Leukocyte Lashae ase Urine Opiates Scre en Ur Barbiturates Sc reen Ur Phencyclidine S crn Ur Amphetamines Sc reen U Benzodiazepines Scrn Urine Cocaine Scre en U Marijuana (THC) Screen 05/21/21 05/21/21 05/21/21 17:56 17:56 17:57 WBC Corrected WBC RBC Hgb Hct MCV MCH MCHC RDW Plt Count MPV Gran % Neut % (Auto) Lymph % (Auto) [place] % (Auto) Eos % (Auto) Baso % (Auto) Neut # (Auto) Lymph # (Auto) [place] # (Auto) Eos # (Auto) Baso # (Auto) Absolute Gran (aut o) Nucleated RBC % (a uto) Nucleated RBCs # Sodium Potassium Chloride Carbon Dioxide Anion Gap BUN Creatinine GFR Calculation Glucose POC Glucose 73 mg/dL mg/dL (70-110) Calculated Osmolal ity Lactic Acid 1.2 mmol/L mmol/L (0.5-2.2) Calcium Total Bilirubin AST ALT Alkaline Phosphata se Creatine Kinase Troponin T Baselin e 20 ng/L H ng/L (0-15) Troponin T 120 Min [place] Troponin T Total Protein Albumin Globulin Urine Color Urine Appearance Urine pH Ur Specific Gravit y Urine Protein Urine Glucose (UA) Urine Ketones Urine Blood Urine Nitrate Urine Bilirubin Urine Urobilinogen Ur Leukocyte Lashae ase Urine Opiates Scre en Ur Barbiturates Sc reen Ur Phencyclidine S crn Ur Amphetamines Sc reen U Benzodiazepines Scrn Urine Cocaine Scre en U Marijuana (THC) Screen 05/21/21 05/21/21 05/21/21 18:17 18:51 19:40 WBC Corrected WBC RBC Hgb Hct MCV MCH MCHC RDW Plt Count MPV Gran % Neut % (Auto) Lymph % (Auto) [place] % (Auto) Eos % (Auto) Baso % (Auto) Neut # (Auto) Lymph # (Auto) [place] # (Auto) Eos # (Auto) Baso # (Auto) Absolute Gran (aut o) Nucleated RBC % (a uto) Nucleated RBCs # Sodium Potassium Chloride Carbon Dioxide Anion Gap BUN Creatinine GFR Calculation Glucose POC Glucose 58 mg/dL L mg/dL 117 mg/dL H mg/dL (70-110) (70-110) Calculated Osmolal ity Lactic Acid Calcium Total Bilirubin AST ALT Alkaline Phosphata se Creatine Kinase Troponin T Baselin e Troponin T 120 [place] 18.37 ng/L H ng/L (0-15) [place] Troponin T -1.63 ABS# L ABS# (0-10) Total Protein Albumin Globulin Urine Color Urine Appearance Urine pH Ur Specific Gravit y Urine Protein Urine Glucose (UA) Urine Ketones Urine Blood Urine Nitrate Urine Bilirubin Urine Urobilinogen Ur Leukocyte Lashae ase Urine Opiates Scre en Ur Barbiturates Sc reen Ur Phencyclidine S crn Ur Amphetamines Sc reen U Benzodiazepines Scrn Urine Cocaine Scre en U Marijuana (THC) Screen 05/21/21 05/21/21 05/21/21 19:40 20:11 20:11 WBC 7.0 10^3/uL 10^3/ uL (4.0-10.0) Corrected WBC RBC 4.46 10^6/uL 10^6 /uL (4.1-5.3) Hgb 14.3 g/dL g/dL (11.7-16.6) Hct 42.2 % % (42.0-52.0) MCV 94.6 fl H fl (80-94) MCH 32.1 pg pg (28.0-34.0) MCHC 33.9 g/dL g/dL (30.0-36.0) RDW 12.9 % % (12.1-15.1) Plt Count 234 10^3/cmm 10^3 /cmm (130-400) MPV 10.0 fL fL (7.4-10.4) Gran % Neut % (Auto) 68.8 % % Lymph % (Auto) 19.2 % % [place] % (Auto) 9.1 % % Eos % (Auto) 1.3 % % Baso % (Auto) 0.7 % % Neut # (Auto) 4.83 10^3/uL 10^3 /uL (1.8-7.7) Lymph # (Auto) 1.4 10^3/uL 10^3/ uL (0.8-4.8) [place] # (Auto) 0.6 10^3/uL 10^3/ uL (0.2-0.9) Eos # (Auto) 0.1 10^3/uL 10^3/ uL (0.0-0.8) Baso # (Auto) 0.1 10^3/uL 10^3/ uL (0.0-0.1) Absolute Gran (aut o) Nucleated RBC % (a uto) 0 % % Nucleated RBCs # 0.0 /100WBC /100W BC Sodium Potassium Chloride Carbon Dioxide Anion Gap BUN Creatinine GFR Calculation Glucose POC Glucose Calculated Osmolal ity Lactic Acid Calcium Total Bilirubin AST ALT Alkaline Phosphata se Creatine Kinase Troponin T Baselin e Troponin T 120 Min [place] Troponin T Total Protein Albumin Globulin Urine Color Yellow (Yellow) Urine Appearance Clear (CLEAR) Urine pH 5 (5-7) Ur Specific Gravit y 1.015 (1.005-1.030) Urine Protein Neg (Negative) Urine Glucose (UA) Norm (Normal) Urine Ketones Negative (Negative) Urine Blood Neg (Negative) Urine Nitrate Negative (Negative) Urine Bilirubin Neg (Negative) Urine Urobilinogen Norm mg/dL mg/dL (Negative) Ur Leukocyte Lashae ase Negative (Negative) Urine Opiates Scre en Negative ng/mL ng /mL (Negative) Ur Barbiturates Sc reen Negative ng/mL ng /mL (Negative) Ur Phencyclidine S crn Negative ng/mL ng /mL (Negative) Ur Amphetamines Sc reen Negative ng/mL ng /mL (Negative) U Benzodiazepines Scrn Negative ng/mL ng /mL (Negative) Urine Cocaine Scre en Negative ng/mL ng /mL (Negative) U Marijuana (THC) Screen Negative ng/mL ng /mL (Negative) Imaging Data^: CXR: Radiologist's impression: [address] [id number] ReportSigned Patient: Adan Zamudio #: [id number]: [id number]#:[id number]/Sex: 70 / MADM Date: 05/21/21Loc: ERRoom/Bed:Attending Dr: Ordering Provider/Ordering MD: Rosanna Saxena Date of Service: 05/21/21 Procedure(s): XR chest 1V portable [id number] Accession Number(s): [id number] Report Number: [id number] PROCEDURE INFORMATION: Exam: XR Chest Exam date and time: 05/21/2021 5:33 PM Age: 70 years old Clinical indication: Shortness of breath; Additional info: Found unresponsive TECHNIQUE: Imaging protocol: XR of the chest. Views: 1 view. COMPARISON: CR XR chest 1V portable [id number] 05/12/2021 11:53 AM FINDINGS: Lungs: Lungs are clear bilaterally. Stable calcified granuloma in the the right lower lobe. Pleural spaces: No pleural effusion. No pneumothorax. Heart/Mediastinum: Stable mild enlargement of the cardiac silhouette. Mediastinal contours are unremarkable. Bones/joints: Unremarkable for age. XR/XR chest 1V portable [id number] IMPRESSION: 1. No acute cardiopulmonary process. 2. Incidental/nonacute findings are listed in the report. 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, insulin dependent Glaucoma Hyperlipidemia Hypertension Lumbar disc disease TIA (transient ischemic attack) Surgical History History of circumcision History of eye surgery Bilateral due to glaucoma Family History Brother Chronic kidney disease (CKD) Diabetes Sister Chronic kidney disease (CKD) Diabetes Family/Other Lung disease Denies family history of CAD (coronary artery disease) Clotting disorder Dementia Suicide Anesthesia complication Bleeding disorder Cancer Stroke Social History Smoking and tobacco status: former smoker Alcohol intake: never Household members: spouse and family Marital status: Course ED course: 70-year-old male originally seen by Mrs. AbbottSYEDA Coon. I agree with her history, evaluation, and treatment. I have seen and evaluated the patient as well. This gentleman was down at home with a low blood sugar. He was given dextrose with some improvement, but had to have more dextrose here as his sugar came down again. He is also been profoundly bradycardic. He was given atropine in the ambulance on the way here. His heart rate remains in the 40s here, although he is normotensive. EKG shows a sinus bradycardia with no evidence of heart block current blood pressure is 162/72. Because of the continued hypoglycemia, he is getting D5 normal saline for fluid resuscitation. His sodium level is 132. He is blind, and dispenses his own insulin, so this could be as simple as dosage mistake at home. Urinalysis is negative as is urine drug screen. Head CT does not reveal any acute intracranial findings. There is some global flattening on one side, but there is no evidence historically of any trauma. X-ray reveals no acute findings. Her troponin did not change at 2 hours significantly. He will be observed given continued need for glucose, and continued profound bradycardia. Consultations: Consultation #1: pepe Time: 21:34 Vital Signs: Vital signs: Vital Signs Temperature 97.5 F L 05/21/21 17:26 Pulse Rate 47 L 05/21/21 21:30 Respiratory Rate 18 05/21/21 21:30 Blood Pressure 162/72 05/21/21 21:30 Pulse Oximetry 98 05/21/21 21:30 [facility] [place] - General Adult Lab Data: Labs: Lab Results 05/21/21 05/21/21 05/21/21 17:23 17:56 17:56 WBC Cancelled Corrected WBC Cancelled RBC Cancelled Hgb Cancelled Hct Cancelled MCV Cancelled MCH Cancelled MCHC Cancelled RDW Cancelled Plt Count Cancelled MPV Cancelled Gran % Cancelled Neut % (Auto) Cancelled Lymph % (Auto) Cancelled [place] % (Auto) Cancelled Eos % (Auto) Cancelled Baso % (Auto) Cancelled Neut # (Auto) Cancelled Lymph # (Auto) Cancelled [place] # (Auto) Cancelled Eos # (Auto) Cancelled Baso # (Auto) Cancelled Absolute Gran (aut o) Cancelled Nucleated RBC % (a uto) Cancelled Nucleated RBCs # Cancelled Sodium 132 mmol/L L mmol /L (136-145) Potassium 3.9 mmol/L mmol/L (3.5-5.1) Chloride 98 mmol/L mmol/L (98-107) Carbon Dioxide 25 mmol/L mmol/L (22-29) Anion Gap 12.9 (5-19) BUN 17 mg/dL mg/dL (8-23) Creatinine 1.0 mg/dL mg/dL (0.7-1.2) GFR Calculation Not Reportable Glucose 73 mg/dL mg/dL (65-115) POC Glucose 107 mg/dL mg/dL (70-110) Calculated Osmolal ity 274 mOsm/kg L mOs m/kg (285-295) Lactic Acid Calcium 8.2 mg/dL L mg/dL (8.5-10.5) Total Bilirubin 0.5 mg/dL mg/dL (0.15-1.2) AST 27 U/L U/L (0-40) ALT 25 U/L U/L (0-41) Alkaline Phosphata se 71 IU/L IU/L (40-130) Creatine Kinase 149 U/L U/L (39-308) Troponin T Baselin e Troponin T 120 Min [place] Troponin T Total Protein 7.1 g/dL g/dL (6.6-8.7) Albumin 3.6 g/dL g/dL (3.5-5.2) Globulin 3.5 g/dL g/dL (1.3-4.6) Urine Color Urine Appearance Urine pH Ur Specific Gravit y Urine Protein Urine Glucose (UA) Urine Ketones Urine Blood Urine Nitrate Urine Bilirubin Urine Urobilinogen Ur Leukocyte Lashae ase Urine Opiates Scre en Ur Barbiturates Sc reen Ur Phencyclidine S crn Ur Amphetamines Sc reen U Benzodiazepines Scrn Urine Cocaine Scre en U Marijuana (THC) Screen 05/21/21 05/21/21 05/21/21 17:56 17:56 17:57 WBC Corrected WBC RBC Hgb Hct MCV MCH MCHC RDW Plt Count MPV Gran % Neut % (Auto) Lymph % (Auto) [place] % (Auto) Eos % (Auto) Baso % (Auto) Neut # (Auto) Lymph # (Auto) [place] # (Auto) Eos # (Auto) Baso # (Auto) Absolute Gran (aut o) Nucleated RBC % (a uto) Nucleated RBCs # Sodium Potassium Chloride Carbon Dioxide Anion Gap BUN Creatinine GFR Calculation Glucose POC Glucose 73 mg/dL mg/dL (70-110) Calculated Osmolal ity Lactic Acid 1.2 mmol/L mmol/L (0.5-2.2) Calcium Total Bilirubin AST ALT Alkaline Phosphata se Creatine Kinase Troponin T Baselin e 20 ng/L H ng/L (0-15) Troponin T 120 Min [place] Troponin T Total Protein Albumin Globulin Urine Color Urine Appearance Urine pH Ur Specific Gravit y Urine Protein Urine Glucose (UA) Urine Ketones Urine Blood Urine Nitrate Urine Bilirubin Urine Urobilinogen Ur Leukocyte Lashae ase Urine Opiates Scre en Ur Barbiturates Sc reen Ur Phencyclidine S crn Ur Amphetamines Sc reen U Benzodiazepines Scrn Urine Cocaine Scre en U Marijuana (THC) Screen 05/21/21 05/21/21 05/21/21 18:17 18:51 19:40 WBC Corrected WBC RBC Hgb Hct MCV MCH MCHC RDW Plt Count MPV Gran % Neut % (Auto) Lymph % (Auto) [place] % (Auto) Eos % (Auto) Baso % (Auto) Neut # (Auto) Lymph # (Auto) [place] # (Auto) Eos # (Auto) Baso # (Auto) Absolute Gran (aut o) Nucleated RBC % (a uto) Nucleated RBCs # Sodium Potassium Chloride Carbon Dioxide Anion Gap BUN Creatinine GFR Calculation Glucose POC Glucose 58 mg/dL L mg/dL 117 mg/dL H mg/dL (70-110) (70-110) Calculated Osmolal ity Lactic Acid Calcium Total Bilirubin AST ALT Alkaline Phosphata se Creatine Kinase Troponin T Baselin e Troponin T 120 [place] 18.37 ng/L H ng/L (0-15) [place] Troponin T -1.63 ABS# L ABS# (0-10) Total Protein Albumin Globulin Urine Color Urine Appearance Urine pH Ur Specific Gravit y Urine Protein Urine Glucose (UA) Urine Ketones Urine Blood Urine Nitrate Urine Bilirubin Urine Urobilinogen Ur Leukocyte Lashae ase Urine Opiates Scre en Ur Barbiturates Sc reen Ur Phencyclidine S crn Ur Amphetamines Sc reen U Benzodiazepines Scrn Urine Cocaine Scre en U Marijuana (THC) Screen 05/21/21 05/21/21 05/21/21 19:40 20:11 20:11 WBC 7.0 10^3/uL 10^3/ uL (4.0-10.0) Corrected WBC RBC 4.46 10^6/uL 10^6 /uL (4.1-5.3) Hgb 14.3 g/dL g/dL (11.7-16.6) Hct 42.2 % % (42.0-52.0) MCV 94.6 fl H fl (80-94) MCH 32.1 pg pg (28.0-34.0) MCHC 33.9 g/dL g/dL (30.0-36.0) RDW 12.9 % % (12.1-15.1) Plt Count 234 10^3/cmm 10^3 /cmm (130-400) MPV 10.0 fL fL (7.4-10.4) Gran % Neut % (Auto) 68.8 % % Lymph % (Auto) 19.2 % % [place] % (Auto) 9.1 % % Eos % (Auto) 1.3 % % Baso % (Auto) 0.7 % % Neut # (Auto) 4.83 10^3/uL 10^3 /uL (1.8-7.7) Lymph # (Auto) 1.4 10^3/uL 10^3/ uL (0.8-4.8) [place] # (Auto) 0.6 10^3/uL 10^3/ uL (0.2-0.9) Eos # (Auto) 0.1 10^3/uL 10^3/ uL (0.0-0.8) Baso # (Auto) 0.1 10^3/uL 10^3/ uL (0.0-0.1) Absolute Gran (aut o) Nucleated RBC % (a uto) 0 % % Nucleated RBCs # 0.0 /100WBC /100W BC Sodium Potassium Chloride Carbon Dioxide Anion Gap BUN Creatinine GFR Calculation Glucose POC Glucose Calculated Osmolal ity Lactic Acid Calcium Total Bilirubin AST ALT Alkaline Phosphata se Creatine Kinase Troponin T Baselin e Troponin T 120 Min [place] Troponin T Total Protein Albumin Globulin Urine Color Yellow (Yellow) Urine Appearance Clear (CLEAR) Urine pH 5 (5-7) Ur Specific Gravit y 1.015 (1.005-1.030) Urine Protein Neg (Negative) Urine Glucose (UA) Norm (Normal) Urine Ketones Negative (Negative) Urine Blood Neg (Negative) Urine Nitrate Negative (Negative) Urine Bilirubin Neg (Negative) Urine Urobilinogen Norm mg/dL mg/dL (Negative) Ur Leukocyte Lashae ase Negative (Negative) Urine Opiates Scre en Negative ng/mL ng /mL (Negative) Ur Barbiturates Sc reen Negative ng/mL ng /mL (Negative) Ur Phencyclidine S crn Negative ng/mL ng /mL (Negative) Ur Amphetamines Sc reen Negative ng/mL ng /mL (Negative) U Benzodiazepines Scrn Negative ng/mL ng /mL (Negative) Urine Cocaine Scre en Negative ng/mL ng /mL (Negative) U Marijuana (THC) Screen Negative ng/mL ng /mL (Negative) Discharge Plan Discharge Patient Disposition: Placed in Observation Clinical Impression: Hypoglycemia, Bradycardia Coding Level of Care Code ED Tire Worker for Carla Fwd Exam Comprehensive
[2021-05-21 17:36] LABS: Glucose Point of Care 107 mg/dL (70-110)
[2021-05-21 17:59] LABS: Glucose Point of Care 73 mg/dL (70-110)
[2021-05-21 18:20] LABS: Glucose Point of Care 58 mg/dL (70-110)
[2021-05-21] MEDS: dextrose 50% syringe 50 mL IVP (18:23)
[2021-05-21 18:26] LABS: Alanine Aminotransferase 25 U/L (0-41); Albumin Level 3.6 g/dL (3.5-5.2); Alkaline Phosphatase 71 IU/L (40-130); Blood Urea Nitrogen 17 mg/dL (8-23); Calcium 8.2 mg/dL (8.5-10.5); Carbon Dioxide 25 mmol/L (22-29); Chloride 98 mmol/L (98-107); Creatine Phosphokinase 149 U/L (39-308); Globulin 3.5 g/dL (1.3-4.6); Glucose 73 mg/dL (65-115); Osmolality Calculated 274 mOsm/kg (285-295); Sodium 132 mmol/L (136-145); Total Bilirubin 0.5 mg/dL (0.15-1.2); Total Protein 7.1 g/dL (6.6-8.7)
[2021-05-21 18:27] LABS: Lactic Sepsis W/Reflex 1.2 mmol/L (0.5-2.2); Troponin(5th) Baseline 20 ng/L (0-15)
[2021-05-21 18:33] LABS: Anion Gap 12.9 (5-19); Aspartate Amino Transferase 27 U/L (0-40)
[2021-05-21 18:34] LABS: Potassium 3.9 mmol/L (3.5-5.1)
[2021-05-21 18:53] LABS: Glucose Point of Care 117 mg/dL (70-110)
[2021-05-21 19:46] LABS: Basophils # 0.1 10^3/uL (0.0-0.1); Basophils % 0.7 %; Eosinophils # 0.1 10^3/uL (0.0-0.8); Eosinophils % 1.3 %; Hematocrit 42.2 % (42.0-52.0); Hemoglobin 14.3 g/dL (11.7-16.6); Lymphocytes # 1.4 10^3/uL (0.8-4.8); Lymphocytes % 19.2 %; Mean Corpuscular HGB Conc 33.9 g/dL (30.0-36.0); Mean Corpuscular Hemoglobin 32.1 pg (28.0-34.0); Mean Corpuscular Volume 94.6 fl (80-94); Monocytes # 0.6 10^3/uL (0.2-0.9); Monocytes % 9.1 %; Neutrophils # 4.83 10^3/uL (1.8-7.7); Neutrophils % 68.8 %; Nucleated Red Blood Cells % 0 %; Platelet Count 234 10^3/cmm (130-400); Red Blood Count 4.46 10^6/uL (4.1-5.3); Red Cell Distribution Width 12.9 % (12.1-15.1)
[2021-05-21 20:07] LABS: Troponin 5 2HR 18.37 ng/L (0-15)
[2021-05-21] MEDS: dextrose 5%-sod chloride 0.9% 1,000 ML 125 ML IV (20:11)
[2021-05-21] MEDS: sodium chloride 0.9% 1,000 ML 999 ML IV (20:11)
[2021-05-21 20:14] LABS: Troponin 5 2HR Delta -1.63 ABS# (0-10)
[2021-05-21 20:18] LABS: Add Urine Microscopic? NO; Charge for UA Resulting for Rev
[2021-05-21 20:26] LABS: Bilirubin Urine Neg (Negative); Blood Urine Neg (Negative); Glucose Urine UA Norm (Normal); Ketones Urine Negative (Negative); Leukocyte Esterase Urine Negative (Negative); Nitrate Urine Negative (Negative); Protein Urine Neg (Negative); Specific Gravity, Urine 1.015 (1.005-1.030); Urine Appearance Clear (CLEAR); Urine Color Yellow (Yellow); Urobilinogen Urine Norm (Negative); pH Urine 5 (5-7)
[2021-05-21 20:34] LABS: Amphetamines Screen Urine Negative (Negative); Barbiturates Screen Urine Negative (Negative); Benzodiazepines Screen Urine Negative (Negative); Cocaine Screen Urine Negative (Negative); Opiate Screen Urine Negative (Negative); PCP Screen Urine Negative (Negative); THC Screen Urine Negative (Negative)
--- NOTE | 2021-05-21 21:48 | PC.NURSE ---
called [facility] to give report, terrence states she will have this patients nurse call me back to receive report.
--- NOTE | 2021-05-21 22:03 | PC.NURSE ---
report called to Jean Pierre NOLAN
--- NOTE | 2021-05-21 22:35 | PM.HP ---
Providers/Chief Complaint Admitting Physician: Armando Salas Primary Care Provider: Tomasz Eduardo Chief Complaint: HYPPGLYCEMIA History of Present Illness Adan Zamudio is a 70 year old male with past medical history of diabetes, hypertension, complete blindness who was brought to emergency room due to altered mental status. He was found to have hypoglycemia. His mental status improved with glucose administration. Reportedly the patient still does insulin injections on his own. He doses his Lantus with listening tothe clicks on the insulin pen. He denies similar hypoglycemic episodes in the past. Currently he denies any active complaints. He was also found to have sinus bradycardia with heart rate of 40-50. He denies associated chest pain, palpitations, tautness of breath, diaphoresis. Denies nausea or vomiting, diarrhea. No abdominal pain. Review of Systems General: Reports: 10 or more systems reviewed and unremarkable except in HPI and below Medications/Allergies Home Medications Medication Instructions Recorded Confirmed Last Taken Type Novolog Flexpen U-100 Insulin See Rx Instructions .ROUTE .COMPLEX 09/08/19 12/28/20 Unknown History brimonidine 1 drp OPHTHALMIC (EYE) BID 09/08/19 12/28/20 Unknown History cetirizine 10 mg PO DAILY 09/08/19 12/28/20 Unknown History dorzolamide 1 drp OPHTHALMIC (EYE) TID 09/08/19 12/28/20 Unknown History doxazosin 4 mg PO DAILY 09/08/19 12/28/20 Unknown History latanoprost 1 drp OPHTHALMIC (EYE) DAILY 09/08/19 12/28/20 Unknown History losartan 100 mg PO DAILY 09/08/19 12/28/20 Unknown History loteprednol etabonate [Lotemax] 1 drp OPHTHALMIC (EYE) TID 09/08/19 12/28/20 Unknown History metoprolol tartrate 100 mg PO BID 09/08/19 12/28/20 Unknown History timolol maleate 1 drp OPHTHALMIC (EYE) BID 09/08/19 12/28/20 Unknown History albuterol sulfate 2.5 mg INHALATION Q4H PRN 09/09/19 12/28/20 Unknown History cyclobenzaprine 10 mg PO TID PRN 09/09/19 12/28/20 Unknown History prednisolone acetate 1 drp OPHTHALMIC (EYE) BID 09/09/19 12/28/20 Unknown History atorvastatin 40 mg PO BEDTIME #30 tab 09/23/19 12/28/20 Unknown Rx clopidogrel 75 mg PO DAILY #30 tab 09/23/19 12/28/20 Unknown Rx hydralazine 25 mg PO QID PRN #30 tab 09/23/19 12/28/20 Unknown Rx isosorbide mononitrate 30 mg PO DAILY #30 tab 09/23/19 12/28/20 Unknown Rx nitroglycerin [Nitrostat] 0.4 mg SUBLINGUAL Q5M PRN #25 tab 09/23/19 12/28/20 Unknown Rx sennosides-docusate sodium 1 tab PO BID #30 tab 09/23/19 12/28/20 Unknown Rx hydrocodone-acetaminophen [[place]] 1 tab PO Q6H PRN #14 tab 10/09/19 12/28/20 Unknown Rx insulin glargine 100 unit/mL 53 unit SUBCUT DAILY ml 10/13/20 12/28/20 Unknown History subcutaneous solution pantoprazole 40 mg tablet,delayed 40 mg PO DAILY #90 tab 10/15/20 12/28/20 Unknown Rx release Allergies Allergy/AdvReac Type Severity Reaction Status Date / Time amlodipine Allergy Unknown Verified 04/20/21 08:19 codeine Allergy Unknown Verified 04/20/21 08:19 hydrochlorothiazide Allergy Unknown Verified 04/20/21 08:19 lisinopril Allergy Unknown Verified 04/20/21 08:19 loratadine [From Claritin] Allergy Unknown Verified 04/20/21 08:19 tramadol [From Ultram] Allergy Unknown Verified 04/20/21 08:19 BESYLATE Allergy Unknown Uncoded 04/20/21 08:19 HIGH FRUCTOSE SYRUP Allergy Unknown Uncoded 04/20/21 08:19 PFSH Acute PFSH: Medical History Abnormal myocardial perfusion study 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, insulin dependent Glaucoma Hyperlipidemia Hypertension Lumbar disc disease TIA (transient ischemic attack) Surgical History History of circumcision History of eye surgery Bilateral due to glaucoma Family History Brother Chronic kidney disease (CKD) Diabetes Sister Chronic kidney disease (CKD) Diabetes Family/Other Lung disease Denies family history of CAD (coronary artery disease) Clotting disorder Dementia Suicide Anesthesia complication Bleeding disorder Cancer Stroke Social History Smoking and tobacco status: former smoker Alcohol intake: never Household members: spouse and family Marital status: Vitals/I&O/Wt Last Vital Signs Temp 97.5 F L 05/21/21 22:16 Pulse 47 L 05/21/21 22:16 Resp 18 05/21/21 22:16 BP 162/72 05/21/21 22:16 Pulse Ox 98 05/21/21 22:16 Weight last 48 hrs Weight 90.718 kg Physical Exam Narrative: EXAM NARRATIVE: The patient is currently awake alert oriented. No acute distress. Mood and affect are appropriate. Responses are adequate. Skin is warm and dry. Moist extremities Neck supple. No JVD Lungs are clear to auscultation bilaterally. No wheezes or crackles. Heart S1, S2, regular Abdomen soft, nontender, bowel sounds are present extremities trace edema no cyanosis no calf tenderness bilaterally No focal weakness. Normal speech. Data : 05/21/21 19:40 05/21/21 17:56 Other Labs: Laboratory Results WBC 7.0 10^3/uL (4.0-10.0) 05/21/21 19:40 Corrected WBC Cancelled 05/21/21 17:56 RBC 4.46 10^6/uL (4.1-5.3) 05/21/21 19:40 Hgb 14.3 g/dL (11.7-16.6) 05/21/21 19:40 Hct 42.2 % (42.0-52.0) 05/21/21 19:40 MCV 94.6 fl (80-94) H 05/21/21 19:40 MCH 32.1 pg (28.0-34.0) 05/21/21 19:40 MCHC 33.9 g/dL (30.0-36.0) 05/21/21 19:40 RDW 12.9 % (12.1-15.1) 05/21/21 19:40 Plt Count 234 10^3/cmm (130-400) 05/21/21 19:40 MPV 10.0 fL (7.4-10.4) 05/21/21 19:40 Gran % Cancelled 05/21/21 17:56 Neut % (Auto) 68.8 % 05/21/21 19:40 Lymph % (Auto) 19.2 % 05/21/21 19:40 [place] % (Auto) 9.1 % 05/21/21 19:40 Eos % (Auto) 1.3 % 05/21/21 19:40 Baso % (Auto) 0.7 % 05/21/21 19:40 Neut # (Auto) 4.83 10^3/uL (1.8-7.7) 05/21/21 19:40 Lymph # (Auto) 1.4 10^3/uL (0.8-4.8) 05/21/21 19:40 [place] # (Auto) 0.6 10^3/uL (0.2-0.9) 05/21/21 19:40 Eos # (Auto) 0.1 10^3/uL (0.0-0.8) 05/21/21 19:40 Baso # (Auto) 0.1 10^3/uL (0.0-0.1) 05/21/21 19:40 Absolute Gran (auto) Cancelled 05/21/21 17:56 Nucleated RBC % (auto) 0 % 05/21/21 19:40 Nucleated RBCs # 0.0 /100WBC 05/21/21 19:40 Sodium 132 mmol/L (136-145) L 05/21/21 17:56 Potassium 3.9 mmol/L (3.5-5.1) 05/21/21 17:56 Chloride 98 mmol/L (98-107) 05/21/21 17:56 Carbon Dioxide 25 mmol/L (22-29) 05/21/21 17:56 Anion Gap 12.9 (5-19) 05/21/21 17:56 BUN 17 mg/dL (8-23) 05/21/21 17:56 Creatinine 1.0 mg/dL (0.7-1.2) 05/21/21 17:56 GFR Calculation Not Reportable 05/21/21 17:56 Glucose 73 mg/dL (65-115) 05/21/21 17:56 POC Glucose 117 mg/dL (70-110) H 05/21/21 18:51 Calculated Osmolality 274 mOsm/kg (285-295) L 05/21/21 17:56 Lactic Acid 1.2 mmol/L (0.5-2.2) 05/21/21 17:56 Calcium 8.2 mg/dL (8.5-10.5) L 05/21/21 17:56 Total Bilirubin 0.5 mg/dL (0.15-1.2) 05/21/21 17:56 AST 27 U/L (0-40) 05/21/21 17:56 ALT 25 U/L (0-41) 05/21/21 17:56 Alkaline Phosphatase 71 IU/L (40-130) 05/21/21 17:56 Creatine Kinase 149 U/L (39-308) 05/21/21 17:56 Troponin T Baseline 20 ng/L (0-15) H 05/21/21 17:56 Troponin T 120 Minute 18.37 ng/L (0-15) H 05/21/21 19:40 Delta Troponin T -1.63 ABS# (0-10) L 05/21/21 19:40 Total Protein 7.1 g/dL (6.6-8.7) 05/21/21 17:56 Albumin 3.6 g/dL (3.5-5.2) 05/21/21 17:56 Globulin 3.5 g/dL (1.3-4.6) 05/21/21 17:56 Urine Color Yellow (Yellow) 05/21/21 20:11 Urine Appearance Clear (CLEAR) 05/21/21 20:11 Urine pH 5 (5-7) 05/21/21 20:11 Ur Specific [place] 1.015 (1.005-1.030) 05/21/21 20:11 Urine Protein Neg (Negative) 05/21/21 20:11 Urine Glucose (UA) Norm (Normal) 05/21/21 20:11 Urine Ketones Negative (Negative) 05/21/21 20:11 Urine Blood Neg (Negative) 05/21/21 20:11 Urine Nitrate Negative (Negative) 05/21/21 20:11 Urine Bilirubin Neg (Negative) 05/21/21 20:11 Urine Urobilinogen Norm mg/dL (Negative) 05/21/21 20:11 Ur Leukocyte Esterase Negative (Negative) 05/21/21 20:11 Urine Opiates Screen Negative ng/mL (Negative) 05/21/21 20:11 Ur Barbiturates Screen Negative ng/mL (Negative) 05/21/21 20:11 Ur Phencyclidine Scrn Negative ng/mL (Negative) 05/21/21 20:11 Ur Amphetamines Screen Negative ng/mL (Negative) 05/21/21 20:11 U Benzodiazepines Scrn Negative ng/mL (Negative) 05/21/21 20:11 Urine Cocaine Screen Negative ng/mL (Negative) 05/21/21 20:11 U Marijuana (THC) Screen Negative ng/mL (Negative) 05/21/21 20:11 Impressions Chest X-Ray 05/21/21 17:33 IMPRESSION: 1. No acute cardiopulmonary process. 2. Incidental/nonacute findings are listed in the report. Radiation Dose CTDIVOL = (mGy): DLP = (mGy-cm) Head CT 05/21/21 17:33 IMPRESSION: 1. There is a deformity of the right globe with a flattened appearance of the right globe. This is new compared with the prior CT scan of the orbits dated 10/09/2019. The chronicity of this finding is uncertain. Recommend clinical correlation to rule out possibility of acute orbital trauma. 2. No acute abnormality of the brain. 3. Stable mild atrophy of the brain parenchyma. 4. Stable mild chronic white matter microangiopathic change. 5. Incidental/nonacute findings are listed in the report. Radiation Dose CTDIVOL = (mGy): DLP = 978.08 (mGy-cm) ADDENDUM: 05/21/212010 Urgent results were discussed with Dr. Monk on 05/21/2021 at 8:09 PM CDT. Radiation Dose CTDIVOL = (mGy): DLP = 978.08 (mGy-cm) A&P Assessment and plan (1) Hypoglycemia: Status: Acute (2) Bradycardia: Status: Acute (3) Acute metabolic encephalopathy: Status: Acute (4) Hyponatremia: Status: Acute (5) Hypertension: Status: Acute Qualifiers: Hypertension type: essential hypertension Qualified Code(s): I10 - Essential (primary) hypertension (6) Glaucoma: Status: Acute Qualifiers: Glaucoma type: unspecified Laterality: bilateral Qualified Code(s): H40.9 - Unspecified glaucoma (7) Diabetes mellitus type 2, insulin dependent: Status: Acute Additional A&P Information 71-year-old male with past medical history of hypertension, diabetes, complete blindness who was brought to emergency room due to altered mental status. Most likely this was due to hypoglycemia. Hypoglycemia was corrected and his mental state has almost resolved. He is also found to have sinus bradycardia which is asymptomatic at this time. We will admit the patient for observation. I will hold his home Lantus. We will cover him with sliding scale insulin level 1. We will continue checking his Accu-Cheks every 2 hours. He will be on hypoglycemia protocol. He will receive IV fluids containing D5. If he remains stable in the morning we might be able to discharge him home. We will hold his metoprolol for now. We will continue the rest of his antihypertensive medications. DVT prophylaxis. Lovenox. CODE STATUS. Wants to be full code. The plan of care was discussed with the patient. He verbalized understanding and agreement. Attestations Medical Necessity Statement*: Observation Coding Level of Care Code Acute Development And Planning Engineer for [facility] Fwd Diagnoses Hypoglycemia E16.2 Bradycardia R00.1 Acute metabolic encephalopathy G93.41 Hyponatremia E87.1 Hypertension I10 Hypertension type: essential hypertension Glaucoma H40.9 Glaucoma type: unspecified Laterality: bilateral Diabetes mellitus type 2, insulin dependent E11.9; Z79.4
--- NOTE | 2021-05-21 23:34 | ECG_ITS ---
[facility] Test Date: 2021-05-22 Pat Name: Adan Zamudio Department: Room: 108 Gender: Male Palliative Care Specialist: : [id number] Requested By: Rosanna Saxena Order Number: [id number] Seng MD: Abraham Marie M.D. Measurements Intervals [place] Rate: 48 P: 50 IN: 195 QRS: 31 QRSD: 90 T: 43 QT: 474 QTc: 427 Interpretive Statements SINUS BRADYCARDIA WITH SINUS ARRHYTHMIA Compared to ECG 05/21/2021 17:32:12 No significant changes Electronically Signed On 05-22-2021 21:59:11 [employer] MILL RO[employer] by Abraham Marie M.D. [email or web address] ([email or web address]) [email or web address] va medical centerListen Upsouthview medical centerViva Developments/store/OM/[id number]
[2021-05-22] VITALS (34 sets, daily range): BP systolic 113–193; BP diastolic 61–92; PULSE 46–115; RESP 10–28; TEMP 36.6; O2SAT 94–97
[2021-05-22 01:14] LABS: Troponin 5 6HR 17.17 ng/L (0-15)
[2021-05-22 01:23] LABS: Troponin 5 6HR Delta -2.83 ng/L (0-12)
[2021-05-22] MEDS: dextrose 5%-sod chloride 0.9% 1,000 ML 125 ML IV (03:14)
[2021-05-22 03:23] LABS: Glucose Point of Care 79 mg/dL (70-110)
[2021-05-22 06:25] LABS: Glucose Point of Care 81 mg/dL (70-110)
[2021-05-22] MEDS: clopidogrel 75 mg Tablet PO (09:06)
[2021-05-22] MEDS: hyDRALAzine 25 mg Tablet PO (09:06)
[2021-05-22] MEDS: losartan 50 mg Tablet 100 MG PO (09:06)
[2021-05-22] MEDS: isosorbide mononitrate ER 30 mg Tablet PO (09:06)
[2021-05-22] MEDS: pantoprazole DR 40 mg Tablet PO (09:06)
[2021-05-22] MEDS: dorzolamide 2% Op Soln 10 mL Btl 1 DROP EYE-BOTH (09:49)
[2021-05-22] MEDS: prednisoLONE 1% Op Susp 5 mL Btl 1 DROP EYE-BOTH (09:49)
[2021-05-22] MEDS: timolol 0.5% Op Soln 5 mL Btl 1 DROP EYE-BOTH (09:49)
[2021-05-22] MEDS: latanoprost 0.005% Op Soln 2.5 mL Btl 1 DROP EYE-BOTH (09:49)
--- NOTE | 2021-05-22 10:27 | PC.PHAR ---
PATIENT'S VERIFIED MEDICATIONS BY MED BOTTLES. STATES PT TAKES METOPROLOL TART 200MG BID, AND WAS TAKEN OFF OF PLAVIX 75MG ONCE DAILY. [facility], WAITING ON RESPONSE TO VERIFY PT HAS BEEN TAKEN OFF MED AND APPROPRIATE DOSES.
[2021-05-22] MEDS: azithromycin 500 MG in sodium chloride 0.9% 250 ML 250 MG IV (10:55)
[2021-05-22] MEDS: ipratropium-albuterol 3 mL Neb INHALATION ×4 (11:11→23:35)
[2021-05-22 11:17] LABS: Glucose Point of Care 137 mg/dL (70-110)
[2021-05-22] MEDS: acetaminophen 325 mg Tablet 650 MG PO (14:25)
--- NOTE | 2021-05-22 15:49 | P.PN_ITS ---
Subjective Subjective: Interval history: Patient was seen and examined this morning, he was alert awake and oriented. Blood sugar well controlled Medications: Reviewed: Yes Vitals/I&O/Wt Last Vital Signs Temp 97.5 F L 05/21/21 22:16 Pulse 102 H 05/22/21 15:40 Resp 20 H 05/22/21 15:40 BP 160/76 05/22/21 14:00 Pulse Ox 96 05/22/21 15:40 05/22/21 05/22/21 05/22/21 06:59 14:59 22:59 Intake Total 240 / 240 Output Total Balance 240 / 240 Weight last 48 hrs Weight 90.718 kg Physical Exam Const: COMMON NORMALS: patient oriented x3 HENMT: COMMON NORMALS: normocephalic and atraumatic HEAD & SCALP: normocephalic and atraumatic Resp: EFFORT & INSPECTION: Yes symmetric chest movement OTHER: Bilateral expiratory wheezing present in both the lung munoz Cardio: COMMON NORMALS: regular rate, regular rhythm, S1 normal heart sound present, S2 normal heart sound present, No gallops present (Cardio), No murmurs present (Cardio), No rub (Cardio) and Peripheral pulses 2+ throughout RATE: regular rate RHYTHM: regular rhythm HEART SOUNDS: S1 normal heart sound present and S2 normal heart sound present PERIPHERAL PULSES: Peripheral pulses 2+ throughout GI: COMMON NORMALS: Normal to inspection, nondistended, normoactive bowel sounds present, Soft to palpation, non-tender, No hepatosplenomegaly present and no masses AUSCULTATION: Yes normoactive bowel sounds PALPATION: Yes Soft to palpation and Yes No hepatosplenomegaly present RECTAL EXAM: Yes deferred Extremity: COMMON NORMALS: no clubbing, cyanosis or edema and no pedal edema Neuro: COMMON NORMALS: patient oriented x3 Data : 05/21/21 19:40 05/21/21 17:56 A&P Assessment and plan (1) Acute metabolic encephalopathy: Acute metabolic encephalopathy likely secondary to acute episode of hypoglycemia. According to the patient is very much compliant with his insulin regimen, blood sugar has always been well controlled, takes good care of him. Currently regular diet has been started, he is on sliding scale insulin, fingerstick glucose is being monitored. Status: Acute (2) Hypoglycemia: Status: Acute (3) Bradycardia: Status: Acute (4) Hyponatremia: Status: Acute (5) Hypertension: Status: Acute Qualifiers: Hypertension type: essential hypertension Qualified Code(s): I10 - Essential (primary) hypertension (6) Glaucoma: Status: Acute Qualifiers: Glaucoma type: unspecified Laterality: bilateral Qualified Code(s): H40.9 - Unspecified glaucoma (7) Diabetes mellitus type 2, insulin dependent: Status: Acute Additional A&P Information Possible underlying COPD: Patient has bilateral wheezing. Currently is on DuoNeb, Solu-Medrol 40 mg i.v q8h daily, azithromycin 500 IV daily. Patient will need possible outpatient PFTs. DVT prophylaxis. Lovenox. CODE STATUS. Wants to be full code. Attestations 2 Medical Necessity Statement*: Patient needs to be in hospital for management of acute metabolic encephalopathy, and monitoring of blood sugar, as well as Possible underlying COPD with active wheezing. Coding Level of Care Code Acute Cabinetmaker Supervisor for [facility] Fwd Diagnoses Acute metabolic encephalopathy G93.41 Hypoglycemia E16.2 Bradycardia R00.1 Hyponatremia E87.1 Hypertension I10 Hypertension type: essential hypertension Glaucoma H40.9 Glaucoma type: unspecified Laterality: bilateral Diabetes mellitus type 2, insulin dependent E11.9; Z79.4
[2021-05-22 16:55] LABS: Glucose Point of Care 400 mg/dL (70-110)
[2021-05-22 17:06] LABS: Glucose Point of Care 371 mg/dL (70-110)
[2021-05-22] MEDS: insulin lispro 100 unit/1 mL SUBCUT ×2 (18:08→21:20)
[2021-05-22] MEDS: enoxaparin 40 mg/0.4 mL Syringe SUBCUT (18:08)
--- NOTE | 2021-05-22 18:47 | PC.PHAR ---
[facility] RESPONSE [facility] - PT STATES HE TAKES 200MG BID, AND IS NO LONGER TAKING PLAVIX.
--- NOTE | 2021-05-22 19:26 | NUR.SHIFT ---
dr cleveland noted some wheezing this morning.started pt on azithromycin an steroids.blood sugar went from 81 this morning to 400 prior to dinner.blood sugar rechecked and it came back 371.dr cleveland notified..he ordered to increase sliding scale to moderate level and add lantus 30 mg at hs.
[2021-05-22 19:55] LABS: Glucose Point of Care 565 mg/dL (70-110)
[2021-05-22] MEDS: atorvastatin 40 mg Tablet PO (20:37)
[2021-05-22] MEDS: insulin glargine 100 units/1 mL 30 UNIT SUBCUT (20:37)
[2021-05-22] MEDS: dorzolamide 2% Op Soln 10 mL Btl 1 DROP EYE-LEFT (20:38)
[2021-05-22] MEDS: latanoprost 0.005% Op Soln 2.5 mL Btl 1 DROP EYE-LEFT (20:40)
[2021-05-22] MEDS: prednisoLONE 1% Op Susp 5 mL Btl 1 DROP EYE-RIGHT (20:41)
[2021-05-22] MEDS: timolol 0.5% Op Soln 5 mL Btl 1 DROP EYE-LEFT (20:41)
[2021-05-23] VITALS (14 sets, daily range): BP systolic 113–179; BP diastolic 77–109; PULSE 78–104; RESP 15–32; TEMP 36.8–36.9; O2SAT 94–97
[2021-05-23] MEDS: ipratropium-albuterol 3 mL Neb INHALATION ×2 (03:26→07:53)
[2021-05-23 04:01] LABS: Basophils % 0.1 %; Hematocrit 40.1 % (42.0-52.0); Hemoglobin 13.8 g/dL (11.7-16.6); Lymphocytes % 12.8 %; Mean Corpuscular HGB Conc 34.4 g/dL (30.0-36.0); Mean Corpuscular Hemoglobin 31.6 pg (28.0-34.0); Mean Corpuscular Volume 91.8 fl (80-94); Mean Platelet Volume 9.9 fL (7.4-10.4); Monocytes # 0.4 10^3/uL (0.2-0.9); Neutrophils # 6.03 10^3/uL (1.8-7.7); Neutrophils % 81.3 %; Nucleated Red Blood Cells % 0 %; Platelet Count 246 10^3/cmm (130-400); Red Blood Count 4.37 10^6/uL (4.1-5.3); Red Cell Distribution Width 12.9 % (12.1-15.1); White Blood Count 7.4 10^3/uL (4.0-10.0)
[2021-05-23 04:33] LABS: Anion Gap 13.9 (5-19); Blood Urea Nitrogen 21 mg/dL (8-23); Calcium 8.6 mg/dL (8.5-10.5); Carbon Dioxide 23 mmol/L (22-29); Chloride 100 mmol/L (98-107); Estmated Average Glucose 206; Glucose 274 mg/dL (65-115); Hemoglobin A1C 8.8 % (4.0-6.0); Osmolality Calculated 289 mOsm/kg (285-295); Phosphorus 1.5 mg/dL (2.5-4.5); Potassium 3.9 mmol/L (3.5-5.1); Sodium 133 mmol/L (136-145); Thyroid Stimulating Hormone 0.84 uIU/mL (0.27-4.20)
[2021-05-23 06:19] LABS: Glucose Point of Care 89 mg/dL (70-110)
[2021-05-23 06:19] LABS: Glucose Point of Care 249 mg/dL (70-110)
[2021-05-23] MEDS: isosorbide mononitrate ER 30 mg Tablet PO (08:01)
[2021-05-23] MEDS: pantoprazole DR 40 mg Tablet PO (08:01)
[2021-05-23] MEDS: losartan 50 mg Tablet 100 MG PO (08:01)
[2021-05-23] MEDS: clopidogrel 75 mg Tablet PO (08:01)
[2021-05-23] MEDS: dorzolamide 2% Op Soln 10 mL Btl 1 DROP EYE-LEFT (08:03)
[2021-05-23] MEDS: latanoprost 0.005% Op Soln 2.5 mL Btl 1 DROP EYE-BOTH ×2 (08:03→08:04)
[2021-05-23] MEDS: timolol 0.5% Op Soln 5 mL Btl 1 DROP EYE-LEFT (08:04)
[2021-05-23] MEDS: prednisoLONE 1% Op Susp 5 mL Btl 1 DROP EYE-RIGHT (08:04)
[2021-05-23] MEDS: azithromycin 500 MG in sodium chloride 0.9% 250 ML 250 MG IV (08:05)
[2021-05-23] MEDS: latanoprost 0.005% Op Soln 2.5 mL Btl 1 DROP EYE-LEFT (08:11)
[2021-05-23] MEDS: acetaminophen 325 mg Tablet 650 MG PO (09:27)
--- NOTE | 2021-05-23 09:40 | PC.CHAP ---
Pastoral Care Encounter/Spiritual Assessment Type of Contact [] Declined corn grinder visit [] Patient/Family/Request visit [] Outpatient visit [] Follow-up visit [] Physician referral [] Code/Alert [x] Routine visit [] Staff referral [] Actively dying [x] Patient sleeping [] Family support [] [] Out of room [] Palliative care [] [] Receiving care in room [] Pre-surgical visit [] Trauma [] Long length of stay [] ICU visit [] Other: Relational/Emotional Strength [] Patient feels connected with others/family/visitors/staff [] Distress [] Loneliness/isolation [] Abandonment Spirituality of Patient [] Person of Mignon [] Attends Anabaptism of their Mignon [] Believes in Prayer [] Reads Bible or Mu-Ism materials [] There are Spiritual issues to be addressed Head Of Strategy Interventions [x] Prayer [] Active listening [] Non-anxious presence [] Spiritual/emotional support [] Crisis/trauma care [] Spiritual counseling [] Bereavement support [] Provided bereavement packet [] Provided Bible/devotional materials [] Provided toy/stuffed animal, coloring book to patient or family member [] Provided Communion [] Anointing/[place] [] Salvation [x] Completed spiritual assessment [] Other: Impact on Illness or Injury [] Angry [] Fearful [] Anxious [] Often cries [] Exhaustion [] Unable to work [] Unable to attend mormon [] Unable to walk/stand [] Unable to read [] Unable to drive [] Unable to eat/drink [] Unable to sleep [] Unable to be with family [] Patient intubated [] Other: Summary Time spent with patient
[2021-05-23 11:09] LABS: Glucose Point of Care 536 mg/dL (70-110)
[2021-05-23 11:09] LABS: Glucose Point of Care 501 mg/dL (70-110)
[2021-05-23] MEDS: insulin lispro 100 unit/1 mL SUBCUT (11:27)
--- NOTE | 2021-05-23 11:27 | PM.DCS ---
Discharge Providers Date of Admission: 05/22/21 04:44 Date of Discharge: May 23, 2021 Attending Provider at Admission: Armando Salas Attending Provider at Discharge: Jatin Blanco MD Primary Care Provider: Tomasz Eduardo Diagnoses at Discharge Discharge Diagnosis (1) Acute metabolic encephalopathy: Status: Resolved (2) Hypoglycemia: Status: Resolved (3) Bradycardia: Status: Acute (4) Hyponatremia: Status: Acute (5) Hypertension: Status: Acute Qualifiers: Hypertension type: essential hypertension Qualified Code(s): I10 - Essential (primary) hypertension (6) Glaucoma: Status: Acute Qualifiers: Glaucoma type: unspecified Laterality: bilateral Qualified Code(s): H40.9 - Unspecified glaucoma (7) Diabetes mellitus type 2, insulin dependent: Status: Acute Reason for Visit Reason for Visit: HYPPGLYCEMIA Hospital Course Hospital Course 70 year old male with past medical history of diabetes, hypertension, complete blindness who was brought to emergency room due to altered mental status. He was found to have hypoglycemia. His mental status improved with glucose administration. He was admitted for the management of acute metabolic encephalopathy secondary to hypoglycemia.According to the patient is very much compliant with his insulin regimen, blood sugar has always been well controlled, takes good care of him.During the hospital stay his fingerstick glucose was well controlled. HbA1c: 8.8, he has been continued on his home insulin regimen, and has been asked to monitor his blood sugar, so that he can take appropriate dose of insulin, he follows with his primary care physician as an outpatient. Patient was also having bilateral wheezing, with cough possibility of underlying COPD cannot be ruled out, he was kept on duo nebs and IV steroids, along with azithromycin, to which he responded well he was no longer wheezing on, he has been discharged on cough medicine. Patient has been continued on his other home medications.Responded well to the above medical management is being discharged in stable condition. Physical Exam Const: COMMON NORMALS: patient oriented x3 HENMT: COMMON NORMALS: normocephalic and atraumatic HEAD & SCALP: normocephalic and atraumatic Resp: COMMON NORMALS: clear to auscultation bilaterally EFFORT & INSPECTION: Yes symmetric chest movement AUSCULTATION: clear to auscultation bilaterally Cardio: COMMON NORMALS: regular rate, regular rhythm, S1 normal heart sound present, S2 normal heart sound present, No gallops present (Cardio), No murmurs present (Cardio), No rub (Cardio) and Peripheral pulses 2+ throughout RATE: regular rate RHYTHM: regular rhythm HEART SOUNDS: S1 normal heart sound present and S2 normal heart sound present PERIPHERAL PULSES: Peripheral pulses 2+ throughout GI: COMMON NORMALS: Normal to inspection, nondistended, normoactive bowel sounds present, Soft to palpation, non-tender, No hepatosplenomegaly present and no masses AUSCULTATION: Yes normoactive bowel sounds PALPATION: Yes Soft to palpation and Yes No hepatosplenomegaly present RECTAL EXAM: Yes deferred Extremity: COMMON NORMALS: no clubbing, cyanosis or edema and no pedal edema Neuro: COMMON NORMALS: patient oriented x3 Discharge Data Data Completed and Pending: Completed Studies During Hospitalization Category Date Time Status CT head wo con* [id number] Urgent Cat Scan 05/21/21 17:33 Completed XR chest 1V [place] ble [id number] Urgent Exams 05/21/21 17:33 Completed Labs from last 24 hours 05/23/21 05/23/21 05/23/21 10:50 10:49 06:17 WBC RBC Hgb Hct MCV MCH MCHC RDW Plt Count MPV Neut % (Auto) Lymph % (Auto) [place] % (Auto) Eos % (Auto) Baso % (Auto) Neut # (Auto) Lymph # (Auto) [place] # (Auto) Eos # (Auto) Baso # (Auto) Nucleated RBC % (a uto) Nucleated RBCs # Sodium Potassium Chloride Carbon Dioxide Anion Gap BUN Creatinine GFR Calculation Glucose POC Glucose 536 H* 501 H 89 Estimat Average Gl ucose Hemoglobin A1c Calculated Osmolal ity Calcium Phosphorus Magnesium TSH 05/23/21 05/23/21 05/23/21 06:15 03:30 03:30 WBC RBC Hgb Hct MCV MCH MCHC RDW Plt Count MPV Neut % (Auto) Lymph % (Auto) [place] % (Auto) Eos % (Auto) Baso % (Auto) Neut # (Auto) Lymph # (Auto) [place] # (Auto) Eos # (Auto) Baso # (Auto) Nucleated RBC % (a uto) Nucleated RBCs # Sodium 133 L Potassium 3.9 Chloride 100 Carbon Dioxide 23 Anion Gap 13.9 BUN 21 Creatinine 1.0 GFR Calculation Not Reportable Glucose 274 H POC Glucose 249 H Estimat Average Gl ucose 206 Hemoglobin A1c 8.8 H Calculated Osmolal ity 289 Calcium 8.6 Phosphorus 1.5 L Magnesium 2.0 TSH 0.84 05/23/21 05/22/21 05/22/21 03:30 19:40 17:03 WBC 7.4 RBC 4.37 Hgb 13.8 Hct 40.1 L MCV 91.8 MCH 31.6 MCHC 34.4 RDW 12.9 Plt Count 246 MPV 9.9 Neut % (Auto) 81.3 Lymph % (Auto) 12.8 [place] % (Auto) 5.0 Eos % (Auto) 0.0 Baso % (Auto) 0.1 Neut # (Auto) 6.03 Lymph # (Auto) 1.0 [place] # (Auto) 0.4 Eos # (Auto) 0.0 Baso # (Auto) 0.0 Nucleated RBC % (a uto) 0 Nucleated RBCs # 0.0 Sodium Potassium Chloride Carbon Dioxide Anion Gap BUN Creatinine GFR Calculation Glucose POC Glucose 565 H* 371 H Estimat Average Gl ucose Hemoglobin A1c Calculated Osmolal ity Calcium Phosphorus Magnesium TSH 05/22/21 16:51 WBC RBC Hgb Hct MCV MCH MCHC RDW Plt Count MPV Neut % (Auto) Lymph % (Auto) [place] % (Auto) Eos % (Auto) Baso % (Auto) Neut # (Auto) Lymph # (Auto) [place] # (Auto) Eos # (Auto) Baso # (Auto) Nucleated RBC % (a uto) Nucleated RBCs # Sodium Potassium Chloride Carbon Dioxide Anion Gap BUN Creatinine GFR Calculation Glucose POC Glucose 400 H Estimat Average Gl ucose Hemoglobin A1c Calculated Osmolal ity Calcium Phosphorus Magnesium TSH Vitals: Last Vital Signs Temp 98.2 F 05/23/21 10:53 Pulse 92 05/23/21 10:55 Resp 16 05/23/21 10:55 BP 153/77 05/23/21 10:55 Pulse Ox 97 05/23/21 10:55 Discharge Plan Discharge Patient Disposition: Home Condition: Stable Prescriptions: New guaifenesin [Mucinex] 600 mg tablet extended release 12hr 600 mg PO BID PRN (Reason: cough) Qty: 14 RF: 0 Continued pantoprazole 40 mg tablet,delayed release (DR/EC) 40 mg PO DAILY Qty: 90 RF: 3 loteprednol etabonate [Lotemax] 0.5 % drops,suspension 1 drp ophthalmic (eye) TID RF: 0 latanoprost 0.005 % Drops 1 drp OPHTHALMIC (EYE) DAILY RF: 0 metoprolol tartrate 100 mg Tablet 100 mg PO BID RF: 0 brimonidine 0.2 % Drops 1 drp OPHTHALMIC (EYE) BID RF: 0 timolol maleate 0.5 % Drops 1 drp OPHTHALMIC (EYE) BID RF: 0 losartan 100 mg Tablet 100 mg PO DAILY RF: 0 dorzolamide 2 % Drops 1 drp OPHTHALMIC (EYE) TID RF: 0 cetirizine 10 mg Tablet 10 mg PO DAILY RF: 0 doxazosin 8 mg Tablet 4 mg PO DAILY RF: 0 insulin aspart U-100 [Novolog Flexpen U-100 Insulin] 100 unit/mL (3 mL) Insulin Pen See Rx Instructions .ROUTE .COMPLEX Qty: 0 RF: 0 cyclobenzaprine 10 mg Tablet 10 mg PO TID PRN (Reason: Muscle Pain) RF: 0 albuterol sulfate 2.5 mg /3 mL (0.083 %) Solution For Nebulization 2.5 mg INHALATION Q4H PRN (Reason: Shortness Of Breath) RF: 0 prednisolone acetate 1 % Drops,Suspension 1 drp OPHTHALMIC (EYE) BID RF: 0 atorvastatin 40 mg Tablet 40 mg PO BEDTIME Qty: 30 RF: 0 sennosides-docusate sodium 8.6-50 mg Tablet 1 tab PO BID Qty: 30 RF: 0 nitroglycerin [Nitrostat] 0.4 mg Tablet, Sublingual 0.4 mg sublingual Q5M PRN (Reason: Chest Pain) Qty: 25 RF: 0 hydralazine 25 mg Tablet 25 mg PO QID PRN (Reason: BP>160/100) Qty: 30 RF: 0 Lantus U-100 Insulin 100 unit/mL solution 53 unit SUBCUT DAILY RF: 0 hydrocodone-acetaminophen [[place]] 5-325 mg tablet 1 tab PO Q6H PRN (Reason: pain) Qty: 14 RF: 0 cefuroxime axetil 250 mg Tablet 250 mg PO BID RF: 0 promethazine 6.25 mg/5 mL Syrup 6.25 mg PO Q6H PRN (Reason: Cough) RF: 0 simvastatin 40 mg Tablet 20 mg PO DAILY RF: 0 isosorbide mononitrate 60 mg Tablet Extended Release 24 Hr 90 mg PO BID RF: 0 aspirin 81 mg Tablet,Chewable 81 mg PO DAILY RF: 0 Vitamin D3 25 mcg (1,000 unit) Capsule 25 mcg PO TID RF: 0 Brainstrong Memory Support 120 mg- 110 mg Tablet 1 tab PO DAILY RF: 0 Discharge Orders: Discharge Order (Routine); Ordered 05/23/21 Ordered By: Jatin Blanco Referrals: Tomasz Eduardo [Primary Care Provider] - 2 weeks Discharge Diet: Diabetic Discharge Activity: Resume usual activity Patient Instructions: Guaifenesin (By mouth), Coronary Artery Disease (DC), Hyponatremia (DC), Hypertension (DC), Opioid Safety Discharge Attestations Time Spent in Discharge Care*: less than 30 min Specific Discharge Activities: educating patient, educating and/or supporting family/caregiver, discussing with pcp/other providers, discussing with community case manager/social workers/dc planners, documenting/other paperwork and evaluating patient/reviewing data Status at Discharge: Cognitive status at discharge: cognitively intact, Behavioral status at discharge: cooperative, Functional status at discharge: independent ambulation Overall status at discharge: patient is back to baseline Quality Metrics Clinical Quality Measures During this hospital stay, did patient experience: None Coding Level of Care Code Acute Chg FW DC note Diagnoses Acute metabolic encephalopathy G93.41 Hypoglycemia E16.2 Bradycardia R00.1 Hyponatremia E87.1 Hypertension I10 Hypertension type: essential hypertension Glaucoma H40.9 Glaucoma type: unspecified Laterality: bilateral Diabetes mellitus type 2, insulin dependent E11.9; Z79.4
== END 2021-05-23 13:34 | disposition home or self-care (01) ==
LOC: ER 21:35 → CSU 22:03 → ICU 05-22 06:40
PROVIDERS: Physician Assistant; Admitting Provider Internal Medicine; Emergency Provider Emergency Medicine; PCP Internal Medicine; Visit Provider Internal Medicine
DX: E11.649 Type 2 diabetes mellitus with hypoglycemia without coma (principal); R00.1 Bradycardia, unspecified; G93.41 Metabolic encephalopathy; E87.1 Hypo-osmolality and hyponatremia; I10 Essential (primary) hypertension; H40.9 Unspecified glaucoma; H54.7 Unspecified visual loss; E78.5 Hyperlipidemia, unspecified; Z79.4 Long term (current) use of insulin; Z86.73 Personal history of transient ischemic attack (TIA), and cerebral infarction without residual deficits; Z87.891 Personal history of nicotine dependence; Z79.82 Long term (current) use of aspirin
CPT/HCPCS: 36415; 36416; 70450; 71045; 80048; 80053; 80306; 81003; 82550; 82962; 83036; 83605; 83735; 84100; 84443; 84484; 85025; 93005; 94640; 96361; 96365; 96372; 96375; 99285; G0378; J0456; J1650; J1815 ×2; J2920; J7030; J7050

== ENCOUNTER → 2022-02-20 08:03 | Outpatient (BNVA) | payer OTHER, MEDICARE, SELFPAY | PROVIDERS: PCP Nurse Practitioner Family; Referring Provider Nurse Practitioner Family; Visit Provider Internal Medicine | DX: Z79.4 Long term (current) use of insulin (principal); E11.319 Type 2 diabetes mellitus with unspecified diabetic retinopathy without macular edema; E78.2 Mixed hyperlipidemia | CPT/HCPCS: 99204 ==

== ENCOUNTER → 2022-03-28 13:41 | Outpatient (BNVA) | payer OTHER, SELFPAY | PROVIDERS: PCP Nurse Practitioner Family; Visit Provider Podiatrist Foot & Ankle Surgery | DX: E11.8 Type 2 diabetes mellitus with unspecified complications (principal); L60.3 Nail dystrophy; Z79.4 Long term (current) use of insulin | CPT/HCPCS: 11721 ==

== ENCOUNTER 2022-05-14 16:45 | Emergency (ER) | payer OTHER, SELFPAY ==
[2022-05-14 16:47] VITALS: BP 143/81; PULSE 54; RESP 16; TEMP 36.2; O2SAT 93
--- NOTE | 2022-05-14 16:48 | ED_ITS ---
HPI - Fall General: Chief Complaint: Fall Stated Complaint: BACK PAIN S/P FALL Time Seen by Provider: 05/14/22 16:48 History of Present Illness: Mr. Zamudio is a 71-year-old gentleman with complex history including hypertension, hyperlipidemia, CAD, diabetes, visual impairment presenting to the emergency department due to fall. He reports being at his baseline health though perhaps having mild cold symptoms including cough and rhinorrhea over the past few days. He was having a bowel movement and went to get up after he was done and his left ankle gave out causing him to fall cyndee kwards hitting his head and ribs. Immediately had significant pain. Pain is improved by EMS administered analgesia. Worse with palpation and attempting to walk. Additionally endorses abdominal and back pain. No other specific changes in health, exacerbating, or alleviating factors identified. 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 Bradycardia Diabetes mellitus type 2, insulin dependent Glaucoma Hyperlipidemia Hypertension Hypoglycemia Hyponatremia Lumbar disc disease TIA (transient ischemic attack) Surgical History History of circumcision History of eye surgery Bilateral due to glaucoma Family History Brother Chronic kidney disease (CKD) Diabetes Sister Chronic kidney disease (CKD) Diabetes Family/Other Lung disease Denies family history of CAD (coronary artery disease) Clotting disorder Dementia Suicide Anesthesia complication Bleeding disorder Cancer Stroke Social History Smoking and tobacco status: never smoked Alcohol intake: never Household members: spouse and family Marital status: Physical Exam Const: COMMON NORMALS: alert GENERAL APPEARANCE: cooperative and well deve fred[place] HENMT: COMMON NORMALS: normocephalic and atraumatic HEAD & SCALP: normocephalic and atraumatic THROAT: posterior oropharynx normal OTHER: No august signs or raccoon eyes. No otorrhea or rhinorrhea. Jaw alignment normal. Dentition baseline. No obvious bony step-offs. No septal hematoma. No evidence of ocular entrapment. Eye: COMMON NORMALS: conjunctivae normal CONJUNCTIVA: Yes conjunctivae normal SCLERA: sclerae normal Neck/C-Spine: COMMON NORMALS: supple GENERAL: Yes trachea midline Resp: COMMON NORMALS: normal respiratory effort EFFORT & INSPECTION: Yes a ble to speak in complete sentences Cardio: COMMON NORMALS: regular rate and regular rhythm RATE: regular rate RHYTHM: regular rhythm GI: COMMON NORMALS: Soft to palpation PALPATION: Yes Soft to palpation and No Tenderness to palpation present (GI) PERCUSSION: normal to percussion Back/Pelvis: OTHER: Tenderness to palpation posterior back in the low thoracic and high lumbar region. Extremity: GENERAL: Yes normal exam except as noted and No edema Neuro: COMMON NORMALS: moves all extremities SENSORIUM/ORIENTATION: Yes alert and No Orientation impaired Psych: COMMON NORMALS: mental status grossly normal and Normal thought process present THOUGHT PROCESS: Normal thought process present Course Vital Signs: Vital signs: Vital Signs Temperature 97.1 F L 05/14/22 21:54 Pulse Rate 55 L 05/14/22 21:54 Respiratory Rate 16 05/14/22 21:54 Blood Pressure 173/74 05/14/22 21:54 Pulse Oximetry 97 05/14/22 21:54 Oxygen Delivery Me thod 05/14/22 20:27 MDM - Fall Medical Decision Making Mr Zamudio is a 71-year-old gentleman with multiple comorbidities presenting to the emergency department due to fall with back and abdominal pain. Fall appears to be mechanical without preceding symptoms. He endorses severe pain in his back and abdomen. Initial exam head to toe exam performed, ABCs intact. Laboratory studies notable for no leukocytosis, hemoglobin normal. Metabolic panel with perhaps mild evidence of dehydration with sodium 131, potassium 4.9, chloride 97, bicarb 23, BUN 28, creatinine 1.5 with likely baseline close to 1.0 or 1.2. Glucose 275. No transaminitis. EKG reviewed showing sinus bradycardia with arrhythmia, first-degree AV block. No STEMI. CT head, cervical spine, chest, abdomen, pelvis obtained and notable for posterior left eighth, ninth, 10th, 11th rib fractures. Patient requires additional dosing of analgesia for continued pain. Given four contiguous rib fractures with difficulty with pain control and multiple comorbidities including age I believe that the patient requires inpatient evaluation and management by trauma specialist. We do not have trauma at our facility and therefore patient requires transfer. Patient graciously accepted to [facility] ED by Dr. Roberts for further trauma evaluation. The results of ED evaluation were discussed with the patient including plan for transfer due to requirement for level of care not available if discharged to prevent significant worsening/deterioration. Patient agreeable with plan. Medical Records I reviewed the patient's medical records. Lab Data I reviewed the patient's lab results. : 05/14/22 17:00 05/14/22 17:00 Radiology Impressions Cervical Spine CT 05/14/22 17:10 IMPRESSION: No acute findings. Chest/Abdomen/Pelvis CT 05/14/22 17:10 IMPRESSION: 1. Multivessel atherosclerotic disease which involves the coronary arteries. 2. There are acute fractures through the left 8th through 11th ribs. IMPRESSION: 1. There are foci of edema and/or hematoma in the subcutaneous soft tissues of the ventral abdomen. 2. Grade 1 degenerative anterolisthesis of L4 on L5. There are multilevel lumbar broad-based disc osteophyte complexes contributing to canal and bilateral neural foraminal narrowing. Head CT 05/14/22 17:10 IMPRESSION: 1. Negative for intracranial hemorrhage or mass effect. 2. Large amount of diffuse white matter disease likely reflecting chronic microvascular ischemic changes. 3. Right globe chronic shrunken calcified appearance. Laboratory Results WBC 7.7 10^3/uL (4.0-10.0) 05/14/22 17:00 RBC 3.95 10^6/uL (4.1-5.3) L 05/14/22 17:00 Hgb 12.9 g/dL (11.7-16.6) 05/14/22 17:00 Hct 37.5 % (42.0-52.0) L 05/14/22 17:00 MCV 94.9 fl (80-94) H 05/14/22 17:00 MCH 32.7 pg (28.0-34.0) 05/14/22 17:00 MCHC 34.4 g/dL (30.0-36.0) 05/14/22 17:00 RDW 12.4 % (12.1-15.1) 05/14/22 17:00 Plt Count 197 10^3/cmm (130-400) 05/14/22 17:00 MPV 10.9 fL (7.4-10.4) H 05/14/22 17:00 Neut % (Auto) 64.8 % 05/14/22 17:00 Lymph % (Auto) 21.1 % 05/14/22 17:00 [place] % (Auto) 9.8 % 05/14/22 17:00 Eos % (Auto) 3.2 % 05/14/22 17:00 Baso % (Auto) 0.6 % 05/14/22 17:00 Neut # (Auto) 4.99 10^3/uL (1.8-7.7) 05/14/22 17:00 Lymph # (Auto) 1.6 10^3/uL (0.8-4.8) 05/14/22 17:00 [place] # (Auto) 0.8 10^3/uL (0.2-0.9) 05/14/22 17:00 Eos # (Auto) 0.3 10^3/uL (0.0-0.8) 05/14/22 17:00 Baso # (Auto) 0.1 10^3/uL (0.0-0.1) 05/14/22 17:00 Nucleated RBC % (auto) 0 % 05/14/22 17:00 Nucleated RBCs # 0.0 /100WBC 05/14/22 17:00 Sodium 131 mmol/L (136-145) L 05/14/22 17:00 Potassium 4.9 mmol/L (3.5-5.1) 05/14/22 17:00 Chloride 97 mmol/L (98-107) L 05/14/22 17:00 Carbon Dioxide 23 mmol/L (22-29) 05/14/22 17:00 Anion Gap 15.9 (5-19) 05/14/22 17:00 BUN 28 mg/dL (8-23) H 05/14/22 17:00 Creatinine 1.5 mg/dL (0.7-1.2) H 05/14/22 17:00 GFR Calculation Not Reportable 05/14/22 17:00 Glucose 257 mg/dL (65-115) H 05/14/22 17:00 POC Glucose 139 mg/dL (70-110) H 05/14/22 20:16 Calculated Osmolality 286 mOsm/kg (285-295) 05/14/22 17:00 Calcium 8.6 mg/dL (8.5-10.5) 05/14/22 17:00 Total Bilirubin 0.3 mg/dL (0.15-1.2) 05/14/22 17:00 AST 20 U/L (0-40) 05/14/22 17:00 ALT 18 U/L (0-41) 05/14/22 17:00 Alkaline Phosphatase 82 U/L (40-130) 05/14/22 17:00 Total Protein 6.7 g/dL (6.6-8.7) 05/14/22 17:00 Albumin 3.4 g/dL (3.5-5.2) L 05/14/22 17:00 Globulin 3.3 g/dL (1.3-4.6) 05/14/22 17:00 Discharge Plan Discharge Patient Disposition: Transfer to ED Clinical Impression: Multiple fractures of ribs of left side Condition: Stable Prescriptions: No Action mupirocin 2 % ointment 1 applic topical BID 14 Days Qty: 22 1RF (DME) Dexcom G6 Bead Wire Insulator Misc See Rx Instructions .Route Qty: 1 0RF Rx Instructions: Check BS 4-6 times a day. (DME) Dexcom G6 Sensor Device See Rx Instructions .Route Qty: 9 3RF Rx Instructions: Change every 10 days. (DME) Dexcom G6 Transmitter Device See Rx Instructions .Route Qty: 3 3RF Rx Instructions: Change every 90 days. pantoprazole 40 mg tablet,delayed release (DR/EC) 40 mg PO DAILY Qty: 90 3RF loteprednol etabonate [Lotemax] 0.5 % drops,suspension 1 drp ophthalmic (eye) TID Rx Instructions: (RIGHT EYE) latanoprost 0.005 % Drops 1 drp OPHTHALMIC (EYE) DAILY Rx Instructions: (BOTH EYES) brimonidine 0.2 % Drops 1 drp OPHTHALMIC (EYE) BID timolol maleate 0.5 % Drops 1 drp OPHTHALMIC (EYE) BID losartan 100 mg Tablet 100 mg PO DAILY dorzolamide 2 % Drops 1 drp OPHTHALMIC (EYE) TID cetirizine 10 mg Tablet 10 mg PO DAILY doxazosin 8 mg Tablet 4 mg PO DAILY insulin aspart U-100 [Novolog Flexpen U-100 Insulin] 100 unit/mL (3 mL) Insulin Pen See Rx Instructions .ROUTE .COMPLEX Qty: 0 Rx Instructions: PER SLIDING SCALE cyclobenzaprine 10 mg Tablet 10 mg PO TID PRN (Reason: Muscle Pain) albuterol sulfate 2.5 mg /3 mL (0.083 %) Solution For Nebulization 2.5 mg INHALATION Q4H PRN (Reason: Shortness Of Breath) prednisolone acetate 1 % Drops,Suspension 1 drp OPHTHALMIC (EYE) BID Rx Instructions: (RIGHT EYE) sennosides-docusate sodium 8.6-50 mg Tablet 1 tab PO BID Qty: 30 0RF hydralazine 25 mg Tablet 25 mg PO QID PRN (Reason: BP>160/100) Qty: 30 0RF Lantus U-100 Insulin 100 unit/mL solution 59 unit SUBCUT DAILY metoprolol tartrate 100 mg tablet 200 mg PO BID simvastatin 40 mg Tablet 20 mg PO DAILY isosorbide mononitrate 60 mg Tablet Extended Release 24 Hr 90 mg PO BID aspirin 81 mg Tablet,Chewable 81 mg PO DAILY Mucinex 600 mg tablet extended release 12hr 600 mg PO BID PRN (Reason: cough) Qty: 14 0RF Vitamin D3 25 mcg (1,000 unit) capsule 75 mcg PO DAILY Referrals: Kandace Cochran FNP [Primary Care Provider] - Coding Level of Care Code ED Dental Laboratory Supervisor for Chg Fwd Exam Comprehensive
--- NOTE | 2022-05-14 17:10 | CTR_ITS ---
PROCEDURE INFORMATION: Exam: CT Chest With Contrast; Diagnostic Exam date and time: 05/14/2022 6:28 PM Age: 71 years old Clinical indication: Injury or trauma; Fall; Generalized; Blunt trauma (contusions or hematomas); Additional info: Fall, abd and back pain TECHNIQUE: Imaging protocol: Diagnostic computed tomography of the chest with contrast. Radiation optimization: All CT scans at this facility use at least one of these dose optimization techniques: automated exposure control; mA and/or kV adjustment per patient size (includes targeted exams where dose is matched to clinical indication); or iterative reconstruction. Contrast material: OMNIPAQUE 350; Contrast volume: 100 ml; Contrast route: INTRAVENOUS (IV); COMPARISON: CT chest wo con [id number] 09/09/2019 1:30 AM RADIATION DOSE METRICS: Total DLP (mGy-cm): 1663.06 FINDINGS: Lungs: There are pulmonary parenchymal calcifications consistent with remote granulomatous organism exposure. Pleural spaces: Unremarkable. No pneumothorax. No pleural effusion. Heart: Multivessel atherosclerotic disease which involves the coronary arteries. Lymph nodes: Unremarkable. No enlarged lymph nodes. Vasculature: A focus of air in the pulmonary trunk is likely iatrogenic in nature from the contrast bolus. Bones/joints: There are degenerative changes in the spine.There are diffuse enthesopathic changes consistent with benign diffuse idiopathic skeletal hyperostosis (DISH). There are acute fractures through the left 8th, 9th, 10th, and 11th ribs. Mild adjacent soft tissue edema. Several old/healed left rib fracture sites. Soft tissues: See Bones/joints finding. PROCEDURE INFORMATION: Exam: CT Abdomen And Pelvis With Contrast Exam date and time: 05/14/2022 6:28 PM Age: 71 years old Clinical indication: Injury or trauma; Fall; Generalized; Blunt trauma (contusions or hematomas); Additional info: Fall, abd and back pain TECHNIQUE: Imaging protocol: Computed tomography of the abdomen and pelvis with contrast. Radiation optimization: All CT scans at this facility use at least one of these dose optimization techniques: automated exposure control; mA and/or kV adjustment per patient size (includes targeted exams where dose is matched to clinical indication); or iterative reconstruction. Contrast material: OMNIPAQUE 350; Contrast volume: 100 ml; Contrast route: INTRAVENOUS (IV); COMPARISON: CT abdomen pelvis w con* [id number] 09/12/2019 8:47 PM RADIATION DOSE METRICS: Total DLP (mGy-cm): 1663.06 FINDINGS: Heart: Multivessel atherosclerotic disease which involves the coronary arteries. Liver: Normal. No mass. Gallbladder and bile ducts: Normal. No calcified stones. No ductal dilation. Pancreas: Normal. No ductal dilation. Spleen: Normal. No splenomegaly. Adrenal glands: Normal. No mass. Kidneys and ureters: There are cysts with benign features in the kidneys the larger of which measures 4.2 cm in the right kidney. Stomach and bowel: Unremarkable. No obstruction. No mucosal thickening. Appendix: A normal appendix is identified. Intraperitoneal space: Unremarkable. No free air. No significant fluid collection. Vasculature: Unremarkable. No abdominal aortic aneurysm. Lymph nodes: Unremarkable. No enlarged lymph nodes. Urinary bladder: Unremarkable as visualized. Reproductive: Unremarkable as visualized. Bones/joints: Please see the CT scan of the thorax for description of the acute left rib fractures. There are degenerative changes in the spine.There are diffuse enthesopathic changes consistent with benign diffuse idiopathic skeletal hyperostosis (DISH). Grade 1 degenerative anterolisthesis of L4 on L5. There are multilevel lumbar broad-based disc osteophyte complexes contributing to canal and bilateral neural foraminal narrowing. Soft tissues: There are foci of edema and/or hematoma in the subcutaneous soft tissues of the ventral abdomen. Small fat containing inguinal hernias. CT/CT chest abd pel w con* IMPRESSION: 1. Multivessel atherosclerotic disease which involves the coronary arteries. 2. There are acute fractures through the left 8th through 11th ribs. IMPRESSION: 1. There are foci of edema and/or hematoma in the subcutaneous soft tissues of the ventral abdomen. 2. Grade 1 degenerative anterolisthesis of L4 on L5. There are multilevel lumbar broad-based disc osteophyte complexes contributing to canal and bilateral neural foraminal narrowing.
--- NOTE | 2022-05-14 17:10 | CTR_ITS ---
PROCEDURE INFORMATION: Exam: CT Head Without Contrast Exam date and time: 05/14/2022 6:22 PM Age: 71 years old Clinical indication: Injury or trauma; Fall; Blunt trauma (contusions or hematomas) TECHNIQUE: Imaging protocol: Computed tomography of the head without contrast. Radiation optimization: All CT scans at this facility use at least one of these dose optimization techniques: automated exposure control; mA and/or kV adjustment per patient size (includes targeted exams where dose is matched to clinical indication); or iterative reconstruction. COMPARISON: CT head wo con* [id number] 05/21/2021 6:59 PM RADIATION DOSE METRICS: Total DLP (mGy-cm): 1238.79 FINDINGS: Brain: Large amount of diffuse white matter disease likely reflecting chronic microvascular ischemic changes. Cerebral ventricles: No ventriculomegaly. Paranasal sinuses: Visualized sinuses are unremarkable. No fluid levels. Mastoid air cells: Visualized mastoid air cells are well aerated. Orbital cavities: Right globe chronic shrunken calcified appearance. Bones/joints: Unremarkable. No acute fracture. Soft tissues: Unremarkable. CT/CT head wo con* [id number] IMPRESSION: 1. Negative for intracranial hemorrhage or mass effect. 2. Large amount of diffuse white matter disease likely reflecting chronic microvascular ischemic changes. 3. Right globe chronic shrunken calcified appearance.
--- NOTE | 2022-05-14 17:10 | CTR_ITS ---
PROCEDURE INFORMATION: Exam: CT Cervical Spine Without Contrast Exam date and time: 05/14/2022 6:22 PM Age: 71 years old Clinical indication: Injury or trauma; Fall; Blunt trauma TECHNIQUE: Imaging protocol: Computed tomography of the cervical spine without contrast. Radiation optimization: All CT scans at this facility use at least one of these dose optimization techniques: automated exposure control; mA and/or kV adjustment per patient size (includes targeted exams where dose is matched to clinical indication); or iterative reconstruction. COMPARISON: CT head wo con* [id number] 05/21/2021 6:59 PM RADIATION DOSE METRICS: Total DLP (mGy-cm): 277.1 FINDINGS: Bones/joints: No acute fracture. Normal alignment. C2-C3: No significant disc protrusion. No severe spinal canal stenosis. No significant neural foraminal narrowing. C3-C4: No significant disc protrusion. No severe spinal canal stenosis. No significant neural foraminal narrowing. C4-C5: No significant disc protrusion. No severe spinal canal stenosis. No significant neural foraminal narrowing. C5-C6: No significant disc protrusion. No severe spinal canal stenosis. No significant neural foraminal narrowing. C6-C7: No significant disc protrusion. No severe spinal canal stenosis. No significant neural foraminal narrowing. C7-T1: No significant disc protrusion. No severe spinal canal stenosis. No significant neural foraminal narrowing. Lungs: Lung apices are normal. Soft tissues: Unremarkable. CT/CT cervical spin wo con* [id number] IMPRESSION: No acute findings.
[2022-05-14 17:11] VITALS: BP 144/68; RESP 16; O2SAT 96
[2022-05-14 17:17] LABS: Basophils # 0.1 10^3/uL (0.0-0.1); Basophils % 0.6 %; Eosinophils # 0.3 10^3/uL (0.0-0.8); Eosinophils % 3.2 %; Hematocrit 37.5 % (42.0-52.0); Hemoglobin 12.9 g/dL (11.7-16.6); Lymphocytes # 1.6 10^3/uL (0.8-4.8); Lymphocytes % 21.1 %; Mean Corpuscular HGB Conc 34.4 g/dL (30.0-36.0); Mean Corpuscular Hemoglobin 32.7 pg (28.0-34.0); Mean Corpuscular Volume 94.9 fl (80-94); Mean Platelet Volume 10.9 fL (7.4-10.4); Monocytes # 0.8 10^3/uL (0.2-0.9); Monocytes % 9.8 %; Neutrophils # 4.99 10^3/uL (1.8-7.7); Neutrophils % 64.8 %; Nucleated Red Blood Cells % 0 %; Platelet Count 197 10^3/cmm (130-400); Red Blood Count 3.95 10^6/uL (4.1-5.3); Red Cell Distribution Width 12.4 % (12.1-15.1); White Blood Count 7.7 10^3/uL (4.0-10.0)
[2022-05-14 17:33] LABS: Alanine Aminotransferase 18 U/L (0-41); Albumin Level 3.4 g/dL (3.5-5.2); Alkaline Phosphatase 82 U/L (40-130); Blood Urea Nitrogen 28 mg/dL (8-23); Calcium 8.6 mg/dL (8.5-10.5); Carbon Dioxide 23 mmol/L (22-29); Chloride 97 mmol/L (98-107); Globulin 3.3 g/dL (1.3-4.6); Glucose 257 mg/dL (65-115); Osmolality Calculated 286 mOsm/kg (285-295); Sodium 131 mmol/L (136-145); Total Bilirubin 0.3 mg/dL (0.15-1.2); Total Protein 6.7 g/dL (6.6-8.7)
[2022-05-14 17:40] LABS: Anion Gap 15.9 (5-19)
[2022-05-14 17:41] LABS: Aspartate Amino Transferase 20 U/L (0-40); Potassium 4.9 mmol/L (3.5-5.1)
[2022-05-14] MEDS: iohexol 350 mg/mL 100 mL Btl IV (18:51)
--- NOTE | 2022-05-14 19:31 | ECG_ITS ---
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 Measurements Intervals [place] Rate: 53 P: 43 IL: 206 QRS: 30 QRSD: 97 T: 46 QT: 439 QTc: 413 Interpretive Statements SINUS BRADYCARDIA WITH SINUS ARRHYTHMIA LOW QRS VOLTAGE IN EXTREMITY LEADS [QRS DEFLECTION < 0.5 mV IN LIMB LEADS] Compared to ECG 05/22/2021 00:42:25 Low QRS voltage now present Electronically Signed On 05-15-2022 14:52:04 CDT by Tomas Lemosn M.D. [id number]
[2022-05-14 19:45] VITALS: RESP 18; O2SAT 97
[2022-05-14] MEDS: HYDROmorphone 1 mg/mL INJ 1 mL 0.5 MG IVP (19:45)
[2022-05-14 20:18] LABS: Glucose Point of Care 139 mg/dL (70-110)
[2022-05-14 20:27] VITALS: BP 173/74; PULSE 55; RESP 16; O2SAT 97
[2022-05-14 21:54] VITALS: BP 173/74; PULSE 55; RESP 16; TEMP 36.2; O2SAT 97
== END 2022-05-14 21:57 ==
PROVIDERS: Emergency Provider Emergency Medicine; PCP Nurse Practitioner Family
DX: S22.42XA Multiple fractures of ribs, left side, initial encounter for closed fracture (principal); Z79.82 Long term (current) use of aspirin; Z79.4 Long term (current) use of insulin; I25.10 Atherosclerotic heart disease of native coronary artery without angina pectoris; E11.9 Type 2 diabetes mellitus without complications; E78.5 Hyperlipidemia, unspecified; Z86.73 Personal history of transient ischemic attack (TIA), and cerebral infarction without residual deficits; I10 Essential (primary) hypertension; W18.30XA Fall on same level, unspecified, initial encounter
CPT/HCPCS: 36416; 70450; 71260; 72125; 74177; 80053; 82962; 85025; 93005; 96374; 99285; J1170; Q9967

== ENCOUNTER 2022-10-09 10:32 | Outpatient (CLI) | payer OTHER, SELFPAY ==
--- NOTE | 2022-10-09 10:54 | USR_ITS ---
PROCEDURE INFORMATION: Exam: US Duplex Upper Extremity Arteries Exam date and time: 10/09/2022 11:16 AM Age: 72 years old Clinical indication: Screening exam; Arterial occlusion; Additional info: ? Arterial occlusive dz TECHNIQUE: Imaging protocol: Real-time ultrasound scan of the arteries of the bilateral upper extremities with 2-D [place] scale, color Doppler flow and spectral waveform analysis. Complete exam. COMPARISON: CT chest abd pel w con* 05/14/2022 6:28 PM FINDINGS: Right subclavian artery: No occlusion or significant stenosis. Normal waveform. Right axillary artery: No occlusion or significant stenosis. Normal waveform. Right brachial artery: No occlusion or significant stenosis. Normal waveform. Right radial artery: No occlusion or significant stenosis. Normal waveform. Right ulnar artery: No occlusion or significant stenosis. Normal waveform. Left subclavian artery: No occlusion or significant stenosis. Normal waveform. Left axillary artery: No occlusion or significant stenosis. Normal waveform. Left brachial artery: No occlusion or significant stenosis. Normal waveform. Left radial artery: No occlusion or significant stenosis. Normal waveform. Left ulnar artery: No occlusion or significant stenosis. Normal waveform. US/[place] [id number] IMPRESSION: No arterial stenosis.
== END 2022-10-09 10:33 | disposition home or self-care (01) ==
LOC: RAD 10:39
PROVIDERS: PCP Nurse Practitioner Family; Visit Provider Family Medicine
DX: I73.9 Peripheral vascular disease, unspecified (principal)
CPT/HCPCS: 93930

== ENCOUNTER 2022-12-22 23:01 | Emergency (ER) | payer OTHER, SELFPAY ==
[2022-12-22 23:02] VITALS: BP 139/61; PULSE 52; RESP 18; TEMP 37.1; O2SAT 98; BMI 40.7
--- NOTE | 2022-12-22 23:03 | ECG_ITS ---
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 Measurements Intervals [place] Rate: 53 P: 67 CO: 209 QRS: 38 QRSD: 90 T: 49 QT: 457 QTc: 430 Interpretive Statements SINUS BRADYCARDIA WITH SINUS ARRHYTHMIA Compared to ECG 05/14/2022 19:31:26 No significant changes Electronically Signed On 12-23-2022 15:36:59 CDT by Minoo Chapa M.D. [id number]
--- NOTE | 2022-12-22 23:03 | XRR_ITS ---
PROCEDURE INFORMATION: Exam: XR Chest Exam date and time: 12/22/2022 11:16 PM Age: 72 years old Clinical indication: Other: AMS TECHNIQUE: Imaging protocol: Radiologic exam of the chest. Views: 1 view. COMPARISON: CT chest abd pel w con* 05/14/2022 6:28 PM FINDINGS: Lungs: Unremarkable. No consolidation. Pleural spaces: Unremarkable. No pleural effusion. No pneumothorax. Heart/Mediastinum: Unremarkable. No cardiomegaly. Bones/joints: Unremarkable. XR/XR chest 1V portable [id number] IMPRESSION: No acute findings.
--- NOTE | 2022-12-22 23:09 | ED_ITS ---
HPI - General Adult General: Chief complaint: Recheck/Abnormal Lab/Rx Stated complaint: AMS Time Seen by Provider: 12/22/22 23:03 Source: patient and EMS Mode of arrival: EMS Limitations: no limitations History of Present Illness: 72-year-old male that 's was trying to get out of bed this evening and he was altered. When EMS arrived he would not speak but was quite confused they checked his blood sugar and it was 50. They have given him dextrose in route and he is now at his baseline he is awake answering questions he has no complaints at this time. Denies any headache. 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 Bradycardia Diabetes mellitus type 2, insulin dependent Glaucoma Hyperlipidemia Hypertension Hypoglycemia Hyponatremia Lumbar disc disease TIA (transient ischemic attack) Surgical History History of circumcision History of eye surgery Bilateral due to glaucoma Family History Brother Chronic kidney disease (CKD) Diabetes Sister Chronic kidney disease (CKD) Diabetes Family/Other Lung disease Denies family history of CAD (coronary artery disease) Clotting disorder Dementia Suicide Anesthesia complication Bleeding disorder Cancer Stroke Social History Smoking and tobacco status: never smoked Alcohol intake: never Substance/Drug Use: never Household members: spouse and family Marital status: Physical Exam Const: COMMON NORMALS: no acute distress, patient oriented x3 and healthy appearing HENMT: COMMON NORMALS: normocephalic and atraumatic HEAD & SCALP: normoceph alic and atraumatic Eye: COMMON NORMALS: conjunctivae normal CONJUNCTIVA: Yes conjunctivae normal Neck/C-Spine: COMMON NORMALS: full ROM and supple Chest: COMMONS NORMALS: normal inspection of the chest and normal palpation of entire chest wall Resp: COMMON NORMALS: normal respiratory effort, No retractions, No use of accessory muscles and clear to auscultation bilaterally AUSCULTATION: clear to auscultation bilaterally Cardio: COMMON NORMALS: regular rate, regular rhythm and No murmurs present (Cardio) RATE: regular rate RHYTHM: regular rhythm GI: COMMON NORMALS: Normal to inspection, nondistended, normoactive bowel sounds present, Soft to palpation, non-tender and no masses PALPATION: Yes Soft to palpation Extremity: COMMON NORMALS: normal to inspection and full ROM Neuro: COMMON NORMALS: patient oriented x3, moves all extremities and no focal motor deficits Psych: COMMON NORMALS: mental status grossly normal, Normal thought process present and cooperative THOUGHT PROCESS: Normal thought process present Skin: COMMON NORMALS: no rashes or lesions noted and no wounds GENERAL SKIN EXAM: no rashes or lesions noted Course Vital Signs: Vital signs: Vital Signs Temperature 98.7 F 12/22/22 23:02 Pulse Rate 57 L 12/23/22 00:45 Respiratory Rate 18 12/22/22 23:02 Blood Pressure 132/93 12/23/22 00:45 Pulse Oximetry 96 12/23/22 00:45 Oxygen Delivery Me thod Room Air 12/23/22 00:45 MDM - General Adult Medical Decision Making Patient presents here with hypoglycemia as cause of his altered mental status he has been awake and alert answering all my questions appropriately no signs of a stroke his blood glucose has been normal while here he is eating and he is stable for discharge at this time. Medical Records I reviewed the patient's medical records. Lab Data I reviewed the patient's lab results. 12/22/22 23:10 12/22/22 23:10 Radiology Impressions Chest X-Ray 12/22/22 23:03 IMPRESSION: No acute findings. Laboratory Results WBC 6.7 10^3/uL (4.0-10.0) 12/22/22 23:10 RBC 4.33 10^6/uL (4.1-5.3) 12/22/22 23:10 Hgb 13.7 g/dL (11.7-16.6) 12/22/22 23:10 Hct 40.4 % (42.0-52.0) L 12/22/22 23:10 MCV 93.3 fl (80-94) 12/22/22 23:10 MCH 31.6 pg (28.0-34.0) 12/22/22 23:10 MCHC 33.9 g/dL (30.0-36.0) 12/22/22 23:10 RDW 12.6 % (12.1-15.1) 12/22/22 23:10 Plt Count 229 10^3/cmm (130-400) 12/22/22 23:10 MPV 10.5 fL (7.4-10.4) H 12/22/22 23:10 Neut % (Auto) 51.8 % 12/22/22 23:10 Lymph % (Auto) 30.4 % 12/22/22 23:10 Garrett % (Auto) 12.3 % 12/22/22 23:10 Eos % (Auto) 4.2 % 12/22/22 23:10 Baso % (Auto) 0.7 % 12/22/22 23:10 Neut # (Auto) 3.45 10^3/uL (1.8-7.7) 12/22/22 23:10 Lymph # (Auto) 2.0 10^3/uL (0.8-4.8) 12/22/22 23:10 Garrett # (Auto) 0.8 10^3/uL (0.2-0.9) 12/22/22 23:10 Eos # (Auto) 0.3 10^3/uL (0.0-0.8) 12/22/22 23:10 Baso # (Auto) 0.1 10^3/uL (0.0-0.1) 12/22/22 23:10 Nucleated RBC % (auto) 0 % 12/22/22 23:10 Nucleated RBCs # 0.0 /100WBC 12/22/22 23:10 Sodium 134 mmol/L (136-145) L 12/22/22 23:10 Potassium 4.5 mmol/L (3.5-5.1) 12/22/22 23:10 Chloride 101 mmol/L (98-107) 12/22/22 23:10 Carbon Dioxide 24 mmol/L (22-29) 12/22/22 23:10 Anion Gap 13.5 (5-19) 12/22/22 23:10 BUN 28 mg/dL (8-23) H 12/22/22 23:10 Creatinine 1.3 mg/dL (0.7-1.2) H 12/22/22 23:10 GFR Calculation Not Reportable 12/22/22 23:10 Glucose 45 mg/dL (65-115) L 12/22/22 23:10 POC Glucose 137 mg/dL (70-110) H 12/23/22 01:19 Calculated Osmolality 281 mOsm/kg (285-295) L 12/22/22 23:10 Calcium 8.7 mg/dL (8.5-10.5) 12/22/22 23:10 Total Bilirubin 0.3 mg/dL (0.15-1.2) 12/22/22 23:10 AST 35 U/L (0-40) 12/22/22 23:10 ALT 29 U/L (0-41) 12/22/22 23:10 Alkaline Phosphatase 87 U/L (40-130) 12/22/22 23:10 Total Protein 6.7 g/dL (6.6-8.7) 12/22/22 23:10 Albumin 3.4 g/dL (3.5-5.2) L 12/22/22 23:10 Globulin 3.3 g/dL (1.3-4.6) 12/22/22 23:10 EKG Data EKG 1: I personally reviewed and interpreted this EKG as follows: EKG interpretation date: 12/22/22 EKG interpretation time: 23:19 Interpretation: sinus triny hr [address] o t wave abnormalities qrs 90 qtc 439 Computer generated interpretation: Chest X-Ray 12/22/22 23:03 IMPRESSION: No acute findings. Discharge Plan Discharge Patient Disposition: Home Clinical Impression: Hypoglycemia Condition: Stable Prescriptions: No Action mupirocin 2 % ointment 1 applic topical BID 14 Days Qty: 22 1RF (DME) Dexcom G6 Slag Worker Misc See Rx Instructions .Route Qty: 1 0RF Rx Instructions: Check BS 4-6 times a day. (DME) Dexcom G6 Sensor Device See Rx Instructions .Route Qty: 9 3RF Rx Instructions: Change every 10 days. (DME) Dexcom G6 Transmitter Device See Rx Instructions .Route Qty: 3 3RF Rx Instructions: Change every 90 days. pantoprazole 40 mg tablet,delayed release (DR/EC) 40 mg PO DAILY Qty: 90 3RF loteprednol etabonate [Lotemax] 0.5 % drops,suspension 1 drp ophthalmic (eye) TID Rx Instructions: (RIGHT EYE) latanoprost 0.005 % Drops 1 drp OPHTHALMIC (EYE) DAILY Rx Instructions: (BOTH EYES) brimonidine 0.2 % Drops 1 drp OPHTHALMIC (EYE) BID timolol maleate 0.5 % Drops 1 drp OPHTHALMIC (EYE) BID losartan 100 mg Tablet 100 mg PO DAILY dorzolamide 2 % Drops 1 drp OPHTHALMIC (EYE) TID cetirizine 10 mg Tablet 10 mg PO DAILY doxazosin 8 mg Tablet 4 mg PO DAILY insulin aspart U-100 [Novolog FlexPen U-100 Insulin] 100 unit/mL (3 mL) Insulin Pen See Rx Instructions .ROUTE .COMPLEX Qty: 0 Rx Instructions: PER SLIDING SCALE cyclobenzaprine 10 mg Tablet 10 mg PO TID PRN (Reason: Muscle Pain) albuterol sulfate 2.5 mg /3 mL (0.083 %) Solution For Nebulization 2.5 mg INHALATION Q4H PRN (Reason: Shortness Of Breath) prednisolone acetate 1 % Drops,Suspension 1 drp OPHTHALMIC (EYE) BID Rx Instructions: (RIGHT EYE) sennosides-docusate sodium 8.6-50 mg Tablet 1 tab PO BID Qty: 30 0RF hydralazine 25 mg Tablet 25 mg PO QID PRN (Reason: BP>160/100) Qty: 30 0RF Lantus U-100 Insulin 100 unit/mL solution 59 unit SUBCUT DAILY metoprolol tartrate 100 mg tablet 200 mg PO BID simvastatin 40 mg Tablet 20 mg PO DAILY isosorbide mononitrate 60 mg Tablet Extended Release 24 Hr 90 mg PO BID aspirin 81 mg Tablet,Chewable 81 mg PO DAILY Mucinex 600 mg tablet extended release 12hr 600 mg PO BID PRN (Reason: cough) Qty: 14 0RF Vitamin D3 25 mcg (1,000 unit) capsule 75 mcg PO DAILY Discharge Orders: Discharge ED (Routine); Ordered 12/23/22 Ordered By: Franko Vega Referrals: Kandace Cochran FNP [Primary Care Provider] - 1-3 days Discharge Diet: Advance as tolerated Discharge Activity: Resume usual activity Patient Instructions: Hypoglycemia in a Person with Diabetes (ED) Coding Level of Care Code ED Manager [facility] for [facility]
[2022-12-22 23:19] LABS: Glucose Point of Care 164 mg/dL (70-110)
[2022-12-22 23:23] LABS: Basophils # 0.1 10^3/uL (0.0-0.1); Basophils % 0.7 %; Eosinophils # 0.3 10^3/uL (0.0-0.8); Eosinophils % 4.2 %; Hematocrit 40.4 % (42.0-52.0); Hemoglobin 13.7 g/dL (11.7-16.6); Lymphocytes % 30.4 %; Mean Corpuscular HGB Conc 33.9 g/dL (30.0-36.0); Mean Corpuscular Hemoglobin 31.6 pg (28.0-34.0); Mean Corpuscular Volume 93.3 fl (80-94); Mean Platelet Volume 10.5 fL (7.4-10.4); Monocytes # 0.8 10^3/uL (0.2-0.9); Monocytes % 12.3 %; Neutrophils # 3.45 10^3/uL (1.8-7.7); Neutrophils % 51.8 %; Nucleated Red Blood Cells % 0 %; Platelet Count 229 10^3/cmm (130-400); Red Blood Count 4.33 10^6/uL (4.1-5.3); Red Cell Distribution Width 12.6 % (12.1-15.1); White Blood Count 6.7 10^3/uL (4.0-10.0)
[2022-12-22 23:45] LABS: Alanine Aminotransferase 29 U/L (0-41); Albumin Level 3.4 g/dL (3.5-5.2); Alkaline Phosphatase 87 U/L (40-130); Blood Urea Nitrogen 28 mg/dL (8-23); Calcium 8.7 mg/dL (8.5-10.5); Carbon Dioxide 24 mmol/L (22-29); Chloride 101 mmol/L (98-107); Globulin 3.3 g/dL (1.3-4.6); Glucose 45 mg/dL (65-115); Osmolality Calculated 281 mOsm/kg (285-295); Sodium 134 mmol/L (136-145); Total Bilirubin 0.3 mg/dL (0.15-1.2); Total Protein 6.7 g/dL (6.6-8.7)
[2022-12-22 23:50] LABS: Anion Gap 13.5 (5-19); Aspartate Amino Transferase 35 U/L (0-40); Potassium 4.5 mmol/L (3.5-5.1)
[2022-12-23 00:06] LABS: Glucose Point of Care 142 mg/dL (70-110)
[2022-12-23 00:45] VITALS: BP 132/93; PULSE 57; O2SAT 96
[2022-12-23 01:22] LABS: Glucose Point of Care 137 mg/dL (70-110)
[2022-12-23 01:46] VITALS: BP 138/64; PULSE 56; RESP 16; O2SAT 97
== END 2022-12-23 02:03 | disposition home or self-care (01) ==
PROVIDERS: Emergency Provider Emergency Medicine; PCP Nurse Practitioner Family
DX: E11.649 Type 2 diabetes mellitus with hypoglycemia without coma (principal); I25.10 Atherosclerotic heart disease of native coronary artery without angina pectoris; E78.5 Hyperlipidemia, unspecified; Z86.73 Personal history of transient ischemic attack (TIA), and cerebral infarction without residual deficits; Z79.4 Long term (current) use of insulin; Z79.82 Long term (current) use of aspirin
CPT/HCPCS: 36416; 71045; 80053; 82962; 85025; 93005; 99285

== ENCOUNTER 2023-05-21 10:23 | Outpatient (CLI) | payer OTHER, SELFPAY ==
--- NOTE | 2023-05-21 10:26 | MM_ITS ---
WS: [id number] BILATERAL 3D TOMOSYNTHESIS DIGITAL DIAGNOSTIC MAMMOGRAPHY WITH CAD CLINICAL INFORMATION: LT BR PAIN HISTORY: LEFT breast lump COMPARISON: None. TECHNIQUE: Bilateral CC, MLO, and ML views. FINDINGS: The breasts are composed of heterogeneous fibroglandular density, which can limit the detection of sm all underlying mass lesions. Marker LEFT breast. Dense underlying subareolar parenchymal tissue suspi cious for gynecomastia. Ultrasound of this area is pending. Similar-appearing less dense subareolar t issue RIGHT breast. ULTRASOUND BREAST LEFT TECHNIQUE: Ultrasound left breast focused area of concern. CLINICAL INFORMATION: LT BR PAIN FINDINGS: Ultrasound LEFT breast area of concern. Deep to the palpable marker is dense shadowing parenchymal ti ssue most compatible with gynecomastia. No discrete cystic or solid lesion. Similar-appearing subareo lar RIGHT breast tissue. Findings are benign. IMPRESSION: MM/[place] [id number] BI-RADS: 2-Benign FOLLOW UP: See Report
== END 2023-05-21 10:24 | disposition home or self-care (01) ==
LOC: RAD 10:24
PROVIDERS: PCP Nurse Practitioner Family; Visit Provider Nurse Practitioner Family
DX: N64.4 Mastodynia (principal)
CPT/HCPCS: 76642; 77062; G0279

== ENCOUNTER 2024-12-12 07:53 | Outpatient (CLI) | payer OTHER, SELFPAY ==
[2024-12-12 09:22] LABS: Basophils % 0.7 %; Eosinophils # 0.3 10^3/uL (0.0-0.8); Eosinophils % 4.8 %; Hematocrit 45.2 % (37-53); Lymphocytes % 34.6 %; Mean Corpuscular HGB Conc 33.8 g/dL (30-55); Mean Corpuscular Hemoglobin 31.4 pg (27-33); Mean Corpuscular Volume 92.8 fl (82-101); Monocytes # 0.6 10^3/uL (0.2-0.9); Monocytes % 9.6 %; Neutrophils # 2.91 10^3/uL (1.8-7.7); Neutrophils % 49.8 %; Nucleated Red Blood Cells % 0 %; Platelet Count 177 10^3/cmm (157-399); Red Blood Count 4.87 10^6/uL (3.85-5.65); Red Cell Distribution Width 12.7 % (12.1-15.1); White Blood Count 5.84 10^3/uL (3.29-11.43)
[2024-12-12 09:44] LABS: Albumin Level 3.8 g/dL (3.5-5.2); Anion Gap 15.2 (5-19); Blood Urea Nitrogen 26 mg/dL (8-23); Carbon Dioxide 26 mmol/L (22-29); Chloride 98 mmol/L (98-107); Glucose 135 mg/dL (65-115); Potassium 4.2 mmol/L (3.5-5.1); Sodium 135 mmol/L (136-145)
[2024-12-12 09:50] LABS: Parathyroid Hormone 33.8 pg/mL (15-65)
[2024-12-12 10:00] LABS: 25 Hydroxy Vitamin D 58 ng/mL (30-100)
[2024-12-12 12:40] LABS: Creatinine Urine, Random 121 mg/dL (39-259); Microalbum Creatinine Ratio Ur 17 mg/dL (0-20); Microalbumin Random Urine 2 ug/dL (0-20)
== END 2024-12-12 07:54 | disposition home or self-care (01) ==
LOC: LAB 08:01
PROVIDERS: PCP Nurse Practitioner Family; Visit Provider Internal Medicine Nephrology
DX: N18.32 Chronic kidney disease, stage 3b (principal)
CPT/HCPCS: 36415; 80069; 82044; 82306; 82310; 83970; 85025